=== PATIENT | female | born 1980 | race Caucasian/White ===

== ENCOUNTER 2018-12-21 12:30 | Emergency (ER) | payer MEDICAID, SELFPAY ==
[2018-12-21] VITALS (37 sets, daily range): BP systolic 99–162; BP diastolic 50–112; PULSE 62–114; RESP 12–40; TEMP 37; O2SAT 95–100
[2018-12-21] MEDS: Ondansetron O.D.T. 4 MG TABEF (12:40)
[2018-12-21] MEDS: Normal Saline 1,000 ML 1000 ML IV (13:00)
[2018-12-21] MEDS: LORazepam 2 MG/ML VIAL (13:10)
[2018-12-21 13:28] LABS: Abs Immature Grans 0.01 k/cumm (0.0-0.09); Absolute Basophil Count 0.02 k/cumm (0.0-0.2); Absolute Eosinophil Count 0.37 k/cumm (0.0-0.7); Absolute Lymphocyte Count 3.27 k/cumm (1.2-3.4); Absolute Monocyte Count 0.88 k/cumm (0.11-0.7); Absolute Neutrophil Count 2.34 k/cumm (1.2-6.7); Basophils % 0.3; Eosinophils % 5.4; HCT 41.1 % (36.0-46.0); HGB 13.8 g/dL (12.0-15.5); Immature Grans % 0.1; Lymphocytes % 47.5; Mean Corp. HGB Concentration 33.6 g/dL (32.0-36.0); Mean Corpuscular Hemoglobin 30.5 pg (27.0-33.0); Mean Corpuscular Volume 90.7 fL (80-95); Mean Platelet Volume 10.8 fL (8.0-11.0); Monocytes % 12.8; Neutrophils % 33.9; Platelet Count 210 x1000/uL (130-400); RBC 4.53 m/cumm (4.00-5.20); RBC Distribution Width 13.1 % (11.7-14.6); White Blood Cell Count 6.89 k/cumm (4.4-10.8)
--- NOTE | 2018-12-21 13:40 | NUR.NOTE ---
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
[2018-12-21 13:42] LABS: Bilirubin Negative (Negative); Blood Negative (Negative); Clarity Clear; Glucose Negative (Negative); Ketones Negative (Negative); Leukocyte Esterase Negative (Negative); Nitrite Negative (Negative); Specific Gravity 1.015 (1.005-1.025); Urobilinogen 0.2 EU/dL (Up TO 0.2); pH 7.5 (5-8)
[2018-12-21 13:43] LABS: ALT 18 U/L (12-78); AST 21 U/L (15-37); Albumin 3.5 g/dL (3.4-5.0); Alkaline Phosphatase 82 U/L (46-116); Anion Gap 12.6 mmol/L (3-11); BUN 9 mg/dL (7-18); Bilirubin, Total 0.3 mg/dL (0.2-1.0); CO2 24.4 mmol/L (21.0-32.0); Calcium 10.3 mg/dL (8.5-10.1); Chloride 100 mmol/L (98-107); Glucose 78 mg/dL (70-100); Potassium 3.5 mmol/L (3.5-5.1); Sodium 137 mmol/L (136-145); Total Protein 8.5 g/dL (6.4-8.2)
[2018-12-21 13:46] LABS: Troponin I < 0.02 ng/mL (0.00-0.06)
--- NOTE | 2018-12-21 13:48 | ED.GENADUL_ITS ---
Discharge Plan Disposition Patient Disposition: HOME Condition: Improving Discharge Details Chief Complaint: OD/Poison Clinical Impression: Heroin overdose, Skin lesion of face Primary Care Provider: Sebastian Wills ED Provider: Susie Thomas Home Meds and New Rx's Prescriptions: New sulfamethoxazole-trimethoprim [Bactrim DS] 800-160 mg tablet 1 tab PO BID 7 Days Qty: 14 RF: 0 Continued Glecaprevir/Pibrentasvir [Mavyret 100-40 mg Tablet] 1 EACH tablet 1 ea PO DAILY RF: 0 Discharge Instructions Instructions: Narcotic Abuse (ED), Furunculosis and Carbunculosis (ED) Additional Instructions: Take the antibiotics until finished. Follow-up with your primary care doctor in 1 week for reevaluation. Return immediately to the emergency department any worsening or new concerning symptoms. Discharge Data Discharge Physician: Susie Thomas Medical Decision Making 38-year-old female with history of IV drug abuse and hepatitis C who presents status post a heroin overdose now awake and alert after 2 doses of intranasal Narcan. Blood pressure hypertensive. Heart rate tachycardic. Patient is awake and alert and oriented but restless and moving all around stretcher. Shortly after my evaluation she became more drowsy and was given a dose of 1 mg Narcan IV. She became awake alert and restless, unable to remain still for EKG and was given a dose of 0.5 mg Ativan. Screening labs, EKG, chest x-ray, urinalysis, UDS and urine ordered on arrival. EKG notes a rate of 69, sinus, no acute ST findings. 1600 --patient was observed for 4 hours and improved. She was able to take p.o., ambulate around the ED and felt much better. Labs reviewed and unremarkable. UDS positive for cocaine and opiates. Patient requested an antibiotic for her skin lesions on her face. They appear consistent with a scabs/crusted lesions that she has been picking. No abscess but there is very minimal surrounding erythema. Will give a prescription for Bactrim. She is instructed to follow-up with the primary care doctor for reevaluation and to possibly restart her Suboxone and to return here immediately with any worsening symptoms. Medical Records Medical records reviewed: Yes I reviewed the patient's medical records. Imaging Data Radiologic Study: Radiologist's impression: CHEST X-RAY, PORTABLE AP VIEW: No priors. The heart is normal in size. The lungs are clear. The mediastinal structures and pleura appear intact. IMPRESSION: Normal chest. Lab Data Lab results reviewed: Yes I reviewed the patient's lab results. Laboratory Tests Range/Units 12/21/18 12/21/18 12/21/18 11:00 11:00 13:33 WBC (4.4-10.8) k/cumm 6.89 RBC (4.00-5.20) m/cumm 4.53 Hgb (12.0-15.5) g/dL 13.8 Hct (36.0-46.0) % 41.1 MCV (80-95) fL 90.7 MCH (27.0-33.0) pg 30.5 MCHC (32.0-36.0) g/dL 33.6 RDW (11.7-14.6) % 13.1 Plt Count (130-400) x1000/uL 210 MPV (8.0-11.0) fL 10.8 Immature Gran % 0.1 Neutrophils % 33.9 Lymphocytes % 47.5 Monocytes % 12.8 Eosinophils % 5.4 Basophils % 0.3 Absolute Neutrophils (1.2-6.7) k/cumm 2.34 Absolute Lymphocytes (1.2-3.4) k/cumm 3.27 Absolute Monocytes (0.11-0.7) k/cumm 0.88 H Absolute Eosinophils (0.0-0.7) k/cumm 0.37 Absolute Basophils (0.0-0.2) k/cumm 0.02 Sodium (136-145) mmol/L 137 Potassium (3.5-5.1) mmol/L 3.5 Chloride (98-107) mmol/L 100 Carbon Dioxide (21.0-32.0) mmol/L 24.4 Anion Gap (3-11) mmol/L 12.6 H BUN (7-18) mg/dL 9 Creatinine (0.55-1.02) mg/dL 0.90 Estimated GFR/1.73 m2 (mL/min/1.73m2) >= 60.00 Glucose (70-100) mg/dL 78 Calcium (8.5-10.1) mg/dL 10.3 H Magnesium (1.8-2.4) mg/dL 2.0 Total Bilirubin (0.2-1.0) mg/dL 0.3 AST (15-37) U/L 21 ALT (12-78) U/L 18 Alkaline Phosphatase (46-116) U/L 82 Troponin I (0.00-0.06) ng/mL < 0.02 Total Protein (6.4-8.2) g/dL 8.5 H Albumin (3.4-5.0) g/dL 3.5 Urine Color (Yellow) Yellow Urine Clarity Clear Urine pH (5-8) 7.5 Ur Specific [place] (1.005-1.025) 1.015 Urine Protein (Negative) mg/dL Negative Urine Ketones (Negative) mg/dL Negative Urine Blood (Negative) Negative Urine Nitrite (Negative) Negative Urine Bilirubin (Negative) Negative Urine Urobilinogen (Up TO 0.2) EU/dL 0.2 Ur Leukocyte Esterase (Negative) Negative Urine Glucose (Negative) mg/dL Negative Urine Opiates Screen (Negative) Urine Methadone Screen (Negative) Ur Barbiturates Screen (Negative) Ur Tricyclics Screen (Negative) Ur Amphetamines Screen (Negative) U Benzodiazepines Scrn (Negative) Urine Cocaine Screen (Negative) Ur THC Screen (Negative) Range/Units 12/21/18 13:33 WBC (4.4-10.8) k/cumm RBC (4.00-5.20) m/cumm Hgb (12.0-15.5) g/dL Hct (36.0-46.0) % MCV (80-95) fL MCH (27.0-33.0) pg MCHC (32.0-36.0) g/dL RDW (11.7-14.6) % Plt Count (130-400) x1000/uL MPV (8.0-11.0) fL Immature Gran % Neutrophils % Lymphocytes % Monocytes % Eosinophils % Basophils % Absolute Neutrophils (1.2-6.7) k/cumm Absolute Lymphocytes (1.2-3.4) k/cumm Absolute Monocytes (0.11-0.7) k/cumm Absolute Eosinophils (0.0-0.7) k/cumm Absolute Basophils (0.0-0.2) k/cumm Sodium (136-145) mmol/L Potassium (3.5-5.1) mmol/L Chloride (98-107) mmol/L Carbon Dioxide (21.0-32.0) mmol/L Anion Gap (3-11) mmol/L BUN (7-18) mg/dL Creatinine (0.55-1.02) mg/dL Estimated GFR/1.73 m2 (mL/min/1.73m2) Glucose (70-100) mg/dL Calcium (8.5-10.1) mg/dL Magnesium (1.8-2.4) mg/dL Total Bilirubin (0.2-1.0) mg/dL AST (15-37) U/L ALT (12-78) U/L Alkaline Phosphatase (46-116) U/L Troponin I (0.00-0.06) ng/mL Total Protein (6.4-8.2) g/dL Albumin (3.4-5.0) g/dL Urine Color (Yellow) Urine Clarity Urine pH (5-8) Ur Specific [place] (1.005-1.025) Urine Protein (Negative) mg/dL Urine Ketones (Negative) mg/dL Urine Blood (Negative) Urine Nitrite (Negative) Urine Bilirubin (Negative) Urine Urobilinogen (Up TO 0.2) EU/dL Ur Leukocyte Esterase (Negative) Urine Glucose (Negative) mg/dL Urine Opiates Screen (Negative) Positive Urine Methadone Screen (Negative) Negative Ur Barbiturates Screen (Negative) Negative Ur Tricyclics Screen (Negative) Negative Ur Amphetamines Screen (Negative) Negative U Benzodiazepines Scrn (Negative) Negative Urine Cocaine Screen (Negative) Positive Ur THC Screen (Negative) Negative test negative ECG Data Attestation: I personally reviewed and interpreted this ECG (s) as follows: Interpretation: Rate of 69, sinus, no acute ST elevation or depression. QTc 392. QRS 88. HPI General Mode of arrival: ambulatory . Date/Time Provider Initiated Documentation: 12/21/18 12:36 . Limitations to Documentation: no limitations . Information obtained by: patient . HPI Narrative: Patient is a 38-year-old female with a history of hepatitis C and IV drug use who presents status post a heroin overdose. [facility] of her facial lesions which she states is a staph infection when she became unresponsive. Patient states she snorted heroin and smoked crack cocaine right prior to that. She was noted to be breathing by staff but was unresponsive and given 2 doses of intranasal Narcan and she became awake and alert. Patient states she has felt fatigue for the past few days due to not sleeping with her drug use. She states she had been clean from heroin, but recently started snorting and injecting heroin again recently. She states she had been on Suboxone but not for the past few days. She denies any recent fever, chest pain or shortness of breath. Related Data Home Medications Medication Instructions Recorded Confirmed Glecaprevir/Pibrentasvir [Mavyret 1 ea PO DAILY 01/26/18 100-40 mg Tablet] sulfamethoxazole-trimethoprim 1 tab PO BID 7 Days #14 tab 12/21/18 [Bactrim DS] Previous Rx's Medication Instructions Recorded sulfamethoxazole-trimethoprim 1 tab PO BID 7 Days #14 tab 12/21/18 [Bactrim DS] Allergies Allergy/AdvReac Type Severity Reaction Status Date / Time No Known Allergies Allergy Unverified 12/21/18 12:52 Review of Systems Review of Systems All systems reviewed & are unremarkable except as noted in HPI and below Constitutional Reports as per HPI, Denies chills, Reports fatigue and Denies fever(s) Eyes Denies blurry vision ENT Denies dizziness, Denies sore throat and Denies throat swelling Cardiovascular Denies chest pain and Denies dyspnea Respiratory Reports cough and Denies dyspnea Gastrointestinal Denies abdominal pain, Denies diarrhea and Denies vomiting Genitourinary Denies hematuria and Denies dysuria Musculoskeletal Denies back pain and Denies numbness Integumentary/Breasts Denies lesions and Denies rash Neurologic Denies dizziness, Denies focal weakness and Denies numbness Endocrine Reports fatigue Allergic/Immunologic Denies throat swelling [facility] Medical History IV drug abuse (Acute) Hepatitis C Surgical History No significant past surgical history (Acute) Family History Mother Hyperlipidemia Father Hyperlipidemia Grandfather Myocardial infarction Grandmother Breast cancer Other Diabetes Social History Smoking/Tobacco Use Status: Current every day Alcohol Intake: current Alcohol Intake frequency: a few times a month Substance use type: crack/cocaine and heroin Do you feel safe in your relationship?: Yes Exam Const General: other (restless, moving around stretcher, dry heaving at times) Orientation: alert, awake and oriented x3 HENMT Head: normal to inspection Ears: hearing grossly normal bilaterally, external ears normal and TM's normal bilaterally General nose exam: external nose normal Face and sinus: normal facial exam Mouth: oral mucosae normal Teeth and gingiva: dentition normal Throat: posterior oropharynx normal Eyes General: appearance normal, both eyes and all related structures Eyelids: eyelids normal Pupils: PERRL EOM: EOM intact bilaterally Neck Neck: normal visual inspection Lymphatic: no lymphadenopathy noted Chest Chest: normal inspection of the chest Resp Effort & Inspection: normal respiratory effort and able to speak in complete sentences Auscultation: clear to auscultation bilaterally Cardio Rate: regular rate Rhythm: regular rhythm GI Inspection: normal to inspection Palpation: soft, not firm, no guarding, no hepatosplenomegaly, no masses and nontender Auscultation: normal bowel sounds Skin Lesions: lesion noted (all over face, crusted papules, erosions, no active bleeding, no abscess) Neuro General: alert and awake Cognition: normal cognition Speech: speech normal Gait: normal gait Motor: muscle tone normal throughout Sensory Exam: no sensory deficits noted Extrem General: normal to inspection, full ROM, normal capillary refill and no edema Psych Appearance: grossly normal Mental Status: mental status grossly normal Speech and Movement: speech and movement normal Affect: normal affect Thought Process: normal
[2018-12-21 14:11] LABS: *AMPHETAMINES SCREEN URINE Negative (Negative); *BARBITURATES SCREEN URINE Negative (Negative); *BENZODIAZEPINES SCREEN URINE Negative (Negative); Cannabinoids THC Negative (Negative); Cocaine Screen,Urine POSITIVE (Negative); METHADONE URINE SCREEN Negative (Negative); OPIATES URINE SCREEN POSITIVE (Negative)
[2018-12-21 14:15] LABS: Tricyclic Antidepressants Negative (Negative)
--- NOTE | 2018-12-21 14:17 | DI.RAD_ITS ---
SYMPTOMS/DIAGNOSIS: COUGH, UNRESPONSIVE EPISODE, ? ACUTE DISEASE CHEST X-RAY, PORTABLE AP VIEW: No priors. The heart is normal in size. The lungs are clear. The mediastinal structures and pleura appear intact. IMPRESSION: Normal chest.
--- NOTE | 2018-12-21 16:05 | NUR.NOTE ---
Nursing Note: able to walk to [place] /drinking juice/talking with Carly bell coach.
--- NOTE | 2018-12-22 09:36 | PDOC.ERCMPRO ---
Care Management Progress Note 12/22-Dr. Thomas requested assistance with a PCP (Dr. Wills) f/u as soon as possible for heroin overdose. Lesion on face, Dr. Thomas prescribed Bactrim. Please see provider note. This CM called Dr. Wills's office and spoke with Ani. Ani states they will reach out to [facility] and schedule an appt. Dr. Wills's office already has a copy of Dr. Thomas's note.
--- NOTE | 2018-12-22 09:39 | CMPROGNOTE_ITS ---
Care Management Progress Note 12/22-Dr. Thomas requested assistance with a PCP (Dr. Wills) f/u as soon as possible for heroin overdose. Lesion on face, Dr. Thomas prescribed Bactrim. Please see provider note. This CM called Dr. Wills's office and spoke with Ani. Ani states they will reach out to [facility] and schedule an appt. Dr. Wills's office already has a copy of Dr. Thomas's note.
== END 2018-12-21 17:00 | disposition home or self-care (01) ==
PROVIDERS: Emergency Provider Physician Assistant; PCP Internal Medicine
DX: T40.1X1A Poisoning by heroin, accidental (unintentional), initial encounter (principal); R00.0 Tachycardia, unspecified; L98.9 Disorder of the skin and subcutaneous tissue, unspecified; F19.10 Other psychoactive substance abuse, uncomplicated
CPT/HCPCS: 36415; 51701; 80053; 80307; 81025; 93005; 96361; 96374; 99285; 71045; 81003; 83735; 84484; 85025; 93010; J2060; J2310

== ENCOUNTER 2019-03-04 15:11 | Emergency (ER) | payer MEDICAID, SELFPAY ==
--- NOTE | 2019-03-04 15:28 | NUR.NOTE ---
pt stats that she had like a zit or or maybe an ingrown hair on like i dont know something and then i think it got infected its oozing pt has noticeable swelling on the left side of her face that. pt has recent history of staff
[2019-03-04 15:31] VITALS: BP 122/77; PULSE 88; RESP 17; TEMP 36.6; O2SAT 98
[2019-03-04 15:35] VITALS: RESP 17
--- NOTE | 2019-03-04 15:48 | W.ED.GENAD ---
Discharge Plan Disposition Patient Disposition: HOME Condition: Good Discharge Details Chief Complaint: GenMedical Clinical Impression: Abscess Primary Care Provider: Sebastian Wills ED Provider: Josh Ware Home Meds and New Rx's Prescriptions: New clindamycin HCl 150 mg capsule 450 mg PO TID 7 Days Qty: 63 RF: 0 No Action buprenorphine-naloxone [Suboxone] 4-1 mg Film 2 film SUBLINGUAL DAILY RF: 0 Discharge Instructions Instructions: Abscess (ED) Additional Instructions: Please take the antibiotic as directed. Please take Tylenol and Motrin as needed for control of your pain. If you notice any worsening of your symptoms, or any new symptoms such as vomiting, diarrhea, fever, chills, shortness of breath, chest pain, numbness, weakness, or fainting , please return immediately to the emergency department for reevaluation. Please follow up with your primary care provider as soon as possible for reassessment and reevaluation. As always, it was a pleasure participating in your medical care today. Referrals: Sebastian Wills [Primary Care Provider] - Medical Decision Making This is a pleasant 38-year-old female who presents today for evaluation of swelling and abscess on her left nose. Symptoms have been present for 4 days. There is an area of scab on the left side of the nose, mild to moderate fluctuance, with confirmation of fluid collection on bedside ultrasound. With concern for abscess and 18-gauge needle was used to make a small incision in the left nose. A notable amount of purulent material was exuded. The patient had significant improvement of her symptoms after this. We will give her first dose of clindamycin here, and a prescription for home use. We have sent wound cultures. I have extensively reviewed the treatment plan and discharge instructions with the patient and their family. I have addressed all patient concerns at this time. The patient and family was made aware of what symptoms to monitor for that would warrant a return to the emergency department. Discussed the plan with the patient and family, they demonstrate verbal understanding and agreement with our assessment and plan at this time. HPI General Date/Time Provider Initiated Documentation: 03/04/19 15:12. HPI Narrative: This is a 38-year-old female with a past medical history of IV drug use, previous abscesses who presents today for evaluation of swelling pain tenderness drainage on her left nose. Patient states that is been present for the last 4 days. Gradually been worsening. She did admit to some earlier drainage that she got when trying to self squeeze the area. She denies any fever, chills, headache, or neck pain. She denies any vomiting, diarrhea or chills. She denies any vision changes. No other complaints at this time. Related Data Home Medications Medication Instructions Recorded Confirmed buprenorphine-naloxone [Suboxone] 2 film SUBLINGUAL DAILY 03/04/19 03/04/19 clindamycin HCl 450 mg PO TID 7 Days #63 cap 03/04/19 Previous Rx's Medication Instructions Recorded clindamycin HCl 450 mg PO TID 7 Days #63 cap 03/04/19 Allergies Allergy/AdvReac Type Severity Reaction Status Date / Time No Known Allergies Allergy Unverified 03/04/19 15:33 General Stated Complaint: GenMedical TRACY: 4 Review of Systems Review of Systems All systems reviewed & are unremarkable except as noted in HPI and below PFSH Medical History IV drug abuse (Acute) Hepatitis C Social History Smoking/Tobacco Use Status: Current every day Tobacco Type: cigarettes Alcohol Intake: current Alcohol Intake frequency: a few times a month Alcohol type: beer Drug use: Occasionally Substance use type: crack/cocaine and heroin Do you feel safe at home: Yes Do you feel safe in your relationship?: Yes Exam Narrative Exam Narrative: 1.Const: Well-nourished, Well-developed, appearing stated age 2.Eyes: PERRL, no conjunctival injection, and symmetrical lids. 3.ENT: Atraumatic external nose and ears. Moist MM. Neck: Symmetric, trachea midline, No thyromegaly. The patient's left nose demonstrates a small abscess is confirmed by bedside ultrasound. No active drainage at this time. Minimal erythema. No progression to the triangle of , or the periorbital region. Patient demonstrates good movement of cervical neck. There is no nuchal rigidity, no nuchal tenderness. Patient is able to flex the neck without any difficulty or significant pain. Negative Kernig's and Brudzinski sign. No frontal or maxillary sinus tenderness 4.CVS: +S1/S2, No murmurs or gallops. Peripheral pulses 2+ and equal in all extremities. Brisk capillary refill in all extremities. 5.RESP: Unlabored respiratory effort. Clear to auscultation bilaterally. No wheezes rales or rhonchi 6.GI: Soft, Nontender/Nondistended, No hepatosplenomegaly. No guarding or rebound. 7.MSK: Normocephalic/Atraumatic, Extremities w/o deformity or ttp No cyanosis or clubbing, Normal movement of all extremities 8.Skin: Warm, Dry. No rashes or lesions. 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 Sensation grossly intact, no focal neurologic deficits. 10.Psych: (AAO) x3. Appropriate mood and affect Course Vital Signs Temperature 36.6 C 03/04/19 15:31 Pulse 88 03/04/19 15:31 Respiratory Rate 17 03/04/19 15:31 Blood Pressure 122/77 03/04/19 15:31 Pulse Oximetry 98 03/04/19 15:31 Temperature 36.6 C 03/04/19 15:31 Temperature Source Skin 03/04/19 15:31 Pulse 88 03/04/19 15:31 Respiratory Rate 17 03/04/19 15:35 Respiratory Effort 03/04/19 15:35 Respiratory Depth Normal 03/04/19 15:35 Respiratory Pattern Normal 03/04/19 15:35 Blood Pressure 122/77 03/04/19 15:31 Blood Pressure Position Sitting 03/04/19 15:31 Pulse Oximetry 98 03/04/19 15:31 Oxygen Delivery Method Room Air 03/04/19 15:31 Oxygen Flow Rate 0 03/04/19 15:31 Pain Level 2 03/04/19 15:31
[2019-03-04] MEDS: Clindamycin 150 MG CAP 450 MG PO (16:01)
== END 2019-03-04 16:05 | disposition home or self-care (01) ==
PROVIDERS: Emergency Provider Student in an Organized Health Care Education/Training Program; PCP Internal Medicine
DX: J34.0 Abscess, furuncle and carbuncle of nose (principal); R60.0 Localized edema; B95.62 Methicillin resistant Staphylococcus aureus infection as the cause of diseases classified elsewhere; F11.10 Opioid abuse, uncomplicated; F14.10 Cocaine abuse, uncomplicated; Z86.19 Personal history of other infectious and parasitic diseases
CPT/HCPCS: 10060; 87077; 87070; 87186; 87205

== ENCOUNTER 2020-03-22 02:59 | Emergency (ER) | payer MEDICAID, SELFPAY ==
[2020-03-22 03:17] VITALS: BP 138/99; PULSE 101; RESP 18; TEMP 36.7; O2SAT 95
--- NOTE | 2020-03-22 03:32 | ED.GENADUL_ITS ---
Discharge Plan Disposition Patient Disposition: HOME Condition: Good Discharge Details Chief Complaint: GenMedical Clinical Impression: Weight gain, Edema Primary Care Provider: Sebastian Wills ED Provider: Josh Ware Home Meds and New Rx's Prescriptions: No Action No Known Home Meds RF: 0 Discharge Instructions Instructions: High Fiber Diet (ED), Gastroesophageal Reflux Disease (ED) Additional Instructions: At this time there is no evidence of sepsis or other acute life-threatening abnormality including sepsis. I am concerned that your weight gain and the mild swelling in your lower extremities is likely from your increase in instant/preserved foods. Please avoid these, try to stick with a diet high in fiber. Recommending decreasing her salt intake is much as possible. Please use the knee-high stockings that we discussed. Please feel free to take a Tums before you go to sleep, do not eat anything 4 to 6 hours prior to bedtime, and try to sleep with 1 or 2 pillows behind your to prop your head and chest up a little. If you notice any worsening of your symptoms, or any new symptoms such as vomiting, diarrhea, fever, chills, shortness of breath, chest pain, numbness, weakness, or fainting , please return immediately to the emergency department for reevaluation. Please follow up with your primary care provider as soon as possible for reassessment and reevaluation. As always, it was a pleasure participating in your medical care today. Referrals: Sebastian Wills [Primary Care Provider] - Medical Decision Making 39-year-old female with a past medical history of hepatitis C, previous IV drug use, IUD, who presents today for medical evaluation patient patient states multiple concerns, the chief of which that she is concerned about her recent weight gain, mild swelling in her lower extremities, and states that her mother said that she needed to be ruled out for sepsis. Patient describes that for the last few months she has had notable weight gain, particularly around her belly. She feels that it is more bloated than normal. She is also noticed very mild amount of swelling in her lower extremities. She states that she was seen by her family a few days ago they were concerned that she might be septic that she should go to the doctor some time to get that checked out. She also complains of an acid-like sensation and small amounts of vomit noted in and around her nose in the morning when she wakes up. She also states this is been going on for quite some time. She does eat citrus products, but denies any significant spicy products otherwise. Patient has no other complaints at this time. She denies any IV or illicit drug use for greater than 4 months. She denies any fever or chills. She denies any night sweats, diarrhea, hematochezia, melena or acholic stool, she denies any hematemesis, abdominal pain, chest pain, arm neck shoulder leg headache or back pain. She denies any other complaints at this time. No other modifying factors. She denies any history of malignancy or family history of malignancy in first-degree relatives. Exam is notably unremarkable, no murmur, no fever or chills, vital signs stable, no clinical evidence of sepsis whatsoever. No evident source of infection. No urinary complaints, no vaginal discharge. Abdominal exam demonstrates no tenderness or bloating however she does have a notable amount of adipose on the anterior abdominal wall, no mass or tumors present that I can appreciate. Patient's lower extremities demonstrate very minimal trace pitting edema. No evidence of significant edema. Patient does note significant recent increase in preprepared food/instant foods. I suspect that the patient's weight gain and new adipose collections are secondary to this. Additionally with a significant salt increase I feel that this is the likely reason for the small amount of minimal nonpitting edema in lower extremities. She has no goiter or signs of thyroid abnormality clinically. The remainder of her exam is benign, no clinical evidence of sepsis, or infection. At this time will recommend change in diet for her reflux, knee-high stockings to help with swelling, change in diet for weight loss, recommendation for low-salt diet, in conjunction with high-fiber diet. Discussed red flags for which to return. At this time patient shows no evidence of acute life-threatening abnormality and will be discharged home with recommendations for close follow-up with PCP. I have extensively revi ewed the treatment plan and discharge instructions with the patient. I have addressed all patient concerns at this time. The patient was made aware of what symptoms to monitor for that would warrant a return to the emergency department. Discussed the plan with the patient, they demonstrate verbal understanding and agreement with our assessment and plan at this time. HPI General Date/Time Provider Initiated Documentation: 03/22/20 03:12 . HPI Narrative: 39-year-old female with a past medical history of hepatitis C, previous IV drug use, IUD, who presents today for medical evaluation patient patient states multiple concerns, the chief of which that she is concerned about her recent weight gain, mild swelling in her lower extremities, and states that her mother said that she needed to be ruled out for sepsis. Patient describes that for the last few months she has had notable weight gain, particularly around her belly. She feels that it is more bloated than normal. She is also noticed very mild amount of swelling in her lower extremities. She states that she was seen by her family a few days ago they were concerned that she might be septic that she should go to the doctor some time to get that checked out. She also complains of an acid-like sensation and small amounts of vomit noted in and around her nose in the morning when she wakes up. She also states this is been going on for quite some time. She does eat citrus products, but denies any significant spicy products otherwise. Patient has no other complaints at this time. She denies any IV or illicit drug use for greater than 4 months. She denies any fever or chills. She denies any night sweats, diarrhea, hematochezia, melena or acholic stool, she denies any hematemesis, abdominal pain, chest pain, arm neck shoulder leg headache or back pain. She denies any other complaints at this time. No other modifying factors. She denies any history of malignancy or family history of malignancy in first-degree relatives. Related Data Home Medications Medication Instructions Recorded Confirmed Unknown [No Known Home Meds] 03/22/20 03/22/20 Allergies Allergy/AdvReac Type Severity Reaction Status Date / Time No Known Allergies Allergy Unverified 03/22/20 03:16 General Stated Complaint: GenMedical TRACY: 3 Review of Systems All systems reviewed & are unremarkable except as noted in HPI and below PFSH Medical History Hepatitis C Chronic IV drug abuse (Acute) Surgical History No significant past surgical history (Acute) Family History Mother Hyperlipidemia Father Hyperlipidemia Grandfather , Heart disease Myocardial infarction >50y.o Grandmother Breast cancer Other Diabetes Social History Smoking/Tobacco Use Status: Current every day Tobacco Type: cigarettes Alcohol Intake: current Alcohol Intake frequency: a few times a month Alcohol type: beer Drug use: Occasionally Substance use type: crack/cocaine and heroin Do you feel safe at home: Yes Do you feel safe in your relationship?: Yes Exam Narrative Exam Narrative: 1.Const: Well-nourished, Well-developed, appearing stated age 2.Eyes: PERRL, no conjunctival injection, and symmetrical lids. 3.ENT: Atraumatic external nose and ears. Moist MM. Neck: Symmetric, trachea midline, No thyromegaly. Patient demonstrates good movement of cervical neck. There is no nuchal rigidity, no nuchal tenderness. Patient is able to flex the neck without any difficulty or significant pain. Negative Kernig's and Brudzinski sign. No goiter 4.CVS: +S1/S2, No murmurs or gallops. Peripheral pulses 2+ and equal in all extremities. Brisk capillary refill in all extremities. 5.RESP: Unlabored respiratory effort. Clear to auscultation bilaterally. No wheezes rales or rhonchi 6.GI: Soft, Nontender/Nondistended, No hepatosplenomegaly. No guarding or rebound. Mild to moderate amount of adipose noted, no distention whatsoever, no evidence of significant bloating. No pain at McBurney's point, negative Dietz sign. Bedside ultrasound shows no evidence of intrauterine . 7.MSK: Normocephalic/Atraumatic, Extremities w/o deformity or ttp No cyanosis or clubbing, Normal movement of all extremities. No calf tenderness, trace/absolute minimal nonpitting edema. Neurovascular exam normal with +2 dorsalis pedis and posterior tibial pulses bilaterally. 8.Skin: Warm, Dry. No rashes or lesions. 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 Sensation grossly intact, no focal neurologic deficits. 10.Psych: (AAO) x3. Appropriate mood and affect Course Vital Signs Vital signs: Vital Signs Temperature 36.7 C 03/22/20 03:17 Pulse 101 H 03/22/20 03:17 Respiratory Rate 18 03/22/20 03:17 Blood Pressure 138/99 H 06/13/20 03:17 Pulse Oximetry 95 03/22/20 03:17 Temperature 36.7 C 03/22/20 03:17 Temperature Source Oral 03/22/20 03:17 Pulse 101 H 03/22/20 03:17 Respiratory Rate 18 03/22/20 03:17 Respiratory Effort 03/22/20 03:17 Blood Pressure 138/99 H 03/22/20 03:17 Blood Pressure Position Sitting 03/22/20 03:17 Pulse Oximetry 95 03/22/20 03:17 Oxygen Delivery Method Room Air 03/22/20 03:17 Oxygen Flow Rate 0 03/22/20 03:17 Pain Level 0 03/22/20 03:17
[2020-03-22 03:39] VITALS: BP 138/99; PULSE 92; RESP 18; TEMP 36.7; O2SAT 95
== END 2020-03-22 03:45 | disposition home or self-care (01) ==
LOC: ER 03:46
PROVIDERS: Emergency Provider Student in an Organized Health Care Education/Training Program; PCP Internal Medicine
DX: R63.5 Abnormal weight gain (principal); R60.0 Localized edema; K21.9 Gastro-esophageal reflux disease without esophagitis
CPT/HCPCS: 99282; 99283

== ENCOUNTER 2020-12-19 17:22 | Outpatient (REF) | payer MEDICAID, SELFPAY ==
--- NOTE | 2020-12-19 15:10 | PAPFT_PTH ---
PATIENT: Carlene Augustine LOC: [facility] U#:[id number] AGE/SX: 40/F ROOM: RE12/19/[address]: Elizabeth Berman : 1980 BED: DIS: 12/19/2020 SPEC #: [id number] RECD: 12/19/20 17:48 STATUS: BRANDOEugene RETrevor #: [id number] WAN: 12/19/20 15:[address]: Elizabeth Berman DEPT: [facility] Cytology RECD BY: Katlyn Bowden ENTERED: 12/19/20 17:48 SP TYPE: PAPFT OTHR DR: Sebastian Wills Tissues: 1 - CX/ENDOCX FOR PAP SMEARS Procedures: PAP THIN PREP/UVM Screening HPV DNA PROBE Comments: [id number]
[2020-12-22 15:47] LABS: Chlamydia Result Negative (Negative); GC Result Negative (Negative)
== END 2020-12-19 17:23 | disposition home or self-care (01) ==
LOC: LBN 17:22
PROVIDERS: PCP Internal Medicine; Visit Provider Obstetrics & Gynecology Gynecology
DX: Z20.2 Contact with and (suspected) exposure to infections with a predominantly sexual mode of transmission (principal); Z11.3 Encounter for screening for infections with a predominantly sexual mode of transmission; Z12.4 Encounter for screening for malignant neoplasm of cervix; Z11.51 Encounter for screening for human papillomavirus (HPV)
CPT/HCPCS: 87491; 87591; 88142; 87624

== ENCOUNTER 2021-07-07 15:39 | Outpatient (REF) | payer MEDICAID, SELFPAY ==
[2021-07-09 15:25] LABS: Chlamydia Result Negative (Negative); GC Result Negative (Negative)
== END 2021-07-07 15:40 | disposition home or self-care (01) ==
LOC: LBN 15:39
PROVIDERS: PCP Internal Medicine; Visit Provider Nurse Practitioner Family
DX: N89.8 Other specified noninflammatory disorders of vagina (principal); R30.0 Dysuria; Z11.3 Encounter for screening for infections with a predominantly sexual mode of transmission
CPT/HCPCS: 87491; 87591; 87480; 87510; 87660

== ENCOUNTER 2022-11-09 15:46 | Outpatient (REF) | payer MEDICAID, SELFPAY ==
--- NOTE | 2022-11-09 14:45 | SKI_PTH ---
PATIENT: Carlene Augustine LOC: [facility] U#:[id number] AGE/SX: 42/F ROOM: RE11/09/[address]: Mira Wood : 1980 BED: DIS: 11/09/2022 SPEC #: [id number] RECD: 11/09/22 18:24 STATUS: CORA REQ #: [id number] WAN: 11/09/22 14:[address] RECD BY: Katlyn Bowden ENTERED: 11/09/22 18:26 SP TYPE: JOSÉ HOLLOWAY DR: Sebastian Wills Tissues: 1 - SKIN BIOPSY(SHAVE/PUNCH) Procedures: SKIN LEVEL 4 Comments: [id number]
== END 2022-11-09 15:47 | disposition home or self-care (01) ==
LOC: LBN 15:46
PROVIDERS: PCP Internal Medicine; Visit Provider Nurse Practitioner Family
DX: C43.4 Malignant melanoma of scalp and neck (principal)
CPT/HCPCS: 88305

== ENCOUNTER 2022-12-22 01:31 | Outpatient (CLI) | payer MEDICAID, SELFPAY ==
--- NOTE | 2022-12-22 06:45 | DI.US_ITS ---
Exam(s) US BREAST RT COMPLETE MAMMO DIAGNOSTIC BI EXAM: MAMMO DIAGNOSTIC BI and U/S breast RT complete CLINICAL HISTORY: ABNL FINDINGS ON PET SCAN,R94.8. TECHNIQUE: Craniocaudal and mediolateral oblique Full Field Digital Mammography views with Computer Aided Diagnosis followed by Tomosynthesis and right breast ultrasound. COMPARISON: This is a baseline examination. FINDINGS: Mammography/Tomosynthesis: Masses/Architectural Distortion: There is a 0.7 cm well-circumscribed nodule in the lower inner quadr ant of the left breast. Microcalcifictions: No suspicious pleomorphic-type are seen. Skin Thickening/Nipple Retraction: None. Complete right breast US: Echotexture: Normal appearance of the glandular tissue. There are 2 areas in the right breast, one a t the 11 o'clock position 1 cm from the nipple and one at the 9 o'clock position 3 cm from the nipple . On real-time imaging, these appear to represent normal fibroglandular tissue. Shadowing: No suspicious foci. Cyst: There is a 0.4 x 0.2 cm cyst at the 7 o'clock position of the right breast 1 cm from the nipple . There is a 0.4 x 0.4 cm cyst at the 8 o'clock position 2 cm from the nipple. Solid lesions: There is an ovoid radially oriented 0.6 x 0.4 x 0.8 cm hypoechoic nodule at the 4 o'cl ock position of the right breast 4 cm from the nipple. This corresponds to the mammographic abnormal ity. It has a benign appearance suggesting a fibroadenoma. Ductal dilation: None. IMPRESSION: 1. No evidence of malignancy is noted. 2. Given the density of the breast in the findings on the PET scan, a breast MRI is recommended for f urther evaluation. 3. Findings were discussed with the patient on the date of the examination and Dr. Oleg Celeste at 11: 15 a.m. on 12/22/2022. BI-RADS Category 0 - Assessment Incomplete: Need additional imaging evaluation Breast Density - Category C - Heterogeneously dense Breast density Category C or D implies that the patient has dense breast tissue. Dense breast tissue can make it harder to find cancer on a mammogram. Dense breast tissue is also associated with an incr eased risk of breast cancer. This information about the result of the mammogram report was provided to the patient to raise their awareness. Use this report when you speak with the patient about their risks for breast cancer, which includes their family history. At that time, you may recommend additional screening tests (Ultrasoun d or MRI) as these tests may add significant information. A negative radiographic report should not delay biopsy if a dominant or clinically suspicious mass is present. Up to ten percent of cancers are not identified on mammography. A negative report may reinforce clinical impression. Adenosis and dense breasts may obscure an underlying neoplasm. False positive reports average 6 to 10%. Patient will receive a letter notifying them of these results.
== END 2022-12-22 01:51 ==
LOC: DI 01:32
PROVIDERS: PCP Internal Medicine; Visit Provider Surgery
DX: R92.8 Other abnormal and inconclusive findings on diagnostic imaging of breast (principal); N63.24 Unspecified lump in the left breast, lower inner quadrant; N63.11 Unspecified lump in the right breast, upper outer quadrant; N60.11 Diffuse cystic mastopathy of right breast; N63.14 Unspecified lump in the right breast, lower inner quadrant
CPT/HCPCS: 76642; 77062; 77066; G0279

== ENCOUNTER 2022-12-31 06:23 | Day surgery (SDC) | payer MEDICAID, SELFPAY ==
--- NOTE | 2022-12-30 14:50 | W.ANESPRE ---
General Info Date of Service Date Performed: 12/31/22 Height: 5 ft 7.5 in Weight: 68.039 kg Body Mass Index (BMI): 23.1 Surgical Procedure: Operation Date: 12/31/22 07:40 Proposed Procedure Side Surgeon p Excision Neck Melanoma Sentinal Node Excision, Neck vs Axillary Left Oleg Celeste MD Meds Allergies and Home Medications Allergies Allergy/AdvReac Type Severity Reaction Status Date / Time No Known Allergies Allergy Verified 12/30/22 11:19 Home Medication Medication Instructions Recorded atomoxetine 40 mg capsule 40 mg PO DAILY 11/12/22 buprenorphine 8 mg-naloxone 2 mg 2 film buccal BID 11/12/22 sublingual film bupropion HCl 300 mg 24 hr tablet, 300 mg PO QAM 11/12/22 extended release clonidine HCl 0.1 mg tablet 0.1 mg PO QHS PRN 12/10/22 docusate sodium 100 mg capsule 100 mg PO DAILY PRN 12/10/22 Current Visit Medications: Current Medications Generic Name Dose Route Start Last Admin Trade Name Freq PRN Reason Stop Dose Admin Acetaminophen 1,000 mg 12/31/22 06:00 Acetaminophen 500 Mg Tab PO 12/31/22 23:59 PREOP JOELLE Gabapentin 600 mg 12/31/22 06:00 Gabapentin 300 Mg Cap PO 12/31/22 23:59 PREOP JOELLE Ringer's Solution 1,000 mls @ 80 mls/hr 12/31/22 06:00 IV 01/07/23 23:59 INFUSION JOELLE Cefazolin Sodium/Dextrose 2 gm in 50 mls @ 100 mls/hr 12/31/22 06:00 Ancef Duplex IVPB 12/31/22 23:59 PREOP JOELLE IV Miscellaneous Supplies 1 each 12/31/22 06:00 Iv Access IV 01/07/23 23:59 DIRECTED JOELLE Sodium Chloride 0 ml 12/31/22 06:00 Normal Saline Flush 10 Ml Syr IV 01/07/23 23:59 PRN PRN Sodium Chloride 0 ml 12/31/22 06:00 Normal Saline 10 Ml Vial IJ 01/07/23 23:59 DIRECTED PRN Sterile Water 0 ml 12/31/22 06:00 Water,Injection,Sterile 10 Ml Vial IJ 01/07/23 23:59 DIRECTED PRN PFSH Active Problems Active Problems: Problem Status Onset Code Opioid abuse F11.10 Tobacco use Z72.0 Encounter for IUD removal Z30.432 Counseling for control regarding intrauterine device (IUD) Z30.09 Screening for malignant neoplasm of cervix Z12.4 Routine screening for STI (sexually transmitted infection) Z11.3 Anxiety F41.9 Malignant melanoma C43.9 Chronic narcotic dependence F11.20 ADHD F90.9 Smoker F17.200 Abnormal positron emission tomography (PET) scan R94.8 Medical History Medical History Abscess of skin Depression Hepatitis C treated w/ negative viral load IV drug abuse Pt. states last used 08/2022. Plantar fasciitis, bilateral PTSD (post-traumatic stress disorder) Per pt. states no triggers at this time. Visual changes Surgical History Surgical History (Updated 12/31/22 @ 06:44 by Ailyn Salazar) H/O wisdom tooth extraction History of placement of ear tubes No significant past surgical history Tobacco Smoking/Tobacco Use Status: Current every day Tobacco Type: cigarettes Alcohol Alcohol Intake: current Alcohol intake frequency: a few times a month Alcohol type: beer Substance Use Substance use: Current Sobriety Substance use type: former substance user, crack/cocaine and heroin Vital Signs and Lab Results Lab Results Blood Type / Crossmatch: No Data to Display Complete Blood Count: No Data to Display Complete Metabolic Panel: No Data to Display Liver Function Panel: No Data to Display Coagulation Panel: No Data to Display Cardiac Panel: No Data to Display Arterial Blood Gas: No Data to Display Venous Blood Gas: No Data to Display Pancreas Panel: No Data to Display Thyroid Panel: No Data to Display Infectious Disease: Coronavirus (COVID-19)(PCR) Pending 12/31/22 06:35 Coronavirus 2019 Source Nasal/Nares 12/31/22 06:35 Blood Cultures: No Data to Display Toxicology Panel: No Data to Display Panel: No Data to Display Anesthesia Assessment and Plan Anesthesia History Personal History: No History of Anesthesia Complications Family History: No Family History of Anesthesia Complications Exercise Tolerance Exercise Tolerance: Metabolic Equivalents>4 Cardiac & Pulmonary Exam Cardiac Exam: Normal S1/S2 Heart Sounds Pulmonary Exam: Clear Bilateral Breath Sounds Implantable Cardiac Device Does patient have a Pacemaker or an ICD?: No Airway Exam Known Difficult Airway: No Mallampati Class: 3 Mouth Opening: Normal (> 3cm) Thyromental Distance: Greater than 3 cm Neck Range of Motion: Full ROM Neck Circumference: Normal Teeth Condition: Normal Dentition ASA Classification ASA Score: ASA 2 Emergency Case?: No NPO Status NPO Status: NPO Clears >2 hours, Solids >8 hours Status Status: Negative HCG Anesthesia Plan Resuscitation Status: Full Code Anesthesia Technique: General Anesthesia Airway Planned: LMA Pain Management: Surgeon and patient request nerve block Monitors Used: Standard Monitors Preoperative Comments:: 42 yo female for neck mass and sentinel node. Sig PMHx: smoker, opioid dependence/IVDU hx (Suboxone), anxiey/adhd/PTSD (bupropion, clonidine), hep c. Plan: GA/LMA, preop cocktail (ordered by [facility]), superficial cervical plexus block.
--- NOTE | 2022-12-30 21:25 | W.PM.DSUDISC ---
Date of service: 12/31/22 Time of Service: 16:07 Discharge Plan Disposition Patient Disposition: Home Condition: Good Discharge Details Reason For Visit: Excision with sentinal lymph node biopsy Attending Provider: Oleg Celeste Primary Care Provider: Sebastian Wills Home Meds and New Rx's Prescriptions: New lidocain-me.dlyrmsh-cqbg-ecgws 4-20-0.025-5 % adhesive patch,medicated See Rx Instructions .ROUTE .COMPLEX Qty: 10 0RF Rx Instructions: Please 1 patch in front of, or behind the incision. Leave in place for 12 hours. Remove, wash the area with soap and water and leave off for 12 hours, then reapply as needed Continued buprenorphine-naloxone 8-2 mg film 2 film buccal BID Rx Instructions: place 1 film on inside of (each) cheek atomoxetine 40 mg capsule 40 mg PO DAILY bupropion HCl 300 mg tablet extended release 24 hr 300 mg PO QAM clonidine HCl 0.1 mg tablet 0.1 mg PO QHS PRN docusate sodium 100 mg capsule 100 mg PO DAILY PRN Discharge Instructions Additional Instructions: Carlene, we were able to remove your melanoma like we talked about, and obtain a specimen of soft tissue to examine the lymph nodes. Follow the instructions attached here with regards to pain control, and management of your wound. We will arrange an appointment for you in the next week or so to get the stitches removed. If you have any questions in the meantime, please feel free to call. 1. Resume all of your regular medications. 2. Heating pads and ice packs are okay to use for pain. 3. Okay to use tylenol and ibuprofen over the counter as needed. I recommend alternating these to maximize medical coverage in between dosing. 4. I have provided a prescription for lidocaine patches, which can be used for pain in the area of the incision. Please do not place it directly over the incision. Follow the instructions provided with a prescription. 5. Over the counter menthol/capsacin creams like Icey-hot and Bengay can also be used to help control pain in the area of the incision. Again, don't place them direcelty on the stiches, rather cover the area on each side. This will temprarily increase some pain from the heating feeling, but then it will provide some releif. 6. Leave bandage in place for 24 hours, then remove. 7. Shower with warm soapy water. Pat dry. Use a bandaid if needed to protect your clothing. 8. No soaking the incision under water or in tub baths until I see you in the office. 9 .Call the office (or go directly to the emergency room after hours) if you notice any of the following: Develop chills (warm to touch), or if you have a thermometer and your temperature is above 101 Difficulty breathing or difficultly swallowing Persistent vomiting Any bleeding ? exceeding one tablespoon 10. Call your physician if the site where your intravenous was started becomes red, swollen, painful, and warm to touch. Referrals: Oleg Celeste MD [ [facility] STAFF PHYSICIAN] - (Our office will contact you on Tuesday to schedule an appointment) Activity:: Activity as Tolerated Remove Dressings/Wound Care:: 24 hours Shower/Bathe:: 24 hours Diet:: As Tolerated Discharge Orders Discharge Orders: Discharge Order (Routine); Ordered 12/30/22 Ordered By: Oleg Celeste DS: Diagnosis Discharge Diagnosis (1) Malignant melanoma: Status: Acute Asessment and Plan: Follow up for suture removal Check path
--- NOTE | 2022-12-30 21:27 | ROE_ITS ---
Date of service: 12/31/22 Time of Service: 16:20 Operative Note Operative Note DATE OF PROCEDURE: 12/31/22 PRE-OP DIAGNOSIS: Melanoma POST-OP DIAGNOSIS: same PROCEDURE: Excision of neck melanoma with lymph node biopsy SURGEON: Oleg Celeste LICENSING SPECIALIST: Carmen Childs ANESTHESIA TYPE: General LMA/ETT Refer to Anesthesia Record ESTIMATED BLOOD LOSS: 30 PATHOLOGY: other (Skin with melanoma lesion, subcutaneous soft tissue bundle) COMPLICATIONS: None Patient was transported to: PACU Patient's condition: stable Indications: Carlene is a 42-year-old woman who underwent a shave biopsy which demonstrated 0.5 mm deep melanoma. We discussed the role of excision and primary closure, with sentinel lymph node biopsy. She provided informed consent for that procedure. Findings: Prior to the planned excision, Carlene underwent intradermal injection of a radionucleotide tracer. Images were obtained over the course of approximately 1 hour. Unfortunately, no sentinel lymph node was identified. I recommended another attempt at imaging approximately 1 hour later. At that point, there was evidence of lymph node activity just deep to the intradermal injection site. I explained that the uptake of the tracer in that lymph node was a bit atypical. We talked about alternatives like repeating the test at a later date, or referral for second opinion. After discussing all the possible options, we decided to proceed as planned. Procedure Description: After the induction of general endotracheal anesthesia, using aseptic technique, I injected 1 mL of methylene blue into the intradermal space. The soft tissue was massaged for approximately 15 minutes next, the anesthesia team performed a ultrasound-guided nerve block to the area. Next, I prepped and draped the area of the left neck. I mapped out the area of the sternocleidomastoid muscle, anticipated lymph node chain, and marked the dermis for appropriate margins. 1 cm margins were taken along the short axis of the specimen, total length of the incision was mapped out around 7-1/2 cm to ensure appropriate and cosmetic closure next, using local anesthetic, established a generous field block in the subcutaneous level. Next, sharply incised the skin over the planned operative site. We dissected down through the full layer of the skin to the subcutaneous fat. This was dissected off of the underlying sternocleidomastoid muscle. Portion of the platysma was included. The entire specimen of skin and deeper soft tissues was passed off as a single specimen. A single suture was used to jaqueline the superior aspect of the resection site, and double suture was used to jaqueline the more medial side (towards the center of the neck). Next, using a hand- held Rheems detector, the area was carefully examined. Although there was some lymphatic highlights with the methylene blue, there was no discrete blue lymph node. I was able to detect a radionucleotide rich area using the Rheems counter. This was carefully dissected off the sternocleidomastoid muscle, and passed off the field as a lymph node specimen. The highest reading was approximately 1100. The remainder of the incision site was carefully examined. There was no activity above 80. There were no more obvious lymph nodes along the cervical lymph node chain. The neurovascurlar bundle was examinaed. Similarly, there were no signs of lymph nodes along the course of the bundle through the surgical field. The entire area was carefully examined with the Rheems counter including the supraclavicular and right clavicular space, there was minimal radionucleotide activity. Next, the surgical field was gently irrigated. It was hemostatic. Small skin flaps were elevated on both sides of the incision, and the deep dermal layer was approximated with interrupted Vicryl sutures. Again, this injury was irrigated, and the skin was closed with interrupted nylon sutures. Steri-Strips were applied, and bandages were also used. Patient was extubated and transferred to the recovery unit. I discussed conduct of the operation and our findings with her.
[2022-12-31] VITALS (9 sets, daily range): BP systolic 92–154; BP diastolic 51–97; PULSE 60–75; RESP 9–16; TEMP 36.4–36.5; O2SAT 96–100; BMI 23.1
--- NOTE | 2022-12-31 06:45 | DI.NM_ITS ---
Exam(s) NM SENTNODE INJ AND SCAN EXAM: NM SENTNODE INJ AND SCAN CLINICAL HISTORY: preop, melanoma surgery,c43.9. TECHNIQUE: Injected Dose: 1 mCi Tc-99m filtered sulfur colloid Images: 60 minutes 3 hour delayed images were also obtained. COMPARISON: No exams were available for comparison FINDINGS: Injection site was in the left neck adjacent to the lesion. On the 3 hour delayed images lymph node uptake was identified and a marker was placed on the patient's skin. IMPRESSION: 1. [place] node uptake scan with sentinel node marked after 3 hours. DATA REPOSITORY:
[2022-12-31 07:02] LABS: Source Nasal/Nares
[2022-12-31] MEDS: Gabapentin 300 MG CAP 600 MG PO (07:13)
[2022-12-31] MEDS: Acetaminophen 500 MG TAB 1000 MG PO (07:13)
[2022-12-31] MEDS: Lactated Ringers 1,000 ML 80 ML IV (07:15)
[2022-12-31 07:36] LABS: COVID-19 PCR Negative (Negative)
[2022-12-31] MEDS: ceFAZolin 2 GM/50 ML BAG IVPB (13:52)
[2022-12-31] MEDS: Bupivacaine 0.5% Pres-Free W/EPI 30 ML VIAL (14:27)
--- NOTE | 2022-12-31 14:37 | W.ANESNERVE ---
Nerve Block Single Injection Procedure Date and Time Date Performed: 12/31/22 Procedure Start: 14:10 Location Where Procedure Performed Procedure Location: Operating Room Procedure Stop: 14:16 Reason Performed: Postoperative Analgesia Requesting Provider: Oleg Celeste Timeout Performed Timeout Performed: Yes Monitoring Used ECG, Blood Pressure, SpO2, ETCO2 and See EMR for corresponding vital signs Sterility Sterility: Hand Hygiene, Surgical Cap, Surgical Mask, Sterile Gloves and Chlorhexidine Sedation Given During Procedure Sedation Given (Indicate Dose Given): No Sedation given Patient Mental Status Patient Mental Status: Performed under general anesthesia Nerve Block 1st Nerve Block: Laterality: Left Block Type: Superficial Cervical Plexus Ultrasound Image Saved?: Yes Needle / Catheter Used: 100mm SonoPlex II Local Anesthetic Bolus (Indicate Dose Given): Injected in 3-5ml increments after negative blood aspiration and Bupivacaine 0.375% Dose:: 10 ml Additives (Indicate Dose Given): None Ultrasound: Sterile probe cover and gel used Nerve Stimulator: Not Used Paresthesia: None Procedure Tolerated: No Complications and Patient tolerated well Procedure Outcome: Successful Performed By: Rosales Gonzalez
--- NOTE | 2022-12-31 14:38 | LYM_PTH ---
PATIENT: Carlene Augustine LOC: [facility] U#:[id number] AGE/SX: 42/F ROOM: RE12/31/[address]: Oleg Celeste MD : 1980 BED: DIS: 12/31/2022 SPEC #: [id number] RECD: 01/03/23 12:15 STATUS: CORA REQ #: [id number] WAN: 12/31/22 14:[address]: Oleg Celeste DEPT: Surgical Specimen RECD BY: Katlyn Bowden ENTERED: 01/03/23 12:20 SP TYPE: LYM OTHR DR: Sebastian Wills Tissues: 1 - LYMPH NODES OF MULTIPLE SITES BIOPSY 2 - LYMPH NODE RESECTION Procedures: GROSS AND MICRO LEVEL 4 GROSS AND MICRO LEVEL 5 Comments: [id number] (BOTH SPECIMENS RADIOACTIVE)
--- NOTE | 2022-12-31 15:55 | W.ANESPOSTOP ---
Postoperative Evaluation Date, Time and Location Date Performed: 12/31/22 Time Performed: 15:55 Patient Location: PACU Vital Signs Most Recent Imported Vital Signs: Most Recent Vital Signs Temp Pulse Resp BP Pulse Ox 36.5 C 60 9 L 101/61 96 12/31/22 15:45 12/31/22 15:45 12/31/22 15:45 12/31/22 15:45 12/31/22 15:45 Pain Score Most Recent Pain Score: Most Recent Pain Score Pain Level 0 12/31/22 06:30 Assessment Mental Status: Arousable with meaningful communication Airway and Respiratory Function: Patent airway with normal (patient baseline) respiratory exam Cardiovascular Function: Hemodynamically Stable Hydration Status: Adequately Hydrated Nausea & Vomiting: No Nausea or Vomiting Pain: Pt. Denies Any Pain Peripheral Nerve Block: Regional nerve block not resolved at time of post operative discharge Postoperative Comments:: Patient seen in PACU, awake to verbal. Appropriate. Denies questions, denies pain, denies nausea. Left in care of PACU staff, plan to transfer soon.
== END 2022-12-31 17:34 | disposition home or self-care (01) ==
PROVIDERS: PCP Internal Medicine; Visit Provider Surgery
PROC: (CPT 38510; principal; 2022-12-31 07:30)
DX: C43.4 Malignant melanoma of scalp and neck (principal); F41.9 Anxiety disorder, unspecified; F11.20 Opioid dependence, uncomplicated; R94.8 Abnormal results of function studies of other organs and systems; F32.A Depression, unspecified; F17.210 Nicotine dependence, cigarettes, uncomplicated
CPT/HCPCS: 38510; 14040; 76942; 81025; 87635; 88305; 78195; 88307; J0690; J1100; J2250; J2405; J2704; J3475

== ENCOUNTER 2023-05-25 16:21 | Outpatient (REF) | payer MEDICAID, SELFPAY ==
[2023-05-25 17:49] LABS: Creatinine,Urine 58.68 mg/dL
[2023-05-25 17:56] LABS: *AMPHETAMINES SCREEN URINE Negative (Negative); *BARBITURATES SCREEN URINE Negative (Negative); *BENZODIAZEPINES SCREEN URINE Negative (Negative); Cannabinoids THC Negative (Negative); Cocaine Screen,Urine Negative (Negative); METHADONE URINE SCREEN Negative (Negative); OPIATES URINE SCREEN Negative (Negative)
[2023-05-25 18:02] LABS: Tricyclic Antidepressants Negative (Negative)
[2023-05-31 10:59] LABS: Benzoylecgonine Negative ng/mL (Cutoff: 50); Cocaine Negative ng/mL (Cutoff: 50); Cocaine Interpretation Negative.
== END 2023-05-25 16:22 | disposition home or self-care (01) ==
LOC: NCHCN 16:21
PROVIDERS: PCP Internal Medicine; Visit Provider Nurse Practitioner Family
DX: F11.11 Opioid abuse, in remission (principal)
CPT/HCPCS: 80307; 80353; 82565

== ENCOUNTER 2023-05-30 12:48 | Outpatient (REF) | payer MEDICAID, SELFPAY ==
[2023-05-30 11:53] LABS: *AMPHETAMINES SCREEN URINE Negative (Negative); *BARBITURATES SCREEN URINE Negative (Negative); *BENZODIAZEPINES SCREEN URINE Negative (Negative); Cannabinoids THC Negative (Negative); Cocaine Screen,Urine Negative (Negative); METHADONE URINE SCREEN Negative (Negative); OPIATES URINE SCREEN Negative (Negative)
[2023-05-30 11:55] LABS: Tricyclic Antidepressants Negative (Negative)
== END 2023-05-30 12:49 | disposition home or self-care (01) ==
LOC: NCHCN 12:48
PROVIDERS: PCP Internal Medicine; Visit Provider Nurse Practitioner Family
DX: F11.11 Opioid abuse, in remission (principal)
CPT/HCPCS: 80307

== ENCOUNTER 2023-06-01 18:47 | Outpatient (REF) | payer MEDICAID, SELFPAY ==
[2023-06-01 22:42] LABS: Creatinine,Urine 187.68 mg/dL
[2023-06-01 22:49] LABS: *AMPHETAMINES SCREEN URINE Negative (Negative); *BARBITURATES SCREEN URINE Negative (Negative); *BENZODIAZEPINES SCREEN URINE Negative (Negative); Cannabinoids THC Negative (Negative); Cocaine Screen,Urine Negative (Negative); METHADONE URINE SCREEN Negative (Negative); OPIATES URINE SCREEN Negative (Negative)
[2023-06-01 22:55] LABS: Tricyclic Antidepressants Negative (Negative)
[2023-06-07 10:44] LABS: Norbuprenorphine 686.5 ng/mL (Cutoff: 2.5)
[2023-06-07 12:21] LABS: Benzoylecgonine Negative ng/mL (Cutoff: 50); Cocaine Negative ng/mL (Cutoff: 50); Cocaine Interpretation Negative.
== END 2023-06-01 18:48 | disposition home or self-care (01) ==
LOC: NCHCN 18:47
PROVIDERS: PCP Internal Medicine; Visit Provider Nurse Practitioner Family
DX: F11.11 Opioid abuse, in remission (principal)
CPT/HCPCS: 80307; 80348; 80353; 82565

== ENCOUNTER 2023-06-06 20:32 | Outpatient (REF) | payer MEDICAID, SELFPAY ==
[2023-06-06 20:19] LABS: Creatinine,Urine 115.38 mg/dL
[2023-06-06 20:23] LABS: *AMPHETAMINES SCREEN URINE Negative (Negative); *BARBITURATES SCREEN URINE Negative (Negative); *BENZODIAZEPINES SCREEN URINE Negative (Negative); Cannabinoids THC Negative (Negative); Cocaine Screen,Urine Negative (Negative); METHADONE URINE SCREEN Negative (Negative); OPIATES URINE SCREEN Negative (Negative); Tricyclic Antidepressants Negative (Negative)
[2023-06-09 13:34] LABS: Benzoylecgonine Negative ng/mL (Cutoff: 50); Cocaine Negative ng/mL (Cutoff: 50); Cocaine Interpretation Negative.
[2023-06-10 11:53] LABS: Buprenorphine 246.2 ng/mL (Cutoff: 5.0); Norbuprenorphine 1373.5 ng/mL (Cutoff: 2.5)
== END 2023-06-06 20:33 | disposition home or self-care (01) ==
LOC: NCHCN 20:32
PROVIDERS: PCP Internal Medicine; Visit Provider Nurse Practitioner Family
DX: F11.11 Opioid abuse, in remission (principal)
CPT/HCPCS: 80307; 80348; 80353; 82565

== ENCOUNTER 2023-06-08 16:35 | Outpatient (REF) | payer MEDICAID, SELFPAY ==
[2023-06-08 21:17] LABS: Creatinine,Urine 108.18 mg/dL
[2023-06-08 21:20] LABS: *AMPHETAMINES SCREEN URINE Negative (Negative); *BARBITURATES SCREEN URINE Negative (Negative); *BENZODIAZEPINES SCREEN URINE Negative (Negative); Cannabinoids THC Negative (Negative); Cocaine Screen,Urine Negative (Negative); METHADONE URINE SCREEN Negative (Negative); OPIATES URINE SCREEN Negative (Negative)
[2023-06-08 21:21] LABS: Tricyclic Antidepressants Negative (Negative)
[2023-06-11 06:38] LABS: Benzoylecgonine Negative ng/mL (Cutoff: 50); Cocaine Negative ng/mL (Cutoff: 50); Cocaine Interpretation Negative.
[2023-06-15 11:04] LABS: Buprenorphine 606.7 ng/mL (Cutoff: 5.0); Norbuprenorphine 1038.7 ng/mL (Cutoff: 2.5)
== END 2023-06-08 16:36 | disposition home or self-care (01) ==
LOC: NCHCN 16:35
PROVIDERS: PCP Internal Medicine; Visit Provider Nurse Practitioner Family
DX: F11.11 Opioid abuse, in remission (principal)
CPT/HCPCS: 80307; 80348; 80353; 82565

== ENCOUNTER 2023-06-10 16:13 | Outpatient (REF) | payer MEDICAID, SELFPAY ==
[2023-06-10 19:16] LABS: Creatinine,Urine 184.35 mg/dL
[2023-06-10 19:20] LABS: *AMPHETAMINES SCREEN URINE Negative (Negative); *BARBITURATES SCREEN URINE Negative (Negative); *BENZODIAZEPINES SCREEN URINE Negative (Negative); Cannabinoids THC Negative (Negative); Cocaine Screen,Urine Negative (Negative); METHADONE URINE SCREEN Negative (Negative); OPIATES URINE SCREEN Negative (Negative)
[2023-06-10 19:27] LABS: Tricyclic Antidepressants Negative (Negative)
[2023-06-15 12:18] LABS: Benzoylecgonine Negative ng/mL (Cutoff: 50); Cocaine Negative ng/mL (Cutoff: 50); Cocaine Interpretation Negative.
== END 2023-06-10 16:14 | disposition home or self-care (01) ==
LOC: NCHCN 16:13
PROVIDERS: PCP Internal Medicine; Visit Provider Nurse Practitioner Family
DX: F11.11 Opioid abuse, in remission (principal)
CPT/HCPCS: 80307; 80348; 80353; 82565

== ENCOUNTER 2023-06-15 16:24 | Outpatient (REF) | payer MEDICAID, SELFPAY ==
[2023-06-15 22:31] LABS: *AMPHETAMINES SCREEN URINE Negative (Negative); *BARBITURATES SCREEN URINE Negative (Negative); *BENZODIAZEPINES SCREEN URINE Negative (Negative); Cannabinoids THC Negative (Negative); Cocaine Screen,Urine Negative (Negative); METHADONE URINE SCREEN Negative (Negative); OPIATES URINE SCREEN Negative (Negative)
[2023-06-15 22:32] LABS: Tricyclic Antidepressants Negative (Negative)
[2023-06-15 23:19] LABS: Creatinine,Urine 159.36 mg/dL
[2023-06-21 11:43] LABS: Benzoylecgonine Negative ng/mL (Cutoff: 50); Cocaine Negative ng/mL (Cutoff: 50); Cocaine Interpretation Negative.
[2023-06-22 13:03] LABS: Buprenorphine 317.7 ng/mL (Cutoff: 5.0)
== END 2023-06-15 16:25 | disposition home or self-care (01) ==
LOC: NCHCN 16:24
PROVIDERS: PCP Internal Medicine; Visit Provider Nurse Practitioner Family
DX: F11.11 Opioid abuse, in remission (principal)
CPT/HCPCS: 80307; 80348; 80353; 82565

== ENCOUNTER 2023-06-17 16:29 | Outpatient (REF) | payer MEDICAID, SELFPAY ==
[2023-06-17 18:51] LABS: Creatinine,Urine 80.89 mg/dL
[2023-06-17 19:00] LABS: *AMPHETAMINES SCREEN URINE Negative (Negative); *BARBITURATES SCREEN URINE Negative (Negative); *BENZODIAZEPINES SCREEN URINE Negative (Negative); Cannabinoids THC Negative (Negative); Cocaine Screen,Urine Negative (Negative); METHADONE URINE SCREEN Negative (Negative); OPIATES URINE SCREEN Negative (Negative)
[2023-06-17 19:01] LABS: Tricyclic Antidepressants Negative (Negative)
[2023-06-21 10:53] LABS: Buprenorphine 259.6 ng/mL (Cutoff: 5.0); Norbuprenorphine 874.2 ng/mL (Cutoff: 2.5)
[2023-06-22 14:05] LABS: Benzoylecgonine Negative ng/mL (Cutoff: 50); Cocaine Negative ng/mL (Cutoff: 50); Cocaine Interpretation Negative.
== END 2023-06-17 16:30 | disposition home or self-care (01) ==
LOC: NCHCN 16:29
PROVIDERS: PCP Internal Medicine; Visit Provider Nurse Practitioner Family
DX: F11.11 Opioid abuse, in remission (principal)
CPT/HCPCS: 80307; 80348; 80353; 82565

== ENCOUNTER 2023-06-20 17:43 | Outpatient (REF) | payer MEDICAID, SELFPAY ==
[2023-06-20 19:32] LABS: Creatinine,Urine 98.35 mg/dL
[2023-06-20 19:35] LABS: *AMPHETAMINES SCREEN URINE Negative (Negative); *BARBITURATES SCREEN URINE Negative (Negative); *BENZODIAZEPINES SCREEN URINE Negative (Negative); Cannabinoids THC Negative (Negative); Cocaine Screen,Urine Negative (Negative); METHADONE URINE SCREEN Negative (Negative); OPIATES URINE SCREEN Negative (Negative)
[2023-06-20 19:36] LABS: Tricyclic Antidepressants Negative (Negative)
[2023-06-23 10:45] LABS: Norbuprenorphine 694.7 ng/mL (Cutoff: 2.5)
[2023-06-24 12:32] LABS: Benzoylecgonine Negative ng/mL (Cutoff: 50); Cocaine Negative ng/mL (Cutoff: 50); Cocaine Interpretation Negative.
== END 2023-06-20 17:44 | disposition home or self-care (01) ==
LOC: NCHCN 17:43
PROVIDERS: PCP Internal Medicine; Visit Provider Nurse Practitioner Family
DX: F11.11 Opioid abuse, in remission (principal)
CPT/HCPCS: 80307; 80348; 80353; 82565

== ENCOUNTER 2023-06-22 16:23 | Outpatient (REF) | payer MEDICAID, SELFPAY ==
[2023-06-22 21:57] LABS: *AMPHETAMINES SCREEN URINE Negative (Negative); *BARBITURATES SCREEN URINE Negative (Negative); *BENZODIAZEPINES SCREEN URINE Negative (Negative); Cannabinoids THC Negative (Negative); Cocaine Screen,Urine Negative (Negative); METHADONE URINE SCREEN Negative (Negative); OPIATES URINE SCREEN Negative (Negative)
[2023-06-22 21:58] LABS: Creatinine,Urine 107.91 mg/dL
[2023-06-22 21:59] LABS: Tricyclic Antidepressants Negative (Negative)
[2023-06-25 07:16] LABS: Benzoylecgonine Negative ng/mL (Cutoff: 50); Cocaine Negative ng/mL (Cutoff: 50); Cocaine Interpretation Negative.
[2023-06-28 09:08] LABS: Buprenorphine 257.6 ng/mL (Cutoff: 5.0); Norbuprenorphine 1217.7 ng/mL (Cutoff: 2.5)
== END 2023-06-22 16:24 | disposition home or self-care (01) ==
LOC: NCHCN 16:23
PROVIDERS: PCP Internal Medicine; Visit Provider Nurse Practitioner Family
DX: F11.11 Opioid abuse, in remission (principal)
CPT/HCPCS: 80307; 80348; 80353; 82565

== ENCOUNTER 2024-11-17 13:08 | Inpatient (IN) | payer MEDICAID, SELFPAY ==
[2024-11-17 13:15] VITALS: BP 146/93; PULSE 88; RESP 20; TEMP 36.6; O2SAT 95
--- NOTE | 2024-11-17 13:33 | ED.GENADUL_ITS ---
Discharge Plan Disposition Patient Disposition: Admit to [facility] Condition: Stable Discharge Details Clinical Impression: Pancreatitis, Abnormal transaminases Primary Care Provider: Sebastian Wills ED Provider: Danitza Chisholm Home Meds and New Rx's Prescriptions: No Action buprenorphine-naloxone 8-2 mg film 2 film buccal BID Rx Instructions: place 1 film on inside of (each) cheek clonidine HCl 0.1 mg tablet 0.1 mg PO QHS PRN docusate sodium 100 mg capsule 100 mg PO DAILY PRN lidocain-me.ciyznqt-fwkx-sftir 4-20-0.025-5 % adhesive patch,medicated See Rx Instructions .ROUTE .COMPLEX Qty: 10 0RF Rx Instructions: Please 1 patch in front of, or behind the incision. Leave in place for 12 hours. Remove, wash the area with soap and water and leave off for 12 hours, then reapply as needed escitalopram oxalate 10 mg tablet 10 mg PO DAILY Patient Comments: TAKE ONE TABLET BY MOUTH EVERY DAY FOR ANXIETY HPI General Mode of arrival: ambulatory . Date/Time Provider Initiated Documentation: 11/17/24 13:23 . Limitations to Documentation: no limitations . Information obtained by: patient, family and old records reviewed . HPI Narrative: HPI: This is a 44-year-old female patient with a past medical history significant for opioid use disorder in remission on Suboxone maintenance therapy, presenting for evaluation of nausea and vomiting with abdominal pain. The patient reports that last night she developed sharp, cramping abdominal pain in her left upper quadrant, that seems to radiate from her epigastric region. She had several episodes of nonbloody emesis, continues to feel nausea. She has not noted any diarrhea, constipation, or dysuria. She has not tried any medicines for this in the outpatient environment, states that she has had numerous recent sick exposures including influenza A, though she does not have any cough and has not had a fever. Had a strep exposure but does not have sore throat. The patient has no personal history of abdominal surgeries. Prior to last night she was in her normal state of health. Exam: Gen: Awake and alert, appears notably uncomfortable sitting up with her body curled over HEENT: Non-icteric sclera Neck: Supple Lungs: No apparent respiratory distress, normal respiratory effort. Lung sounds clear and equal bilaterally without wheezes, rhonchi, rales CV: Appears well perfused, heart with regular rate and rhythm, strong distal pulses Abdomen: Non-distended, soft, minimal tenderness to palpation in the epigastric and left upper quadrant without rigidity, rebound, or guarding. MSK: Moves 4 extremities without apparent limitation in ROM Skin: Visualized skin without rashes, cyanosis. Neuro: Normal Gait, no obvious focal deficits or facial asymmetry. Speaks in full, clear sentences. Psych: Appropriate for situation. MDM: This is a 44-year-old female patient presenting for evaluation of abdominal pain with nausea and vomiting. Differential includes but is not limited to gastritis, gastroenteritis, pancreatitis, peptic ulcer disease, cholecystitis, hepatitis, appendicitis, bowel obstruction, diverticulitis. Patient is young and without significant risk factors for aortic pathology or mesenteric ischemia. No hematemesis to suggest Boerhaave's disease, did consider viral upper respiratory infection including flu given her recent exposure. No pelvic pain to suggest PID/TOA or ovarian torsion, did consider early abnormalities including ectopic . Will obtain laboratory studies to include CBC, CMP, magnesium, lipase, urinalysis, and urine . I will provide the patient with Tylenol, Toradol, and Zofran for initial symptomatic management of pain. Given her severe discomfort we will proceed with CT abdomen pelvis to better characterize any abnormalities. ED Course: Fluvid negative. Laboratory studies without evidence of leukocytosis, anemia or thrombocytopenia. Chemistry panel without significant electrolyte derangements or kidney injury, patient does have a mild transaminitis, and an elevated lipase to 2300. Troponin was negative. Urinalysis noninfectious, and I independently interpreted the patient's CT scan, which does show evidence of pancreatitis. No evidence of pseudocyst or necrotizing component per radiology read. On reassessment the patient reports that her symptoms have improved with any medications noted, and I was able to give her some water which she tolerated without vomiting. She reports that she did drink alcohol on Tuesday, and given her lack of obstructive pathology on laboratory workup, and the normal-appearing gallbladder on CT I am most suspicious for alcoholic pancreatitis. I did perform a bedside ultrasound of her gallbladder that did not show evidence of cholecystitis, stones, or other significant abnormality. I reached out to the hospitalist who is graciously accepted this patient for admission for her pancreatitis. She remained hemodynamically appropriate while under my care. Danitza Chisholm MD Related Data Home Medications ?Medication ?Instructions ?Recorded ?Confirmed buprenorphine 8 mg-naloxone 2 mg 2 film buccal BID 11/12/22 11/17/24 sublingual film clonidine HCl 0.1 mg tablet 0.1 mg PO QHS PRN 12/10/22 11/17/24 docusate sodium 100 mg capsule 100 mg PO DAILY PRN 12/10/22 11/17/24 lidocaine 4 %-me.salicylat 20 See Rx Instructions .Route 12/31/22 11/17/24 %-capsai 0.025 %-menth 5 % topical .COMPLEX #10 ea patch escitalopram oxalate 10 mg tablet 10 mg PO DAILY 11/17/24 11/17/24 Previous Rx's ?Medication ?Instructions ?Recorded lidocaine 4 %-me.salicylat 20 See Rx Instructions .Route 12/31/22 %-capsai 0.025 %-menth 5 % topical .COMPLEX #10 ea patch Allergies Allergy/AdvReac Type Severity Reaction Status Date / Time No Known Allergies Allergy Verified 11/17/24 13:14 General Stated Complaint: Nausea/Vomit/Diar TRACY: 3 Course Vital Signs Vital signs: Vital Signs Temperature 36.6 C 11/17/24 13:15 Pulse 88 11/17/24 13:15 Respiratory Rate 20 11/17/24 13:15 Blood Pressure 146/93 H 11/17/24 13:15 Pulse Oximetry 95 11/17/24 13:15 Temperature 36.6 C 11/17/24 13:15 Temperature Source Oral 11/17/24 13:15 Pulse 88 11/17/24 13:15 Respiratory Rate 20 11/17/24 13:15 Blood Pressure 146/93 H 11/17/24 13:15 Blood Pressure Position Sitting 11/17/24 13:15 Pulse Oximetry 95 11/17/24 13:15 Oxygen Delivery Method Room Air 11/17/24 13:15 Oxygen Flow Rate 0 11/17/24 13:15 Pain Level 10 11/17/24 13:15 Medical Decision Making Quality:SDOH Health Related Social Needs: No Data to Display PFSH All Active Problems (Updated 11/17/24 @ 15:49 by Danitza Chisholm MD) Abnormal transaminases (Acute) Pancreatitis (Chronic) Dense breast tissue on mammogram (Acute) Opioid abuse (Acute) 12/2020. Uses Suboxone that she purchases. Tobacco use (Acute) Encounter for IUD removal (Acute) Counseling for control regarding intrauterine device (IUD) (Acute) Screening for malignant neoplasm of cervix (Acute) Routine screening for STI (sexually transmitted infection) (Acute) Anxiety (Chronic) Malignant melanoma (Acute) 5mm thick Left neck 1.5x1cm lesion Chronic narcotic dependence (Acute) ADHD (Acute) Smoker (Acute) Abnormal positron emission tomography (PET) scan (Acute) right breast abmormality that was inconclusive. AND MAMMOGRAM ARE NEGATIVE. RECOMMENDED MRI. THIS IS PENDING. Medical History (Updated 11/17/24 @ 15:49 by Danitza Chisholm MD) Depression Visual changes Abscess of skin Plantar fasciitis, bilateral PTSD (post-traumatic stress disorder) Per pt. states no triggers at this time. IV drug abuse Pt. states last used 08/2022. Hepatitis C treated w/ negative viral load Surgical History (Updated 12/31/22 @ 06:44 by Ailyn Salazar) History of placement of ear tubes H/O wisdom tooth extraction No significant past surgical history Family History Mother Hyperlipidemia Father Hyperlipidemia Grandfather , Heart disease Myocardial infarction >50y.o Grandmother Breast cancer Other Diabetes Social History (Updated 12/21/20 @ 22:22 by Elizabeth Berman MD) Smoking/Tobacco Use Status: Current every day Tobacco Type: cigarettes Smoking risk assessment performed?: Yes Alcohol Intake: former Drug use: Current Sobriety Substance use type: former substance user, crack/cocaine and heroin Household members: children and other Details: lives with daughter who is excellent student. Number of Children: 2 current occupation: not employed Do you feel safe at home: Yes Do you feel safe in your relationship?: Yes POCUS Exam (ED) Limited Gallbladder Exam DATE OF EXAM: 11/17/24 TIME OF EXAM: 16:20 PROVIDER THAT PERFORMED THE STUDY: Danitza Chisholm IS THIS A REPEAT EXAM DURING THIS ENCOUNTER: No REASON FOR VISIT: Pancreatitis VISUALIZED STRUCTURES: Gallbladder, Gallbladder wall, Liver and Pericholecystic fluid PERTINENT FINDINGS/IMPRESSION: Sludge in gallbladder; No Cholecystitis, No g allstones, No Pericholecystic fluid and No thickening of the gallbladder wall Exam complete
[2024-11-17 14:04] LABS: COVID-19 PCR Negative (Negative); Influenza A PCR Negative (Negative); Influenza B PCR Negative (Negative); RSV PCR Negative (Negative)
[2024-11-17 14:06] LABS: Source Nasopharynx
--- OUTSIDE RECORDS SUMMARY | 2024-11-17 14:24 | XMS_ITS | Encounter Summary ---
[place] [address] Care Team Providers Care Morning Show Host Name Role Phone Freda Wood APRN Primary Care Provider [phone]- [phone] Encounter Details Date Type Department Care Team (Latest Contact Info) Description 02/24/2024 Travel Social History Tobacco Use Types Packs/Day Years Used Date Smoking Tobacco: Every Day Cigarettes 0.5 34.5 Started: 05/07/1990 Smokeless Tobacco: Never Comments:Not ready to quit Alcohol Use Standard Drinks/Week Comments No 0 (1 standard drink = 0.6 oz pure alcohol) H/O binge drinking twice weekly until in 2005. Now drinking on ocassions 1 glass of wine or 1 beer once weekly. Sex and Gender Information Value Date Recorded Sex Assigned at Not on file Gender Identity Not on file Sexual Orientation Not on file documented as of this encounter Plan of Treatment Not on file documented as of this encounter Goals Goal Patient Goal Type Associated Problems Recent Progress Patient-Stated? Author [facility] Medication Compliance and Understanding Patient Facing Action Plan No Ani Eldridge, [facility] Note: Attain undetectable viral load by end of Mavyret treatment and SVR12. documented as of this encounter Visit Diagnoses Not on filedocumented in this encounter Care Teams Morning Show Host Relationship Specialty Start Date End Date Freda Wood APRN [address] [place] [address] PCP - General Family Medicine 02/24/24 documented as of this encounter
--- OUTSIDE RECORDS SUMMARY | 2024-11-17 14:24 | XMS_ITS | Clinical Summary ---
Author Organization [facility] [place] [address] Care Team Providers Care Tank Builder Name Role Phone Freda Wood APRN Primary Care Provider [phone]- [phone] Allergies No known active allergies Medications Medication Sig Dispensed Refills Start Date End Date Status buprenorphine-nalox one 8-[address] 4 mg under the tongue daily. Active buPROPion XL (Wellbutrin XL) 300 mg XL 24 hr tablet Take 1 tablet by mouth Daily at Noon. 02/20/2024 Active docusate sodium (Colace) 100 mg capsule TAKE ONE CAPSULE BY MOUTH TWICE A DAY NEEDED FOR CONSTIPATION 12/21/2023 Active escitalopram (Lexapro) 10 mg tablet TAKE ONE TABLET BY MOUTH EVERY DAY FOR ANXIETY 12/21/2023 Active Senna 8.6 mg tablet TAKE 1 TABLET BY MOUTH 3 TIMES A WEEK NEEDED 12/26/2023 Active Active Problems Problem Noted Date Diagnosed Date Transaminitis 01/15/2014 HCV (hepatitis C virus) 01/15/2014 Hyperbilirubinemia 01/15/2014 IVDU (intravenous drug user) 01/15/2014 Bloating 01/15/2014 Cigarette smoker 01/15/2014 IBS (irritable bowel syndrome) 01/15/2014 Immunizations Name Administration Dates Next Due Hepatitis A Adult (Havrix, Vaqta) 05/07/2014 Family History Medical History Relation Comments Cancer Father skin Coronary Artery Disease Father Aneurysm Maternal Grandmother Diabetes Mother Breast Cancer Paternal Grandmother Arthritis Neg Hx Thyroid Disease Neg Hx Relation Status Comments Brother 1 Alive age 28, 1/2 brot her, substance abuse Brother 2 age 27, 1/2 brot her Brother 3 age 26, 1/2 brot her Brother 4 age 25, 1/2 brot her Daughter Alive age 8, healthy Father Alive age 57, hyperlip idemia Maternal Grandfather (Age 70s) accident al (hit by car) Maternal Grandmother (Age 60s) brain an eurysm, cancer (unknown) Mother Alive age 56, pre-diab etes Paternal Grandfather (Age 60s) CAD Paternal Grandmother (Age 60s) breast c ancer Sister age 24, 1/2 sist er substance abuse Social History Tobacco Use Types Packs/Day Years Used Date Smoking Tobacco: Every Day Cigarettes 0.5 34.5 Started: 05/07/1990 Smokeless Tobacco: Never Tobacco Cessation:Ready to Q uit: No Comments:Not ready to quit Alcohol Use Standard Drinks/Week Comments No 0 (1 standard drink = 0.6 oz pure alcohol) H/O binge drinking twice weekly until in 2005. Now drinking on ocassions 1 glass of wine or 1 beer once weekly. Sex and Gender Information Value Date Recorded Sex Assigned at Not on file Gender Identity Not on file Sexual Orientation Not on file Last Filed Vital Signs Vital Sign Reading Time Taken Comments Blood Pressure 122/71 11/24/2017 11:03 AM EST Pulse 63 11/24/2017 11:03 AM EST Temperature 36.7 ??C (98.1 ??F) 01/16/2014 11:20 AM E DT Respiratory Rate 18 01/16/2014 11:20 AM EDT Oxygen Saturation 100% 01/16/2014 11:20 AM EDT Inhaled Oxygen Concentration - - Weight 68.5 kg (151 lb) 11/24/2017 11:03 AM EST Height 171.5 cm (5' 7.5) 11/24/2017 11:03 AM ES T Body Mass Index 23.3 11/24/2017 11:03 AM EST Plan of Treatment Health Maintenance Due Date Last Done Comments CT Colonography 1979 Colonoscopy 1979 Colorectal Cancer Screening 1980 FIT DNA 1980 FIT 1980 Sigmoidoscopy (10 year) with FIT yearly 1980 Sigmoidoscopy 1979 Lipid Screening 1997 Pneumococcal Vaccine: At-Risk 5-49yrs (1 of 2 - PCV) 1 10/18/1997 Tetanus/Diphtheria/Pertussis Vaccines (1 - Tdap) 08/18 HPV test 2009 PAP Smear 2009 Breast Cancer Share Decision Needed 2019 Breast Cancer screening 2019 Covid-19 Vaccine (1 - 2023-25 season) 2024 Influenza (Flu) vaccine (1 o f 1 - Influenza standard series) 06/10/2024 HIV screen Completed 11/24/2017 Goals Goal Patient Goal Type Associated Problems Recent Progress Patient-Stated? Author [facility] Medication Compliance and Understanding Patient Facing Action Plan Ani Feldman, [facility] Note: Attain undetectable viral load by end of Mavyret treatment and SVR12. Procedures Procedure Name Priority Date/Time Associated Diagnosis Comments HIV SCREEN, 4TH GENERATION ([facility]/CGP/APD/NLH)PE RFORMABLE Routine 11/24/2017 1:00 PM EST Chronic hepatitis C without hepatic coma from Last 3 Months or Most Recently Relevant to Health Maintenance Results * HIV Screen, 4th Generation (11/24/2017 1:00 PM EST) HIV Ab/Ag Screen Negative Negative [facility] Comment: This 4th Generation HIV test screens for the presence of the HIV-1 p24 antigen as well as antibodies reactive against HIV-1 and HIV-2. A negative screen does not rule out an acute HIV infection. If acute HIV infection is suspected, testing should be repeated in 2 - 3 weeks or HIV nucleic acid testing performed. Blood specimen (specimen) 11/24/2017 1:00 PM EST 11/24/2017 1:05 PM EST Narrative Resulting Agency Comment Spec In Lab Yaima Kidd APRN CHEMISTRY ORDERABL ES [facility] [place] [address] from Last 3 Months or Most Recently Relevant to Health Maintenance Advance Directives * Full Code (Latest Code Status on File) Date Activated Date Inactivated Comments 01/15/2014 4:21 AM 01/16/2014 5:29 PM Question Answer Comments Order Status: Initial Order Does patient have decision m aking capacity? Yes, Order is based on Patients wishes. Care Teams Tank Builder Relationship Specialty Start Date End Date Freda Wood APRN [address] [place] [address] PCP - General Family Medicine 02/24/24
--- OUTSIDE RECORDS SUMMARY | 2024-11-17 14:24 | XMS_ITS | Encounter Summary ---
[facility] [place] [address] Care Team Providers Care Modern And Contemporary Art Curator Name Role Phone Freda Wood APRN Primary Care Provider [phone]- [phone] Encounter Details Date Type Department Care Team (Late st Contact Info) Description 01/27/2024 [place] [id number] Gina Macias Social History Tobacco Use Types Packs/Day Years [...] Type Associated Problems Recent Progress Patient-Stated? Author [facility] Medication Compliance and Understanding Patient Facing Action Plan No Ani Eldridge, [facility] Note: Attain undetectable viral load by end of Mavyret treatment and SVR12. documented as of this encounter Visit Diagnoses Not on filedocumented in this encounter Care Teams Modern And Contemporary Art Curator Relationship Specialty Start Date End Date Freda Wood APRN [address] [place] [address] PCP - General Family Medicine 02/24/24 documented as of this encounter
--- OUTSIDE RECORDS SUMMARY | 2024-11-17 14:24 | XMS_ITS | Encounter Summary ---
[place] [address] Care Team Providers Care Mirror Fabrication Supervisor Name Role Phone Freda Wood APRN Primary Care Provider [phone]- [phone] Reason for Visit * Reason Comments Skin Check * Consultation (Routine) - Pending Review Specialty Diagnoses / Procedures Referred By Rosalia garner Referred To Contact Dermatology Diagnoses Malignant melanoma of scalp and neck Freda Wood APRN [address] [place] [address] Anastacio Rankin MD [address] [place] [address], THANIA [place] [address] Referral ID Status Reason Start Date Expiration Date V isits Requested Visits Authorized [id number] Pending Review 12/21/2023 12/20/2024 1 1 Encounter Details Date Type Department Care Team (Late st Contact Info) Description 02/24/2024 3:00 PM EDT Office Visit Dermatology at [address] [phone] Anastacio Rankin MD [address] [place] [address], THANIA Castellanos [facility] [place], [place] [id number] History of malignant melanoma Social History Tobacco Use Types Packs/Day Years [...] on file documented as of this encounter Progress Notes * Anastacio Rankin MD - 02/24/2024 3:00 PM EDT Problem: 1. New patient, initial visit, skin checkup 2. History of malignant melanoma 0.5 mm Breslow depth left anterior base of the neck excised at [facility] October 2022 Carlene presents today for general skin checkup. She is referred to have general skin checkup and she has not had any follow-up following the melanoma excision from her neck. Physical examination reveals a pleasant 43-year-old woman who has a melanoma and a vertically oriented melanoma excision scar in the left anterior base of her neck with some hypertrophic scarring inferiorly. She is freckled with blue eyes and very fair skin. Fortunately she has a benign examinationof the head and the neck the chest the back the hands arms forearms thighs and calves. There is no e vidence of any new lesions of concern. She has no cervical adenopathy. Assessment plan: History of malignant melanoma 1. Patient reassured about today's benign skin examination 2. Encouraged every 6 month follow-ups for 2 years and then once yearly follow- ups thereafter. 3. Today Kenalog injection 5 mg/mL injected to hypertrophic scar site, patient tolerated well. 0.2 mL injected 4. Return to clinic in 1 month for reassessment of hypertrophic scar 5. Discussed sun avoidance precautions use of sunscreen widebrimmed hats and sun protective clothing. CC: Freda Wood APRN documented in this encounter Plan of Treatment Not on file documented as of this encounter Goals Goal Patient Goal Type Associated Problems Recent Progress Patient-Stated? Author [facility] Medication Compliance and Understanding Patient Facing Action Plan No Ani Eldridge, [facility] Note: Attain undetectable viral load by end of Mavyret treatment and SVR12. documented as of this encounter Visit Diagnoses Diagnosis History of malignant melanoma Personal history of malignant melanoma of skin documented in this encounter Care Teams Mirror Fabrication Supervisor Relationship Specialty Start Date End Date Freda Wood APRN [address] [place] [id number] PCP - General Family Medicine 02/24/24 documented as of this encounter
--- OUTSIDE RECORDS SUMMARY | 2024-11-17 14:25 | XMS_ITS | Encounter Summary ---
Author Organization [facility] [address] Care Team Providers Care Hotel Office Manager Name Role Phone Chucho De León MD Primary Care Provider [phone] Reason for Visit * Reason Comments Abdominal Pain Encounter Details Date Type Department Care Team (Latest Contact Info) Description 01/15/2014 1:27 AM EDT - 01/16/2014 3:27 PM EDT Hospital Encounter [address] [place] [address] Nilay Templeton MD [facility] [place] [address] Dayron Burk MD Rakic, Marko, MD Hepatitis Discharge Disposition: Home Social History Tobacco Use Types Packs/Day Years Used Date Smoking Tobacco: Every Day Alcohol Use Standard Drinks/Week Comments No 0 (1 standard drink = 0.6 oz pur e alcohol) Sex and Gender Information Value Date Recorded Sex Assigned at Not on file Gender Identity Not on file Sexual Orientation Not on file documented as of this encounter Last Filed Vital Signs Vital Sign Reading Time Taken Comments Blood Pressure 122/59 01/16/2014 11:20 AM EDT Pulse 65 01/16/2014 11:20 AM EDT Temperature 36.7 ??C (98.1 ??F) 01/16/2014 11:20 AM E DT Respiratory Rate 18 01/16/2014 11:20 AM EDT Oxygen Saturation 100% 01/16/2014 11:20 AM EDT Inhaled Oxygen Concentration - - Weight 62.9 kg (138 lb 9.6 oz) 01/15/2014 3:47 A M EDT Height 170.2 cm (5' 7) 01/15/2014 4:32 AM EDT Body Mass Index 21.71 01/15/2014 3:47 AM EDT documented in this encounter Discharge Instructions * Discharge Instructions* Nishant Carrasco MSW - 01/16/2014 1:57 PM EDT Patient Name: Carlene Augustine Patient Age: 33 y.o. Birthdate: 1980 Admit date: 01/15/2014 Attending Physician: Gianni Montes De Oca MD PCP: CHUCHO DE LEÓN MD at [facility] Information Source: Medical Record and, Patient. Purpose: hot blast worker reviewed this patient's medical record with intention to meet for supportive care andto discuss possible barriers to disposition. Information in regard to substance misuse treatment. Objective/ Assessment: Carlene Augustine is a 33 y.o. Female who presents to [facility] with a request for information toassist with ongoing substance misuse treatment facilities. Plan/ Outcome: SW met with PT to discuss two facilities that might assist with her ongoing treatment concerns. PT is to contact these facilities for an intake interview. Contact [address] [address] (toll-free) Fax: General - Administration - Admissions - Withdrawal Management Unit - Counselors - SW offered a list of individual MD's that can provide Suboxone scripts in the [facility] as well as Treatment facilities. Kitman noted no other needs to assist with patient disposition. JEAN Sotelo, SENIOR PROPERTY MANAGER Clinical [place] Office of Care Management Social Work Practice [place] Chair General Internal Medicine (Inpatient) Pager #[phone] Please consider the environment before printing [place] [address] Phone * Patient Instructions* Gianni Montes De Oca MD - 01/16/2014 2:46 PM EDT Instruction after leaving the hospital Why you were hospitalized: Acute hepatitis (hepatitis C) Call your doctor or seek medical attention if you develop the following: Shortness of breath, chestpain, worsening abdominal pain even after heroin withdrawal, fever/chills, blood stools, decreasingurine, or any other concerning symptom Activity level: As usual Diet: Regular diet, no restrictions Driving: Avoid driving while withdrawing from heroin Shower/Bath: As usual Specific instructions related to your condition: Please ensure you attend your appointment with gastroenterology Please ensure you attend your suboxone clinic appointment You have been prescribed medications that will help to alleviate heroin withdrawal - please use these as prescribed Please ensure you have your blood drawn prior to your visit with the liver clinic on 02/05/14 (wouldcome at least 1 hour earlier for your blood work or get your blood work done days before your appointment Follow-Up Appointments Please see discharge summary Your Inpatient Doctor(s) at [facility]: Gianni Sherwood MD documented in this encounter Medications at Time of Discharge Medication Sig Dispensed Refills Start Date End Date cloNIDine (CATAPRES) 0.1 mg tablet Take 1 tablet by mouth 3 times daily. 30 tablet 1 01/16/2014 05/07/2014 dicyclomine (BENTYL) 10 mg capsule Take 2 capsules by mouth 4 times daily as needed (Abdominal cramping). 30 capsule 1 01/16/2014 11/24/2017 loperamide (IMMODIUM) 2 mg tablet Take 1 capsule by mouth 4 times daily as needed for Diarrhea. 30 tablet 1 01/16/2014 11/24/2017 methocarbamol (ROBAXIN) 500 mg tablet Take 1 tablet by mouth 3 times daily as needed (Muscle spasm). 30 tablet 1 01/16/2014 11/24/2017 ondansetron (ZOFRAN) 4 mg tablet Take 1 tablet by mouth every 8 hours as needed. 20 tablet 1 01/16/2014 11/24/2017 ursodiol (NENA-250) 250 mg tablet Take 1 tablet by mouth 2 times daily as needed (itching ). 30 tablet 1 01/16/2014 11/24/2017 documented as of this encounter Progress Notes * Rose Govea RN - 01/16/2014 3:09 PM EDT Reviewed d/c instructions with patient, including new medications and f/u appt for GI. Patient verbalized understanding and left with mother for home. * Gianni Montes De Oca MD - 01/16/2014 3:01 PM EDT Hospital Medicine - Attending Day of Discharge Documentation Discharge diagnosis Active Hospital Problems Diagnosis ??? Transaminitis ??? HCV (hepatitis C virus) ??? Hyperbilirubinemia ??? IVDU (intravenous drug user) Resolved Hospital Problems Diagnosis Date Resolved No resolved problems to display. Secondary Issues Active Non-Hospital Problems Diagnosis ??? Bloating ??? Cigarette smoker ??? IBS (irritable bowel syndrome) I have personally seen and examined the patient and they are ready for discharge. I spent >30 minutes (Day of Discharge Code 37940) involved in the final examination of the patient, discussion of the hospital stay, instructions for continuing care to all relevant caregivers, and preparation of discharge records, prescriptions and referral forms. Plans Discharge to home Follow-up scheduled with Gastroenterology and patient will arrange follow-up with suboxone clinic Please see the Discharge Summary for complete details of any medication changes and additional plans. * Gianni Montes De Oca MD - 01/16/2014 12:13 PM EDT Hospital Medicine - Attending Day of Discharge Documentation Discharge diagnosis Active Hospital Problems Diagnosis ??? Transaminitis ??? HCV (hepatitis C virus) ??? Hyperbilirubinemia ??? IVDU (intravenous drug user) Resolved Hospital Problems Diagnosis Date Resolved No resolved problems to display. Secondary Issues Active Non-Hospital Problems Diagnosis ??? Bloating ??? Cigarette smoker ??? IBS (irritable bowel syndrome) I have personally seen and examined the patient and they are ready for discharge. I spent >30 minutes (Day of Discharge Code 04157) involved in the final examination of the patient, discussion of the hospital stay, instructions for continuing care to all relevant caregivers, and preparation of discharge records, prescriptions and referral forms. Plans Discharge to home Follow-up scheduled with gastroenterology, patient and family will schedule suboxone clinic (socialwork working with them to ensure follow-up) Please see the Discharge Summary for complete details of any medication changes and additional plans. * Nishant Carrasco, POWER TRANSFORMER INSPECTOR - 01/16/2014 9:01 AM EDT Patient Name: Carlene Augustine Patient Age: 33 y.o. Birthdate: 1980 Admit date: 01/15/2014 Attending Physician: Gianni Montes De Oca MD PCP: CHUCHO DE LEÓN MD at [facility] Information Source: Medical Record and, Patient. Purpose: hot blast worker reviewed this patient's medical record with intention to meet for supportive care andto discuss possible barriers to disposition. Information in regard to substance misuse treatment. Objective/ Assessment: Carlene Augustine is a 33 y.o. Female who presents to [facility] with a request for information toassist with ongoing substance misuse treatment facilities. Plan/ Outcome: SW met with PT to discuss two facilities that might assist with her ongoing treatment concerns. PT is to contact these facilities for an intake interview[facility] [address] [address] (t[facility]-free[facility] Fax: General - Administration - Admissions - Withdrawal Management Unit - Counselors - AND [facility] [phone]. Office hours are 9 a.m. to 4:30 p.m. Tuesday- Tuesday. We regret that we are unable to take messages for clients. Please contact clients at the above number for emergencies only. Venita Hernandez sends and receives mail Tuesday through Tuesday. Our mailing address is Venita Hernandez, [address], [address] [place] [address] You can email us at [email or web address]. Someone will respond to your message within 24 hours Tuesday - Tuesday. As well there is this MD who may be able to continue your prescription of Buprenorphine/ Suboxone: Romain Doyle M.D. [place] [address] Kitman noted no other needs to assist with patient disposition. JEAN Sotelo, SENIOR PROPERTY MANAGER Clinical [place] Office of Care Management Social Work Practice [place] Chair General Internal Medicine (Inpatient) Pager #[phone] Please consider the environment before printing [place] [address] Phone * Rose Govea RN - 01/15/2014 5:55 PM EDT Patient was overheard arguing loudly and using profanity in argument with boyfriend, Alli Neil, in room with door closed. Upon entering room, boyfriend entered bathroom and closed door. Patientwas tearful and requested to be allowed to go outside for fresh air. Patient stated that she wished for Alli to be asked to leave, to stay away, and that if he called, that no information was to be given to him. Patient stepped outside room, and this content writer asked Alli to leave. Alli left peacefully. Patient again asked to be able to go outside. MD notified. IV access removed. Patient was asked to return intwenty minutes, as medication was due, and patient agreed. Patient did return on time. Currently has no IV access, per MD order. VS stable. Will continue to monitor. * Enid Marsh RN - 01/15/2014 3:42 PM EDT 01/15/2014 Carlene Augustine [id number] CRC went to meet pt to do an initial CRC interview after OCM colleague had attempted to see pt earlier. Pt had declined interview at that time r/t her reluctance to talk w/ CRC in front of her company. When this CRC went to visit pt's boyfriend and mother continued to be in her room so CRC spoke [facility] [facility] [employer] [facility] staff. Pt has been independent in her room and has not requested any additional assistance.- records reveal pt lives alone w/ her young daughter in [place], [place]. 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 Pt's mother Leslie Freedman is listed as pt's primary contact (cell [phone]). CRC will attempt to complete interview in AM and remain available to assist pt w/ dischar ge needs as necessary. Medical Team: Green Team, pager [phone]. Enid Marsh, RN, MSN, [facility] Clinical Machine Riveter Office of Care Management Pager [phone] Phone: [phone] * Sandra Sheridan RN - 01/15/2014 4:56 AM EDT Received Report from ARLIN Cuellar in the ER. Arrive to floor at 0415- via stretcher accompanied by staff. Calm, pleasant, smiley. No signs of respiratory distress. Regular heart rate. IV clean and intact, flushes well. IV fluid hung. Discuss plan of care, oriented to room and hospital. Denies having any drugs in the room with her. Admit to heroine drug use. Waiting on patient to use the bathroom for urine sample. Yellow skin and eyes. Generalized itching, more prominent to at the hands and feet. Denies any pain. Denies any nausea. Call hathaway within reach. Masimo on. Bed locked and in the lowest position. * Wilma Tapia RN - 01/14/2014 11:41 PM EDT Successful first attempt at IV insertion. Labs drawn and sent to laboratory. Tolerated well. documented in this encounter H&P Notes * Gianni Montes De Oca MD - 01/15/2014 2:54 AM EDT Inpatient Hospital Medicine - Admission Note Problem List: Active Hospital Problems Diagnosis ??? Transaminitis ??? HCV (hepatitis C virus) ??? Hyperbilirubinemia ??? IVDU (intravenous drug user) Resolved Hospital Problems Diagnosis Date Resolved No resolved problems to display. Active Non-Hospital Problems Diagnosis ??? Bloating ??? Cigarette smoker ID: Ms. Carlene Augustine is a 33 y/o W with a PMHx of chronic IVDU and IBS-type symptoms admitted in transfer from [facility] for acute hepatitis. History of Present Illness: HPI Pt was in her [facility] until approx 1 month ago when she began experiencing worsening fatigue, sometimesdisabling, as well as worsening nausea, vomiting and anorexia. She admits to an upper respiratory infection type picture around this period as well. 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 Approx 5d ago she sought care from her PCP, who obtained both a RUQ U/S as well as laboratory studies. While her U/S was essentially normal, her ID labs revealed a newly- positive HCV antibody (last checked and negative 1 yr ago, per pt report, see below for documented findings) as well as a significant transaminitis and hyperbilirubinemia. Her labs were trended over the coming days, and although her AST/ALT are improving, her bilirubin has risen. This, plus worsening abdominal pain and poor oral intake prompted transfer to this facility for definitive workup and management. [facility] Labs 201201/09/2014 Hep Bs Ab 4.05 Hep A Ab Tot Negative Hep Bs Antigen Non-reactive Hep B Core Negative Hep C Ab Reactive HIV 1&2 Negative BMP WNL PT/INR 9.6/1.0 TPro/Albumin 7.3/3.5 T-Bili 9.52 AST/ALT 1858/2086 Lipase 149 Review of Systems: Review of Systems General: No recent fevers, sweats or rigors. No change in weight. HEENT: No vision or hearing changes, tinnitus, headaches. CVS: No chest pain, palpitations, orthopnea, leg swelling Respiratory: No SOB, dyspnea, cough, wheezing, hemoptysis GI: See HPI : Denies dysuria, incontinence, hematuria Musculoskeletal: No arthritis or muscle pain Endocrine: Denies cold intolerance, tremor Heme: No easy bruising, no bleeding, no noted LAD. Skin: See HPI Psych: Chronic substance abuse Past Medical and Surgical History: IBS-Type Syndrome: Chronic, typically morning or post-prandial IVDU: Doesn't typically share needles. No hx of complications. Drug of choice is heroin. Prior To Admission Medications: No prescriptions prior to admission Allergies: No Known Allergies Family History: Family History Problem Relation Age of Onset ??? Diabetes Mother ??? Cancer Mother ??? Cancer Father ??? Arthritis Neg Hx ??? Thyroid Disease Neg Hx Social History and Habits: Housing: Lives alone with her daughter. 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 Children: One daughter EtOH: Denies Tobacco: Daily smoker Illicits/HIV: Chronic IVDU, heroin Travel: No international travel Sexual History: Male partners only Tattoos: One non-professional tattoo Transfusion: Blood transfusion in 2007 Immunizations: There is no immunization history on file for this patient. Physical Exam: Last Set of Vitals and range of vitals over past 24 hours: Last value Range last 24 hrs Temperature Temp: 36.7 ??C (98 ??F) Temp: [36.6 ??C (97.9 ??F)-36.7 ??C (98 ??F)] Heart Rate Heart Rate: 66 Heart Rate: [59-74] Blood Pressure BP: 94/68 mmHg BP: (89-125)/(53-80) Respiratory Rate Resp: 18 Resp: [12-18] SpO2 SpO2: 100 % SpO2: [98 %-100 %] Physical Exam Gen: Well appearing, thin, conversant, tearful at times. NAD V/S: BP 94/68 Pulse 66 Temp 36.7 ??C (98 ??F) (Oral) Resp 18 Ht 170.2 cm (5' 7) Wt 62.869 kg (138 lb 9.6 oz) BMI 21.70 kg/m2 SpO2 100% Skin: Skin warm, pink, non-diaphoretic. Jaundice. No stigmata of endocarditis appreciated. Track pratt bilaterally in ACs, no evidence of infection. HEENT: PEERLA, EOMI, OP clear w/out erythema or exudates, neck supple. No LAD or oral ulcers. Thyroid not palpable. Lymph: No cervical, supraclavicular, axillary or inguinal LAD. Minor LUQ tenderness, spleen tip notfelt. Chest: No incr. WOB. No audible wheeze or cough. LS clear bilaterally. C/V: HRR, Nml S1/S2, no M/R/G. No JVD. Abd: Soft, NT, ND, NABS. Minor R & L UQ tenderness. No guarding, negative peritoneal signs. G/U: Omitted M/S: Extremities warm, without clubbing or cyanosis. 5/5 strength throughout. Neuro: Pt alert and oriented to self, time and place. Normal, fluid speech. Mood euthymic, tearful at times. construction representative II-XII fully tested and intact. Confrontational visual bahena intact. Negative for asterixis. Ambulates w/out difficulty. Laboratory (Last 24 Hours): Recent Results (from the past 24 hour(s)) CBC (WITH DIFF) Component Value Range WBC 6.4 4.0 - 10.0 x10(3)/mcL RBC 4.41 3.93 - 5.22 x10(6)/mcL Hemoglobin 13.2 11.2 - 15.7 gm/dL Hematocrit 38.5 34.0 - 45.0 % MCV 87.3 79.0 - 94.0 fL MCH 29.9 26.6 - 32.2 pg MCHC 34.3 32.0 - 36.5 gm/dL Platelets 228 145 - 370 x10(3)/mcL RDWSD 52.8 (*) 35.0 - 46.0 fL RDWCV 16.7 (*) 10.9 - 14.4 % MPV 11.5 9.0 - 12.0 fL ELECTROLYTES PANEL Component Value Range Sodium 137 135 - 145 mmol/L Potassium 3.5 3.5 - 5.0 mmol/L Chloride 104 98 - 107 mmol/L CO2 23 22 - 31 mmol/L Anion Gap 10 5 - 15 mmol/L BUN Component Value Range BUN 8 8 - 18 mg/dL CREATININE Component Value Range Creatinine 1.20 0.70 - 1.20 mg/dL Estimated GFR 51 (*) >=60 GLUCOSE, RANDOM Component Value Range Glucose Lvl 130 60 - 199 mg/dL HEPATIC FUNCTION PANEL Component Value Range Total Protein 6.4 6.4 - 8.3 gm/dL Albumin 3.6 3.2 - 5.2 gm/dL AST 1079 (*) 0 - 30 unit/L ALT 1134 (*) 0 - 30 unit/L Alk Phos 233 (*) 40 - 104 unit/L Total Bilirubin 15.9 (*) 0.2 - 1.3 mg/dL Bili, Direct >10.0 (*) 0.0 - 0.3 mg/dL LIPASE Component Value Range Lipase 32 0 - 60 unit/L PROTHROMBIN TIME Component Value Range PT 12.2 12.0 - 15.0 sec INR 0.9 0.9 - 1.1 CALCIUM Component Value Range Calcium 9.9 8.5 - 10.5 mg/dL MAGNESIUM Component Value Range Magnesium 0.88 0.69 - 1.07 mmol/L DIFFERENTIAL, AUTOMATED Component Value Range Neutrophils % 58.2 34.0 - 71.0 % Neutr Abs (ANC) 3.71 1.50 - 6.30 x10(3)/mcL Lymphocytes % 27.8 19.0 - 53.0 % Lymphocytes Abs 1.8 1.0 - 3.6 x10(3)/mcL Monocytes % 10.5 4.0 - 13.0 % Monocyte Abs 0.7 0.2 - 1.0 x10(3)/mcL Eosinophils % 3.1 0.0 - 7.0 % Eosinophils Abs 0.2 0.0 - 0.5 x10(3)/mcL Basophils % 0.2 0.0 - 2.0 % Basophils Abs 0.0 0.0 - 0.2 x10(3)/mcL Immature Gran % 0.20 0.00 - 0.66 % Breanna Gran Abs 0.01 0.00 - 0.05 x10(3)/mcL URINALYSIS WITH MICROSCOPIC Component Value Range Glucose UA Negative Negative mg/dL Protein UA 30 (*) Neg mg/dL Bilirubin UA Large (*) Negative mg/dL Urobilinogen UA 2.0 (*) Normal mg/dL pH UA 6.0 5.0 - 8.0 Blood UA Negative Ketones UA Negative Nitrite UA Negative Leukocytes UA Negative Appearance UA Hazy (*) Clear Spec [place] UA 1.021 1.002 - 1.030 Color UA Dark Yellow Yellow RBC UA Not Present 0 - 4 WBC UA Not Present 0 - 5 Squam Epith UA <1 <=4 /HPF Hyaline Cast UA 4 (*) 0 - 2 /LPF Amorph Eileen UA Few POCT URINE Component Value Range POC Urine HCG Negative Negative - Negative POC Control Internal Controls Acceptable Radiology: Ultrasound ([facility] 01/11/2014) Unremarkable abdominal U/S. Assessment: Pt is a 33 y/o W with a chronic hx of IVDU seen in transfer from [facility] for workup and management of acute hepatitis. Pt reports interval conversion of HCV antibody status over last year, although baseline HCV Ab status not currently known/documented. 2012 documentation shows HBV surface Ab, likely conferring immunity. Denies recent exposure c/w HAV. Although rare, acute HCV hepatitis is possible, and may be present here. Given the duration of her fatigue and URI type sxs, EBV remains on the differential, as does CMV although less likely. Autoimmune hepatitis may also be present. Given her hx of high (1.5-2g) single-dose APAP use, Tylenol toxicity also possible. Trauma, shock liver seem less likely given the history provided. Will confirm HCVviral load by PCR, as well as EBV with a heterophile AB test and CMV with IgM to assess for recent infection. Lastly, will check for AIH and veno- occlusive disease along, along with GI consult. Plan: # Acute Hepatitis - Admit to medicine with GI consult - HCV viral load - Heterophile antibody - CMV IgM - TISHA, anti-smooth Mm Ab - Abd U/S with Doppler study #FEN - Maintenance fluids, NS bolus for low BP and/or low UOP - NPO for now w/upcoming Abd U/S #PPx - GI: considered - DVT: HSQ TID CODE STATUS: FULL CODE A copy of this document will be sent to the patient's Primary Care Physician and/or Referring Physician. ANGELITA HORTON JR, MD 01/15/[address] Horton???s note for details of the patient history of presentation and data. I have discussed, reviewed and agree with the documented History, Physical findings, Assessment and Planof care. 33yo F w/ heroin use now with acute HCV. LFTs are improving but bilirubin is lagging behind. Will monitor with most likely d/c in the AM given ongoing stability and ability to take PO. She will need GI follow-up as an outpatient for further management of her new diagnosis of HCV. No need for inpatient GI consult at this time (as she will likely improve with time and needs no specific urgent intervention). Gianni Montes De Oca MD 01/15/2014 documented in this encounter ED Notes * Lashaun Adhikari RN - 01/15/2014 3:21 AM EDT Ice chips provided to Pt for dry mouth as Pt is NPO. * Lashaun Adhikari RN - 01/15/2014 2:55 AM EDT Pt up to walk outside prior to admission upstairs. Nicotine Patch suggested as Pt says she would like to smoke, [facility] policy and procedure regarding smoking reiterated to Pt, she refused the patch. * Lashaun Adhikari RN - 01/15/2014 1:48 AM EDT Admitting MD in to assess. * Lashaun Adhikari RN - 01/15/2014 1:10 AM EDT Pt up in [place] independently with no concerns voiced, denies pain or nausea at present. * Nilay Templeton MD - 01/14/2014 10:48 PM EDT Chief Complaint Patient presents with ??? Abdominal Pain This is a 33-year-old female who presents with increasing jaundice, right upper quadrant abdominal pain, dark urine and light colored stools. She has a history of IV drug use and approximately one month ago noticed increasing fatigue and worsening of her stomach issues that consist of intermittent abdominal pain and cramping. She also noticed that her urine was dark and that persisted despite increase fluid intake. The end of last week she noticed increasing heartburn symptoms and noticed light colored stools, jaundice, anorexia and nausea and vomiting as well as pruritus of the palms and soles. Last Tuesday she noticed scleral icterus and saw her PCP on Tuesday where she underwent labs. She underwent a right upper quadrant ultrasound on Tuesday and then was told earlier this week by her primary care physician that her test were positive for hepatitis C. She presents to the emergencydepartment now with increasing scleral icterus, right upper quadrant pain, worsening anorexia and decreased by mouth intake. She denies hematemesis or melena or bright red blood per. She's had no fever. She denies any travel outside the country. She received a blood transfusion 2005 due to heavy vaginal bleeding on the time of childbirth Patient is a 33 y.o. female presenting with abdominal pain. Abdominal Pain The primary symptoms of the illness include abdominal pain, fatigue, nausea and vomiting. The primary symptoms of the illness do not include fever, shortness of breath, diarrhea, hematemesis, hematochezia or dysuria. The current episode started more than 2 days ago. The onset of the illness was gradual. The problem has been gradually worsening. No Known Allergies Review of Systems Constitutional: Positive for fatigue. Negative for fever. HENT: Negative for congestion. Eyes: Negative for visual disturbance. Respiratory: Negative for shortness of breath. Cardiovascular: Negative for chest pain. Gastrointestinal: Positive for nausea, vomiting and abdominal pain. Negative for diarrhea, hematochezia and hematemesis. Genitourinary: Negative for dysuria. Musculoskeletal: Negative for myalgias. Skin: Positive for color change. Negative for rash. Neurological: Negative for weakness. Hematological: Does not bruise/bleed easily. Physical Exam Nursing note and vitals reviewed. Constitutional: She is oriented to person, place, and time. She appears well- developed and well-nourished. HENT: Head: Normocephalic and atraumatic. Eyes: Conjunctivae normal are normal. Scleral icterus is present. Neck: Neck supple. No JVD present. Cardiovascular: Normal rate and regular rhythm. Pulmonary/Chest: Effort normal and breath sounds normal. Abdominal: Soft. There is tenderness. There is no guarding. Musculoskeletal: She exhibits no edema and no tenderness. Neurological: She is alert and oriented to person, place, and time. She has normal strength. Skin: Skin is warm and dry. Procedures MDM Recent Results (from the past 24 hour(s)) CBC (WITH DIFF) Component Value Range WBC 6.4 4.0 - 10.0 x10(3)/mcL RBC 4.41 3.93 - 5.22 x10(6)/mcL Hemoglobin 13.2 11.2 - 15.7 gm/dL Hematocrit 38.5 34.0 - 45.0 % MCV 87.3 79.0 - 94.0 fL MCH 29.9 26.6 - 32.2 pg MCHC 34.3 32.0 - 36.5 gm/dL Platelets 228 145 - 370 x10(3)/mcL RDWSD 52.8 (*) 35.0 - 46.0 fL RDWCV 16.7 (*) 10.9 - 14.4 % MPV 11.5 9.0 - 12.0 fL ELECTROLYTES PANEL Component Value Range Sodium 137 135 - 145 mmol/L Potassium 3.5 3.5 - 5.0 mmol/L Chloride 104 98 - 107 mmol/L CO2 23 22 - 31 mmol/L Anion Gap 10 5 - 15 mmol/L BUN Component Value Range BUN 8 8 - 18 mg/dL CREATININE Component Value Range Creatinine 1.20 0.70 - 1.20 mg/dL Estimated GFR 51 (*) >=60 GLUCOSE, RANDOM Component Value Range Glucose Lvl 130 60 - 199 mg/dL HEPATIC FUNCTION PANEL Component Value Range Total Protein 6.4 6.4 - 8.3 gm/dL Albumin 3.6 3.2 - 5.2 gm/dL AST 1079 (*) 0 - 30 unit/L ALT 1134 (*) 0 - 30 unit/L Alk Phos 233 (*) 40 - 104 unit/L Total Bilirubin 15.9 (*) 0.2 - 1.3 mg/dL Bili, Direct >10.0 (*) 0.0 - 0.3 mg/dL LIPASE Component Value Range Lipase 32 0 - 60 unit/L PROTHROMBIN TIME Component Value Range PT 12.2 12.0 - 15.0 sec INR 0.9 0.9 - 1.1 CALCIUM Component Value Range Calcium 9.9 8.5 - 10.5 mg/dL MAGNESIUM Component Value Range Magnesium 0.88 0.69 - 1.07 mmol/L DIFFERENTIAL, AUTOMATED Component Value Range Neutrophils % 58.2 34.0 - 71.0 % Neutr Abs (ANC) 3.71 1.50 - 6.30 x10(3)/mcL Lymphocytes % 27.8 19.0 - 53.0 % Lymphocytes Abs 1.8 1.0 - 3.6 x10(3)/mcL Monocytes % 10.5 4.0 - 13.0 % Monocyte Abs 0.7 0.2 - 1.0 x10(3)/mcL Eosinophils % 3.1 0.0 - 7.0 % Eosinophils Abs 0.2 0.0 - 0.5 x10(3)/mcL Basophils % 0.2 0.0 - 2.0 % Basophils Abs 0.0 0.0 - 0.2 x10(3)/mcL Immature Gran % 0.20 0.00 - 0.66 % Breanna Gran Abs 0.01 0.00 - 0.05 x10(3)/mcL URINALYSIS WITH MICROSCOPIC Component Value Range Glucose UA Negative Negative mg/dL Protein UA 30 (*) Neg mg/dL Bilirubin UA Large (*) Negative mg/dL Urobilinogen UA 2.0 (*) Normal mg/dL pH UA 6.0 5.0 - 8.0 Blood UA Negative Ketones UA Negative Nitrite UA Negative Leukocytes UA Negative Appearance UA Hazy (*) Clear Spec [place] UA 1.021 1.002 - 1.030 Color UA Dark Yellow Yellow RBC UA Not Present 0 - 4 WBC UA Not Present 0 - 5 Squam Epith UA <1 <=4 /HPF Hyaline Cast UA 4 (*) 0 - 2 /LPF Amorph Eileen UA Few POCT URINE Component Value Range POC Urine HCG Negative Negative - Negative POC Control Internal Controls Acceptable Acute hepatitis. Hemodynamically stable. No coagulopathy. Significantly elevated LFTs appears to clearly bilirubin. I reviewed her ultrasound result of an outside hospital as well as lateral that appeared to discuss the case with hospital medicine and she'll be admitted to their service Nilay Templeton MD 01/15/14 0437 documented in this encounter Miscellaneous Notes * Discharge Summary - Gianni Montes De Oca MD - 01/16/2014 8:40 AM EDT Discharge Summary Patient Name: Carlene Augustine Patient Age: 33 y.o. Language: Spanish Race: White Ethnicity: Not nor Admit date: 01/15/2014 Discharge date and time: 01/16/2014 3:00 PM Attending Physician: Gianni Montes De Oca MD Discharge Physician: Gianni Montes De Oca MD Follow-up Recommendations for Providers: - Please follow-up on LFTs to monitor for resolution of acute hepatitis - Please follow-up on Hepatitis C viral load and genotype labs - She was given names for suboxone clinic providers, please follow-up with her on progress - Consider updating immunizations given her IVDU - HBV etc. Inpatient Provider Contact Information: For questions regarding this document or issues relating to this hospitalization on the Medical Service, please contact your inpatient physician through the [facility] Hot Blast Worker . Issues afterhours and on weekends will be handled by the Hospitalist staff on-call. Discharge Diagnoses (Hospital Problems) and Secondary Diagnoses (Chronic Problems): Active Hospital Problems Diagnosis ??? Transaminitis ??? HCV (hepatitis C virus) ??? Hyperbilirubinemia ??? IVDU (intravenous drug user) Resolved Hospital Problems Diagnosis Date Resolved No resolved problems to display. Active Non-Hospital Problems Diagnosis ??? Bloating ??? Cigarette smoker ??? IBS (irritable bowel syndrome) Operations/Major Procedures: Operations: None Other Major Procedures: None History of Presentation: Pt was in her US[facility] until approx 1 month ago when she began experiencing worsening fatigue, sometimesdisabling, as well as worsening nausea, vomiting and anorexia. She admits to an upper respiratory infection type picture around this period as well. 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 Approx 5d ago she sought care from her PCP, who obtained both a RUQ U/S as well as laboratory studies. While her U/S was essentially normal, her ID labs revealed a newly- positive HCV antibody (last checked and negative 1 yr ago, per pt report, see below for documented findings) as well as a significant transaminitis and hyperbilirubinemia. Her labs were trended over the coming days, and although her AST/ALT are improving, her bilirubin has risen. This, plus worsening abdominal pain and poor oral intake prompted transfer to this facility for definitive workup and management. [facility] Labs 2013 01/09/2014 Hep Bs Ab 4.05 Hep A Ab Tot Negative Hep Bs Antigen Non-reactive Hep B Core Negative Hep C Ab Reactive HIV 1&2 Negative BMP WNL PT/INR 9.6/1.0 TPro/Albumin 7.3/3.5 T-Bili 9.52 AST/ALT 1858/2086 Lipase 149 Hospital Course: # Acute hepatitis due to new HCV infection Carlene was admitted to the hospital medicine service for overnight observation. Her bilirubin started to trend downward on HD #2, although her LFTs were somewhat unchanged. Note that an OSH ultrasound showed no signs of cirrhosis nor venous thromboses (see report in D/C summary). GI was curbsided and agreed with plans for discharge and subsequent follow-up in the outpatient setting given her stability and lack of any sign of acute hepatic failure. Follow-up was arranged with LFTs prior to her appointment. # Heroin use Patient was given materials and assistance with arrangement of suboxone clinic appointment. She appeared ready to quit using heroin. Medications were prescribed for help with symptoms of withdrawal (see medication list). Vital Signs at Discharge: BP: 122/59 mmHg, Heart Rate: 65 , Temp: 36.7 ??C (98.1 ??F), Resp: 18 , Height: 170.2 cm (5' 7) (01/15/14 8952) Weight - Scale: 62.869 kg (138 lb 9.6 oz) (01/15/14 237) Functional and Cognitive Status: Somnolent at times, but clear mentation overall -- starting to experience opiate withdrawal symptoms. Important Studies and Lab Data: Recent Labs Basename 01/14/14 2325 WBC 6.4 HGB 13.2 PLATELET 228 Recent Labs Basename 01/16/14 0552 01/14/14 2325 NA 136 137 K 3.6 3.5 CO2 23 23 CL 102 104 BUN 9 8 CREATININE 0.58* 1.20 CALCIUM 9.8 9.9 MAGNESIUM -- 0.88 PHOS -- -- Recent Labs Basename 01/16/14 0552 01/14/14 2325 PROT 6.2* 6.4 ALBUMIN 3.3 3.6 BILITOT 14.3* 15.9* BILIDIR 9.9* >10.0* AST 1274* 1079* ALT 1149* 1134* ALKPHOS 236* 233* Recent Labs Basename 01/16/14 0552 01/14/14 2325 INR 0.9 0.9 FIBRINOGEN -- -- Studies: 01/09/14 -- Abdominal Ultrasound (done at [facility]) The visualized liver parenchyma is normal in appearance. The gall bladder is contracted. No cholelithiasis is seen. The gall bladder appears thick walled although this may be due to its contracted status. Abdominal aorta is of normal diameter. The pancreas appears intact. The kidneys and spleen areunremarkable in appearance. Conclusion: Unremarkable abdominal ultrasound Pending Studies and Lab Data: -HCV viral load -HCV genotype Discharge Conditions/Prognosis: The patient was hemodynamically stable with jaundiced skin, pain-free, ambulating freely and did not require supplemental oxygen. Discharge to: Home Updated Allergies/ADRs: No Known Allergies Immunizations Given this Hospitalization: There is no immunization history on file for this patient. Discharge Medications: Your Medications As of 01/16/2014 3:00 PM New Medications Dose Details cloNIDine 0.1 mg tablet Commonly known as: CATAPRES Take 1 tablet by mouth 3 times daily. 0.1 mg Quantity: 30 tablet Refills: 1 dicyclomine 10 mg capsule Commonly known as: BENTYL Take 2 capsules by mouth 4 times daily as needed (Abdominal cramping). 20 mg Quantity: 30 capsule Refills: 1 loperamide 2 mg tablet Commonly known as: IMMODIUM Take 1 capsule by mouth 4 times daily as needed for Diarrhea. 2 mg Quantity: 30 tablet Refills: 1 methocarbamol 500 mg tablet Commonly known as: ROBAXIN Take 1 tablet by mouth 3 times daily as needed (Muscle spasm). 500 mg Quantity: 30 tablet Refills: 1 ondansetron 4 mg tablet Commonly known as: ZOFRAN Take 1 tablet by mouth every 8 hours as needed. 4 mg Quantity: 20 tablet Refills: 1 ursodiol 250 mg tablet Commonly known as: NENA-250 Take 1 tablet by mouth 2 times daily as needed (itching ). 250 mg Quantity: 30 tablet Refills: 1 Smoking Status at Discharge: History Smoking status ??? Current Every Day Smoker Smokeless tobacco ??? Not on file Instructions Given to Patient at Discharge: Provider Instructions Instruction after leaving the hospital Why you were hospitalized: Acute hepatitis (hepatitis C) Call your doctor or seek medical attention if you develop the following: Shortness of breath, chestpain, worsening abdominal pain even after heroin withdrawal, fever/chills, blood stools, decreasingurine, or any other concerning symptom Activity level: As usual Diet: Regular diet, no restrictions Driving: Avoid driving while withdrawing from heroin Shower/Bath: As usual Specific instructions related to your condition: Please ensure you attend your appointment with gastroenterology Please ensure you attend your suboxone clinic appointment You have been prescribed medications that will help to alleviate heroin withdrawal - please use these as prescribed Please ensure you have your blood drawn prior to your visit with the liver clinic on 02/05/14 (wouldcome at least 1 hour earlier for your blood work or get your blood work done days before your appointment Follow-Up Appointments Please see discharge summary Your Inpatient Doctor(s) at [facility]: Gianni Sherwood MD General Instructions Patient Name: Carlene Augustine Patient Age: 33 y.o. Birthdate: 1980 Admit date: 01/15/2014 Attending Physician: Gianni Montes De Oca MD PCP: CHUCHO DE LEÓN MD at [facility] Information Source: Medical Record and, Patient. Purpose: hot blast worker reviewed this patient's medical record with intention to meet for supportive care andto discuss possible barriers to disposition. Information in regard to substance misuse treatment. Objective/ Assessment: Carlene Augustine is a 33 y.o. Female who presents to [facility] with a request for information toassist with ongoing substance misuse treatment facilities. Plan/ Outcome: SW met with PT to discuss two facilities that might assist with her ongoing treatment concerns. PT is to contact these facilities for an intake interview. [facility] [address] [place] [address] (toll-free) Fax: General - Administration - Admissions - Withdrawal Management Unit - Counselors - SW offered a list of individual MD's that can provide Suboxone scripts in the [facility] as well as Treatment facilities. [place] noted no other needs to assist with patient disposition. Nishant Carrasco MSW, SENIOR PROPERTY MANAGER Clinical [place] [facility] Office of Care Management Social Work Practice [place] Chair General Internal Medicine (Inpatient) Pager #[phone] Please consider the environment before [place] [address] Phone Future Appointments and Orders Future Appointments: Provider: Department: Dept Phone: Center: 02/05/2014 2:00 PM Marisel Saenz APRN Gastroenterology [phone] [facility] Future Orders Please Complete By Expires Hepatic Function Panel [LAB20 Custom] 02/01/14 01/16/15 Process Instructions: INCLUDES: T Protein, Alb, AST, ALT, Alk Phos, T Bili, D Bili Scheduling Instructions: Comments: Questions: Responses: Should this service/procedure be billed to the research sponsor? Discharge References/Attachments None Gianni Montes De Oca MD 01/16/2014 * Miscellaneous - Provider, Scanning - 01/16/2014 12:02 AM EDT * Miscellaneous - Provider, Scanning - 01/15/2014 12:33 AM EDT * ED Triage - Winsome Montenegro RN - 01/14/2014 9:39 PM EDT States she had been vomiting and was jaundiced for past week, had blood drawn on 01/10. Had ultrasound on 01/11 at [facility]. States today she was told she has Hep C. States her MD told her to come to [facility] to see a liver specialist. States she is having right sided abdominal pain and diarrhea. Awake and alert, skin jaundiced, warm, and dry. documented in this encounter Plan of Treatment Scheduled Orders Name Type Priority Associated Diagnoses Orde r Schedule Hepatic Function Panel Lab Routine Hepatitis Expected: 02/01/2014, Expires: 01/16/2015 documented as of this encounter Procedures Procedure Name Priority Date/Time Associated Diagnosis Comments HCV GENOTYPE (FEBRUARY) Routine 01/16/2014 5: 52 AM EDT GOLD TUBE HOLD Routine 01/16/2014 5:52 AM EDT HEPATITIS C GENOTYPE Routine 01/16/2014 5:52 AM EDT APTT Routine 01/16/2014 5:52 AM EDT PROTHROMBIN TIME Routine 01/16/2014 5:52 AM EDT HEPATIC FUNCTION PANEL Routine 4 5:52 AM EDT BASIC METABOLIC PANEL Routine 01/16/2014 5:52 AM EDT DRUG SCREEN WITH CONFIRMATION, URINE (SEND OUT) Routine 01/15/2014 5:40 AM EDT COCAINE, URINE, CONFIRMATION Routine 01/15/2014 5:40 AM EDT HCV QUANT Routine 01/15/2014 5:01 AM EDT CMV ANTIBODY, IGM Routine 01/15/2014 5:0 1 AM EDT HEPATITIS C RNA, QUANTITATIVE, PCR Routine 01/15/2014 5:01 AM EDT SMOOTH MUSCLE ANTIBODY Routine 4 5:01 AM EDT MONONUCLEOSIS SCREEN (APD/JUDD/MC/[facility]) Routine 01/15/2014 5:01 AM EDT TISHA ANTIBODY SCREEN Routine 01/15/2014 5 :01 AM EDT POCT URINE STAT 01/15/2014 12:04 AM EDT URINALYSIS WITH REFLEX CULTURE STAT 01/14/2014 11:46 PM EDT DIFFERENTIAL, AUTOMATED STAT 01/14/2014 11:25 PM EDT CREATININE STAT 01/14/2014 11:25 PM EDT PROTHROMBIN TIME STAT 01/14/2014 11:2 5 PM EDT CBC (WITH DIFF) STAT 01/14/2014 11:25 PM EDT BUN STAT 01/14/2014 11:25 PM EDT MAGNESIUM STAT 01/14/2014 11:25 PM EDT LIPASE STAT 01/14/2014 11:25 PM EDT GLUCOSE STAT 01/14/2014 11:25 PM EDT CALCIUM STAT 01/14/2014 11:25 PM EDT HEPATIC FUNCTION PANEL STAT 4 11:25 PM EDT ELECTROLYTES PANEL STAT 01/14/2014 11 :25 PM EDT EKG 12-LEAD STAT 01/14/2014 10:39 PM EDT documented in this encounter Results * Gold Tube HOLD (01/16/2014 5:52 AM EDT) Gold Hold Sample in lab. BILLY STARKS Blood specimen (specimen) 01/16/2014 5:52 AM EDT 01/16/2014 6:02 AM EDT Gianni Montes De Oca MD CHEMISTRY ORDERABLES BILLY STARKS * HCV Genotype (01/16/2014 5:52 AM EDT) HCV Genotype Indication for study Hepatitis C Infection Result 1b Interpretation: The genotyping analysis has identified the presence of HCV genotype ??1b in the submitted specimen. ??In the [place], the most common HCV genotypes are 1a and 1b, followed by genotypes 2 and 3. Genotypes 2 and 3 have better therapeutic response rates (80%) than genotypes 1 and 4 (45%) to current standard therapy (ribavirin plus pegylated interferon alpha-2a or alpha-2b). Response rate of genotype 5 appears to be similar to those of genotypes 2 and 3 whereas genotype 6 may be at an intermediate level between genotype 1 and genotypes 2 or 3. Analysis: Identification of HCV genotype was carried out using [employer] XT-8 detection system. Method: Plasma was initially subjected to quantitative RT-PCR using the [employer] AMANDA Ampliprep/AMANDA Taqman HCV assay. The HCV genotyping was carried out using [employer] XT-8 detection system that targets 5? -untranslated region of the HCV genome. The amplicon from the [employer] assay served as a template for the nested PCR followed by a direct analysis on the [employer] XT-8 detection system for the identification of HCV genotypes. The genotypes/subtypes detected by this method include 1a, 1b, 2a/c, 2b, 3, 4, 5 and 6a/b. This test was validated and its performance characteristics determined by the Molecular Pathology Laboratory at [facility]. It has not been cleared or approved by the FDA. This laboratory is regulated under CLIA as qualified to perform high-complexity testing. This test is used for clinical purposes. It should not be regarded as investigational or for research. References: Klevens RM, Tim DJ, Nuria R, Fuentes SD. Evolving epidemiology of hepatitis C virus in the [place]. Clin Infect Dis. 2012; 55:S3-9. Kenneth Burrows, Sander Ellsworth. Treating hepatitis C: current standard of care and emerging direct-acting antiviral agents. J Viral Hepat. 2012; 19:449-64. Rebeca ARDON, Courtney ALFONSO. Prevalence and treatment of hepatitis C virus genotypes 4, 5, and 6. Clin Gastroenterol Hepatol. 2005; 3:U01-H065. Smith JS, Aspsean E, Fercho D, Tom AJ, Raji ME. Current and emerging antiviral treatments for hepatitis C infection. Br J Clin Pharmacol. 2012 May 22. [Epub ahead of print] BILLY S[facility]ERSFORMERLY [facility] Comment: [VERIFIED DATE]01.30.14 Verified By:Carlene Brower (Electronic Signature) Blood specimen (specimen) 01/16/2014 5:52 AM EDT 01/21/2014 8:09 AM EDT Narrative Resulting Agency Comment Spec In Lab Gianni Montes De Oca MD LAB SEND OUT ORDERAB LES Performing Organization Address City/[facility] [address]/[facility] Co de Phone Number [facility] * Prothrombin Time (01/16/2014 5:52 AM EDT) Prothrombin Time 12.2 12.0 - 15.0 sec BILLY [facility] Comment: [facility] Transfusion Committee Guidelines: INR less than 2.0, PTT less than OR equal to 43.5 seconds, or Fibrinogen greater than or equal to 100 mg/dl indicate adequate procoagulant activity for hemostasis in patients without underlying bleeding disorders. International Normalization Ratio 0.9 0.9 - 1.1 BILLY STARKS Blood specimen (specimen) 01/16/2014 5:52 AM EDT 01/16/2014 6:01 AM EDT Narrative Resulting Agency Comment Spec In Lab Gianni Montes De Oca MD HEMATOLOGY ORDERABLE S Performing Organization Address City/[facility] [address]/ZIP Co de Phone Number BILLY SANDERSIUM * (ABNORMAL) Hepatic Function Panel (01/16/2014 5:52 AM EDT) Pathologist [facility] Protein, Total 6.2(L) 6.4 - 8.3 gm/dL CERNER MILLENNIUM Albumin 3.3 3.2 - 5.2 gm/dL CERNER MILLENNIUM Aspartate Aminotransferase 1,274(H) 0 - 30 unit/L CERNER MILLENNIUM Comment:result rechecked - E LL Alanine Aminotransferase 1,149(H) 0 - 30 unit/L CERNER MILLENNIUM Comment:result rechecked - E LL Alkaline Phosphatase 236(H) 40 - 104 unit/L CERNER MILLENNIUM Bilirubin, Total 14.3(H) 0.2 - 1.3 mg/dL CERNER MILLENNIUM Bilirubin, Direct 9.9(H) 0.0 - 0.3 mg/dL CERNER MILLENNIUM Blood specimen (specimen) 01/16/2014 5:52 AM EDT 01/16/2014 6:01 AM EDT Narrative Resulting Agency Comment Spec In Lab Gianni Montes De Oca MD CHEMISTRY ORDERABLES BILLY STARKS * (ABNORMAL) Basic Metabolic Panel (non-fasting) (01/16/2014 5:52 AM EDT) Pathologist [facility] Glucose 125 60 - 199 mg/dL CERNER MILLENNIUM Comment:Diabetes: >=200 mg/d L plus symptoms Blood Urea Nitrogen 9 8 - 18 mg/dL CERNER MILLENNIUM Creatinine 0.58(L) 0.70 - 1.20 mg/dL CERNER MILLENNIUM Comment: Please note that the pediatric reference intervals supplied above were not validated at [facility]. Results from pediatric patients should be interpreted in conjunction to the patient's age, height and muscle mass. Sodium 136 135 - 145 mmol/L CERNER MILLENNIUM Potassium 3.6 3.5 - 5.0 mmol/L CERNER MILLENNIUM Comment: Please note: ??Patients with WBC >100,000 may have falsely elevated Potassium levels. ??For accurate Potassium quantification in these patients send serum separator tube (gold top) for subsequent determinations. ??Contact the Clinical Chemistry Laboratory if there are any questions. Chloride 102 98 - 107 mmol/L CERNER MILLENNIUM Carbon Dioxide 23 22 - 31 mmol/L CERNER MILLENNIUM Anion Gap 11 5 - 15 mmol/L CERNER MILLENNIUM Calcium 9.8 8.5 - 10.5 mg/dL CERNER MILLENNIUM Est Glomerular Filtration Rate >60 >=60 CERNER MILLENNIUM Comment: This estimated GFR (eGFR) value was calculated using the MDRD equation which has been validated on patients between the ages of 18 and 70. The MDRD should not be used to assess kidney function in patients < 18 years of age or in patients with extremes of body mass, or in patients with acute kidney failure. This value should be multiplied by 1.2 for patients. For further information please copy and paste the following links into your internet browser. http://www.nkdep.nih.gov/lab-evaluation.shtml http://www.kidney.org/professionals/ Blood specimen (specimen) 01/16/2014 5:52 AM EDT 01/16/2014 6:01 AM EDT Narrative Resulting Agency Comment Spec In Lab Gianni Montes De Oca MD CHEMISTRY ORDERABLES Performing Organization Address [facility] [address]/[facility] de Phone Number BILLY STARKS * APTT (01/16/2014 5:52 AM EDT) Partial Thromboplastin Time 33 25 - 35 sec CERNER MILLENNIUM Comment: Recommended therapeutic PTT range for full dose unfractionated heparin is 80-114 seconds. Blood specimen (specimen) 01/16/2014 5:52 AM EDT 01/16/2014 6:01 AM EDT Narrative Resulting Agency Comment Spec In Lab Gianni Montes De Oca MD HEMATOLOGY ORDERABLE S Performing Organization Address [facility] [address]/[facility] Co de Phone Number BILLY STARKS * Cocaine, Urine Confirmation (01/15/2014 5:40 AM EDT) U COCAINE CONF Test ? Result ?? Flag ??Unit ?? RefValue Drug of Abuse, Cocaine Conf, U ??GC/MS Confirmation - ? Positive ?Cocaine ??Cocaine ?Negative ? ng/mL ??Cutoff: <50 ??Benzoylecgonin e ?2298 ? ng/mL ??Cutoff: <50 This report is intended for use in clinical monitoring and management of patients. It is not intended for use in employment-relat ed drug testing. Test Performed by: [employer] [address], [place] [address] [employer]: Katlyn Tejeda, Ph.D. [facility] Urine specimen (specimen) 01/15/2014 5:40 AM EDT 01/15/2014 1:07 PM EDT Narrative Resulting Agency Comment Spec In Lab Dayron Burk MD LAB SEND OUT ORDERAB LES [facility] * Drug Screen with Confirmation, Urine (01/15/2014 5:40 AM EDT) U MELINDA w/Conf Test ? Result ?? Flag ??Unit ?? RefValue --------- [facility] Drug Screen, U ??Amphetamines ? Negative ? ng/mL ??Cutoff: 500 ??Barbiturates ? Negative ? ng/mL ??Cutoff: 200 ??Benzodiazepines ?Negative ? ng/mL ??Cutoff: 200 ??Cocaine Metabolite ? Positive ? ng/mL ??Cutoff: 150 ??Methadone ?Negative ? ng/mL ??Cutoff: 300 ??Opiates ?Positive ? ng/mL ??Cutoff: 300 ??Phencyclidine ?Negative ? ng/mL ??Cutoff: 25 ??Tetrahydrocanna binols ?Negative ? ng/mL ??Cutoff: 50 ??Ethanol ?Negative ? mg/dL ??Cutoff: 10 Results from this test are presumptive; for positive results refer to the corresponding drug confirmation for the definitive result. This report is intended for use in clinical monitoring and management of patients. It is not intended for use in employment-relate d drug testing. ??Confirmation - Opiates ?? Positive ??Codeine ?476 ?ng/mL ??<100 ??Hydrocodone ?Negative ? ng/mL ??<100 ??Hydromorphone ?Negative ? ng/mL ??<100 ??Morphine ? 78958 ?ng/mL ??<100 If heroin use suspected, test 91835, 4-wquc-ekajbj-mor phine(6-VIKI) heroin metabolite, can be added at an additional charge. ??Oxycodone ?Negative ? ng/mL ??<100 ??Oxymorphone ?Negative ? ng/mL ??<100 This report is intended for use in clinical monitoring and management of patients. It is not intended for use in employment-relate d drug testing. Test Performed by: [address], [place] [address] [employer]: Katlyn Tejeda, Ph.D. [facility] Urine specimen (specimen) 01/15/2014 5:40 AM EDT 01/15/2014 1:07 PM EDT Narrative Resulting Agency Comment Spec In Lab Dayron Burk MD URINE ORDERABLES Performing Organization Address [facility] [address]/[facility] Co de Phone Number [facility] * HCV Quant Sigifredo (01/15/2014 5:01 AM EDT) [facility] HCV Viral Load [id number] IU/mL [facility] HCV Viral Load Result: [id number] Indication for Study: Hepatitis C Infection Analysis: A quantitiative real time reverse transcriptase PCR assay was performed on extracted viral RNA for the purpose of quantification. Sample: plasma (1 mL minimum volume) Method: Sigifredo Amanda TaqMAN 48 HCV Linear Range: 43IU/mL - 69,000,000IU/mL (95% CI) Interpretation: The result of this analysis is within the limits of detection of the assay. Note: This assay is being performed in the [facility] Molecular Pathology Laboratory. Marcelo Carmichael, Ph.D. Director, Molecular Pathology [facility] Comment: [VERIFIED DATE]01.16.14 Verified By:Carlene Brower (Electronic Signature) Blood specimen (specimen) 01/15/2014 5:01 AM EDT 01/15/2014 5:17 AM EDT Narrative Resulting Agency Comment Spec In Lab Dayron Burk MD HEMATOLOGY ORDERABLE S Performing Organization Address [facility] [address]/ZIP Co de Phone Number [facility] * CMV Antibody, IgM (01/15/2014 5:01 AM EDT) CMV IgM Neg Neg [facility] MARYVALEIUM Blood specimen (specimen) 01/15/2014 5:01 AM EDT 01/15/2014 9:41 AM EDT Narrative Resulting Agency Comment Spec In Lab Dayron Burk MD IMMUNOLOGY ORDERABLE S [facility] M[facility]VALE [facility] * Smooth Muscle Antibody (01/15/2014 5:01 AM EDT) Sm Muscle Ab (FEBRUARY) Negative Negative [facility] M[facility] Comment: Test Performed by: [address] [address] [employer]: Malachi Burton III, M.D. Blood specimen (specimen) 01/15/2014 5:01 AM EDT 01/15/2014 9:17 AM EDT Narrative Resulting Agency Comment Spec In Lab Dayron Burk MD LAB SEND OUT ORDERAB LES Performing Organization Address [facility] [address]/ZIP Co de Phone Number [facility] MARYVALEIUM * TISHA (01/15/2014 5:01 AM EDT) TISHA Neg Neg [facility] M[facility] Blood specimen (specimen) 01/15/2014 5:01 AM EDT 01/15/2014 8:19 AM EDT Narrative Resulting Agency Comment Spec In Lab Dayron Burk MD LAB SEND OUT ORDERAB LES [facility] MARYVALEBRIAN * Mononucleosis Screen (01/15/2014 5:01 AM EDT) Mononucleosis Screen Negative Negative CERDANIEL JORDANENNIUM Blood specimen (specimen) 01/15/2014 5:01 AM EDT 01/15/2014 9:41 AM EDT Narrative Resulting Agency Comment Spec In Lab Dayron Burk MD IMMUNOLOGY ORDERABLE S LESLIENER MILLENNIUM * POCT urine (01/15/2014 12:04 AM EDT) POC Urine HCG Negative Negative - Negative POC Control Internal Controls Acceptable Urine specimen (specimen) 01/15/2014 12:04 AM EDT Nilay Templeton MD POINT OF CARE TEST O RDERABLES * (ABNORMAL) Urinalysis with microscopic (01/14/2014 11:46 PM EDT) Glucose, Urine Dipstick Negative Negative mg/dL CERNER MILLENNIUM Protein, Urine Dipstick 30(A) Neg mg/dL CERNER MILLENNIUM Bilirubin, Urine Dipstick Large(A) Negative mg/dL CERNER MILLENNIUM Comment: Clinical correlation required for positive Urine Bilirubin results as false positive may occur with some drugs and drug related products. If a false positive is suspected a serum total bilirubin should be considered if clinically indicated. Urobilinogen, Urine Dipstick 2.0(A) Normal mg/dL CERNER MILLENNIUM pH, Urn (dipstick) 6.0 5.0 - 8.0 CERNER MILLENNIUM Blood, Urine Dipstick Negative mg/dL CERNER MILLENNIUM Ketone, Urine Dipstick Negative mg/dL CERNER MILLENNIUM Nitrite, Urine Dipstick Negative CERNER MILLENNIUM Leukocytes, Urine Dipstick Negative mcL CERNER MILLENNIUM Appearance, Urine Dipstick Hazy(A) Clear CERNER MILLENNIUM Specific [place] Urine Automated 1.021 1.002 - 1.030 CERNER MILLENNIUM Color, Urine Dipstick Dark Yellow Yellow CERNER MILLENNIUM RBC, Urine Not Present 0 - 4 CERNER MILLENNIUM WBC, Urine Not Present 0 - 5 CERNER MILLENNIUM Squamous Epithelial Cells, Urine <1 <=4 /HPF CERNER MILLENNIUM Hyaline Casts, Urine 4(H) 0 - 2 /LPF CERNER MILLENNIUM Amorphous Crystals, Urine Few /HPF CERNER MILLENNIUM Urine specimen (specimen) 01/14/2014 11:46 PM EDT 01/15/2014 12:04 AM EDT Narrative Resulting Agency Comment Spec In Lab Nilay Templeton MD URINE ORDERABLES CERDANIEL JORDANENNIUM * Differential, Automated (01/14/2014 11:25 PM EDT) Neutrophil % 58.2 34.0 - 71.0 % CERNER MILLENNIUM Neutrophil Absolute 3.71 1.50 - 6.30 x10(3)/mcL CERNER MILLENNIUM Lymph % 27.8 19.0 - 53.0 % CERNER MILLENNIUM Lymphocytes Abs 1.8 1.0 - 3.6 x10(3)/mcL CERNER MILLENNIUM Monocyte % 10.5 4.0 - 13.0 % CERNER MILLENNIUM Monocyte Abs 0.7 0.2 - 1.0 x10(3)/mcL CERNER MILLENNIUM Eos % 3.1 0.0 - 7.0 % CERNER MILLENNIUM Eosinophils Abs 0.2 0.0 - 0.5 x10(3)/mcL CERNER MILLENNIUM Basophil % 0.2 0.0 - 2.0 % CERNER MILLENNIUM Baso Absolute 0.0 0.0 - 0.2 x10(3)/mcL CERNER MILLENNIUM Immature Gran % 0.20 0.00 - 0.66 % CERNER MILLENNIUM Comment: Immature granulocytes(IG's)percentage and absolute count will include metamyelocytes, myelocytes, and promyelocytes. Blood smears from CBCs yielding IG's will be scanned manually for concordance. If this scan disagrees with the automated IG or if promyelocytes are noted, a manual differential will be performed. Immature Gran Absolute 0.01 0.00 - 0.05 x10(3)/mcL CERNER MILLENNIUM Blood specimen (specimen) 01/14/2014 11:25 PM EDT 01/14/2014 11:35 PM EDT Nilay Templeton MD HEMATOLOGY ORDERABLE S BILLY SANDERSIUM * Magnesium (01/14/2014 11:25 PM EDT) Magnesium 0.88 0.69 - 1.07 mmol/L CERNER MILLENNIUM Blood specimen (specimen) 01/14/2014 11:25 PM EDT 01/14/2014 11:35 PM EDT Narrative Resulting Agency Comment Spec In Lab Nilay Templeton MD CHEMISTRY ORDERABLES Performing Organization Address [facility] [address]/[facility] de Phone Number BILLY JORDANENNIUM * Calcium (01/14/2014 11:25 PM EDT) Calcium 9.9 8.5 - 10.5 mg/dL CERNER MILLENNIUM Blood specimen (specimen) 01/14/2014 11:25 PM EDT 01/14/2014 11:35 PM EDT Narrative Resulting Agency Comment Spec In Lab Nilay Templeton MD CHEMISTRY ORDERABLES Performing Organization Address [facility] [address]/[facility] Phone Number BILLY JORDANENNIUM * Prothrombin Time (01/14/2014 11:25 PM EDT) Prothrombin Time 12.2 12.0 - 15.0 sec CERNER MILLENNIUM Comment: [facility] Transfusion Committee Guidelines: INR less than 2.0, PTT less than OR equal to 43.5 seconds, or Fibrinogen greater than or equal to 100 mg/dl indicate adequate procoagulant activity for hemostasis in patients without underlying bleeding disorders. International Normalization Ratio 0.9 0.9 - 1.1 CERDANIEL MILLENNIUM Blood specimen (specimen) 01/14/2014 11:25 PM EDT 01/14/2014 11:35 PM EDT Narrative Resulting Agency Comment Spec In Lab Nilay Templeton MD HEMATOLOGY ORDERABLE S Performing Organization Address City/[facility] [address]/[facility] Co de Phone Number BILLY SANDERSIUM * Lipase (01/14/2014 11:25 PM EDT) Lipase 32 0 - 60 unit/L CERNER MILLENNIUM Blood specimen (specimen) 01/14/2014 11:25 PM EDT 01/14/2014 11:35 PM EDT Narrative Resulting Agency Comment Spec In Lab Nilay Templeton MD CHEMISTRY ORDERABLES [facility] SANDERSFORMERLY [facility] * (ABNORMAL) Hepatic Function Panel (01/14/2014 11:25 PM EDT) Protein, Total 6.4 6.4 - 8.3 gm/dL CERNER MILLENNIUM Albumin 3.6 3.2 - 5.2 gm/dL CERNER MILLENNIUM Aspartate Aminotransferase 1,079(H) 0 - 30 unit/L CERNER MILLENNIUM Comment:result rechecked-pmh Alanine Aminotransferase 1,134(H) 0 - 30 unit/L CERNER MILLENNIUM Comment:result rechecked-pmh Alkaline Phosphatase 233(H) 40 - 104 unit/L CERNER MILLENNIUM Bilirubin, Total 15.9(H) 0.2 - 1.3 mg/dL CERNER MILLENNIUM Bilirubin, Direct >10.0(H) 0.0 - 0.3 mg/dL CERNER MILLENNIUM Comment:result rechecked-pmh Blood specimen (specimen) 01/14/2014 11:25 PM EDT 01/14/2014 11:35 PM EDT Narrative Resulting Agency Comment Spec In Lab Nilay Templeton MD CHEMISTRY ORDERABLES Performing Organization Address [facility] [address]/ZIP Co de Phone Number BILLY STARKS * Glucose, random (01/14/2014 11:25 PM EDT) Glucose 130 60 - 199 mg/dL [facility] MARYVALE MILLENNIUM Comment:Diabetes: >=200 mg/d L plus symptoms Blood specimen (specimen) 01/14/2014 11:25 PM EDT 01/14/2014 11:35 PM EDT Narrative Resulting Agency Comment Spec In Lab Nilay Templeton MD CHEMISTRY ORDERABLES BILLY STARKS * (ABNORMAL) Creatinine (01/14/2014 11:25 PM EDT) Creatinine 1.20 0.70 - 1.20 mg/dL CERNER MILLENNIUM Comment: Please note that the pediatric reference intervals supplied above were not validated at [facility]. Results from pediatric patients should be interpreted in conjunction to the patient's age, height and muscle mass. Est Glomerular Filtration Rate 51(L) >=60 CERNER MILLENNIUM Comment: This estimated GFR (eGFR) value was calculated using the MDRD equation which has been validated on patients between the ages of 18 and 70. The MDRD should not be used to assess kidney function in patients < 18 years of age or in patients with extremes of body mass, or in patients with acute kidney failure. This value should be multiplied by 1.2 for patients. For further information please copy and paste the following links into your internet browser. http://www.nkdep.nih.gov/lab-evaluation.shtml http://www.kidney.org/professionals/ Blood specimen (specimen) 01/14/2014 11:25 PM EDT 01/14/2014 11:35 PM EDT Narrative Resulting Agency Comment Spec In Lab Nilay Templeton MD CHEMISTRY ORDERABLES Performing Organization Address [facility] [address]/[facility] de Phone Number [facility] * BUN (01/14/2014 11:25 PM EDT) Blood Urea Nitrogen 8 8 - 18 mg/dL CERNER MILLENNIUM Blood specimen (specimen) 01/14/2014 11:25 PM EDT 01/14/2014 11:35 PM EDT Narrative Resulting Agency Comment Spec In Lab Nilay Templeton MD CHEMISTRY ORDERABLES Performing Organization Address [facility] [address]/[facility] Co de Phone Number [facility] JULIANENNIUM * Electrolytes panel (01/14/2014 11:25 PM EDT) Sodium 137 135 - 145 mmol/L CERNER MILLENNIUM Potassium 3.5 3.5 - 5.0 mmol/L CERNER MILLENNIUM Comment: Please note: ??Patients with WBC >100,000 may have falsely elevated Potassium levels. ??For accurate Potassium quantification in these patients send serum separator tube (gold top) for subsequent determinations. ??Contact the Clinical Chemistry Laboratory if there are any questions. Chloride 104 98 - 107 mmol/L CERNER MILLENNIUM Carbon Dioxide 23 22 - 31 mmol/L CERNER MILLENNIUM Anion Gap 10 5 - 15 mmol/L CERNER MILLENNIUM Blood specimen (specimen) 01/14/2014 11:25 PM EDT 01/14/2014 11:35 PM EDT Narrative Resulting Agency Comment Spec In Lab Nilay Templeton MD CHEMISTRY ORDERABLES CERDANIEL JORDANENNIUM * (ABNORMAL) CBC (with Diff) (01/14/2014 11:25 PM EDT) White Blood Cell 6.4 4.0 - 10.0 x10(3)/mc L CERNER MILLENNIUM Red Blood Cell 4.41 3.93 - 5.22 x10(6)/mc L CERNER MILLENNIUM Hemoglobin 13.2 11.2 - 15.7 gm/dL CERNER MILLENNIUM Hematocrit 38.5 34.0 - 45.0 % CERNER MILLENNIUM Mean Cell Volume 87.3 79.0 - 94.0 fL CERNER MILLENNIUM Mean Cell Hemoglobin 29.9 26.6 - 32.2 pg CERNER MILLENNIUM Mean Cell Hemoglobin Concentration 34.3 32.0 - 36.5 gm/dL CERNER MILLENNIUM Platelet 228 145 - 370 x10(3)/mc L CERNER MILLENNIUM RDW Standard Deviation 52.8(H) 35.0 - 46.0 fL CERNER MILLENNIUM RDW coefficient of variation 16.7(H) 10.9 - 14.4 % CERNER MILLENNIUM Mean Platelet Volume 11.5 9.0 - 12.0 fL CERNER MILLENNIUM Blood specimen (specimen) 01/14/2014 11:25 PM EDT 01/14/2014 11:35 PM EDT Narrative Resulting Agency Comment Spec In Lab Nilay Templeton MD HEMATOLOGY ORDERABLE S CERDANIEL SANDERSIUM * EKG 12 Lead (01/14/2014 10:39 PM EDT) Ventricular rate 61 BPM MUSE SYSTEM Atrial Rate 61 BPM MUSE SYSTEM P-R Interval 146 ms MUSE SYSTEM QRS Duration 82 ms MUSE SYSTEM Q-T Interval 392 ms MUSE SYSTEM QTC Calculated (Bezet) 394 ms MUSE SYSTEM Calculated P [place] 49 degrees MUSE SYSTEM Calculated R [place] 60 degrees MUSE SYSTEM Calculated T [place] 27 degrees MUSE SYSTEM INTERPRETATION Normal sinus rhythm Normal ECG No previous ECGs available I personally reviewed the tracing and edited the fellows interpretation Confirmed by fellow MD Miguel Angel, Bhavin Aguirre ([id number]) on 01/15/2014 11:20:19 AM Confirmed by MD Reinaldo, Jam ([id number]) on 01/15/2014 2:23:45 PM MUSE SYSTEM 01/14/2014 10:3 9 PM EDT 01/15/2014 2:23 PM EDT Nilay Templeton MD ECG ORDERABLES MUSE SYSTEM documented in this encounter Visit Diagnoses Diagnosis Hepatitis Hepatitis, unspecified Transaminitis Nonspecific elevation of levels of transaminase or lactic acid dehydrogenase (LDH) HCV (hepatitis C virus) Unspecified viral hepatitis C without hepatic coma Hyperbilirubinemia Jaundice, unspecified, not of IVDU (intravenous drug user) Other, mixed, or unspecified nondependent drug abuse, unspecified documented in this encounter Administered Medications Inactive Administered Medications - up to 3 most recent administrations Medication Order MAR Action Action Date Dose Rate Site cloNIDine (CATAPRES) tablet 0.1 mg 0.1 mg, Oral, 3 TIMES DAILY, First dose on Tue01/16/14 at 1130, Until Discontinued, For opioid withdrawal., Routine Given 01/16/2014 2:39 PM EDT 0.1 mg Given 01/16/2014 12:59 PM EDT 0.1 mg dextrose 5% and sodium chloride 0.45% with potassium chloride 20 mEq infusion 1,000 mL, at 100 mL/hr, Intravenous, CONTINUOUS, Starting on Tue01/15/14 at 0445, Until Tue01/15/14 at 1624 New Bag 01/15/2014 4:32 AM EDT 1,000 mLs 100 mL /hr dicyclomine (BENTYL) capsule 20 mg 20 mg, Oral, 4 TIMES DAILY, First dose on Tue01/16/14 at 1030, Until Discontinued, Routine Given 01/16/2014 1:00 PM EDT 20 mg Given 01/16/2014 10:58 AM EDT 20 mg heparin (porcine) subcutaneous injection 5,000 Units 5,000 Units, Subcutaneous, EVERY 8 HOURS SCHEDULED, First dose on Tue01/15/14 at 0600, Until Discontinued, Routine Given 01/15/2014 2:18 PM EDT 5,000 Unit s Given 01/15/2014 6:00 AM EDT 5,000 Units L eft Upper Outer Quadrant loperamide (IMMODIUM) capsule 2 mg 2 mg, Oral, 4 TIMES DAILY PRN, Starting on Tue01/16/14 at 1109, Until Tue01/16/14 at 1729, Diarrhea, Do not exceed 16 mg/day., Routine Given 01/16/2014 1:00 PM EDT 2 mg methocarbamol (ROBAXIN) tablet 500 mg 500 mg, Oral, 3 TIMES DAILY, First dose on Tue01/16/14 at 1130, Until Discontinued, For myalgias 2/2 opioid withdrawl, Routine Given 01/16/2014 2:39 PM EDT 500 m g Given 01/16/2014 1:00 PM EDT 500 mg nicotine (NICODERM CQ) 14 mg/24 hr patch 14 mg 14 mg, Transdermal, Administer over 24 Hours, DAILY, First dose on Tue01/15/14 at 0900, Until Discontinued, Routine Given 01/16/2014 8:44 AM EDT 14 mg nicotine polacrilex (NICORETTE) gum 2 mg 2 mg, Buccal, EVERY 2 HOURS PRN, Starting on Tue01/15/14 at 0421, Until Tue01/16/14 at 1729, Smoking cessation, Chew one 2 mg piece of gum every one hour PRN withdrawal symptoms. Maximum 40 mg per day. Instruct patients to chew into gum and then place between the cheek and gum to enhance absorption., Routine Given 01/15/2014 2:18 PM EDT 2 mg Given 01/15/2014 10:02 AM EDT 2 mg ondansetron (ZOFRAN) tablet 4 mg 4 mg, Oral, EVERY 8 HOURS PRN, Starting on Tue01/15/14 at 0421, Until Tue01/16/14 at 1729, Nausea, Vomiting, If multiple antiemetics are ordered, use ondansetron first. PO Preferred. If patient unable to take PO, may give IV if ordered. May repeat times one in 45 minutes if ineffective. If unable to take PO, may give IV., Routine Given 01/16/2014 8:44 AM EDT 4 mg Given 01/15/2014 8:15 PM EDT 4 mg sodium chloride 0.9% 1,000 mL IV bolus Intravenous, ONCE, 1 dose, On Tue01/14/14 at 2245 Given 01/14/2014 11:42 PM EDT traMADol (ULTRAM) tablet 50 mg 50 mg, Oral, EVERY 6 HOURS PRN, Starting on Tue01/15/14 at 0849, Until Tue01/16/14 at 1729, Pain, Routine Given 01/15/2014 8:15 PM EDT 50 mg ursodiol (NENA-250) tablet 250 mg 250 mg, Oral, 2 TIMES DAILY, First dose on Tue01/15/14 at 0930, Until Discontinued, Routine Given 01/16/2014 8:44 AM EDT 250 mg Given 01/15/2014 5:11 PM EDT 250 mg Given 01/15/2014 9:59 AM EDT 250 mg documented in this encounter Active and Recently Administered Medications Times are shown in EDT. Scheduled Medication Order 01/14/2014 01/15/2014 01/16/2014 cloNIDine (CATAPRES) tablet 0.1 mg 0.1 mg, Oral, 3 TIMES DAILY, First dose on Tue01/16/14 at 1130, Until Discontinued, For opioid withdrawal., Routine 1259 (Given - Provider: Rose Govea RN - Comment: waiting on pharmacy)1439 (Given - Provider: Rose Govea, ARLIN) dicyclomine (BENTYL) capsule 20 mg 20 mg, Oral, 4 TIMES DAILY, First dose on Tue01/16/14 at 1030, Until Discontinued, Routine 1058 (Given - Provider: Rose Govea, ARLIN)1300 (Given - Provider: Rose Govea, ARLIN) heparin (porcine) subcutaneous injection 5,000 Units (CANCELED) 5,000 Units, Subcutaneous, EVERY 8 HOURS SCHEDULED, First dose on 4/8/14 at 0600, Until Discontinued, Routine 0600 (Given - Provider: Sandra Sheridan RN)1418 (Given - Provider: Rose Govea, ARLIN)2134 (Not Given - Provider: Carlene Abrams, ARLIN - Reason: Patient/family refused) 0534 (Not Given - Provider: Carlene Abrams, ARLIN - Reason: Patient/family refused)1400 (Not Given - Provider: Rose Govea RN - Reason: Patient/family refused) methocarbamol (ROBAXIN) tablet 500 mg 500 mg, Oral, 3 TIMES DAILY, First dose on Tue01/16/14 at 1130, Until Discontinued, For myalgias 2/2 opioid withdrawl, Routine 1300 (Given - Provider: Rose Govea RN - Comment: waiting on pharmacy)1439 (Given - Provider: Rose Govea, ARLIN) nicotine (NICODERM CQ) 14 mg/24 hr patch 14 mg (CANCELED)(Linked Group 1) 14 mg, Transdermal, Administer over 24 Hours, DAILY, First dose on Tue01/15/14 at 0900, Until Discontinued, Routine 0900 (Not Given - Provider: Rose Govea RN - Reason: Patient/family refused) 0844 (Given - Provider: Rose Govea RN) sodium chloride 0.9% 1,000 mL IV bolus (COMPLETED) Intravenous, ONCE, 1 dose, On Tue01/14/14 at 2245 2342 (Given - Provider: Wilma Tapia, ARLIN) ursodiol (NENA-250) tablet 250 mg 250 mg, Oral, 2 TIMES DAILY, First dose on Tue01/15/14 at 0930, Until Discontinued, Routine 0959 (Given - Provider: Rose Govea, ARLIN)1711 (Given - Provider: Rose Govea, ARLIN) 0844 (Given - Provider: Rose Govea RN) Continuous Medication Order 01/14/2014 01/15/2014 01/16/2014 dextrose 5% and sodium chloride 0.45% with potassium chloride 20 mEq infusion (CANCELED) 1,000 mL, at 100 mL/hr, Intravenous, CONTINUOUS, Starting on Tue01/15/14 at 0445, Until Tue01/15/14 at 1624 0432 (New Bag - Provider: Manjeet Sheridan RN) PRN Medication Order 01/14/2014 01/15/2014 01/16/2014 loperamide (IMMODIUM) capsule 2 mg 2 mg, Oral, 4 TIMES DAILY PRN, Starting on Tue01/16/14 at 1109, Until Tue01/16/14 at 1729, Diarrhea, Do not exceed 16 mg/day., Routine 1300 (Given - Provid er: Rose Govea RN) nicotine polacrilex (NICORETTE) gum 2 mg (CANCELED) 2 mg, Buccal, EVERY 2 HOURS PRN, Starting on Tue01/15/14 at 0421, Until Tue01/16/14 at 1729, Smoking cessation, Chew one 2 mg piece of gum every one hour PRN withdrawal symptoms. Maximum 40 mg per day. Instruct patients to chew into gum and then place between the cheek and gum to enhance absorption., Routine 1002 (Given - Provider: Rose Govea RN)1418 (Given - Provider: Rose Govea RN) ondansetron (ZOFRAN) tablet 4 mg(Linked Group 2) 4 mg, Oral, EVERY 8 HOURS PRN, Starting on Tue01/15/14 at 0421, Until Tue01/16/14 at 1729, Nausea, Vomiting, If multiple antiemetics are ordered, use ondansetron first. PO Preferred. If patient unable to take PO, may give IV if ordered. May repeat times one in 45 minutes if ineffective. If unable to take PO, may give IV., Routine 2014 (Given - Provider: Carlene Abrams, ARLIN) 0844 (Given - Provider: Rose Govea RN) traMADol (ULTRAM) tablet 50 mg (CANCELED) 50 mg, Oral, EVERY 6 HOURS PRN, Starting on Tue01/15/14 at 0849, Until Tue01/16/14 at 1729, Pain, Routine 2014 (Given - Provider: Carlene Abrams, ARLIN) Linked Groups Order Group 1: nicotine (NICODERM CQ) 14 mg/24 hr patch 14 mg (CANCELED)Jump to med 14 mg, Transdermal, Administer over 24 Hours, DAILY, First dose on Tue01/15/14 at 0900, Until Discontinued, Routine And nicotine (NICODERM CQ) patch REMOVAL (CANCELED) Transdermal, DAILY, First dose on Tue01/16/14 at 0900, Until Discontinued, Remove Nicotine Patch Group 2: ondansetron (ZOFRAN) tablet 4 mgJump to med 4 mg, Oral, EVERY 8 HOURS PRN, Starting on Tue01/15/14 at 0421, Until Tue01/16/14 at 1729, Nausea, Vomiting, If multiple antiemetics are ordered, use ondansetron first. PO Preferred. If patient unable to take PO, may give IV if ordered. May repeat times one in 45 minutes if ineffective. If unable to take PO, may give IV., Routine Or ondansetron (ZOFRAN) injection 4 mg (CANCELED) 4 mg, Intravenous, EVERY 8 HOURS PRN, Starting on Tue01/15/14 at 0421, Until Tue01/16/14 at 1729, Nausea, May repeat times one in 30 minutes if ineffective documented in this encounter Care Teams Hotel Office Manager Relationship Specialty Start Date End Date Chucho De León MD [address] [place] [id number] PCP - General 09/01/10 02/23/24 documented as of this encounter
--- OUTSIDE RECORDS SUMMARY | 2024-11-17 14:25 | XMS_ITS | Referral Summary ---
Author Organization [facility] Address [address] [place] [address] Care Team Providers Care Operating Room Scheduler Name Role Phone Yohan Hendricks MD Primary Care Provider Unavail able Allergies No known active allergies Social History Tobacco Use Types Packs/Day Years Used Date Smoking Tobacco: Never Assessed Interpersonal Safety Answer Date Record ed Physically Hurt Never 05/11/2020 Verbally Threaten Not on file 05/11/2020 Comments Unknown Sex and Gender Information Value Date Recorded Sex Assigned at Not on file Legal Sex Female 18:18 EST Gender Identity Not on file Sexual Orientation Not on file Plan of Treatment Not on file Insurance MEDICAID [place] Care Teams Operating Room Scheduler Relationship Specialty Start Date End Date Yohan Hendricks MD PCP - General 08/20/15
--- OUTSIDE RECORDS SUMMARY | 2024-11-17 14:25 | XMS_ITS | Encounter Summary ---
[facility] [place] [address] Care Team Providers Care Assembler Steam And Gas Turbine Name Role Phone Sebastian Wills MD Primary Care Provider [phone] Encounter Details Date Type Department Care Team (Late st Contact Info) Description 05/09/2014 Telephone Gastroenterology at [facility] [place] [phone] Marisel Saenz, BORING MACHINE OPERATOR DOUBLE END Social History Tobacco Use Types Packs/Day Years [...] on file documented as of this encounter Miscellaneous Notes * Telephone Encounter - Marisel Saenz APRN - 05/10/2014 1:18 PM EDT I called and spoke with pt. Explained that viral load is undetected (<43-). She has cleared the virus spontaneously. This does not provide any immunity so if she relapses she can become re-infected. Her ALT is very mildly elevated. Will plan to repeat labs in 3 months locally. She would like to have labs drawn in [facility]. F/U appt in 6 months with labs She verbalized understanding and agreement to the plan of care. * Telephone Encounter - Marisel Saenz APRN - 05/10/2014 8:24 AM EDT I called. NO answer and mailbox full. * Telephone Encounter - Marisel Saenz APRN - 05/09/2014 1:21 PM EDT Labs 05/07/14: Results for CARLENE ZENDEJAS ( ) as of 05/09/2014 13:20 Ref. Range 05/07/2014 16:51 WBC Latest Range: 4.0-10.0 x10(3)/mcL 7.6 RBC Latest Range: 3.93-5.22 x10(6)/mcL 4.89 Hemoglobin Latest Range: 11.2-15.7 gm/dL 15.2 Hematocrit Latest Range: 34.0-45.0 % 45.1 (H) MCV Latest Range: 79.0-94.0 fL 92.2 MCH Latest Range: 26.6-32.2 pg 31.1 MCHC Latest Range: 32.0-36.5 gm/dL 33.7 RDWSD Latest Range: 35.0-46.0 fL 47.3 (H) RDWCV Latest Range: 10.9-14.4 % 13.9 Platelets Latest Range: 145-370 x10(3)/mcL 242 MPV Latest Range: 9.0-12.0 fL 10.6 Neutr Abs (ANC) Latest Range: 1.50-6.30 x10(3)/mcL 3.91 Neutrophils % Latest Range: 34.0-71.0 % 51.1 Immature Gran % Latest Range: 0.00-0.66 % 0.30 Lymphocytes % Latest Range: 19.0-53.0 % 38.4 Monocytes % Latest Range: 4.0-13.0 % 5.4 Eosinophils % Latest Range: 0.0-7.0 % 4.8 Basophils % Latest Range: 0.0-2.0 % 0.0 Breanna Gran Abs Latest Range: 0.00-0.05 x10(3)/mcL 0.02 Lymphocytes Abs Latest Range: 1.0-3.6 x10(3)/mcL 2.9 Monocyte Abs Latest Range: 0.2-1.0 x10(3)/mcL 0.4 Eosinophils Abs Latest Range: 0.0-0.5 x10(3)/mcL 0.4 Basophils Abs Latest Range: 0.0-0.2 x10(3)/mcL 0.0 Sodium Latest Range: 135-145 mmol/L 137 Potassium Latest Range: 3.5-5.0 mmol/L 4.2 Chloride Latest Range: 98-107 mmol/L 100 CO2 Latest Range: 22-31 mmol/L 26 Anion Gap Latest Range: 5-15 mmol/L 11 BUN Latest Range: 8-18 mg/dL 13 Creatinine Latest Range: 0.70-1.20 mg/dL 0.78 Estimated GFR Latest Range: >=60 >60 Glucose Lvl Latest Range: 60-199 mg/dL 117 Calcium Latest Range: 8.5-10.5 mg/dL 10.5 Total Protein Latest Range: 6.4-8.3 gm/dL 8.2 Albumin Latest Range: 3.2-5.2 gm/dL 4.1 Total Bilirubin Latest Range: 0.2-1.3 mg/dL 0.4 Bili, Direct Latest Range: 0.0-0.3 mg/dL 0.1 Alk Phos Latest Range: 40-104 unit/L 98 AST Latest Range: 0-30 unit/L Not Perf ALT Latest Range: 0-30 unit/L 35 (H) HCV Viral Load No range found <43 HCV QUANT No range found Rpt HCV RNA not detected. ALT mildly elevated. Will plan to repeat labs in 3 months (can be done locally). I called pt but no answer and voicemail box was full. documented in this encounter Plan of Treatment Not on file documented as of this encounter Visit Diagnoses Diagnosis Chronic hepatitis C- Primary Chronic hepatitis C without mention of hepatic coma documented in this encounter Care Teams Assembler Steam And Gas Turbine Relationship Specialty Start Date End Date Sebastian Wills MD [address] [place] [id number] PCP - General 09/01/10 02/23/24 documented as of this encounter
--- OUTSIDE RECORDS SUMMARY | 2024-11-17 14:25 | XMS_ITS | Encounter Summary ---
Author Organization [facility] Address [address] [place] [address] Care Team Providers Care Sports Betting Manager Name Role Phone Yohan Hendricks MD Primary Care Provider Unavail able Encounter Details Date Type Department Care Team (Late st Contact Info) Description 07/08/2021 Lab Requisition [facility] Pathology & Laboratory Medicine - [facility] [address] [place] [address] Outr Resulting Lab, Provider Social History Tobacco Use Types Packs/Day Years [...] on file documented as of this encounter Procedures Procedure Name Priority Date/Time Associated Diagnosis Comments CHLAMYDIA/N. GONORRHOEAE AMPLIFIED NUCLEIC ACID Routine 07/07/2021 15:25 EDT documented in this encounter Results * CHLAMYDIA/N. GONORRHOEAE AMPLIFIED RNA (07/07/2021 15:25 EDT) Neisseria gonorrhoeae Result Negative Negative 07/09/2021 15:20 EDT [facility] Chlamydia trachomatis Result Negative Negative 07/09/2021 15:20 EDT [facility] Urine URINE / Unknown 07/07/2021 1 5:25 EDT 07/08/2021 17:20 EDT Narrative [facility] - 07/09/2021 15:20 EDT A first catch urine specimen is acceptable for detection of Gonorrhea and Chlamydia, but might detect up to 10% fewer infections when compared with vaginal and endocervical swab samples. us Provider Outr Resulting Lab MICROBIOLOGY - GENER AL ORDERABLES Final Result [facility] [address] [place] [id number] documented in this encounter Visit Diagnoses Not on filedocumented in this encounter Care Teams Sports Betting Manager Relationship Specialty Start Date End Date Yohan Hendricks MD PCP - General 08/20/15 documented as of this encounter
--- OUTSIDE RECORDS SUMMARY | 2024-11-17 14:25 | XMS_ITS | Encounter Summary ---
Author Organization [facility] Address [address] [place] [address] Care Team Providers Care Hospitality Director Name Role Phone Yohan Hendricks MD Primary Care Provider Unavail able Encounter Details Date Type Department Care Team (Latest Contact Info) Description 04/19/2018 14:52 EDT - 04/19/2018 23:59 EDT Hospital Encounter [facility] [address] [place] [address] Sona Pierson MD [address] [place] [phone] Discharge Disposition: Auto Discharge Social History Tobacco Use Types Packs/Day Years Used Date Smoking Tobacco: Never Assessed Comments Unknown Sex and Gender Information Value Date Recorded Sex Assigned at Not on file Legal Sex Female 18:18 EST Gender Identity Not on file Sexual Orientation Not on file documented as of this encounter Discharge Diagnoses Diagnosis 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
--- OUTSIDE RECORDS SUMMARY | 2024-11-17 14:25 | XMS_ITS | Encounter Summary ---
Author Organization [facility] Address [address] [place] [address] Care Team Providers Care Button Bradder Name Role Phone Yohan Hendricks MD Primary Care Provider Unavail able Encounter Details Date Type Department Care Team (Latest Contact Info) Description 02/01/2022 Lab Requisition [facility] Pathology & Laboratory Medicine - [facility] [address] [place] [address] Karan Romo [address] [place] [phone] Encounter for screening for infections with a predominantly sexual mode of transmission; Encounter for screening for other infectious and parasitic diseases Social History Tobacco Use Types Packs/Day Years [...] Diagnosis Comments CHLAMYDIA/N. GONORRHOEAE AMPLIFIED NUCLEIC ACID Today 02/01/2022 15:15 EDT Encounter for screening for infections with a predominantly sexual mode of transmission Encounter for screening for other infectious and parasitic diseases documented in this encounter Results * CHLAMYDIA/N. GONORRHOEAE AMPLIFIED RNA (02/01/2022 15:15 EDT) Neisseria gonorrhoeae Result Negative Negative 02/02/2022 14:59 EDT [facility] Chlamydia trachomatis Result Negative Negative 02/02/2022 14:59 EDT [facility] Urine URINE / Unknown 02/01/2022 1 5:15 EDT 02/01/2022 21:41 EDT Narrative [facility] - 02/02/2022 14:59 EDT A first catch urine specimen is acceptable for detection of Gonorrhea and Chlamydia, but might detect up to 10% fewer infections when compared with vaginal and endocervical swab samples. us Karan Romo MICROBIOLOGY - GENERAL ORDERABL ES Final Result [facility] [address] [place] [id number] documented in this encounter Visit Diagnoses Diagnosis Encounter for screening for infections with a predominantly sexual mode of transmission Encounter for screening for other infectious and parasitic diseases documented in this encounter Care Teams Button Bradder Relationship Specialty Start Date End Date Yohan Hendricks MD PCP - General 08/20/15 documented as of this encounter
--- OUTSIDE RECORDS SUMMARY | 2024-11-17 14:25 | XMS_ITS | Encounter Summary ---
Author Organization [facility] Address [address] [place] [address] Care Team Providers Care Probation And Parole Officer Name Role Phone Yohan Hendricks MD Primary Care Provider Unavail able Encounter Details Date Type Department Care Team (Late st Contact Info) Description 04/19/2018 Orders Only [facility] - [facility] [address] [place] [address] Kathy Pierre [facility] [address] [place] [address] Social History Tobacco Use Types Packs/Day Years [...] Diagnoses Not on filedocumented in this encounter Orders Medications Ordered That Arnulfo ht Not Have Been Administered Count Last Ordered Date First Ordered Date amphotericin B (FUNGIZONE) i ntraocular injection (5 mcg/0.1 mL) 50mcg 1 04/19/2018 clindamycin (CLEOCIN) 10.5 m g in sodium chloride (PF) 1.05 mL custom injectable syringe 1 04/19/2018 vancomycin intraocular injec tion (1mg/0.1mL) 10mg 1 04/19/2018 documented in this encounter Care Teams Probation And Parole Officer Relationship Specialty Start Date End Date Yohan Hendricks MD PCP - General 08/20/15 documented as of this encounter
--- OUTSIDE RECORDS SUMMARY | 2024-11-17 14:25 | XMS_ITS | Encounter Summary ---
Author Organization [facility] Address [address] [place] [address] Care Team Providers Care Kindergarten Teacher Name Role Phone Yohan Hendricks MD Primary Care Provider Unavail able Encounter Details Date Type Department Care Team (Latest Contact Info) Description 04/17/2018 10:50 EDT - 04/17/2018 11:18 EDT Hospital Encounter [address] [address] Sona Pierson MD [facility] [address] [place] [address] Discharge Disposition: Home or Self Care Social History Tobacco Use Types Packs/Day Years Used Date Smoking Tobacco: Never Assessed Comments Unknown Sex and Gender Information Value Date Recorded Sex Assigned at Not on file Legal Sex Female 18:18 EST Gender Identity Not on file Sexual Orientation Not on file documented as of this encounter Discharge Diagnoses Diagnosis 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
--- OUTSIDE RECORDS SUMMARY | 2024-11-17 14:25 | XMS_ITS | Encounter Summary ---
Author Organization [facility] Address [address] [place] [address] Care Team Providers Care Screw Machine Repairer Name Role Phone Yohan Hendricks MD Primary Care Provider Unavail able Encounter Details Date Type Department Care Team (Late st Contact Info) Description 12/22/2020 Lab Requisition [facility] Pathology & Laboratory Medicine - [facility] [address] [place] [address] Elizabeth Andrade MD [address] [place] [address] [address] [place] [address] Encounter for other general examination Social History Tobacco Use Types Packs/Day Years [...] Procedure Name Priority Date/Time Associated Diagnosis Comments PAP TEST Today 12/19/2020 15:10 EST Encounter for other general examination HPV DNA DETECTION WITH GENOTYPING, PCR Today 12/19/2020 15:10 EST Encounter for other general examination documented in this encounter Results * HUMAN PAPILLOMAVIRUS (HPV) DETECTION-HIGH RISK TYPES (12/19/2020 15:10 EST) HPV other High Risk types, PCR Negative Negative 01/02/2021 15:[address] [facility] Comment:No E6 or E7 mRNA is detected from HPV types 16,18,31,33,35,39,45,51,52,56,58,59,66, and 68 by leather toggler mediated amplification. Papanicolaou smear specimen (specimen) CERVIX UTERI STRUCTURE / Unknown 12/19/2020 15:10 EST 12/30/2020 9:18 EDT us Elizabeth Andrade MD MICROBIOLOGY - GENERAL ORDERAB LES Final Result [facility] [address] [place] [id number] * PAP TEST (12/19/2020 15:10 EST) Specimens A. Cervix and/or Endocervix , ThinPrep Imaging System with Manual Evaluation 01/02/2021 15:07 [facility] Specimen Adequacy Satisfactory for Evaluation - transformation zone component present 01/02/2021 15:07 [facility] General Categorization Negative for intraepithelial lesion or malignancy 01/02/2021 15:07 [facility] Attestation . 01/02/2021 15:07 [facility] at 1507 Clinical History See below 01/03/20 15:07 [facility] HPV The result for the Human Papillomavirus (HPV) Detection-High Risk Types is Negative. No E6 or E7 mRNA is detected from HPV types 16,18,31,33,35,39 ,45,51,52,56,58,5 9,66, and 68 by leather toggler mediated amplification.Nicole ting was performed on specimen [id number] and was resulted on 01/02/2021 1501 EDT by IGGY, LAB INSTRUMENT RESULTS IN 01/02/2021 15:[address] [facility] Performing Lab [facility] 01/02/2021 15:[address] [facility] Scanned Images 01/02/2021 15:07 [facility] Papanicolaou smear specimen (specimen) CERVIX UTERI STRUCTURE / Unknown 12/19/2020 15:10 EST 12/22/2020 12:07 EDT us Elizabeth Andrade MD PATHOLOGY ORDERABLES Final Res ult [facility] [address] [place] [address] documented in this encounter Visit Diagnoses Diagnosis Encounter for other general examination documented in this encounter Care Teams Screw Machine Repairer Relationship Specialty Start Date End Date Yohan Hendricks MD PCP - General 08/20/15 documented as of this encounter
--- OUTSIDE RECORDS SUMMARY | 2024-11-17 14:25 | XMS_ITS | Encounter Summary ---
Author Organization [facility] Address [address] [place] [address] Care Team Providers Care Pulmonary Physical Therapist Name Role Phone Pcp, No Unavailable Unavailable Reason for Visit * Reason Comments Cellulitis Encounter Details Date Type Department Care Team (Late st Contact Info) Description 04/20/2019 11:08 PM EDT - 04/20/2019 11:48 PM EDT Emergency [facility] Emergency Department [address] [place] [address] [place] [phone] Venecia Becerra MD [address] [place] [id number] Discharge Disposition: Home or Self Care Social History Tobacco Use Types Packs/Day Years Used Date Smoking Tobacco: Smoker, Current Status Unknown Smokeless Tobacco: Never Alcohol Use Standard Drinks/Week Comments Yes 0 (1 standard drink = 0.6 oz pur e alcohol) occasional Substance Use Types Use/Week Comments Yes Cocaine,Marijuana,IV Comments Unknown Sex and Gender Information Value Date Recorded Sex Assigned at Not on file Legal Sex Female 10:45 PM EDT Gender Identity Not on file Sexual Orientation Not on file documented as of this encounter Last Filed Vital Signs Vital Sign Reading Time Taken Comments Blood Pressure 121/76 04/20/2019 11:43 PM EDT Pulse 99 04/20/2019 11:06 PM EDT Temperature 37.3 ??C (99.1 ??F) 04/20/2019 11:06 PM E DT Respiratory Rate 18 04/20/2019 11:06 PM EDT Oxygen Saturation 100% 04/20/2019 11:43 PM EDT Inhaled Oxygen Concentration 100% 04/20/2019 1 1:43 PM EDT Weight 61.2 kg (135 lb) 04/20/2019 11:06 PM EDT Height 170.2 cm (5' 7) 04/20/2019 11:06 PM EDT Body Mass Index 21.14 04/20/2019 11:06 PM EDT documented in this encounter Functional Status * Are you deaf or do you have serious difficulty hearing? Answer Date of Assessment Author Status No 04/20/2019 11:36 PM EDT Felecia Rosen RN Active * Are you blind or do you have serious difficulty seeing, even when wearing glasses? Answer Date of Assessment Author Status No 04/20/2019 11:36 PM EDT Felecia Rosen RN Active * Do you have serious difficulty walking or climbing stairs? (5 years old or older) Answer Date of Assessment Author Status No 04/20/2019 11:36 PM EDT Felecia Rosen RN Active * Do you have difficulty dressing or bathing? (5 years old or older) Answer Date of Assessment Author Status No 04/20/2019 11:36 PM EDT Felecia Rosen RN Active * Because of a physical, mental, or emotional condition, do you have difficulty doing errands alone such as visiting a doctor's office or shopping? (15 years old or older) Answer Date of Assessment Author Status No 04/20/2019 11:36 PM EDT Felecia Rosen RN Active documented as of this encounter Mental Status * Because of a physical, mental, or emotional condition, do you have serious difficulty concentrating, remembering, or making decisions? (5 years old or older) Answer Entry Date Author Status No 04/20/2019 11:36 PM EDT Felecia Rosen RN Active documented in this encounter Discharge Instructions * Discharge Instructions* Venecia Becerra MD - 04/20/2019 11:31 PM EDT Bactrim every 12 hours Keflex every 6 hours Elevate your leg For pain or fever, you can try up to 3 days of: Ibuprofen 600mg every 6 hours with food OR Naproxen 500mg every 12 hours with food AND Acetaminophen 650mg every 6 hours or 1000mg every 8 hours When taking over the counter pain medications, take care not to also be taking combination medications like cold medicines or sleep aids as many also contain acetaminophen or ibuprofen. * Attachments The following attachments cannot be sent through Care Everywhere. * Cellulitis (Danish) * SULFAMETHOXAZOLE AND TRIMETHOPRIM (CAMEROONIAN) * CEPHALEXIN (CAMEROONIAN) documented in this encounter Medications at Time of Discharge cephALEXin 500 MG Cap Take 1 Cap (500 mg total) by mouth 4 times daily for 10 days 36 Cap 04/20/2019 04/30/2019 sulfamethoxazole- trimethoprim 800-160 MG Tab Take 1 Tab by mouth 2 times daily for 10 days 18 Tab 04/20/2019 04/30/2019 documented as of this encounter ED Notes * Felecia Rosen RN - 04/20/2019 11:47 PM EDT Pt has redness to right leg from ankle to below knee outlined by physician with wound marker. * Venecia Becerra MD - 04/20/2019 11:33 PM EDT Images from the original note were not included. History Chief Complaint Patient presents with ??? Cellulitis Chief Complaint: leg redness and pain HPI This is a 38 y.o. female who presents with leg redness and pain for 2 days. IVDU, injected in that same area and thinks she missed. Feeling feverish. Otherwise well. History reviewed. No pertinent past medical history. History reviewed. No pertinent surgical history. No family history on file. Social History Tobacco Use ??? Smoking status: Smoker, Current Status Unknown ??? Smokeless tobacco: Never Used Substance Use Topics ??? Alcohol use: Yes Comment: occasional ??? Drug use: Yes Types: Cocaine, Marijuana, IV Review of Systems Constitutional: Positive for chills and fever. Skin: Positive for rash. All other systems reviewed and are negative. Physical Exam BP 118/78 (Patient Position: Sitting) Pulse 99 Temp 37.3 ??C (99.1 ??F) (Temporal) Resp 18 Ht 1.702 m (5' 7) Wt 61.2 kg (135 lb) SpO2 100% BMI 21.14 kg/m?? Physical Exam Constitutional: She is oriented to person, place, and time. She appears well- developed and well-nourished. HENT: Head: Atraumatic. Neck: Normal range of motion. Pulmonary/Chest: Effort normal. No respiratory distress. Musculoskeletal: Normal range of motion. Neurological: She is alert and oriented to person, place, and time. Skin: Psychiatric: She has a normal mood and affect. Judgment normal. Procedures MDM (ED Course and Disposition) ASSESMENT and PLAN This is a 38 y.o. female who presents with cellulitis. Clinically well. Treated with Keflex and Bactrim. Area circled for monitoring. Encounter Diagnosis Name Primary? Cellulitis of right lower extremity Yes MDM: : Refer to text in Assessment and Plan ED CRITICAL CARE: Critical Care: No Venecia Becerra MD 04/26/19 0735 * Felecia Rosen RN - 04/20/2019 11:05 PM EDT 2 days ago pt states she was injecting in the inside of her right leg, shortly after that she developed redness and swelling. States she started having chills tonight documented in this encounter Plan of Treatment Not on file documented as of this encounter Visit Diagnoses Diagnosis Cellulitis of right lower extremity- Primary Cellulitis and abscess of leg, except foot documented in this encounter Administered Medications Inactive Administered Medications - up to 3 most recent administrations Medication Order MAR Action Action Date Dose Rate Site STARTER PACK - sulfamethoxazole-trimeth oprim 800-160 mg tablet (2 pack) 1 Package, Oral, Once, On Tue04/20/19 at 2345, For 1 dose Dispensed by Physician 04/20/2019 11:42 PM EDT 1 Package documented in this encounter Active and Recently Administered Medications Times are shown in EDT. Scheduled Medication Order 04/18/2019 04/19/2019 04/20/2019 STARTER PACK - sulfamethoxazole-trimethoprim 800-160 mg tablet (2 pack) (COMPLETED) 1 Package, Oral, Once, On Tue04/20/19 at 2345, For 1 dose 2342 (Dispensed by Inez dumont - Provider: Felecia Rosen RN) documented in this encounter Care Teams Pulmonary Physical Therapist Relationship Specialty Start Date End Date Pcp, No PCP - Generic [facility] PCP 04/20/19 documented as of this encounter
--- OUTSIDE RECORDS SUMMARY | 2024-11-17 14:25 | XMS_ITS | Encounter Summary ---
Author Organization [facility] Address [address] [place] [address] Care Team Providers Care Bar And Filler Assembler Name Role Phone Yohan Hendricks MD Primary Care Provider Unavail able Encounter Details Date Type Department Care Team (Late st Contact Info) Description 04/19/2018 Phlebotomy Only [address] [address] Trimmer Helper, Outpatient Social History Tobacco Use Types Packs/Day Years [...] on filedocumented in this encounter Care Teams Bar And Filler Assembler Relationship Specialty Start Date End Date Yohan Hendricks MD PCP - General 08/20/15 documented as of this encounter
--- OUTSIDE RECORDS SUMMARY | 2024-11-17 14:25 | XMS_ITS | Encounter Summary ---
Author Organization [facility] Address [facility] [place] [address] Care Team Providers Care Primer Boxer Name Role Phone Sebastian Wills MD Primary Care Provider + [phone] Reason for Visit * Reason Onset Date Comments Medication Refill 12/08/2017 Encounter Details Date Type Department Care Team (Late st Contact Info) Description 12/08/2017 Ref[place] [address] Yaima Kidd APRN [facility] [place] [address] Chronic hepatitis C without hepatic coma Social History Tobacco Use Types Packs/Day Years [...] this encounter Visit Diagnoses Diagnosis Chronic hepatitis C without hepatic coma documented in this encounter Care Teams Primer Boxer Relationship Specialty Start Date End Date Sebastian Wills MD [address] [place] [address] PCP - General 09/01/10 02/23/24 documented as of this encounter
--- OUTSIDE RECORDS SUMMARY | 2024-11-17 14:25 | XMS_ITS | Clinical Summary ---
Author Organization [facility] Address [address] [place] [address] Care Team Providers Care Mine Motor Operator Name Role Phone Pcp, No Unavailable Unavailable Allergies No known active allergies Social History [...] Mass Index 21.14 04/20/2019 11:06 PM EDT Plan of Treatment Not on file Care Teams Mine Motor Operator Relationship Specialty Start Date End Date Pcp, No PCP - Generic [facility] PCP 04/20/19
--- OUTSIDE RECORDS SUMMARY | 2024-11-17 14:25 | XMS_ITS | Encounter Summary ---
[facility] [place] [address] Care Team Providers Care Education Finance Processor Name Role Phone Sebastian Wills MD Primary Care Provider [phone] Encounter Details Date Type Department Care Team (Late st Contact Info) Description 01/16/2014 Orders [place] [address] Susan Posadas MD [facility] [place] [address] HCV (hepatitis C virus), without hepatic coma (Primary Dx) Social History Tobacco Use Types Packs/Day Years [...] as of this encounter Visit Diagnoses Diagnosis HCV (hepatitis C virus), without hepatic coma- Primary documented in this encounter Care Teams Education Finance Processor Relationship Specialty Start Date End Date Sebastian Wills MD [address] [place] [address] PCP - General 09/01/10 02/23/24 documented as of this encounter
--- OUTSIDE RECORDS SUMMARY | 2024-11-17 14:25 | XMS_ITS | Encounter Summary ---
[place] [address] Care Team Providers Care Pressurised Container Filler Name Role Phone Sebastian Wills MD Primary Care Provider + [phone] Encounter Details Date Type Department Care Team (Late st Contact Info) Description 08/17/2018 [place] [id number] Carlene Massey, RN Social History Tobacco Use Types Packs/Day Years [...] Type Associated Problems Recent Progress Patient-Stated? Author [facility] Medication Compliance and Understanding Patient Facing Action Plan No Ani Eldridge, [facility] Note: Attain undetectable viral load by end of Mavyret treatment and SVR12. documented as of this encounter Visit Diagnoses Not on filedocumented in this encounter Care Teams Pressurised Container Filler Relationship Specialty Start Date End Date Sebastian Wills MD [address] [place] [address] PCP - General 09/01/10 02/23/24 documented as of this encounter
--- OUTSIDE RECORDS SUMMARY | 2024-11-17 14:25 | XMS_ITS | Encounter Summary ---
Author Organization [facility] [place] [address] Care Team Providers Care Chemistry Faculty Member Name Role Phone Sebastian Wills MD Primary Care Provider [phone] Reason for Visit * Reason Comments Medication Management Encounter Details Date Type Department Care Team (Late st Contact Info) Description 01/20/2018 Specialty [place] [id number] Ani Eldridge [facility] Social History Tobacco Use Types Packs/Day Years [...] as of this encounter Progress Notes * Ani Ignacio [facility] - 01/20/2018 10:11 AM EDT Clinical Management Plan: Mavyret 3 day follow-up Specialty Pharmacy Consultation; Ani Ignacio [facility] (CMM) Carlene Augustine [address] [place] [id number] Telephone Information: Work Phone Not on file. Diagnosis: Hepatitis C Start Date: 01/17/18 Ms. Carlene Augustine is a 37 y.o. (1980) female who was contacted in regard to specialty medication. Spoke with patient regarding Mavyret. A review of the medication therapy was performed. The medication was Refilled as scheduled, and all medication related questions and concerns were addressed.The specialty pharmacy staff will follow up with the patient 7 days prior to next refill. Is the patient willing to proceed with the Clinical Assessment? Yes Goals as of 01/20/2018 at 10:13 AM Patient Facing Action Plan 1. Home Medication Compliance and Understanding Attain undetectable viral load by end of Mavyret treatment and SVR12. Allergies and Drug intolerance: No Known Allergies Medication Reconciliation Discrepancies (compared to [facility] med list) -none Medication Adherence Patient reported X missed doses in the last month: 0 Any gaps in refill history greater than 2 weeks in the last 3 months: no Demonstrates understanding of importance of adherence: yes Informant: patient Reliability of informant: reliable Provider-estimated medication adherence level: 90-100% Reasons for non-adherence: no problems identified Adherence tools used: directed education Support network for adherence: family member, healthcare provider Confirmed plan for next specialty medication refill: delivery by pharmacy Refills needed for supportive medications: not needed Are you experiencing any side effects from your medications? no Medication List: Current Outpatient Prescriptions Medication Sig Dispense Refill ??? glecaprevir-pibrentasvir (MAVYRET) 100-40 mg Tablet Take 3 tablets by mouth daily. 84 tablet 1 ??? buprenorphine-naloxone 8-[address] 4 mg under the tongue daily. No current facility-administered medications for this visit. Pertinent Lab values: Lab Results Component Value Date NA 134 (L) 11/24/2017 K 4.5 11/24/2017 CL 96 (L) 11/24/2017 CO2 22 11/24/2017 BUN 10 11/24/2017 CREATININE 0.75 11/24/2017 GLUCOSE 126 11/24/2017 CALCIUM 9.6 11/24/2017 Lab Results Component Value Date ALT 83 (H) 11/24/2017 AST 55 (H) 11/24/2017 ALKPHOS 77 11/24/2017 BILITOT 0.5 11/24/2017 BILIDIR 0.1 05/07/2014 ALBUMIN 3.9 11/24/2017 PROT 7.9 11/24/2017 Lab Results Component Value Date WBC 7.6 05/07/2014 HGB 15.2 05/07/2014 HCT 45.1 (H) 05/07/2014 MCV 92.2 05/07/2014 PLATELET 242 05/07/2014 No results found for: HA1C Immunization History Administered Date(s) Administered ??? Hepatitis A Vaccine, Adult 05/07/2014 Assessment and Recommendations: Reviewed in detail with patient: Dose appropriateness based on recommended standard dosing Current medication list including OTC medications Medication and disease problems Allergies Comorbid conditions Past adverse events if any Special needs of the patient including physical and cognitive limitations Goals of therapy and management strategies Warnings, precautions, and contraindications Side effects Drug-drug and drug-food interactions Administration instructions Handling, storage, and disposal of the medication Relevant lab data Title Type of Medication Management: chronic disease management, targeted medication review Referred By: provider Recipient: beneficiary Provider: plan sponsor pharmacist Visit Type: [facility] Follow-up Method of Contact: by telephone Cognitive Ability: normal Drug Interactions Provided the patient with educational material regarding drug interactions: yes Patient Counseling Counseled the patient on the following: reviewed medication changes since last visit, medication safety precautions education provided, drug interaction education provided to patient, doses and administration discussed, safe handling, storage, and disposal discussed, possible adverse effects and management discussed, possible drug and prescription drug interactions discussed, possible drug and OTC drug and food interactions discussed, lab monitoring and follow-up discussed, therapeutic rationale discussed, cost of medications and cost implications discussed, adherence and missed doses discussed, pharmacy contact information discussed, health goals discussed, monitoring medication discussed, over the counter products discussed, preventative care discussed, reminder to refill or package pick up medication discussed, self-monitoring discussed, timing of medications discussed, lifestyle modification education Drug Medication Management Summary Topics discussed: reviewed medication changes since last visit, medication safety precautions education provided, drug interaction education provided to patient, doses and administration discussed, safe handling, storage, and disposal discussed, possible adverse effects and management discussed, possible drug and prescription drug interactions discussed, possible drug and OTC drug and food interactions discussed, lab monitoring and follow-up discussed, therapeutic rationale discussed, cost of medications and cost implications discussed, adherence and missed doses discussed, pharmacy contact information discussed, health goals discussed, monitoring medication discussed, over the counter products discussed, preventative care discussed, reminder to refill or package pick up medication discussed, self-monitoring discussed, timing of medications discussed, lifestyle modification education Time spent: 1-15 min Appropriate therapy: Yes Genotype: 3 Treatment Naive/Experienced: Naive Fibrosis Score: F0-F1 HX of liver transplant: no HBV Coinfection: no HIV Coinfection: no Effectiveness: to be determined Lab schedule reviewed: Yes Educational information or adherence tools provided? Yes HCV therapy adherence: Yes HCV treatment response: Yes F/u needed? yes - we will follow up prior to next refill for refill reminder as well as lab reminder Verbalized understanding to call office before start: Yes Received welcome packet: Yes Informed patient of specialty pharmacy services: Yes Recommendations: Carlene reports doing well on Mavyret treatment thus far. She started on , 01/17 and has been taking it daily at noon with food. She reports on the second day she had some mild abdominal cramping but it passed quickly. She has a phone alarm to remind her of her dose and has not missed any doses.She is staying well hydrated. She did not have any further questions at this time and is happy to ge t started on treatment. We will follow up about a week prior to next refill for four week lab reminder and to set up next refill at that time. No recommendations at this time. Patient understands no changes to current drug regimen were made at the appointment and that [facility] isprov[facility] recommendations (summary located at top of note) for provider review and follow up. Ani Ignacio RPH 01/20/18 10:13 AM documented in this encounter Plan of Treatment Not on file documented as of this encounter Goals Goal Patient Goal Type Associated Problems Recent Progress Patient-Stated? Author [facility] Medication Compliance and Understanding Patient Facing Action Plan Ani Feldman [facility] Note: Attain undetectable viral load by end of Mavyret treatment and SVR12. documented as of this encounter Visit Diagnoses Not on filedocumented in this encounter Care Teams Chemistry Faculty Member Relationship Specialty Start Date End Date Sebastian Wills MD [address] [place] [address] PCP - General 09/01/10 02/23/24 documented as of this encounter
--- OUTSIDE RECORDS SUMMARY | 2024-11-17 14:25 | XMS_ITS | Encounter Summary ---
Author Organization [facility] Address [address] [place] [address] Care Team Providers Care Software Intern Name Role Phone Yohan Hendricks MD Primary Care Provider Unavail able Encounter Details Date Type Department Care Team (Late st Contact Info) Description 01/03/2023 Lab Requisition [facility] Pathology & Laboratory Medicine - [address] [address] Oleg Celeste MD [address] [place] [address], [address] [place] [address] Malignant melanoma of skin, unspecified (HCC-CMS); Opioid dependence, uncomplicated (HCC-CMS) Social History Tobacco Use Types Packs/Day Years [...] Procedure Name Priority Date/Time Associated Diagnosis Comments SURGICAL PATHOLOGY Today 12/31/2022 14 :38 EDT Malignant melanoma of skin, unspecified (HCC) Opioid dependence, uncomplicated (HCC-CMS) (HCC) documented in this encounter Results * SURGICAL PATHOLOGY (12/31/2022 14:38 EDT) Note to Patient The following pathology results have been interpreted by your pathologist and may be available to you before your health provider has had the opportunity to review them. Please allow time for your provider to receive these results and explore management options, if applicable. 01/05/2023 13:56 [facility] Final Diagnosis A. SKIN OF NECK, WIDE EXCISION: - Malignant melanoma, residual, completely excised. See comment and synoptic report. - Breslow thickness: 0.4 mm - Ulceration: No ulceration. - Melanocytic nevus, compound type, with unusual architectural features and mild cytologic atypia, completely excised. B. SOFT TISSUE, LYMPH NODE, EXCISION: - Skeletal muscle and fibroadipose tissue; no lymph node identified. See comment. 01/05/2023 13:56 [facility] Diagnosis Comment The patient's prior biopsy ([id number]) is reviewed in the examination of this case. The excisional specimen shows residual melanoma, extending to a depth of 0.4 mm (less than the biopsy). Ulceration is not seen. The tissue submitted as sentinel lymph node shows skeletal muscle and fibroadipose tissue without lymph node tissue identified. 01/05/2023 13:56 [facility] Attestation There was significant resident/fellow involvement in the diagnostic evaluation of this case. By the signature below, the attending physician certifies that they have personally conducted a gross and/or microscopic examination of the described specimens and rendered or confirmed the above diagnosis. 01/05/2023 13:56 [facility] at 1356 Synoptic MELANOMA OF THE SKIN: Excision, Re-Excision MELANOMA OF THE SKIN: EXCISION, RE-EXCISION ??- A, B 8th Edition - Protocol posted: 08/19/2021 SPECIMEN ?? Procedure: ?Excision ?? Specimen Laterality: ?Not specified TUMOR ?? Tumor Site: ?Skin of scalp and neck ?? Histologic Type: ?Superficial spreading melanoma (low-cumulative sun damage (CSD) melanoma) ?? Maximum Tumor (Breslow) Thickness (Millimeters): ?0.4 (biopsy 0.5) mm ?? Macroscopic Satellite Nodule(s): ?Not identified ?? Ulceration: ?Not identified ?? Anatomic (Justin) Level: ?II (Melanoma present in but does not fill and expand papillary dermis) ?? Mitotic Rate: ?None identified ?? Microsatellite(s) : ?Not identified ?? Lymphovascular Invasion: ?Not identified ?? Neurotropism: ?Not identified ?? Tumor-Infiltratin g Lymphocytes: ?Present, nonbrisk ?? Tumor Regression: ?Not identified ?? MARGINS: ? Margin Status for Invasive Melanoma: ?All margins negative for invasive melanoma ? Closest Margin Location(s) to Invasive Melanoma: ?medial ? Distance from Invasive Melanoma to Peripheral Margin: ?7.5 mm ? Distance from Invasive Melanoma to Deep Margin: ?8.6 mm ? Margin Status for Melanoma in situ: ?All margins negative for melanoma in situ ? Distance from Melanoma in Situ to Peripheral Margin: ?4.6 mm ?? REGIONAL LYMPH NODES: ? Regional Lymph Node Status: ?Not applicable (no regional lymph nodes submitted or found) ? Regional Lymph Node Comment: ?Tissue submitted as sentinel lymph node is skeletal muscle and soft tissue ?? PATHOLOGIC STAGE CLASSIFICATION (pTNM, AJCC 8th Edition): ? pT Category: ?pT1a ? pN Category: ?pN not assigned (no nodes submitted or found) Comment(s): ?[id number] 01/05/2023 13:56 [facility] Clinical History Not listed 01/05/2023 13:56 [facility] Gross Description A. Received in formalin labelled with proper patient identification (initials M,H) and neck melanoma is an oriented elliptical excision of ayala-white skin with a suture designating single suture superior, double suture medial (7.1cm from superior to inferior, 2.6cm from medial to lateral, and is excised to a depth of 0.8cm). There is a papule marked with dark blue ink that measures (1.2 x 0.6 x 0.1 cm). The papule measures 0.7 cm from the nearest medial margin and 2.9 cm from the nearest inferior margin. The medial margin is inked blue and the lateral margin is inked black. The specimen is serially sectioned from superior to inferior and is entirely submitted as follows: BLOCK RYAN A1- superior tip, reverse en face A2-A19- 24 central sections A9 - medial and lateral margins disrupted A19- medial and lateral margins disrupted A20- inferior tip, reverse en face B. Received in formalin labeled with proper patient (initials M, H) and sentinel node [id number] is a piece of soft brown/cano fibrous tissue previously inked blue with attached fibrofatty adipose tissue that measures 4.6 x 1.3 x 0.7 cm. The node is serially sectioned into 24 sections submitted entirely in B1-B9. No obvious lymph node is identified. AASHISH BOWLES DO 01/04/2023 14:42 01/05/2023 13:56 EDT [facility] Resident/Gabe w: Aashish Bowles DO 01/05/2023 13:56 EDT [facility] Performing Lab [facility] 01/05/2023 13:56 EDT [facility] Scanned Images 01/05/2023 13:56 EDT [facility] Tissue SENTINEL NODE / Unknown 12/31/2022 14:38 EDT 01/03/2023 18:12 EDT Tissue specimen (specimen) SENTINEL LYMPH NODE / Unknown 12/31/2022 14:38 EDT 01/03/2023 18:12 EDT us Oleg Celeste MD PATHOLOGY ORDERABLES Final Resu lt [facility] [address] [place] [address] documented in this encounter Visit Diagnoses Diagnosis Malignant melanoma of skin, unspecified (HCC-CMS) Opioid dependence, uncomplicated (HCC-CMS) documented in this encounter Care Teams Software Intern Relationship Specialty Start Date End Date Yohan Hendricks MD PCP - General 08/20/15 documented as of this encounter
--- OUTSIDE RECORDS SUMMARY | 2024-11-17 14:25 | XMS_ITS | Clinical Summary ---
Author Organization [facility] Address [address] [place] [address] Care Team Providers Care Brass Roller Name Role Phone Yohan Hendricks MD Primary [...] Orientation Not on file Plan of Treatment Health Maintenance Due Date Last Done Comments Hepatitis C Screen 1980 Hepatitis B Vaccine (1 of 3 - 19+ 3-dose series) 08/18 COVID-19 Vaccine (2023- season) 2024 Insurance MEDICAID [place] Care Teams Brass Roller Relationship Specialty Start Date End Date Yohan Hendricks MD PCP - General 08/20/15
--- OUTSIDE RECORDS SUMMARY | 2024-11-17 14:25 | XMS_ITS | Encounter Summary ---
[place] [address] Care Team Providers Care Print Graphic Designer Name Role Phone Sebastian Wills MD Primary Care Provider [phone] Reason for Referral * Diagnostic Test (Routine) - Closed Specialty Diagnoses / Procedures Referred By Contac t Referred To Contact Radiology Diagnoses Malignant melanoma, unspecified site Procedures NM PET CT Standard Plus Extremities and Head Ruby Leone DO [address] [place] [address] [address] [place] [address] [place] [address] Referral ID Status Reason Start Date Expiration Date V isits Requested Visits Authorized [id number] Closed Specialty Service Requested 11/22/2022 05/22/2024 1 1 Reason for Visit * Diagnostic Test (Routine) - Closed Specialty Diagnoses / Procedures Referred By Contac t Referred To Contact Radiology Diagnoses Malignant melanoma, unspecified site Procedures NM PET CT Standard Plus Extremities and Head Ruby Leone DO [address] [place] [address] [address] [place] [address] [facility] [place] [address] Referral ID Status Reason Start Date Expiration Date V isits Requested Visits Authorized [id number] Closed Specialty Service Requested 11/22/2022 05/22/2024 1 1 Encounter Details Date Type Department Care Team (Latest Contact Info) Description 12/07/2022 1:37 PM EST Hospital Encounter [place] [address] Ruby Leone, DO [address] [facility] [address] [place] [address] Malignant melanoma, unspecified site Discharge Disposition: Home Social History Tobacco Use [...] on file documented as of this encounter Medications at Time of Discharge Medication Sig Dispensed Refills Start Date End Date buprenorphine-naloxone 8-[address] 4 mg under the tongue daily. documented as of this encounter Plan of Treatment Not on file documented as of this encounter Goals Goal Patient Goal Type Associated Problems Recent Progress Patient-Stated? Author DH Home Medication Compliance and Understanding Patient Facing Action Plan Ani Feldman, [facility] Note: Attain undetectable viral load by end of Mavyret treatment and SVR12. documented as of this encounter Procedures Procedure Name Priority Date/Time Associated Diagnosis Comments NM PET CT STANDARD PLUS EXTREMITIES AND HEAD Routine 12/07/2022 3:44 PM EST Malignant melanoma, unspecified site documented in this encounter Results * (ABNORMAL) NM PET CT Standard Plus Extremities and Head (12/07/2022 3:44 PM EST) Anatomical Region Laterality Modality Positron Emissio n Tomography (PET) Impressions 12/09/2022 3:17 PM EST 1. ??No evidence of malignancy in the neck and no evidence of metastasis. 2. ??Unexpected finding. Small focus of asymmetrically increased activity in the right upper outer deep breast with no abnormality on noncontrast CT. Recommend mammography for further characterization. I have personally reviewed the image(s) and the resident's interpretation and agree with the findings, Luis Eckert MD at 12/09/2022 3:17 PM Thank you for letting us participate in the care of this patient. ??If you are a health care provider and have any questions regarding this report, please contact the number below. ??For patients who have questions please contact the health patient care representative that requested your imaging first. ? Narrative 12/09/2022 3:17 PM EST EXAMINATION: NM PET CT STANDARD PLUS EXTREMITIES AND HEAD CLINICAL HISTORY: Malignant melanoma, unspecified site, initial diagnosis Medial LEFT side of the neck TECHNIQUE: Procedure: Following IV injection of 52-bhndot-0-deoxyglucose (FDG) a standard uptake of approximately 60 minutes, a noncontrast CT scan followed by a PET scan were acquired from the top of head to bottom of feet. The noncontrast CT was used for anatomic localization and photon attenuation correction of the PET scan. Blood glucose level: 120 (mg/dL) FDG dose: 10.2 mCi COMPARISON: None FINDINGS: HEAD/NECK: FDG avid RIGHT mandibular dental disease. Small FDG avid lymph nodes in the bilateral level 1B regions (axial image 76), consistent with benign reactive reactive nodes. CHEST: Small focus of asymmetrically increased FDG avidity in the right upper outer deep breast (axial image 155) with no abnormality seen on noncontrast CT. Sub-5 mm LEFT upper lobe subpleural nodule (image 107), likely represents an intrapulmonary lymph node. No adenopathy. ABDOMEN/PELVIS: Normal activity in all soft tissue regions. No lymphadenopathy. SKELETON/EXTREMITIES: No significant osseous abnormalities. Incidental finding of a small mildly FDG avid well-circumscribed heterogeneously sclerotic focus in the right medial femoral condyle (axial image 1418), consistent with a benign enchondroma. Normal activity in all soft tissue regions of the upper and lower extremities. Resulting Agency Comment Unexpected Finding Ruby Leone DO IMG PET ORDERABLES documented in this encounter Visit Diagnoses Diagnosis Malignant melanoma, unspecified site documented in this encounter Administered Medications Inactive Administered Medications - up to 3 most recent administrations Medication Order MAR Action Action Date Dose Rate Site fludeoxyglucose (F-18) FDG injection 0-20 mCi 0-20 mCi, Intravenous, ONCE PRN, 1 dose, Starting on Tue12/07/22 at 1412, Until Tue12/07/22 at 1408, Per Protocol, Radiology Contrast, Routine Given 12/07/2022 2:08 PM EST 10.2 mCi documented in this encounter Care Teams Print Graphic Designer Relationship Specialty Start Date End Date Sebastian Wills MD [address] [place] [id number] PCP - General 09/01/10 02/23/24 documented as of this encounter
--- OUTSIDE RECORDS SUMMARY | 2024-11-17 14:25 | XMS_ITS | Encounter Summary ---
Author Organization [facility] Address [facility] [place] [address] Care Team Providers Care Customer Engagement Specialist Name Role Phone Sebastian Wills MD Primary Care Provider [phone] Encounter Details Date Type Department Care Team (Late st Contact Info) Description 12/27/2017 Orders [place] [address] Yaima Kidd APRN [facility] [place] [address] Chronic hepatitis C without hepatic coma Social [...] coma documented in this encounter Care Teams Customer Engagement Specialist Relationship Specialty Start Date End Date Sebastian Wills MD [address] [place] [address] PCP - General 09/01/10 02/23/24 documented as of this encounter
--- OUTSIDE RECORDS SUMMARY | 2024-11-17 14:25 | XMS_ITS | Encounter Summary ---
Author Organization [facility] Address [address] [place] [address] Care Team Providers Care Bicycle Inspector Name Role Phone Yohan Hendricks MD Primary Care Provider Unavail able Encounter Details Date Type Department Care Team (Late st Contact Info) Description 11/10/2022 Lab Requisition [facility] - [facility] [address] [place] [address] Freda Wood, SERVICENOW ADMINISTRATOR DEVELOPER [address] [place] [address] Disorder of the skin and subcutaneous tissue, unspecified Social History Tobacco Use Types Packs/Day Years [...] Date/Time Associated Diagnosis Comments SURGICAL PATHOLOGY Today 11/09/2022 14 :45 EST Disorder of the skin and subcutaneous tissue, unspecified documented in this encounter Results * SURGICAL PATHOLOGY (11/09/2022 14:45 EST) Note to Patient The following pathology results have been interpreted by your pathologist and may be available to you before your health provider has had the opportunity to review them. Please allow time for your provider to receive these results and explore management options, if applicable. 11/11/2022 12:45 EST [facility] Final Diagnosis A. SKIN OF NECK, LEFT, SHAVE BIOPSY: - Malignant melanoma, invasive. See synoptic and comment. - Breslow thickness: 0.5 mm - Ulceration: Not identified. - Invasive melanoma does not extend to biopsy edges were sections appear well oriented. - Melanoma in-situ extends to biopsy edge. 11/11/2022 12:45 [facility] Diagnosis Comment Time Clock Inspector slides of this case were reviewed at the intradepartmental consultation conference. These results were phoned to the office of Freda Wood NP. 11/11/2022 12:45 [facility] Attestation By the signature below, the attending physician certifies that they have 1) personally conducted a gross and/or microscopic examination of the described specimen(s), and/or personally interpreted the results of laboratory testing of the described specimen(s), and 2) personally rendered or confirmed the above diagnosis. 11/11/2022 12:45 [facility] at 1245 Synoptic MELANOMA OF THE SKIN: Biopsy MELANOMA OF THE SKIN: BIOPSY - All Specimens 8th Edition - Protocol posted: 12/30/2021 SPECIMEN ?? Procedure: ?Biopsy, shave ?? Specimen Laterality: ?Left TUMOR ?? Tumor Site: ?Skin of other and unspecified parts of face: neck ?? Histologic Type: ?Superficial spreading melanoma (low-cumulative sun damage (CSD) melanoma) ?? Maximum Tumor (Breslow) Thickness (Millimeters): ?0.5 mm ?? Ulceration: ?Not identified ?? Anatomic (Justin) Level: ?II (melanoma present in but does not fill and expand papillary dermis) ?? Mitotic Rate: ?None identified ?? Microsatellite(s): ?Cannot be determined ?? Lymphovascular Invasion: ?Not identified ?? Neurotropism: ?Not identified ?? Tumor-Infiltrating Lymphocytes: ?Present, nonbrisk ?? Tumor Regression: ?Not identified ?? MARGINS: ? Margin Status for Invasive Melanoma: ?All margins negative for invasive melanoma ? Closest Margin(s) to Invasive Melanoma: ?base ? Distance from Invasive Melanoma to Closest Peripheral Margin: ?0.4 mm ? Distance from Invasive Melanoma to Deep Margin: ?0.2 mm ? Margin Status for Melanoma in situ: ?Melanoma in situ present at margin ?? PATHOLOGIC STAGE CLASSIFICATION (pTNM, AJCC 8th Edition): ? pT Category: ?pT1a ADDITIONAL FINDINGS Additional Findings: ?Associated nevus: arising in association with intradermal nevus 11/11/2022 12:45 [facility] Microscopic Description Sections consist of a shave biopsy of a compound melanocytic proliferation. The junctional component is arranged as nests as well as individual cells. Nests show variation size, shape, and spacing. Nests bridge rete ridges. Individual melanocytes are unevenly spaced and crowded along the dermal-epidermal junction with well-developed confluent growth and upper migration. The individual melanocytes are enlarged and epithelioid in morphology with hyperchromasia and irregular nuclear contours. Similar-appearing melanocytes invade into the dermis and are associated with patchy lymphomononuclear inflammation. A second population of smaller, more banal melanocytes are noted. 11/11/2022 12:45 [facility] Clinical History Skin lesion, abnormal; clinical diagnosis code: L98.9 11/11/2022 12:45 [facility] Gross Description A. Received in formalin labelled with proper patient identification (initials M, H) and left neck is a dark brown macule, 0.5 x 0.4 x 0.1 cm. The margin is inked. Bisected and entirely submitted in A1. DOTTIE GARZON(ASCP) 11/10/2022 8:57 11/11/2022 12:45 [facility] Performing Lab [facility] 11/11/2022 12:45 [facility] Scanned Images 11/11/2022 12:45 [facility] Tissue TISSUE SPECIMEN FROM SKIN / Unknown 11/09/2022 14:45 EST 11/10/2022 6:56 EST Freda Wood NP PATHOLOGY ORDERABLES Final R esult [facility] [address] [place] [address] documented in this encounter Visit Diagnoses Diagnosis Disorder of the skin and subcutaneous tissue, unspecified documented in this encounter Care Teams Bicycle Inspector Relationship Specialty Start Date End Date Yohan Hendricks MD PCP - General 08/20/15 documented as of this encounter
--- OUTSIDE RECORDS SUMMARY | 2024-11-17 14:25 | XMS_ITS | Encounter Summary ---
Author Organization [facility] [place] [address] Care Team Providers Care Bus Starter Name Role Phone Sebastian Wills MD Primary Care Provider [phone] Encounter Details Date Type Department Care Team (Latest Contact Info) Description 05/07/2014 4:20 PM EDT - 05/07/2014 11:59 PM EDT Hospital [place] [id number] Gianni Montes De Oca MD HCV (hepatitis C virus), without hepatic coma; Hepatitis Discharge Disposition: Home Social History Tobacco [...] Place 4 mg under the tongue daily. cloNIDine (CATAPRES) 0.1 mg tablet Take 0.1 mg by mouth as needed. 11/24/2017 dicyclomine (BENTYL) 10 mg capsule Take 2 [...] 01/16/2014 11/24/2017 documented as of this encounter Plan of Treatment Scheduled Orders Name Type Priority Associated Diagnoses Orde r Schedule Hepatic Function Panel Lab Routine Hepatitis 1 Occurrences starting 05/07/2014 documented as of this encounter Visit Diagnoses Diagnosis HCV (hepatitis C virus), without hepatic coma Hepatitis Hepatitis, unspecified documented in this encounter Care Teams Bus Starter Relationship Specialty Start Date End Date Sebastian Wills MD [address] [place] [id number] PCP - General 09/01/10 02/23/24 documented as of this encounter
--- OUTSIDE RECORDS SUMMARY | 2024-11-17 14:25 | XMS_ITS | Encounter Summary ---
Author Organization [facility] [place] [address] Care Team Providers Care Granulator Machine Operator Name Role Phone Sebastian Wills MD Primary Care Provider [phone] Reason for Visit * Reason Comments GI Problem Encounter Details Date Type Department Care Team (Late st Contact Info) Description 05/07/2014 3:00 PM EDT Office [place] [phone] Marisel Saenz APRN HCV (hepatitis C virus), without hepatic coma (Primary Dx) Discharge Disposition: Home Social History Tobacco Use [...] Sign Reading Time Taken Comments Blood Pressure 129/87 05/07/2014 3:01 PM EDT Pulse 65 05/07/2014 3:01 PM EDT Temperature - - Respiratory Rate - - Oxygen Saturation - - Inhaled Oxygen Concentration - - Weight 64 kg (141 lb) 05/07/2014 3:01 PM EDT Height 171.5 cm (5' 7.5) 05/07/2014 3:01 PM EDT Body Mass Index 21.76 05/07/2014 3:01 PM EDT documented in this encounter Progress Notes * Marisel Saenz, HIGH [employer]ILER - 05/07/2014 3:07 PM EDT Subjective: Patient ID: Carlene Augustine is a 33 y.o. female. HPI Ms. Augustine is a very pleasant 33 year old white female seen today at [facility] in consultation for acute Hepatitis C infection. She tells me that in December she became very ill with nausea, vomiting, weakness, pale-colored stoolsand jaundice. She presented to PCP's office and was subsequently referred to [facility]. She was diagnosed with acute hepatitis C. She admits to using intranasal drugs from [id number] and IV drugs from 2009 through mid-March 2014. She buys suboxone off the street in order to stay clean. She tells me she is on the waiting list for suboxone clinic in [facility]. She presents today with multiple complaints including fatigue, night sweats, RUQ abd pressure, skinchanges, right ankle edema. [facility] Labs 2012- 01/09/2014 Hep Bs Ab 4.05 Hep A Ab Tot Negative Hep Bs Antigen Non-reactive Hep B Core Negative Hep C Ab Reactive HIV 1&2 Negative BMP WNL PT/INR 9.6/1.0 TPro/Albumin 7.3/3.5 T-Bili 9.52 AST/ALT 1858/2086 Lipase 149 01/09/14 -- Abdominal Ultrasound (done at [facility]) The visualized liver parenchyma is normal in appearance. The gall bladder is contracted. No cholelithiasis is seen. The gall bladder appears thick walled although this may be due to its contracted status. Abdominal aorta is of normal diameter. The pancreas appears intact. The kidneys and spleen areunremarkable in appearance. Conclusion: Unremarkable abdominal ultrasound Labs 01/16/14: INR 0.9 Creat 0.58 Alb 3.3 T. Bili 14.3 AP 236 AST 1274 ALT 1149 TISHA negative SMA negative CMV IgM negative [place] Screen negative HCV RNA 2,365,479 HCV genotype 1b Past Medical History Diagnosis Date ??? HCV (hepatitis C virus) 01/15/2014 ??? Substance abuse No past surgical history on file. buprenorphine-naloxone 8-2 mg Film; cloNIDine (CATAPRES) 0.1 mg tablet; ursodiol (NENA-250) 250 mg tablet; dicyclomine (BENTYL) 10 mg capsule; loperamide (IMMODIUM) 2 mg tablet; methocarbamol (ROBAXIN) 500 mg tablet; ondansetron (ZOFRAN) 4 mg tablet; [DISCONTINUED] cloNIDine (CATAPRES) 0.1 mg tablet No Known Allergies Family Status Relation Status Age ??? Mother Alive age 56, pre-diabetes ??? Father Alive age 57, hyperlipidemia ??? Maternal Grandmother 60s brain aneurysm, cancer (unknown) ??? Paternal Grandmother 60s breast cancer ??? Maternal Grandfather 70s accidental (hit by car) ??? Paternal Grandfather 60s CAD ??? Brother Alive age 28, 1/2 brother, substance abuse ??? Brother age 27, 1/2 brother ??? Brother age 26, 1/2 brother ??? Brother age 25, 1/2 brother ??? Sister age 24, 1/2 sister substance abuse ??? Daughter Alive age 8, healthy Family History Problem Relation Age of Onset ??? Diabetes Mother ??? Cancer Father skin ??? Arthritis Neg Hx ??? Thyroid Disease Neg Hx ??? Breast Cancer Paternal Grandmother ??? Aneurysm Maternal Grandmother ??? Coronary Artery Disease Father History Social History ??? Marital Status: Single Spouse Name: N/A Number of Children: N/A ??? Years of Education: N/A Occupational History ??? Not on file. Social History Main Topics ??? Smoking status: Current Every Day Smoker -- 0.5 packs/day for 14 years Types: Cigarettes Start date: 05/07/1990 ??? Smokeless tobacco: Never Used Comment: Not ready to quit ??? Alcohol Use: No Comment: H/O binge drinking twice weekly until in 2005. Now drinking on ocassions 1 glass of wine or 1 beer once weekly. ??? Drug Use: Yes Special: IV Comment: Intranasal drug use 1994- 2009. IV drug use 2009 - mid-March 2014 ??? Sexually Active: Not on file Other Topics Concern ??? Blood Transfusions No 2005 when had daughter ??? Service No Social History Narrative Lives alone with daughter. 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 Review of Systems Constitutional: Positive for diaphoresis (night sweats) and fatigue (energy up and down). Negative for fever, chills and unexpected weight change. Gaining weight since being clean HENT: Negative for trouble swallowing. Respiratory: Positive for cough (coughing x 2 weeks - yellow-white sputum). Negative for shortness of breath and wheezing. Cardiovascular: Negative for chest pain, palpitations and leg swelling (right foot swelled in mid-March, now resolved). Gastrointestinal: Positive for abdominal pain (RUQ abd pressure). Negative for nausea, vomiting, diarrhea, constipation, blood in stool and abdominal distention. BM once daily or every other day. Suboxone makes her slightly constipated. Skin: Positive for color change (jaundice in [id number] 2014) and rash (feels like her freckles and moles become raised; she picks these raised lesions off). Psychiatric/Behavioral: Positive for sleep disturbance (difficulty falling asleep). The patient is nervous/anxious. Objective: Physical Exam Constitutional: She is oriented to person, place, and time. She appears well- developed and well-nourished. Body mass index is 21.75 kg/(m^2). HENT: Head: Normocephalic and atraumatic. Eyes: Pupils are equal, round, and reactive to light. No scleral icterus. Neck: Normal range of motion. Neck supple. No thyromegaly present. Cardiovascular: Normal rate, regular rhythm and normal heart sounds. No murmur heard. Pulmonary/Chest: Effort normal and breath sounds normal. She has no wheezes. She has no rales. Abdominal: Soft. Bowel sounds are normal. She exhibits no distension and no mass. There is no tenderness. There is no guarding. No HSM Musculoskeletal: She exhibits no edema. Lymphadenopathy: She has no cervical adenopathy. Neurological: She is alert and oriented to person, place, and time. No asterixis Skin: Skin is warm and dry. No erythema (no palmar erythema. no spider angiomata). Psychiatric: She has a normal mood and affect. Her behavior is normal. Assessment and Plan: Ms. Augustine is a very pleasant 33 year old white female who [facility] for acute hepatitis C. 1. Acute Hepatitis C, genotype 1b. She presented 01/15/14 to [facility] with marked transaminitis and jaundice thought to be acute hepatitis C. Her risk factors for viral acquisition include intranasal drug use [id number] and IV drug use 2009- mid-March 2014. I had a long discussion with Ms. Augustine today. We discussed hepatitis C, viral acquisition, progression of liver fibrosis, risk of cirrhosis and treatment. I explained that alcohol increases progression of fibrosis in setting of HCV. I have advised complete abstinence from all alcohol. I have advised against sharing razors and toothbrushes. Sexual transmission of HCV in monogamous, heterosexual couples is very rare unless engaging in traumatic sexual practices in which case condoms need always be used. Explained that she should use condoms with all new partners. I explained that 15-20% of patients acutely infected with Hepatitis C will clear the virus spontaneously within the first several months. Will obtain HCV RNA today to determine if she has cleared thevirus spontaneously. I will call her with results. I explained that if she has cleared virus spontaneously this does not provide any immunity. If she relapses she can become reinfected. 2. HAV/HBV. She is immune to HBV. She is not immune to Hepatitis A. Provided Hepatitis A vaccine #1today 05/07/14. She will be due for #2 in 6 months. 3. Substance abuse. She has been buying suboxone off the street in order to stay clean. She is on waiting list for Suboxone Program in [facility]. Strongly encouraged her to pursue this. All of her questions were answered at the conclusion of the visit. She verbalized understanding andagreement to the plan of care. -Labs today -Will call her with HCV RNA results -F/U appt in 6 months with repeat labs documented in this encounter Plan of Treatment Not on file documented as of this encounter Procedures Procedure Name Priority Date/Time Associated Diagnosis Comments HCV QUANT Routine 05/07/2014 4:51 PM EDT HCV (hepatitis C virus), without hepatic coma HEMOGRAM Routine 05/07/2014 4:51 PM EDT HCV (hepatitis C virus), without hepatic coma DIFFERENTIAL, AUTOMATED Routine 05/07/2014 4:51 PM EDT HCV (hepatitis C virus), without hepatic coma HEPATITIS C RNA, QUANTITATIVE, PCR Routine 05/07/2014 4:51 PM EDT HCV (hepatitis C virus), without hepatic coma CBC (WITH DIFF) Routine 05/07/2014 4:51 PM EDT HCV (hepatitis C virus), without hepatic coma COMPREHENSIVE METABOLIC PANEL Routine 05/07/2014 4:51 PM EDT HCV (hepatitis C virus), without hepatic coma documented in this encounter Results * HCV Quant Sigifredo (05/07/2014 4:51 PM EDT) [facility] HCV Viral Load <43 IU/mL [facility] HCV Viral Load Result: < 43(Target not detected) Indication for Study: Hepatitis C Infection Analysis: [...] This assay is being performed in the [facility]. Marcelo Carmichael, Ph.D. Director, Molecular Pathology [facility] Comment: [VERIFIED DATE]05.09.14 Verified By:Kendra Waltre I (Electronic Signature) Blood specimen (specimen) 05/07/2014 4:51 PM EDT 05/08/2014 8:26 AM EDT Narrative Resulting Agency Comment Spec In Lab Ran Pelayo MD HEMATOLOGY ORDERABL ES [facility] * Differential, Automated (05/07/2014 4:51 PM EDT) [facility] Neutrophil % 51.1 34.0 - 71.0 % [facility] Neutrophil Absolute 3.91 1.50 - 6.30 x10(3)/mcL [facility] Lymph % 38.4 19.0 - 53.0 % [facility] Lymphocytes Abs 2.9 1.0 - 3.6 x10(3)/mcL [facility] Monocyte % 5.4 4.0 - 13.0 % [facility] Monocyte Abs 0.4 0.2 - 1.0 x10(3)/mcL [facility] Eos % 4.8 0.0 - 7.0 % [facility] Eosinophils Abs 0.4 0.0 - 0.5 x10(3)/mcL [facility] Basophil % 0.0 0.0 - 2.0 % [facility] Baso Absolute 0.0 0.0 - 0.2 x10(3)/mcL [facility] Immature Gran % 0.30 0.00 - 0.66 % [facility] Comment: Immature granulocytes(IG's)percentage and absolute count will include metamyelocytes, myelocytes, and promyelocytes. Blood smears from CBCs yielding IG's will be scanned manually for concordance. If this scan disagrees with the automated IG or if promyelocytes are noted, a manual differential will be performed. Immature Gran Absolute 0.02 0.00 - 0.05 x10(3)/mcL [facility] Blood specimen (specimen) 05/07/2014 4:51 PM EDT 05/07/2014 4:55 PM EDT Narrative Resulting Agency Comment Spec In Lab Ran Pelayo MD HEMATOLOGY ORDERABL ES [facility] * (ABNORMAL) Hemogram (05/07/2014 4:51 PM EDT) Pathologist [facility] White Blood Cell 7.6 4.0 - 10.0 x10(3)/mc L [facility] Red Blood Cell 4.89 3.93 - 5.22 x10(6)/mc L [facility]ENNI[facility] Hemoglobin 15.2 11.2 - 15.7 gm/dL [facility] Hematocrit 45.1(H) 34.0 - 45.0 % [facility]ENNI[facility] Mean Cell Volume 92.2 79.0 - 94.0 fL [facility] Mean Cell Hemoglobin 31.1 26.6 - 32.2 pg [facility] Mean Cell Hemoglobin Concentration 33.7 32.0 - 36.5 gm/dL [facility] Platelet 242 145 - 370 x10(3)/mc L [facility] RDW Standard Deviation 47.3(H) 35.0 - 46.0 fL [facility] RDW coefficient of variation 13.9 10.9 - 14.4 % [facility] Mean Platelet Volume 10.6 9.0 - 12.0 fL [facility] Blood specimen (specimen) 05/07/2014 4:51 PM EDT 05/07/2014 4:55 PM EDT Narrative Resulting Agency Comment Spec In Lab Ran Pelayo MD HEMATOLOGY ORDERABL ES [facility] * (ABNORMAL) Comprehensive metabolic panel (non-fasting) (05/07/2014 4:51 PM EDT) [facility] Glucose 117 60 - 199 mg/dL [facility] Comment:Diabetes: >=200 mg/d L plus symptoms Blood Urea Nitrogen 13 8 - 18 mg/dL [facility] Creatinine 0.78 0.70 - 1.20 mg/dL [facility] Comment: Please note that the pediatric reference intervals supplied above were not validated at [facility]. Results from pediatric patients should be interpreted in conjunction to the patient's age, height and muscle mass. Sodium 137 135 - 145 mmol/L [facility] Potassium 4.2 3.5 - 5.0 mmol/L [facility] Comment: Please note: ??Patients with WBC >100,000 may have falsely elevated Potassium levels. ??For accurate Potassium quantification in these patients send serum separator tube (gold top) for subsequent determinations. ??Contact the Clinical Chemistry Laboratory if there are any questions. Chloride 100 98 - 107 mmol/L [facility] Carbon Dioxide 26 22 - 31 mmol/L [facility] Anion Gap 11 5 - 15 mmol/L [facility] Calcium 10.5 8.5 - 10.5 mg/dL [facility] Protein, Total 8.2 6.4 - 8.3 gm/dL [facility] Albumin 4.1 3.2 - 5.2 gm/dL [facility] Aspartate Aminotransferase Not Perf 0 - 30 unit/L [facility] Comment:Unable to quantitate due to sample hemolysis. Sample redraw suggested. Alanine Aminotransferase 35(H) 0 - 30 unit/L [facility] Alkaline Phosphatase 98 40 - 104 unit/L [facility] Bilirubin, Total 0.4 0.2 - 1.3 mg/dL [facility]NI[facility] Bilirubin, Direct 0.1 0.0 - 0.3 mg/dL [facility]ILLENNI[facility] Est Glomerular Filtration Rate [...] the following links into your internet browser. [email or web address] Blood specimen (specimen) 05/07/2014 4:51 PM EDT 05/07/2014 4:55 PM EDT Narrative Resulting Agency Comment Spec In Lab Ran Pelayo MD CHEMISTRY ORDERABLE S [facility] documented in this encounter Visit Diagnoses Diagnosis HCV (hepatitis C virus), without hepatic coma- Primary documented in this encounter Care Teams Granulator Machine Operator Relationship Specialty Start Date End Date Sebastian Wills MD [address] [place] [id number] PCP - General 09/01/10 02/23/24 documented as of this encounter
--- OUTSIDE RECORDS SUMMARY | 2024-11-17 14:25 | XMS_ITS | Encounter Summary ---
Author Organization [facility] [place] [address] Care Team Providers Care Cutting Table Operator Name Role Phone Sebastian Wills MD Primary Care Provider [phone] Encounter Details Date Type Department Care Team (Late st Contact Info) Description 01/16/2018 [place] [phone] Ani Eldridge, [facility] Social History Tobacco Use Types Packs/Day Years [...] encounter Miscellaneous Notes * Telephone Encounter - Ani Ignacio [facility] - 01/16/2018 1:19 PM EDT Contacted patient to assess status on Mavyret treatment. Patient has not started yet due to her busy schedule and she is afraid she won't be able to take it at the same time each day due to her unpredictable schedule. She is hoping to start tonight and continue taking it each night with dinner. I suggested setting an alarm to keep her on schedule. Specialty pharamcy staff will schedule call on Tuesday to follow-up to see how the first few days of treatment are going and assess tolerability and adherence. Patient agreed to this plan and follow up phone call. documented in this encounter Plan of Treatment Not on file documented as of this encounter Visit Diagnoses Not on filedocumented in this encounter Care Teams Cutting Table Operator Relationship Specialty Start Date End Date Sebastian Wills MD [address] [place] [id number] PCP - General 09/01/10 02/23/24 documented as of this encounter
--- OUTSIDE RECORDS SUMMARY | 2024-11-17 14:25 | XMS_ITS | Encounter Summary ---
Author Organization [facility] Address [facility] [place] [address] Care Team Providers Care Light Rail Train Operator Name Role Phone Sebastian Wills MD Primary Care Provider [phone] Encounter Details Date Type Department Care Team (Late st Contact Info) Description 12/21/2017 Notes Only Pharmacy at [facility] [place] [phone] Reena Otero, SUPERVISOR [employer] TAK[employer] Social History Tobacco Use Types Packs/Day Years [...] as of this encounter Progress Notes * Reena Carrion - 12/21/2017 12:48 PM EDT [facility] Specialty Pharmacy Prior Authorization Medication: Mavyret (8 weeks) RX Insurance: [place] Insurance Phone #: [phone] Insurance Fax #: [phone] ID #: [id number] Spoke With: DOTTIE Reference #: Date DOTTIE Sent: 12/21/17 Approval Date: Approved through 02/20/2018 Pharmacy: Pharmacy Notes: DOTTIE approved, $3 co-pay. We will reach out to the patient for initial consult and medication delivery. Per [place] Medicaid, 1st fill: 42 tabs/14 d/s, 2nd fill: 42 tabs/14 d/s, 3rd fill: 84 tabs/28 d/s. documented in this encounter Plan of Treatment Not on file documented as of this encounter Visit Diagnoses Not on filedocumented in this encounter Care Teams Light Rail Train Operator Relationship Specialty Start Date End Date Sebastian Wills MD [address] [place] [id number] PCP - General 09/01/10 02/23/24 documented as of this encounter
--- OUTSIDE RECORDS SUMMARY | 2024-11-17 14:25 | XMS_ITS | Encounter Summary ---
Author Organization [facility] Address [address] [place] [address] Care Team Providers Care Addressograph Operator Name Role Phone Yohan Hendricks MD Primary Care Provider Unavail able Encounter Details Date Type Department Care Team (Late st Contact Info) Description 12/20/2020 Lab Requisition [facility] [address] [place] [address] Outr Resulting Lab, Provider Social History Tobacco [...] Comments CHLAMYDIA/N. GONORRHOEAE AMPLIFIED NUCLEIC ACID Routine 12/19/2020 15:10 EST documented in this encounter Results * CHLAMYDIA/N. GONORRHOEAE AMPLIFIED RNA (12/19/2020 15:10 EST) Neisseria gonorrhoeae Result Negative Negative 12/22/2020 15:41 EDT [facility] Chlamydia trachomatis Result Negative Negative 12/22/2020 15:41 EDT [facility] Swab ENTIRE ENDOCERVIX / Unknown 12/19/2020 15:10 EST 12/21/2020 22:16 EDT us Provider Outr Resulting Lab MICROBIOLOGY - GENER AL ORDERABLES Final Result [facility] [address] [place] [id number] documented in this encounter Visit Diagnoses Not on filedocumented in this encounter Care Teams Addressograph Operator Relationship Specialty Start Date End Date Yohan Hendricks MD PCP - General 08/20/15 documented as of this encounter
--- OUTSIDE RECORDS SUMMARY | 2024-11-17 14:25 | XMS_ITS | Encounter Summary ---
Author Organization [facility] Address [address] [place] [address] Care Team Providers Care Freezer Unloader Name Role Phone Yohan Hendricks MD Primary Care Provider Unavail able Encounter Details Date Type Department Care Team (Late st Contact Info) Description 04/17/2018 Results Only [facility] [phone] Sona Pierson MD [address] [place] [address] [address] [place] [address] Social History Tobacco Use Types Packs/Day Years [...] Procedure Name Priority Date/Time Associated Diagnosis Comments TOXOPLASMA GONDII AB, IGG, S Routine 04/17/2018 14:53 EDT SYPHILIS SEROLOGY Routine 04/17/2018 14: 53 EDT LYME AB Routine 04/17/2018 14:53 EDT TOXOPLASMA AB, IGM, S Routine 04/17/2018 14:53 EDT HERPES SIMPLEX VIRUS (HSV) TYPE 1 & 2 AB, IGG Routine 04/17/2018 14:53 EDT VARICELLA IGG ANTIBODY Routine 04/17/2018 14:53 EDT CREATININE Routine 04/17/2018 14:53 EDT documented in this encounter Results * VARICELLA IGG ANTIBODY (04/17/2018 14:53 EDT) Pathologist [facility] Varicella IgG Ab Positive 04/18/2018 11:48 EDT [facility] Comment: Presence of detectable Varicella Zoster virus IgG antibodies. BLOOD SPECIMEN / Unknown 04/17/2018 14:53 EDT 04/17/2018 15:27 EDT us Sona Pierson MD IMMUNOLOGY AND SEROLOGY O RDERABLES Final Result Performing Organization Address [facility] Co de Phone Number [facility] [address] [place] [address] * TOXOPLASMA AB, IGM, S (04/17/2018 14:53 EDT) Pathologist [facility] Toxoplasma Ab, IgM Negative Negative 04/19/2018 9:36 EDT [facility] Comment: (Note) No IgM antibodies to T. gondii detected. Results may be negative up to 7 days following infection. Performed by: [facility]: [facility] [address], [place] [address], Lab Dir: Everton Lopez II, M.D., Ph.D. BLOOD SPECIMEN / Unknown 04/17/2018 14:53 EDT 04/17/2018 15:27 EDT Sona Pierson MD IMMUNOLOGY AND SEROLOGY O RDERABLES Final Result Performing Organization Address [facility] de Phone Number [facility] [address] [place] [address] * TOXOPLASMA GONDII AB, IGG, S (04/17/2018 14:53 EDT) Pathologist [facility] Toxoplasma Ab, IgG Negative Negative 04/19/2018 9:36 EDT [facility] Toxoplasma IgG Value <3 IU/mL 04/19/2018 9:36 EDT [facility] Comment: (Note) . REFERENCE VALUE <=9 IU/mL (Negative) 10-11 IU/mL (Equivocal) >=12 IU/mL (Positive) Performed by: [facility]: [address], [place] [address], Lab Dir: Everton Lopez II, M.D., Ph.D. BLOOD SPECIMEN / Unknown 04/17/2018 14:53 EDT 04/17/2018 15:27 EDT us Sona Pierson MD CHEMISTRY & BLOOD GAS ORD ERABLES Final Result Performing Organization Address City/[facility]/ZIP Co de Phone Number [facility] [address] [place] [address] * SYPHILIS SEROLOGY (04/17/2018 14:53 EDT) Syphilis Serology Negative 04/18/2018 11:49 EDT [facility] Comment:Reference Range: Neg ative BLOOD SPECIMEN / Unknown 04/17/2018 14:53 EDT 04/17/2018 15:27 EDT us Sona Pierson MD IMMUNOLOGY AND SEROLOGY O RDERABLES Final Result Performing Organization Address [facility] Co de Phone Number [facility] [address] [place] [address] * LYME AB (04/17/2018 14:53 EDT) Lyme AB Negative 04/18/2018 11:48 EDT [facility] Comment:Reference Range: Neg ative BLOOD SPECIMEN / Unknown 04/17/2018 14:53 EDT 04/17/2018 15:27 EDT us Sona Pierson MD IMMUNOLOGY AND SEROLOGY O RDERABLES Final Result Performing Organization Address City/[facility] Co de Phone Number [facility] [address] [place] [address] * HERPES SIMPLEX VIRUS (HSV) TYPE 1 & 2 AB, IGG (04/17/2018 14:53 EDT) HSV Type 1 Ab, IgG Negative 04/19/2018 13:58 EDT [facility] Comment: No detectable antibodies to HSV-1 were found. A negative result generally indicates that the patient has not been infected, but does not always rule out acute HSV infection. ??If clinical exposure to HSV is suspected despite a negative finding, a second sample should be collected and tested no less than 4-6 weeks later. New methodology in use 08/15/2017. HSV Type 2 Ab, IgG Negative 04/19/2018 13:58 EDT [facility] Comment: No detectable antibodies to HSV-2 were found. A negative result generally indicates that the patient has not been infected, but does not always rule out acute HSV infection. ??If clinical exposure to HSV is suspected despite a negative finding, a second sample should be collected and tested no less than 4-6 weeks later. New methodology in use 08/15/2017. BLOOD SPECIMEN / Unknown 04/17/2018 14:53 EDT 04/17/2018 15:27 EDT us Sona Pierson MD IMMUNOLOGY AND SEROLOGY O RDERABLES Final Result Performing Organization Address City/[facility] Co de Phone Number [facility] [address] [place] [address] * CREATININE (04/17/2018 14:53 EDT) Creatinine 0.74 0.52 - 1.04 mg/dl 04/17/2018 15:59 EDT [facility] GFR, Calculated 103 >60 ml/min/1.7 3m2 04/17/2018 15:59 EDT [facility] Comment: eGFR calculated using CKD-EPI equation for non Americans. Multiply eGFR by 1.16 for Americans. BLOOD SPECIMEN / Unknown 04/17/2018 14:53 EDT 04/17/2018 15:27 EDT us Sona Pierson MD CHEMISTRY & BLOOD GAS ORD ERABLES Final Result Performing Organization Address [facility] Co de Phone Number [facility] [address] [place] [address] documented in this encounter Visit Diagnoses Not on filedocumented in this encounter Care Teams Freezer Unloader Relationship Specialty Start Date End Date Yohan Hendricks MD PCP - General 08/20/15 documented as of this encounter
--- OUTSIDE RECORDS SUMMARY | 2024-11-17 14:25 | XMS_ITS | Encounter Summary ---
[facility] [place] [address] Care Team Providers Care Holter Scanning Technician Name Role Phone Sebastian Wills MD Primary Care Provider [phone] Encounter Details Date Type Department Care Team (Late st Contact Info) Description 11/25/2017 Orders Only Gastroenterology at [facility] [address] Cally Nunez, associate embalmer/funeral director hepatitis C without hepatic coma Social History [...] as of this encounter Progress Notes * Cally Nunez RN - 11/25/2017 9:15 AM EST Received call from lab letting us know that patient's CBC clotted. Call placed to patient; [facility]. Lab order faxed. documented in this encounter Plan of Treatment Not on file documented as of this encounter Visit Diagnoses Diagnosis Chronic hepatitis C without hepatic coma documented in this encounter Care Teams Holter Scanning Technician Relationship Specialty Start Date End Date Sebastian Wills MD [address] [place] [id number] PCP - General 09/01/10 02/23/24 documented as of this encounter
--- OUTSIDE RECORDS SUMMARY | 2024-11-17 14:25 | XMS_ITS | Encounter Summary ---
[facility] [place] [address] Care Team Providers Care K9 Handler Name Role Phone Sebastian Wills MD Primary Care Provider [phone] Encounter Details Date Type Department Care Team (Late st Contact Info) Description 09/23/2014 Telephone [place] [id number] Edel Carrillo Social History Tobacco Use Types Packs/Day Years [...] encounter Miscellaneous Notes * Telephone Encounter - Edel Mello - 09/23/2014 3:45 PM EST letter sent 08/08/2014 05:07PM [facility] mailbox full 08/30/2014 11:52AM [facility] MAILBOX FULL 09/06/2014 04:46PM [facility] final call unable to leave VM/final letter 09/19/2014 02:50PM [facility] 6 month follow up (Nov) with Vickie Saenz w/bruce documented in this encounter Plan of Treatment Not on file documented as of this encounter Visit Diagnoses Not on filedocumented in this encounter Care Teams K9 Handler Relationship Specialty Start Date End Date Sebastian Wills MD [address] [place] [address] PCP - General 09/01/10 02/23/24 documented as of this encounter
--- OUTSIDE RECORDS SUMMARY | 2024-11-17 14:25 | XMS_ITS | Referral Summary ---
Author Organization [facility] Address [address] [place] [address] Care Team Providers Care Project Manager/Team Coach Name Role Phone Pcp, No Unavailable Unavailable [...] Mass Index 21.14 04/20/2019 11:06 PM EDT Functional Status * Are you deaf or do you have serious difficulty hearing? Answer Date of Assessment Author Status No 04/20/2019 11:36 PM EDT Felecia Rosen, ARLIN Active * Are you blind or do you have serious difficulty seeing, even when wearing glasses? Answer Date of Assessment Author Status No 04/20/2019 11:36 PM EDFelecia Aquino RN Active * Do you have serious difficulty walking or climbing stairs? (5 years old or older) Answer Date of Assessment Author Status No 04/20/2019 11:36 PM Felecia Peres RN Active * Do you have difficulty dressing or bathing? (5 years old or older) Answer Date of Assessment Author Status No 04/20/2019 11:36 PM Felecia Peres RN Active * Because of a physical, mental, or emotional condition, do you have difficulty doing errands alone such as visiting a doctor's office or shopping? (15 years old or older) Answer Date of Assessment Author Status No 04/20/2019 11:36 PM Felecia Peres RN Active Mental Status * Because of a physical, mental, or emotional condition, do you have serious difficulty concentrating, remembering, or making decisions? (5 years old or older) Answer Entry Date Author Status No 04/20/2019 11:36 PM Felecia Peres RN Active Plan of Treatment Not on file Care Teams Project Manager/Team Coach Relationship Specialty Start Date End Date Pcp, No PCP - Generic [facility] PCP 04/20/19
--- OUTSIDE RECORDS SUMMARY | 2024-11-17 14:25 | XMS_ITS | Encounter Summary ---
Author Organization [facility] [place] [address] Care Team Providers Care Reaming Machine Tender Name Role Phone Sebastian Wills MD Primary Care Provider [phone] Reason for Visit * Reason Comments Patient Education Encounter Details Date Type Department Care Team (Late st Contact Info) Description 01/05/2018 Specialty [place] [phone] Darius Lan RPH Social History Tobacco Use Types Packs/Day Years [...] as of this encounter Progress Notes * Darius Lan RPH - 01/05/2018 1:10 PM EDT Clinical Management Plan: Specialty Pharmacy Consultation; Darius Lan RPH Comprehensive Medication Management (CMM) Carlene Augustine [address] [place] [phone] Telephone Information: Work Phone Not on file. Diagnosis: HCV Start Date: TBD Ms. Carlene Augustine is a 37 y.o. (1980) female who was contacted in regard to specialty medication. Spoke with patient regarding Mavyret. A review of the medication therapy was performed. The medication was Filled as scheduled, and all medication related questions and concerns were addressed. The specialty pharmacy staff will follow up with the patient within the first week of therapy for early monitoring of side effects and adherence. Is the patient willing to proceed with the Clinical Assessment? Yes Goals as of 01/05/2018 at 1:11 PM None Allergies and Drug intolerance: No Known Allergies Medication Reconciliation Discrepancies (compared to [facility] med list) - none Medication Adherence Demonstrates understanding of importance of adherence: yes Informant: patient Reliability of informant: reliable Reasons for non-adherence: no problems identified Adherence tools used: directed education Support network for adherence: family member, healthcare provider Confirmed plan for next specialty medication refill: delivery by pharmacy Refills needed for supportive medications: not needed Are you experiencing any side effects from your medications? TBD Medication List: Current Outpatient Prescriptions Medication Sig [...] provider Recipient: beneficiary Provider: plan sponsor pharmacist Method of Contact: by telephone Cognitive Ability: normal Patient Counseling Counseled the patient on the following: doses and administration discussed, safe handling, storage, and disposal discussed, possible adverse effects and management discussed, possible drug and prescription drug interactions discussed, possible drug and OTC drug and food interactions discussed, lab monitoring and follow-up discussed, therapeutic rationale discussed, cost of medications and cost implications discussed, adherence and missed doses discussed, pharmacy contact information discussed, monitoring medication discussed, self-monitoring discussed, lifestyle modification education Drug Medication Management Summary Topics discussed: doses and administration discussed, safe handling, storage, and disposal discussed, possible adverse effects and management discussed, possible drug and prescription drug interactions discussed, possible drug and OTC drug and food interactions discussed, lab monitoring and follow-up discussed, therapeutic rationale discussed, cost of medications and cost implications discussed, adherence and missed doses discussed, pharmacy contact information discussed, monitoring medication discussed, self-monitoring discussed, lifestyle modification education Time spent: 16-30 min Appropriate therapy: Yes Genotype: 3 Treatment Naive/Experienced: Naive Fibrosis Score: F0-F1 HX of liver transplant: no HBV Coinfection: no HIV Coinfection: no Effectiveness: TBD Lab schedule reviewed: Yes Educational information or adherence tools provided? Yes HCV therapy adherence: Yes HCV treatment response: Yes F/u needed? yes - during first week of treatment for early monitoring of side effects and adherence Verbalized understanding to call office before start: Yes Received welcome packet: Yes Informed patient of specialty pharmacy services: Yes Recommendations: Prescription is appropriate as written. Carlene is very excited to start therapy and plans to startearly next week once she receives shipment of the medication. A comprehensive review of the Mavyretwas performed with a focus on administration, adherence, and potential side effects of use. Medications and allergies were confirmed. Patient denies drinking or recent drug use. She agreed to lab andcall schedule and would like standing lab orders sent to [facility] in [place], [place]. She acknowledged directions to take with food and at same time every day. Patientagreed to dispose of hygienic devices after week four labs to prevent reinfection. She is most available for conversation on Mondays, Wednesdays, and Fridays as she works on these days where ample cell service is available. We now have an updated cell phone number of [phone] which does get minimal service while at home. She ahd no questions or concerns regarding therapy at the end of our encounter; no recommendations at this time. Patient understands no changes to current drug regimen were made at the appointment and that [facility] (summary located at top of note) for provider review and follow up. Darius Lan RPH 01/05/18 1:11 PM documented in this encounter Plan of Treatment Not on file documented as of this encounter Visit Diagnoses Not on filedocumented in this encounter Care Teams Reaming Machine Tender Relationship Specialty Start Date End Date Sebastian Wills MD [address] [place] [id number] PCP - General 09/01/10 02/23/24 documented as of this encounter
--- OUTSIDE RECORDS SUMMARY | 2024-11-17 14:25 | XMS_ITS | Encounter Summary ---
[facility] [place] [address] Care Team Providers Care Community Nurse Name Role Phone Sebastian Wills MD Primary Care Provider + [phone] Reason for Visit * Reason Comments GI Problem * Consultation (Routine) - Specialty Diagnoses / Procedures Referred By Rosalia t Referred To Contact Gastroenterology Diagnoses Chronic hepatitis C Chronic hepatitis C Procedures Consult Kristy George APRN [address] [place] [address] [place] [address] [facility] [address] [place] [address] Referral ID Status Reason Start Date Expiration Date V isits Requested Visits Authorized [id number] Consult, Test & Treat PCP Updated and/or Approved 09/28/2017 09/28/2018 6 6 Encounter Details Date Type Department Care Team (Late st Contact Info) Description 11/24/2017 11:00 AM EST Office [place] [address] [facility] [place] [address] Chronic hepatitis C without hepatic coma Social [...] Pulse 63 11/24/2017 11:03 AM EST Temperature - - Respiratory Rate - - Oxygen Saturation - - Inhaled Oxygen Concentration - - Weight 68.5 kg (151 lb) 11/24/2017 11:03 AM EST Height 171.5 cm (5' 7.5) 11/24/2017 11:03 AM ES T Body Mass Index 23.3 11/24/2017 11:03 AM EST documented in this encounter Progress Notes * Josiah Lambert APRN - 11/24/2017 11:00 AM EST HEPATOLOGY NEW PATIENT CONSULTATION Carlene Augustine 1980 FORM WORKER: JOSIAH LAMBERT APRN PCP: Sebastian Wills MD Requesting Provider: REASON FOR CONSULTATION: Hepatitis C HISTORY OF PRESENT ILLNESS Carlene Augustine is a 37 y.o. year old female with Hepatitis C. She was first diagnosed in 2012 with acute Hepatitis C for which she was hospitalized for. She saw Vickie Saenz NP, at that time, and cleared that Hepatitis C infection. Her viral load was undetected in 2013. She recently saw her PCP and was told that her liver enzymes were elevated and her Hepatitis C was back. She intermittently used IV drugs from [id number]. She has been abstinent from all drug use since 2014. She states she has been getting hot flashes. Her PCP told her that her hot flashes may b from her Hepatitis C. She has also gained about 20 lbs in the past 2 years. ROS: Constitutional: Feeling tired, more tired than a normal person. No fever, chills. Gets 'hot flashes a few times a day, this started 6 months ago. Has gained 20 lbs in past 2 years since starting suboxone. Eye: no visual changes ENT: no URI symptoms Cardio: no chest pain, palpitations Resp: no cough, no SOB GI: No abdominal pain, No blood in stools, no nausea/vomitting : no dysuria Integumentary: no new rashes, no easy bruising Musculoskeletal: no new joint pains, swelling of ankles or legs Neuro: Numb in hands and feet when sleeping. No weakness in extremities PAST MEDICAL/SURGICAL HISTORY 1. Hx of Drug abuse 2. ? Thyroid 3. Hepatitis C MEDICATIONS Outpatient Prescriptions Marked as Taking for the 11/24/17 encounter (Office Visit) with Josiah Lambert APRN Medication Sig Dispense Refill ??? buprenorphine-naloxone 8-[address] 4 mg under the tongue daily. Vitamin B and fish oil occasionally. 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 Used to walk Consistently, has decreased walking. Has 1 daughter born in 2005. She is in 6th grade. Lives with her friend with their 2 kids. Alcohol: occasionally. Drinks 6 times a month. Cigarettes: smokes 1/2 ppd. Recreational drugs: stopped 2 years ago FAMILY HISTORY No family hx of liver disease. Grandfather was alcoholic. PHYSICAL EXAM Vitals: 11/24/17 1103 BP: 122/71 Pulse: 63 Weight: 68.5 kg (151 lb) Height: 171.5 cm (5' 7.5) Body mass index is 23.3 kg/(m^2). Gen: Well appearing, no apparent distress. Skin: no spider angiomata, no palmar erythema, no jaundice. HEENT: Sclerae anicteric, pupils equal, round, react to light. Pharynx unremarkable. Neck is supple, no adenopathy, no thyromegaly. Abdomen: Normal bowel sounds; soft, non distended. No obvious hepatosplenomegaly. No evidence of ascites Extremities: No edema. Neuro: alert and oriented x3, no asterixis or tremor. Labs per PCP: HCV RNA: >1,611772 AST: 65 ALT: 93 TSH: 3.69 Fibroscan Results: Median kPa: 4.8 kPa Mean IQR: % (goal is <30 %) 19% Number of valid measurements: 10 (at least 10 required) Number of invalid measurements: 4 Predicted fibrosis stage: F0-1 CAP (dB/m): 254 Estimated steatosis grade: 0/3 % hepatocytes affected:<33 % ASSESSMENT/PLAN Carlene Megaro is a 37 y.o. female with Hepatitis C. She was [place] [facility] [place] which she cleared on her own in 2013, however she subsequently acquired a new Hepatitis C infection and has a viral load of greater than 1 million (per PCP records). Her fibroscan today does not show any fibrosis. I would recommend treatment of her Hepatitis C with a direct acting antiviral. I will need to recheck her genotype, because she has a different infection from when she was previously seen and may nothave genotype 1b anymore. We discussed treatment with 8 weeks of Mavyret, yet treatment regimen will be dictated by genotype and if different, will tell patient by phone. She has not had an ultrasound since 2013, so plan to repeat ultrasound now. Plan: - Blood work today - CMP, CBC, INR, HCV RNA, HCV Genotype, Hep A ab, Hep B sag, sab, cab, TSH, HIV - Patient to do ultrasound locally. Orders given. She will do at [facility]. - Submit prior auth for treatment of Hepatitis C with likely 8 weeks of Mavyret. - Blood work at week 4, end of treatment, and 3 and 6 months post treatment. - Follow up in clinic 3 months post treatment. Josiah Lambert APRN Section of Gastroenterology [place] [address] Copy: Sebastian Wills MD [address] / [facility] [address] documented in this encounter Plan of Treatment Not on file documented as of this encounter Procedures Procedure Name Priority Date/Time Associated Diagnosis Comments HCV GENOTYPE (FEBRUARY) Routine 11/24/2017 1: 00 PM EST Chronic hepatitis C without hepatic coma GREEN TUBE HOLD Routine 11/24/2017 1:00 PM EST HEPATITIS A ANTIBODY, TOTAL Routine 11/24/2017 1:00 PM EST Chronic hepatitis C without hepatic coma HEPATITIS B CORE ANTIBODY, TOTAL Routine 11/24/2017 1:00 PM EST Chronic hepatitis C without hepatic coma HEPATITIS C GENOTYPE Routine 11/24/2017 1:00 PM EST Chronic hepatitis C without hepatic coma HEPATITIS C RNA, QUANTITATIVE, PCR Routine 11/24/2017 1:00 PM EST Chronic hepatitis C without hepatic coma HIV SCREEN, 4TH GENERATION ([facility])PERF ORMABLE Routine 11/24/2017 1:00 PM EST Chronic hepatitis C without hepatic coma HEPATITIS B SURFACE ANTIBODY Routine 11/24/2017 1:00 PM EST Chronic hepatitis C without hepatic coma TSH Routine 11/24/2017 1:00 PM EST Chronic hepatitis C without hepatic coma COMPREHENSIVE METABOLIC PANEL Routine 11/24/2017 1:00 PM EST Chronic hepatitis C without hepatic coma PROTHROMBIN TIME Routine 11/24/2017 12:4 8 PM EST Chronic hepatitis C without hepatic coma documented in this encounter Results * Green Tube HOLD (11/24/2017 1:00 PM EST) Green Hold Sample in lab. [facility] Blood specimen (specimen) Venous Draw / Unknown 11/24/2017 1:00 PM EST 11/24/2017 3:20 PM EST Josiah Lambert APRN CHEMISTRY ORDERABL ES [facility] [place] [address] * HCV Genotype (11/24/2017 1:00 PM EST) HCV Genotype Indication for study Hepatitis C Infection Result 3 Interpretation: The genotyping analysis has identified the presence of hepatitis C virus (HCV) genotype 3 in the submitted specimen. Response to some antiviral therapies is genotype dependent. Please refer to current practice guidelines and pharmaceutical product inserts for specific recommendations on treating this particular HCV genotype. Method: The HCV genotyping was carried out using [employer]?? HCVg Direct Test. Briefly, nucleic acid isolated from plasma is subjected to a multiplexed reverse transcriptase PCR followed by a direct analysis on the electrochemical PRXensor XT-8 detection system for the identification of HCV genotypes. The HCV genotypes/subtypes detected by this method include 1a, 1b, 2a/c, 2b, 3, 4, 5 and 6. Disclaimer: This test was developed and its performance characteristics determined by the [facility] at [facility]. It has not been cleared or approved by the FDA. The laboratory is regulated under CLIA as qualified to perform high-complexity testing. This test is used for clinical purposes. It should not be regarded as investigational or for research. [facility] Comment: [VERIFIED DATE]12.02.17 Verified By:Atul Soto (Electronic Signature) Blood specimen (specimen) 11/24/2017 1:00 PM EST 11/28/2017 11:48 AM EST Narrative Resulting Agency Comment Spec In Lab Josiah Lambert APRN LAB SEND OUT ORDER PERRI Performing Organization Address [facility] Co de Phone Number [facility] [place] [address] * HIV Screen, 4th Generation (11/24/2017 1:00 PM EST) [facility] HIV Ab/Ag Screen Negative Negative [facility] Comment: This 4th Generation HIV test [...] Narrative Resulting Agency Comment Spec In Lab Josiah Lambert APRN CHEMISTRY ORDERABL ES Performing Organization Address [facility] Co de Phone Number [facility] [place] [address] * TSH (11/24/2017 1:00 PM EST) Thyroid Stimulating Hormone 1.41 0.27 - 4.20 mlU/ML [facility] Blood specimen (specimen) 11/24/2017 1:00 PM EST 11/24/2017 1:05 PM EST Narrative Resulting Agency Comment Spec In Lab Josiah Lambert RAILROAD DISPATCHER CHEMISTRY ORDERABL ES Performing Organization Address [facility]/ZIP Co de Phone Number [facility] [place] [address] * Hepatitis B Core Antibody, Total (11/24/2017 1:00 PM EST) Hepatitis B Core Antibody Negative Negative [facility] Blood specimen (specimen) 11/24/2017 1:00 PM EST 11/24/2017 1:05 PM EST Narrative Resulting Agency Comment Spec In Lab Josiah Lambert RAILROAD DISPATCHER CHEMISTRY ORDERABL ES Performing Organization Address [facility] Co de Phone Number [facility] [place] [address] * Hepatitis B Surface Antibody (11/24/2017 1:00 PM EST) Hepatitis B Surface Antibody, Quantitative 14.9 IU/L [facility] Comment: HepB Surface Ab Quant: Unvaccinated: < 8.5 IU/L Vaccinated: > 11.5 IU/L Hepatitis B Surface Antibody Positive [facility] Comment: Patient is considered to be immune to HBV infection. Expected Results: Vaccinated: Positive Unvaccinated: Negative Blood specimen (specimen) 11/24/2017 1:00 PM EST 11/24/2017 1:05 PM EST Narrative Resulting Agency Comment Spec In Lab Josiah Lambert RAILROAD DISPATCHER CHEMISTRY ORDERABL ES Performing Organization Address [facility] Co de Phone Number [facility] [place] [address] * Hepatitis A Antibody, Total (11/24/2017 1:00 PM EST) Hepatitis A ANTIBODY, TOTAL Negative Negative [facility] Blood specimen (specimen) 11/24/2017 1:00 PM EST 11/24/2017 1:05 PM EST Narrative Resulting Agency Comment Spec In Lab Josiah Lambert SONAM CHEMISTRY ORDERABL ES Performing Organization Address [facility] de Phone Number [facility] [place] [address] * Hepatitis C RNA, quantitative, PCR (11/24/2017 1:00 PM EST) [facility] HCV Viral Load 685,920 IU/mL [facility] HCV Viral Load Result: [id number] IU/mL Indication for Study: Hepatitis C Infection Analysis: A quantitiative real time reverse transcriptase PCR assay was performed on extracted viral RNA for the purpose of quantification. Sample: plasma (1 mL minimum volume) Method: Sigifredo Amanda TaqMAN 48 HCV Linear Range: 15 IU/mL - 100,000,000IU/mL (95% CI) Note: This assay is being performed in the [facility] Molecular Pathology Laboratory. Marcelo Carmichael, Ph.D. Director, Molecular Pathology [facility] Comment: [VERIFIED DATE]11.29.17 Verified By:Deidre Sheriff (Electronic Signature) Blood specimen (specimen) 11/24/2017 1:00 PM EST 11/28/2017 11:48 AM EST Narrative Resulting Agency Comment Spec In Lab Jsoiah Castellanos Marti MASTERS MOLECULAR ORDERABL ES Performing Organization Address [facility] Co de Phone Number [facility] [place] [address] * (ABNORMAL) Comprehensive metabolic panel (non-fasting) (11/24/2017 1:00 PM EST) [facility] Glucose 126 65 - 199 mg/dL [facility] Comment:Diabetes: >=200 mg/d L plus symptoms Blood Urea Nitrogen 10 8 - 18 mg/dL [facility] Creatinine 0.75 0.70 - 1.20 mg/dL [facility] Sodium 134(L) 135 - 145 mmol/L [facility] Potassium 4.5 3.5 - 5.0 mmol/L [facility] Comment: Please note: ??Patients with WBC >100,000 may have falsely elevated Potassium levels. ??For accurate Potassium quantification in these patients send serum separator tube (gold top) for subsequent determinations. ??Contact the Clinical Chemistry Laboratory if there are any questions. Chloride 96(L) 98 - 107 mmol/L [facility] Carbon Dioxide 22 22 - 31 mmol/L [facility] Anion Gap 16(H) 5 - 15 mmol/L [facility] Calcium 9.6 8.5 - 10.5 mg/dL [facility] Protein, Total 7.9 6.1 - 8.0 gm/dL [facility] Albumin 3.9 3.2 - 5.2 gm/dL [facility] Aspartate Aminotransferase 55(H) 0 - 30 unit/L [facility] Alanine Aminotransferase 83(H) 0 - 30 unit/L [facility] Alkaline Phosphatase 77 40 - 104 unit/L [facility] Bilirubin, Total 0.5 0.2 - 1.3 mg/dL [facility] Est Glomerular Filtration Rate >60 >=60 [facility] Comment: The reported eGFR should be multiplied by 1.2 for patients. The MDRD is not an appropriate measure of renal function for patients with body mass extremes or in patients with acute kidney failure. http://[employer]/DHnkdep http://[employer]/DHMCnkf Blood specimen (specimen) 11/24/2017 1:00 PM EST 11/24/2017 1:05 PM EST Narrative Resulting Agency Comment Spec In Lab Josiah Lambert APRN CHEMISTRY ORDERABL ES [facility] [place] [address] * Prothrombin Time (11/24/2017 12:48 PM EST) Prothrombin Time 11.8 11.8 - 14.0 sec [facility] International Normalization Ratio 0.9 0.9 - 1.1 [facility] Comment: An INR <2.0 indicates adequate procoagulant activity for hemostasis in most patients without underlying bleeding disorders, though the INR may not adequately reflect hemostatic capacity in patients with liver disease and synthetic impairment. The recommended target INR range for therapeutic anticoagulation is 2.0 ? 3.0 for most applications, though lower and higher ranges may be appropriate depending on clinical circumstances. Blood specimen (specimen) 11/24/2017 12:48 PM EST 11/24/2017 12:53 PM EST Narrative Resulting Agency Comment Spec In Lab Josiah Lambert APRN HEMATOLOGY ORDERAB LES Performing Organization Address City/State/[facility] Co de Phone Number [facility] [place] [address] documented in this encounter Visit Diagnoses Diagnosis Chronic hepatitis C without hepatic coma documented in this encounter Care Teams Community Nurse Relationship Specialty Start Date End Date Sebastian Wills MD [address] [place] [address] PCP - General 09/01/10 02/23/24 documented as of this encounter
--- OUTSIDE RECORDS SUMMARY | 2024-11-17 14:25 | XMS_ITS | Encounter Summary ---
Author Organization [facility] Address [address] [place] [address] Care Team Providers Care Deportation Officer Name Role Phone Yohan Hendricks MD Primary Care Provider Unavail able Encounter Details Date Type Department Care Team (Late st Contact Info) Description 04/17/2018 Phlebotomy Only [facility] [address] [place] [address] Inside Account Representative, Outpatient Social History Tobacco Use Types Packs/Day [...] on filedocumented in this encounter Care Teams Deportation Officer Relationship Specialty Start Date End Date Yohan Hendricks MD PCP - General 08/20/15 documented as of this encounter
--- OUTSIDE RECORDS SUMMARY | 2024-11-17 14:25 | XMS_ITS | Encounter Summary ---
Author Organization [facility] [place] [address] Care Team Providers Care Crawler Tractor Operator Name Role Phone Sebastian Wills MD Primary Care Provider [phone] Reason for Visit * Diagnostic Test (Routine) - Closed Specialty Diagnoses / Procedures Referred By Contac t Referred To Contact Radiology Diagnoses Malignant melanoma, unspecified site Procedures NM PET CT Standard Plus Extremities and Head Ruyb Leone DO [address] [place] [address] [address] [place] [address] [place] [address] Referral ID Status Reason Start Date Expiration Date V isits Requested Visits Authorized [id number] Closed Specialty Service Requested 11/22/2022 05/22/2024 1 1 Encounter Details Date Type Department Care Team (Latest Contact Info) Description 12/07/2022 1:38 PM EST - 12/07/2022 11:59 PM [facility] Hospital Encounter [place] [address] Ruby Leone [address] [place], [place] [id number] Discharge Disposition: Home Social History Tobacco Use [...] Patient Facing Action Plan No Ani Eldridge, [facility] Note: Attain undetectable viral load by end of Mavyret treatment and SVR12. documented as of this encounter Procedures Procedure Name Priority Date/Time Associated Diagnosis Comments NM PET CT STANDARD PLUS EXTREMITIES AND HEAD Routine 12/07/2022 3:44 PM EST Malignant melanoma, unspecified site POCT GLUCOSE Routine 12/07/2022 1:52 PM EST documented in this encounter Results * POCT Glucose (12/07/2022 1:52 PM EST) Glucose, POC 120 65 - 199 mg/dL [facility] Comment: Supplemental ranges: <140 mg/dL before meals <180 mg/dL all other times of the day Blood 12/07/2022 1:52 PM EST 12/07/2022 1:52 PM EST Ruby Leone DO POINT OF CARE TEST O RDERABLES [facility] [place] [address] documented in this encounter Visit Diagnoses Not on filedocumented in this encounter Care Teams Crawler Tractor Operator Relationship Specialty Start Date End Date Sebastian iWlls MD [address] [place] [address] PCP - General 09/01/10 02/23/24 documented as of this encounter
--- OUTSIDE RECORDS SUMMARY | 2024-11-17 14:25 | XMS_ITS | Encounter Summary ---
Author Organization [facility] [place] [address] Care Team Providers Care Fractionation Plant Supervisor Name Role Phone Sebastian Wills MD Primary Care Provider [phone] Encounter Details Date Type Department Care Team (Latest Contact Info) Description 12/07/2022 Travel Social History Tobacco Use Types Packs/Day [...] Type Associated Problems Recent Progress Patient-Stated? Author [facility] Medication Compliance and Understanding Patient Facing Action Plan No Ani Eldridge, [facility] Note: Attain undetectable viral load by end of Mavyret treatment and SVR12. documented as of this encounter Visit Diagnoses Not on filedocumented in this encounter Care Teams Fractionation Plant Supervisor Relationship Specialty Start Date End Date Sebastian Wills MD [address] [place] [address] PCP - General 09/01/10 02/23/24 documented as of this encounter
--- OUTSIDE RECORDS SUMMARY | 2024-11-17 14:25 | XMS_ITS | Encounter Summary ---
Author Organization [facility] Address [address] [place] [address] Care Team Providers Care Infusion Therapy Nurse Name Role Phone Yohan Hendricks MD Primary Care Provider Unavail able Encounter Details Date Type Department Care Team (Late st Contact Info) Description 04/19/2018 Results Only [facility] [phone] Sona Pierson MD [address] [place] [address] [address] [place] [address] Social History Tobacco Use Types [...] Procedure Name Priority Date/Time Associated Diagnosis Comments MISCELLANEOUS TEST, [place] Routine 04/19/2018 17:11 EDT MISCELLANEOUS TEST, [place] Routine 04/19/2018 17:11 EDT FUNGUS CULTURE/SMEAR Routine 04/19/2018 17:11 EDT QUANTIFERON TB GOLD PLUS Routine 04/19/2018 15:22 EDT ZZFUNGUS CULTURE, BLOOD Routine 04/19/2018 15:21 EDT SYPHILIS SEROLOGY Routine 04/19/2018 15: 20 EDT BARTONELLA ANTIBODY PANEL GM Routine 04/19/2018 15:20 EDT LYSOZYME Routine 04/19/2018 15:20 EDT HIV 1/2 ANTIGEN AND ANTIBODY, 4TH GENERATION Routine 04/19/2018 15:20 EDT ACETAMINOPHEN Routine 04/19/2018 15:20 EDT ZZFUNGUS CULTURE, BLOOD Routine 04/19/2018 15:19 EDT BACTERIAL CULTURE, BLOOD Routine 04/19/2018 15:19 EDT BACTERIAL CULTURE, BLOOD Routine 04/19/2018 15:19 EDT documented in this encounter Results * MISCELLANEOUS TEST, [place] (04/19/2018 17:11 EDT) Test Name Herpes Simplex Virus, Molecular Detection, PCR, Vitreous Fluid 04/19/2018 18:33 EDT [facility] Result Testing not performed. 04/19/2018 18:35 EDT [facility] Comment: Sample quantity insufficient for testing. Credit Issued Ref Range Testing not performed. 04/19/2018 18:35 EDT [facility] Comment: Sample quantity insufficient for testing. Credit Issued Ref Lab Testing not performed. 04/19/2018 18:35 EDT [facility] Comment: Sample quantity insufficient for testing. Credit Issued TOPOGRAPHY UNKNOWN / Unknown 04/19/2018 17:11 EDT 04/19/2018 18:33 EDT us Sona Pierson MD CHEMISTRY & BLOOD GAS ORD ERABLES Final Result [facility] [address] [place] [address] * MISCELLANEOUS TEST, [place] (04/19/2018 17:11 EDT) Test Name Toxoplasma gondii, Molecular Detection, PCR 04/19/2018 18:31 EDT [facility] Result See Pathology Scanned Report in PRISM. 04/23/2018 7:40 EDT [facility] Ref Range FINAL 04/23/2018 7:40 EDT [facility] Ref Lab [facility] 04/23/2018 7:40 EDT [facility] TOPOGRAPHY UNKNOWN / Unknown 04/19/2018 17:11 EDT 04/19/2018 18:28 EDT us Sona Pierson MD CHEMISTRY & BLOOD GAS ORD ERABLES Final Result Performing Organization Address City/[facility] Co de Phone Number [facility] [address] [place] [address] * FUNGUS CULTURE/SMEAR, OTHER (04/19/2018 17:11 EDT) Fungal Smear No fungi seen 04/20/2018 12:02 EDT [facility] Result No fungi isolated 04/26/2018 9:22 EDT [facility] VITREOUS HUMOR SPECIMEN / Unknown 04/19/2018 17:11 EDT 04/19/2018 18:28 EDT Comment:Right~Eye~.4mL~Speci men submitted in a syringe us Sona Pierson MD MICROBIOLOGY - GENERAL OR DERABLES Final Result Performing Organization Address [facility] Co de Phone Number [facility] [address] [place] [address] * TB BY QUANTIFERON, B (04/19/2018 15:22 EDT) TB Interpretation Negative Negative 018 12:23 EDT [facility] Comment: Reference Range: Negative Results were obtained with the Cellestis QuantiFERON-TB Gold RIP. TB Antigen Value 0.00 IU/mL 04/21/20 18 12:23 EDT [facility] Comment: This is a qualitative test. ??The TB antigen IU/mL value is required for documentation on certain government reporting forms (e.g., Form I-693), but the magnitude of this value cannot be correlated to stage or degree of infection, level of immune responsiveness, or likelihood for progression to active disease. ?? Diagnosing or excluding tuberculosis disease, and assessing the probability of LTBI, requires a combination of epidemiological, historical, medical, and diagnostic findings that should be taken into account when interpreting QuantiFERON-TB results. BLOOD SPECIMEN / Unknown 04/19/2018 15:22 EDT 04/19/2018 16:15 EDT us Sona Pierson MD CHEMISTRY & BLOOD GAS ORD ERABLES Final Result Performing Organization Address [facility] Co de Phone Number [facility] [address] [place] [address] * FUNGUS CULTURE, BLOOD (04/19/2018 15:21 EDT) Pathologist [facility] Result Sample quantity insufficient for testing. Please submit an Adult Isolater Tube 04/20/2018 12:03 EDT [facility] Result Testing not performed. 04/20/2018 12:03 EDT [facility] Result Credit Issued 04/20/2018 12:03 EDT [facility] BLOOD SPECIMEN / Unknown 04/19/2018 15:21 EDT 04/19/2018 16:57 EDT Comment:Left~Hand~PEDIATRIC ISOLATOR~Total volume of blood collected:~1 ml us Sona Pierson MD MICROBIOLOGY - GENERAL OR DERABLES Final Result Performing Organization Address [facility] Co de Phone Number [facility] [address] [place] [address] * SYPHILIS SEROLOGY (04/19/2018 15:20 EDT) Pathologist [facility] Syphilis Serology Negative 04/20/2018 11:26 EDT [facility] Comment:Reference Range: Neg ative BLOOD SPECIMEN / Unknown 04/19/2018 15:20 EDT 04/19/2018 16:14 EDT us Sona Pierson MD IMMUNOLOGY AND SEROLOGY O RDERABLES Final Result Performing Organization Address [facility]/ZIP Co de Phone Number [facility] [address] [place] [address] * LYSOZYME (04/19/2018 15:20 EDT) Lysozyme 5.2 2.7 - 9.4 mcg/mL 04/21/2018 12:35 EDT [facility] Comment: (Note) . ADDITIONAL INFORMATION This test was developed and its performance characteristics determined by [facility] in a manner consistent with CLIA requirements. This test has not been cleared or approved by the U.S. Food and Drug Administration. Performed or Referred by: [facility], [address] [place] [address], Lab Dir: Everton Lopez II, M.D., Ph.D. BLOOD SPECIMEN / Unknown 04/19/2018 15:20 EDT 04/19/2018 16:14 EDT Sona Pierson MD CHEMISTRY & BLOOD GAS ORD ERABLES Final Result Performing Organization Address [facility] Co de Phone Number [facility] [address] [place] [address] * HIV 1/2 ANTIGEN AND ANTIBODY, 4TH GENERATION (04/19/2018 15:20 EDT) Pathologist [facility] HIV 1/2 Antibody Negative Negative 04/20/20 18 11:07 EDT [facility] Comment: Fourth generation assay performed on the Siemens [employer]comaur. If acute HIV-1 infection is suspected in a high risk patient, submit plasma specimen for HIV-1 RNA quantification test. The results of this assay can be falsely lowered due to the consumption of Biotin. BLOOD SPECIMEN / Unknown 04/19/2018 15:20 EDT 04/19/2018 16:14 EDT us Sona Pierson MD IMMUNOLOGY AND SEROLOGY O RDERABLES Final Result Performing Organization Address [facility] Co de Phone Number [facility] [address] [place] [address] * BARTONELLA ANTIBODY PANEL GM (04/19/2018 15:20 EDT) Bartonella Henselae IgG <1:128 <1:128 titer 04/21/2018 6:52 EDT [facility] Bartonella Henselae IgM >=1:20 <1:20 titer 04/21/2018 6:52 EDT [facility] Comment: (Note) Results suggest recent infection. Bartonella Pearce IgG <1:128 <1:128 titer 04/21/2018 6:52 EDT [facility] Bartonella Pearce IgM <1:20 <1:20 titer 04/21/2018 6:52 EDT [facility] Comment: (Note) . ADDITIONAL INFORMATION This test was developed and its performance characteristics determined by [facility] in a manner consistent with CLIA requirements. This test has not been cleared or approved by the U.S. Food and Drug Administration. Performed by: [facility]: [facility] [address], [place] [address], Lab Dir: Everton Lopez II, M.D., Ph.D. BLOOD SPECIMEN / Unknown 04/19/2018 15:20 EDT 04/19/2018 16:14 EDT Sona Pierson MD IMMUNOLOGY AND SEROLOGY O RDERABLES Final Result [facility] [address] [place] [address] * ACETAMINOPHEN (04/19/2018 15:20 EDT) Acetaminophen <10.0 ug/ml 04/19/2018 16:51 EDT [facility] Comment: Therapeutic range: ??10 - 30 ug/mL Possible toxicity: ??150 - 200 ug/mL Probable toxicity: ??>200 ug/mL BLOOD SPECIMEN / Unknown 04/19/2018 15:20 EDT 04/19/2018 16:14 EDT Sona Pierson MD CHEMISTRY & BLOOD GAS ORD ERABLES Final Result [facility] [address] [place] [address] * FUNGUS CULTURE, BLOOD (04/19/2018 15:19 EDT) Result Sample quantity insufficient for testing. Please submit Adult Isolater Tube 04/20/2018 12:02 EDT [facility] Result Testing not performed. 04/20/2018 12:02 EDT [facility] Result Credit Issued 04/20/2018 12:02 EDT [facility] BLOOD SPECIMEN / Unknown 04/19/2018 15:19 EDT 04/19/2018 16:56 EDT Comment:Right~Hand~PEDIATRIC ISOLATOR~Total volume of blood collected:~1 ml us Sona Pierson MD MICROBIOLOGY - GENERAL OR DERABLES Final Result Performing Organization Address [facility] Co de Phone Number [facility] [address] [place] [address] * BACTERIAL CULTURE, BLOOD (04/19/2018 15:19 EDT) Result No growth 04/25/2018 6:49 EDT [facility] BLOOD SPECIMEN / Unknown 04/19/2018 15:19 EDT 04/19/2018 16:54 EDT Comment:Right~Hand~AEROBIC B LOOD CULTURE BOTTLE~Volume of blood collected may not be adequate for detection of bacteremia/septicemia.~Total volume of blood collected:~5 ml us Sona Pierson MD MICROBIOLOGY - GENERAL OR DERABLES Final Result [facility] [address] [place] [address] * BACTERIAL CULTURE, BLOOD (04/19/2018 15:19 EDT) Result No growth 04/25/2018 6:49 EDT [facility] BLOOD SPECIMEN / Unknown 04/19/2018 15:19 EDT 04/19/2018 16:53 EDT Comment:Left~Hand~PEDIATRIC BLOOD CULTURE BOTTLE~Volume of blood collected may not be adequate for detection of bacteremia/septicemia.~Total volume of blood collected:~1.5CC us Sona Pierson MD MICROBIOLOGY - GENERAL OR DERABLES Final Result [facility] [address] [place] [address] documented in this encounter Visit Diagnoses Not on filedocumented in this encounter Care Teams Infusion Therapy Nurse Relationship Specialty Start Date End Date Yohan Hendricks MD PCP - General 08/20/15 documented as of this encounter
--- OUTSIDE RECORDS SUMMARY | 2024-11-17 14:25 | XMS_ITS | Encounter Summary ---
Author Organization [place] [address] Care Team Providers Care Plant Technical Specialist Name Role Phone Sebastian Wills MD Primary Care Provider [phone] Reason for Visit * Reason Comments Medication Management Encounter Details Date Type Department Care Team (Late st Contact Info) Description 03/20/2018 Specialty [place] [phone] Ani Eldridge [facility] Social History Tobacco Use Types Packs/Day [...] this encounter Progress Notes * Ani Ignacio RPH - 03/20/2018 12:35 PM EDT Clinical Management Plan: Mavyret End of Treatment Follow-up Specialty Pharmacy Consultation; Ani Ignacio [facility] Comprehensive Medication Management (CMM) Carlene Augustine [address] [place] [phone] Telephone Information: Work Phone Not on file. Diagnosis: Hepatitis C Start Date: 01/17/18 Ms. Carlene Augustine is a 37 y.o. (1980) female who was contacted in regard to specialty medication. Spoke with patient regarding Mavyret. A review of the medication therapy was performed. All medication related questions and concerns were addressed. This concludes the specialty pharmacy's clinical follow-up schedule with the patient. Is the patient willing to proceed with the Clinical Assessment? Yes Goals as of 03/20/2018 at 12:36 PM Patient Facing Action Plan 1. DH Home Medication Compliance and Understanding Attain undetectable viral load by end of Mavyret treatment and SVR12. Allergies and Drug intolerance: No Known Allergies Medication Reconciliation Discrepancies (compared to [facility] med list) -none Medication Adherence Patient reported [...] Confirmed plan for next specialty medication refill: not applicable Refills needed for supportive medications: not needed [...] beneficiary Provider: plan sponsor pharmacist Visit Type: [facility] Follow-up Method of Contact: by telephone Cognitive [...] the counter products discussed, preventative care discussed, self-monitoring discussed, timing of medications discussed, [...] the counter products discussed, preventative care discussed, self-monitoring discussed, timing of medications discussed, lifestyle modification education Time spent: 16-30 min Appropriate therapy: Yes Genotype: 3 ?Treatment Naive/Experienced: Naive ?Fibrosis Score: F0-F1 ?HX of liver transplant: no ?HBV Coinfection:??no ?HIV Coinfection:??no?? Effectiveness: to be determined; patient needs to get labs done as soon as possible Lab schedule reviewed: Yes Educational information or adherence tools provided? Yes HCV therapy adherence: Yes HCV treatment response: Yes F/u needed? yes - patient needs labs Verbalized understanding to call office before start: Yes Received welcome packet: Yes Informed patient of specialty pharmacy services: Yes Summary/Recommendations: Carlene was contacted for end of treatment follow-up regarding Mavyret. According to her start date, she should have finished on 03/14. Carlene said she just opened her last one week box today. This would mean that she missed twelve doses total during her treatment. She was reminded of the importanceof adherence for the remaining six doses that she has left. She should finish on 03/26. Carlene was also reminded to get her labs done as soon as possible. Orders are already at her desired location of [facility]. Carlene reports that she has been tolerating the medication well. Her previous complaints of stomach cramping have resolved. She has swapped out her razor, toothbrush, and nail clippers. Carlene reports that she has been experiencing some tingling and numbness in her toes. She was advised to contact her physician about this. Previously, she had experienced some numbness in hands but that has resolved. Carlene will finish her remaining tablets and states that she will have her labs done.She did not have any further questions. This concludes the specialty pharmacy's clinical follow-up schedule with the patient. She was encouraged to reach out with any additional questions or concerns. Patient understands no changes to current drug regimen were made at the appointment and that [facility] (summary located at top of note) for provider review and follow up. Ani Ignacio RPH 03/20/18 12:36 PM documented in this encounter Plan of Treatment Not on file documented as of this encounter Goals Goal Patient Goal Type Associated Problems Recent Progress Patient-Stated? Author DH Home Medication Compliance and Understanding Patient Facing Action Plan Ani Feldman Talita Note: Attain undetectable viral load by end of Mavyret treatment and SVR12. documented as of this encounter Visit Diagnoses Not on filedocumented in this encounter Care Teams Plant Technical Specialist Relationship Specialty Start Date End Date Sebastian Wills MD [address] [place] [id number] PCP - General 09/01/10 02/23/24 documented as of this encounter
--- OUTSIDE RECORDS SUMMARY | 2024-11-17 14:25 | XMS_ITS | Encounter Summary ---
Author Organization [facility] Address [address] [place] [address] Care Team Providers Care Ordnance Engineering Technician Name Role Phone Yohan Hendricks MD Primary Care Provider Unavail able Encounter Details Date Type Department Care Team (Late st Contact Info) Description 04/20/2018 Orders Only [facility] - [facility] [address] [place] [address] Nini Mora [facility] [address] [place] [address] Social History Tobacco Use Types Packs/Day Years [...] ntraocular injection (5 mcg/0.1 mL) 50mcg 1 04/20/2018 clindamycin (CLEOCIN) 10.5 m g in sodium chloride (PF) 1.05 mL custom injectable syringe 1 04/20/2018 vancomycin intraocular injec tion (1mg/0.1mL) 10mg 1 04/20/2018 documented in this encounter Care Teams Ordnance Engineering Technician Relationship Specialty Start Date End Date Yohan Hendricks MD PCP - General 08/20/15 documented as of this encounter
--- OUTSIDE RECORDS SUMMARY | 2024-11-17 14:25 | XMS_ITS | Encounter Summary ---
Author Organization [facility] Address [address] [place] [address] Care Team Providers Care Communications Designer Name Role Phone Yohan Hendricks MD Primary Care Provider Unavail able Encounter Details Date Type Department Care Team (Late st Contact Info) Description 09/16/2017 Results Only [facility] [phone] Susan Saldana, TUBULAR STOCK GLASS BULB MACHINE FORMER [address] [place] [address] Social History Tobacco Use Types Packs/Day Years [...] Name Priority Date/Time Associated Diagnosis Comments PAP TEST- RESULT ONLY Routine 09/16/2017 0:00 EST documented in this encounter Results * PAP TEST- RESULT ONLY (09/16/2017 0:00 EST) Pathology Report: CYTOPATHOLOGY REPORT Reports generated via electronic interface contain original data; however they are lacking the format of the original report. Caution should be taken when reading/interpreti ng unformatted reports. Name: ? CARLENE ZENDEJAS ? Accession #: ? [id number] ? : ? 1980 (Age: 37) ??F ?Collect Date: ? 09/16/2017 ? Location: ? [facility] ? Receive Date: ? 09/19/2017 ? Provider: SUSAN SALDANA TUBULAR STOCK GLASS BULB MACHINE FORMER Copy to: CHUCHO DE LEÓN MD ? Final Report SPECIMEN ADEQUACY ? Satisfactory for Evaluation - transformation zone component present GENERAL CATEGORIZATION ? Negative for Intraepithelial Lesion or Malignancy INTERPRETATION ? Trichomonas vaginalis present. Hormonal/Contracep tive status: Intrauterine device Infection History: Pos for HRHPV: 2008 Specimen/Source: ??Pap Test, Cervix, ThinPrep Imaging System with manual evaluation Document reviewed and electronically signed by: ? Vicente Ovalle, CARLOS(ASCP) ? Report ??Date: 09/27/2017 14:16 HPV with Pap Test ? Date Ordered: ? 09/27/2017 ? Status: ?? Signed Out ?Date Complete: ? 09/28/2017 ? By: ??System Interface ? Date Reported: ? 09/28/2017 ? Interpretation RESULT: Negative for HPV. No E6 or E7 mRNA is detected from HPV types 16,18,31,33,35, 39,45,51,52,56,58, 59,66, and 68 by mission assessment specialist mediated amplification. Comments Document reviewed and electronically signed by: ? System Interface ? Report date: 09/28/2017 By the signature above, the attending physician certifies that he/she has personally conducted a gross and/or microscopic examination of the described specimens and rendered or confirmed the above diagnosis. End of Report [facility] 09/16/2017 09/19/2017 us Susan Saldana TUBULAR STOCK GLASS BULB MACHINE FORMER PATHOLOGY ORDERABLES Tania julián Result [facility] [address] [place] [address] documented in this encounter Visit Diagnoses Not on filedocumented in this encounter Care Teams Communications Designer Relationship Specialty Start Date End Date Yohan Hendricks MD PCP - General 08/20/15 documented as of this encounter
--- OUTSIDE RECORDS SUMMARY | 2024-11-17 14:25 | XMS_ITS | Encounter Summary ---
Author Organization [facility] [place] [address] Care Team Providers Care Cardiothoracic Icu Rn Name Role Phone Sebastian Wills MD Primary Care Provider [phone] Reason for Visit * Reason Comments Medication Management Encounter Details Date Type Department Care Team (Late st Contact Info) Description 02/06/2018 Specialty [place] [phone] Ani Eldridge [facility] Social History Tobacco Use Types [...] Progress Notes * Ani Ignacio RPH - 02/06/2018 10:55 AM EDT Clinical Management Plan: Mavyret Refill and Follow-up Specialty Pharmacy Consultation; Ani Ignacio [facility] Comprehensive Medication Management (CMM) Carlene Augustine [address] [place] [phone] Telephone Information: Work Phone Not on file. [...] will follow up with the patient within a week of the end of treatment for follow up and lab reminder. Is the patient willing to proceed with the Clinical Assessment? Yes Goals as of 02/06/2018 at 10:57 AM Patient Facing Action Plan 1. Home Medication Compliance and Understanding Attain undetectable viral load by end of Mavyret treatment and SVR12. Allergies and Drug intolerance: No Known Allergies Medication Reconciliation Discrepancies (compared to [facility] med list) -none Medication Adherence Patient reported X missed doses in the last month: 1 Any gaps in refill history greater than [...] experiencing any side effects from your medications? yes some nausea in the morning which then resolves after she takes the Mavyret Medication List: Current Outpatient Prescriptions Medication Sig [...] beneficiary Provider: plan sponsor pharmacist Visit Type: [facility] Method of Contact: by telephone Cognitive [...] preventative care discussed, reminder to refill or tack picker medication discussed, self-monitoring discussed, timing of medications [...] preventative care discussed, reminder to refill or tack picker medication discussed, self-monitoring discussed, timing of medications discussed, lifestyle modification education Time spent: 1-15 min Appropriate therapy: Yes Genotype: 3 ?Treatment Naive/Experienced: Naive ?Fibrosis Score: F0-F1 ?HX of liver transplant: no ?HBV Coinfection:??no ?HIV Coinfection:??no?? Effectiveness: to be determined Lab schedule reviewed: Yes Educational information or adherence tools provided? Yes HCV therapy adherence: Yes HCV treatment response: Yes F/u needed? yes - we will follow up with Carlene within a week of her finishing her eight week course for follow up and lab reminder Verbalized understanding to call office before start: Yes Received welcome packet: Yes Informed patient of specialty pharmacy services: Yes Summary/Recommendations: Carlene reports doing well on Mavyret treatment. She continues to take the medication every day at noon with food. She uses a phone alarm reminder. She reports that she gets some stomach pains and feels a little nauseous in the morning and it seems to resolve after taking her Mavyret. She is staying well hydrated. She was also reminded that her four week labs will be due next week and she plans on getting these done at [facility] where she has standing orders. She also plans on swapping out her razors, toothbrushes, nail clippers at week four of treatment. She did not have any further questions at this time. Patient understands no changes to current drug regimen were made at the appointment and that [facility] is[facility] (summary located at top of note) for provider review and follow up. Ani Ignacio RPH 02/06/18 10:57 AM documented in this encounter Plan of Treatment Not on file documented as of this encounter Goals Goal Patient Goal Type Associated Problems Recent Progress Patient-Stated? Author DH Home Medication Compliance and Understanding Patient Facing Action Plan Ani Feldman RPH Note: Attain undetectable viral load by end of Mavyret treatment and SVR12. documented as of this encounter Visit Diagnoses Not on filedocumented in this encounter Care Teams Cardiothoracic Icu Rn Relationship Specialty Start Date End Date Sebastian Wills MD [address] [place] [id number] PCP - General 09/01/10 02/23/24 documented as of this encounter
--- OUTSIDE RECORDS SUMMARY | 2024-11-17 14:26 | XMS_ITS | Encounter Summary ---
Author Organization [facility] Address [address] [place] [address] Care Team Providers Care Manufacturing Engineering Intern Name Role Phone Unavailable Primary Care Provider Unavailabl e Encounter Details Date Type Department Care Team (Late st Contact Info) Description 06/18/2005 Results Only [facility] - Maple conversion [address] [place] [address] Geovanny Orozco CNM [address] [place], [place] [id number] Social History Tobacco Use Types Packs/Day Years [...] Procedure Name Priority Date/Time Associated Diagnosis Comments CYTOPATHOLOGY Routine 06/18/2005 0:00 EDT documented in this encounter Results * CYTOPATHOLOGY (06/18/2005 0:00 EDT) Pathology Report: CYTOPATHOLOGY REPORT Reports generated via electronic interface contain original data; however they are lacking the format of the original report. Caution should be taken when reading/interpreti ng unformatted reports. Name: ? AMANDARACHELCARLENE ? Accession #: ? [id number] : ? 1980 (Age: 24) ??F ?Collect Date: ? 06/18/2005 Location: ? [facility] ? Receive Date: ? 06/22/2005 Provider: ?GEOVANNY OROZCO CNM Copy to: ? Specimen/Source: ?ThinPrep Pap Test, Cervix/Endocervix, processed on [employer] ThinPrep Imaging System, with manual evaluation Last Menstrual Period: ? 03/11/05 Menstrual/Pregnanc y Status: ? Other: ? HPVA - HPV testing requested if ASC-US on the current ThinPrep Pap test. ? SPECIMEN ADEQUACY ? Satisfactory for Evaluation - transformation zone component present GENERAL CATEGORIZATION ? Negative for Intraepithelial Lesion or Malignancy ? Document reviewed and electronically signed by: ? CARLOS Feng(ASCP) ? Report Date: ??06/29/2005 15:01 End of Report [facility] 06/18/2005 06/22/2005 us Geovanny Orozco CNM PATHOLOGY ORDERABLES Final Resul t [facility] [address] [place] [address] documented in this encounter Visit Diagnoses Not on filedocumented in this encounter
--- OUTSIDE RECORDS SUMMARY | 2024-11-17 14:26 | XMS_ITS | Encounter Summary ---
Author Organization [facility] Address [address] [place] [address] Care Team Providers Care International Nurse Name Role Phone Unavailable Primary Care Provider Unavailabl e Encounter Details Date Type Department Care Team (Late st Contact Info) Description 04/15/2010 Results Only [facility] Laboratory Services - [facility] ([facility]) [address] [place] [phone] Irina Montoya, MADHU Social History Tobacco Use Types Packs/Day Years [...] Procedure Name Priority Date/Time Associated Diagnosis Comments HPV DETECTION, HIGH RISK TYPES Routine 04/15/2010 9:49 EDT CYTOPATHOLOGY Routine 04/15/2010 0:00 EDT documented in this encounter Results * HUMAN PAPILLOMA VIRUS DNA TEST (04/15/2010 9:49 EDT) Specimen Description Cervix, ThinPrep vial [facility] Result Negative for HPV types 16, 18, 31, 33, 35, 39, 45, 51, 52, 56, 58, 59, and 68. [facility] Report Status Final 04/27/2010 [facility] 04/15/2010 9:49 EDT 04/22/2010 9:49 EDT us Irina Montoya NP MICROBIOLOGY - GENERAL ORDERA BLES Final Result [facility] [address] [place] [address] * CYTOPATHOLOGY (04/15/2010 0:00 EDT) Pathology Report: CYTOPATHOLOGY REPORT ? Reports generated via electronic interface contain original data; ? however they are lacking the format of the original report. ? Caution should be taken when reading/interpreti ng unformatted reports. ? Name: ? CARLENE ZENDEJAS ? Accession #: ? [id number] ? : ? 1980 (Age: 29) ??F ?Collect Date: ? 04/15/2010 ? Location: ? [facility] ? Receive Date: ? 04/16/2010 ? Provider: ?IRINA M BARB PRODUCTION METAL SPRAYER ? Copy to: ? Specimen/Source: ?Pap Test, Cervix/Endocervix, ThinPrep Imaging System ? with manual evaluation ? Last Menstrual Period: ? Previous Gynecologic Pathology: ? HPV: + 07/06/09 pap negative ? Other: ? HPVDX - HPV testing requested regardless of diagnosis on current ThinPrep Pap ?? test. ? SPECIMEN ADEQUACY ? Satisfactory for Evaluation ? - transformation zone component present ? GENERAL CATEGORIZATION ? Negative for Intraepithelial Lesion or Malignancy ? Document reviewed and electronically signed by: ? Trina Martinez, CT(ASCP) ? Report Date: ??04/21/2010 13:42 ? End of Report ? [facility] 04/15/2010 04/16/2010 us Irina Montoya PRODUCTION METAL SPRAYER PATHOLOGY ORDERABLES Final Re sult [facility] [address] [place] [address] documented in this encounter Visit Diagnoses Not on filedocumented in this encounter
--- OUTSIDE RECORDS SUMMARY | 2024-11-17 14:26 | XMS_ITS | Encounter Summary ---
Author Organization [facility] Address [address] [place] [id number] Care Team Providers Care [place] Actor Name Role Phone Unavailable Primary Care Provider Unavailabl e Encounter Details Date Type Department Care Team (Late st Contact Info) Description 04/14/2009 Orders Only [facility] Laboratory Services - [facility] ([facility]) [address] [place] [phone] Irina Montoya, MADHU Social History Tobacco Use [...] Comments HPV DETECTION, HIGH RISK TYPES Routine 04/14/2009 7:30 EDT CYTOPATHOLOGY Routine 04/14/2009 0:00 EDT documented in this encounter Results * HUMAN PAPILLOMA VIRUS DNA TEST (04/14/2009 7:30 EDT) Specimen Description Cervix, ThinPrep vial [facility] Result Positive for one or more of HPV types 16,18,31,33,35 ,39,45,51,52,5 6,58,59, or 68. These high/intermedi ate risk HPV types are associated with dysplasia and some cervical cancers. [facility] Report Status Final 04/29/2009 [facility] 04/14/2009 7:30 EDT 04/22/2009 7:30 EDT us Irina Montoya NP MICROBIOLOGY - GENERAL ORDERA BLES Final Result [facility] [address] [place] [address] * CYTOPATHOLOGY (04/14/2009 0:00 EDT) Pathology Report: CYTOPATHOLOGY REPORT ? Reports generated via electronic interface contain original data; ? however they are lacking the format of the original report. ? Caution should be taken when reading/interpreti ng unformatted reports. ? Name: ? CARLENE ZENDEJAS ? Accession #: ? [id number] ? : ? 1980 (Age: 28) ??F ?Collect Date: ? 04/14/2009 ? Location: ? [facility] ? Receive Date: ? 04/15/2009 ? Provider: ?IRINA M BARB PARTS ORDER AND STOCK CLERK ? Copy to: ? Specimen/Source: ?Pap Test, Cervix/Endocervix, ThinPrep Imaging System ? with manual evaluation ? Last Menstrual Period: ? 7/6/09 ? Hormonal/Contracep tive Status: ? Intrauterine device: Mirena ? Other: ? HPVDX - HPV testing requested regardless of diagnosis on current ThinPrep Pap ?? test. ? SPECIMEN ADEQUACY ? Satisfactory for Evaluation ? - transformation zone component present ? GENERAL CATEGORIZATION ? Negative for Intraepithelial Lesion or Malignancy ? INTERPRETATION ? Shift in hilary present suggestive of bacterial vaginosis. ? Document reviewed and electronically signed by: ? Lynan Navneet, CT(ASCP) ? Report Date: ??04/21/2009 09:40 ? End of Report ? [facility] 04/14/2009 04/15/2009 us Irina Montoya PARTS ORDER AND STOCK CLERK PATHOLOGY ORDERABLES Final Re sult [facility] [address] [place] [address] documented in this encounter Visit Diagnoses Not on filedocumented in this encounter
--- OUTSIDE RECORDS SUMMARY | 2024-11-17 14:26 | XMS_ITS | Encounter Summary ---
Author Organization [facility] Address [address] [place] [address] Care Team Providers Care Rock Contractor Name Role Phone Unavailable Primary Care Provider Reji e Encounter Details Date Type Department Care Team (Late st Contact Info) Description 03/22/2001 Results Only [facility] - Maple conversion [address] [place] [address] Meli Hirsch, [facility] [address] [place] [address] [place] [address] Social History Tobacco Use Types [...] Priority Date/Time Associated Diagnosis Comments CYTOPATHOLOGY Routine 03/22/2001 0:00 EDT documented in this encounter Results * CYTOPATHOLOGY (03/22/2001 0:00 EDT) Pathology Report: CYTOPATHOLOGY REPORT Reports generated via electronic interface contain original data; however they are lacking the format of the original report. Caution should be taken when reading/interpreti ng unformatted reports. Name: ? CARLENE ZENDEJAS ? Accession #: ? [id number] : ? 1980 (Age: 20) ??F ?Collect Date: ? 03/22/2001 Location: ? [facility] ? Receive Date: ? 03/23/2001 Provider: ?MELI HIRSCH HEALTH AND SAFETY TECH Copy to: ? Specimen/Source: ?ThinPrep Pap Test, Cervix/Endocervix Last Menstrual Period: ? Bldg.on+off for mos. Hormonal/Contracep tive Status: ? Depo-Provera: off x 10 mos ? SPECIMEN ADEQUACY ? Satisfactory for evaluation. GENERAL CATEGORIZATION ? Benign Cellular Changes DESCRIPTIVE DIAGNOSIS ? Parakeratosis - surface reaction present. ? Document reviewed and electronically signed by: ? MARILYN RESTREPO MD [facility] ? Report Date: ??03/30/2001 17:38 End of Report [facility] 03/22/2001 03/23/2001 Meli Hirsch HEALTH AND SAFETY TECH PATHOLOGY ORDERABLES Final R esult [facility] [address] [place] [address] documented in this encounter Visit Diagnoses Not on filedocumented in this encounter
[2024-11-17] MEDS: Ketorolac 15 MG/ML VIAL IVP ×2 (14:29→20:16)
[2024-11-17] MEDS: Ondansetron 4 MG/2 ML VIAL IVP (14:29)
[2024-11-17] MEDS: ACETAMINOPHEN 1,000 MG/100 ML BAG 400 MG IVPB (14:29)
--- NOTE | 2024-11-17 14:30 | DI.CT_ITS ---
Exam(s) CT ABDOMEN PELVIS W EXAM: CT ABDOMEN PELVIS W CLINICAL HISTORY: Epigastric/LUQ abd pain. TECHNIQUE: Imaging Protocol: Axial computed tomography images with coronal and sagittal reformatted images were created and reviewed CONTRAST MATERIAL: Intravenous: Omnipaque 350 Contrast volume:75 ml Oral: no COMPARISON: CT,PT NM PET CT STANDARD PLUS EXTREMITIES AND HEAD from 12/07/2022 FINDINGS: ABDOMEN and PELVIS: Lung Bases: No acute findings. Liver: Normal density. No suspicious mass. Gallbladder and biliary tract: No radiodense calculus. No wall thickening or pericholecystic fluid. No biliary dilation. Pancreas: Inflammation and fluid surrounding the pancreas consistent with pancreatitis. No evidence of stones. No evidence hemorrhage or discrete pseudocyst formation. No visible mass. Spleen: Normal. Kidneys: Normal size, contour and axis. No radiodense stones. No obstructive uropathy. No suspicious masses seen. Adrenal glands: No masses seen. Vasculature: Abdominal aorta non-dilated. Soft tissues: Unremarkable. Bladder: Nearly empty but unremarkable. Bowel: No obstruction. Mild wall thickening of the duodenum, secondary to pancreatic inflammatory c hanges. Appendix normal. Colonic diverticulosis. Peritoneal cavity: No ascites. No focal collection. No mesenteric inflammatory response. No free air . Bones: Unremarkable for age. Reproductive organs: Unremarkable. Lymph nodes: No pathologically enlarged lymph nodes. IMPRESSION:: Findings consistent with pancreatitis. No evidence of hemorrhage or focal collection. RADIATION DOSE DELIVERED: Total DLP DATA REPOSITORY: All CT scans at this facility are submitted to the National Radiology Data Registry (NRDR) Dose Index Registry (DIR) with the [employer] (ACR). RADIATION OPTIMIZATION: All CT scans at this facility use at least one of these dose optimization te chniques: automated exposure control; mA and/or kV adjustment per patient size (includes targeted exa ms where dose is matched to clinical indication); or iterative reconstruction.
[2024-11-17 14:33] LABS: Abs Immature Grans 0.02 10^3/uL (0.0-0.06); Absolute Basophil Count 0.01 10^3/uL (0.0-0.2); Absolute Lymphocyte Count 0.62 10^3/uL (1.2-3.4); Absolute Monocyte Count 0.44 10^3/uL (0.1-0.8); Absolute Neutrophil Count 5.18 10^3/uL (1.2-6.7); Basophils % 0.2 %; Eosinophils % 1.6 %; HCT 46.6 % (36.0-46.0); HGB 16.2 g/dL (11.2-15.7); Immature Grans % 0.3 %; Lymphocytes % 9.7 %; MCH 32.6 pg (27.0-33.0); MCHC 34.8 % (32.0-36.0); MCV 94 fL (80-95); MPV 10.6 fL (8.0-11.0); Monocytes % 6.9 %; Neutrophils % 81.3 %; Platelet Count 197 10^3/uL (130-400); RBC 4.97 10^6/uL (3.93-5.22); RDW 11.9 % (11.7-14.6); RDW-SD 41.3 fL; WBC 6.37 10^3/uL (4.4-10.8)
[2024-11-17 14:52] VITALS: BP 146/93; PULSE 88; RESP 20; TEMP 36.6; O2SAT 95
[2024-11-17 14:52] LABS: Bilirubin Small (Negative); Blood Negative (Negative); Clarity Clear (Clear); Glucose Negative (Negative); Ketones 15 mg/dL (Negative); Leukocyte Esterase Negative (Negative); Nitrite Negative (Negative); Specific Gravity >= 1.030 (1.005-1.025); pH 5.5 (5-8)
[2024-11-17 14:55] LABS: ALT 107 U/L (14-59); AST 56 U/L (15-37); Albumin 3.5 g/dL (3.4-5.0); Alkaline Phosphatase 78 U/L (46-116); Anion Gap 8.2 mmol/L (3-11); BUN 17 mg/dL (7-18); Bilirubin, Total 0.69 mg/dL (0.2-1.0); CO2 27.8 mmol/L (21.0-32.0); CREATININE 0.9 mg/dL (0.55-1.02); Calcium 10.2 mg/dL (8.5-10.1); Chloride 101 mmol/L (98-107); Estimated GFR 80.34 (mL/min/1.73m2); Glucose 132 mg/dL (74-106); Magnesium 1.7 mg/dL (1.8-2.4); Potassium 3.9 mmol/L (3.5-5.1); Sodium 137 mmol/L (136-145); Total Protein 7.7 g/dL (6.4-8.2)
[2024-11-17 14:58] LABS: Troponin I < 4 ng/L (<or=51)
[2024-11-17 15:31] LABS: Lipase 2396 U/L (<78)
--- NOTE | 2024-11-17 15:49 | DI.VRAD_ITS ---
PROCEDURE INFORMATION: Exam: CT Abdomen And Pelvis With Contrast Exam date and time: 11/17/2024 3:07 PM Age: 44 years old Clinical indication: Abdominal pain; Epigastric/luq abd pain TECHNIQUE: Imaging protocol: Computed tomography of the abdomen and pelvis with contrast. COMPARISON: PT NM PET CT STANDARD PLUS EXTREMITIES AND HEAD 12/07/2022 2:08 PM FINDINGS: Liver: Hypodense lesion in the gallbladder fossa measuring 7 mm, too small to characterize. Gallbladder and biliary ducts: Normal. No calcified stones. No ductal dilation. Pancreas: There is fluid surrounding the pancreas. Spleen: Normal. No splenomegaly. Adrenal glands: Normal. No mass. Kidneys and ureters: Normal. No hydronephrosis. Stomach and bowel: Mild diverticulosis is present in the distal colon. Appendix: No evidence of appendicitis. Intraperitoneal space: Unremarkable. No free air. No significant fluid collection. Vasculature: Calcified atheromas of the visualized arteries. There are numerous benign phleboliths in the pelvis. Lymph nodes: Unremarkable. No enlarged lymph nodes. Urinary bladder: Unremarkable as visualized. Reproductive: Unremarkable as visualized. Bones/joints: The pubic symphysis demonstrates mild degenerative changes. Soft tissues: There is a fat-containing umbilical hernia. IMPRESSION: Acute interstitial pancreatitis with no pancreatic necrosis or collections. Dictated and Authenticated by: Tai Suarez MD. Orderin [facility] Bosch MD
--- NOTE | 2024-11-17 16:42 | HPE_ITS ---
Date of service: 11/17/24 Time of Service: 16:42 Assessment and Plan Assessment and plan (1) Pancreatitis: Status: Chronic Assessment and plan: Positive pancreatitis as per lipase and imaging IVF: LR at 125 cc an hour Pain management with scheduled acetaminophen and ketorolac. We are trying to avoid opioids as per point 3 Pain appears to be controlled with above management in the emergency room Compazine PRN Protonix IV Liver/ABD US on Tuesday (2) Abnormal transaminases: Status: Acute Assessment and plan: As per BMP mild transaminitis and scheduled Tylenol adjusted for patient over 65 Will continue to monitor (3) Opioid abuse: Status: Acute Assessment and plan: The patient is currently taking Suboxone twice a day Continue therapy as per home medicine regimen (4) Tobacco use: Status: Acute Assessment and plan: Nicotine replacement therapy ordered (5) Hypomagnesemia: Status: Acute Assessment and plan: Magnesium at 1.7, supplementation given Magnesium level in a.m. (6) Alcohol abuse: Status: Chronic Assessment and plan: The patient is presenting with a RASS at 0 her last drink being last night and as per report she was sober over the past 1 to 2 weeks Might have precipitated pancreatitis Alcohol withdrawal assessment every 4 hours, no medicine at this time. With score of vomiting medicine please contact hospitalist (7) On deep vein thrombosis (DVT) prophylaxis: Status: Acute Assessment and plan: On low molecular weight heparin Discussed with Dr. Reyes History of Present Illness History of Present Illness Chief Complaint: Nausea vomiting abdominal pain N arrative: This 44-year-old female without significant past medical history but on chronic Suboxone for opioid dependence, tobacco abuse and EtOH dependence with last drink being on 11/16/2024 after being sober for over a week presented to the emergency room for evaluation of nausea vomiting and abdominal pain to the left upper quadrant with radiation from her epigastric area starting last night. The patient denied fever, chills, night sweat, hematemesis, coffee-ground emesis, hematochezia, diarrhea or dysuria. Patient reported heartburn sensation but no chest pain.On presentation the patient was hemodynamically stable and afebrile. Work-up in the ED was significant for Lipase at 2396 w/o leukocytosis. Chemistry was unremarkable except for mild transaminitis and mag at 1.7.The ED provider completed a beside POCUS w/o evidence of cholelithiasis or cholecystitis.Abdominal CT showed acute interstitial pancreatitis with no pancreatic necrosis or collections. The hospitalist team admitted the patient to the medical surgical floor for evaluation and management of pancreatitis,nausea, vomiting, hypomagnesemia. Added Ethyl level was less than 3. The patient reported being sober for 1-2 weeks then resuming drinking on 11/16/2024. She has a counselor for her Alcohol abuse. The patient confirmed her full code status. Review of Systems All systems reviewed & are unremarkable except as noted in HPI and below PFSH All Active Problems (Updated 11/17/24 @ 19:15 by Jodee Ramesh APRN) Alcohol abuse (Chronic) On deep vein thrombosis (DVT) prophylaxis (Acute) Hypomagnesemia (Acute) Abnormal transaminases (Acute) Pancreatitis (Chronic) Dense breast tissue on mammogram (Acute) Opioid abuse (Acute) 12/2020. Uses Suboxone that she purchases. Tobacco use (Acute) Encounter for IUD removal (Acute) Counseling for control regarding intrauterine device (IUD) (Acute) Screening for malignant neoplasm of cervix (Acute) Routine screening for STI (sexually transmitted infection) (Acute) Anxiety (Chronic) Malignant melanoma (Acute) 5mm thick Left neck 1.5x1cm lesion Chronic narcotic dependence (Acute) ADHD (Acute) Smoker (Acute) Abnormal positron emission tomography (PET) scan (Acute) right breast abmormality that was inconclusive. AND MAMMOGRAM ARE NEGATIVE. RECOMMENDED MRI. THIS IS PENDING. Medical History (Updated 11/17/24 @ 19:15 by Jodee Ramesh APRN) Depression Visual changes Abscess of skin Plantar fasciitis, bilateral PTSD (post-traumatic stress disorder) Per pt. states no triggers at this time. IV drug abuse Pt. states last used 08/2022. Hepatitis C treated w/ negative viral load Surgical History (Updated 12/31/22 @ 06:44 by Ailyn Salazar) History of placement of ear tubes H/O wisdom tooth extraction No significant past surgical history Family History Mother Hyperlipidemia Father Hyperlipidemia Grandfather , Heart disease Myocardial infarction >50y.o Grandmother Breast cancer Other Diabetes Social History (Updated 12/21/20 @ 22:22 by Elizabeth Berman MD) Smoking/Tobacco Use Status: Current every day Tobacco Type: cigarettes Smoking risk assessment performed?: Yes Alcohol Intake: former Drug use: Current Sobriety Substance use type: former substance user, crack/cocaine and heroin Household members: children and other Details: lives with daughter who is excellent student. Housing: house Number of Children: 2 current occupation: not employed Do you feel safe at home: Yes Do you feel safe in your relationship?: Yes Meds Allergies and Home Medications Allergies Allergy/AdvReac Type Severity Reaction Status Date / Time No Known Allergies Allergy Verified 11/17/24 13:14 Home Medications ?Medication ?Instructions ?Recorded ?Confirmed ?Type buprenorphine 8 mg-naloxone 2 mg 2 film buccal BID 11/12/22 11/17/24 History sublingual film clonidine HCl 0.1 mg tablet 0.1 mg PO QHS PRN 12/10/22 11/17/24 History docusate sodium 100 mg capsule 100 mg PO DAILY PRN 12/10/22 11/17/24 History lidocaine 4 %-me.salicylat 20 See Rx Instructions .Route 12/31/22 11/17/24 Rx %-capsai 0.025 %-menth 5 % topical .COMPLEX #10 ea patch escitalopram oxalate 10 mg tablet 10 mg PO DAILY 11/17/24 11/17/24 History Exam Narrative Exam Narrative: Constitutional The patient is without acute distress, improved abdominal pain HENMT: Facial structures with normal appearance Eyes: Well aligned, intact ROM Neuro:alert and oriented X4 non focal Resp: Unlabored breathing, clear lung bilaterally Cardio: regular rhythm, S1, S2, no murmur, bilateral radial and dorsalis pedis pulses are positive GI: Positve Dietz's sign, abd is not distended, soft and tender to L and R upper quadrants, bowel sounds are diminished : Negative Costovertebral angle tenderness, Back/spine/Pelvis: No back tenderness, normal alignment Integumentary: No skin lesions or rash Extremities: strength 5/5 to bilateral lower and upper extremities Psych: RASS 0, congruent mood and normal affect. Results Labs 11/17/24 14:05 11/17/24 14:05 Labs: Laboratory Results - last 24 hr 11/17/24 11/17/24 11/17/24 13:19 14:05 14:30 WBC 6.37 RBC 4.97 Hgb 16.2 H Hct 46.6 H MCV 94 MCH 32.6 MCHC 34.8 RDW 11.9 Plt Count 197 MPV 10.6 Immature Gran % 0.3 Neutrophils % 81.3 Lymphocytes % 9.7 Monocytes % 6.9 Eosinophils % 1.6 Basophils % 0.2 Nucleated RBC % 0.0 Absolute Neutrophils 5.18 Absolute Lymphocytes 0.62 L Absolute Monocytes 0.44 Absolute Eosinophils 0.10 Absolute Basophils 0.01 Sodium 137 Potassium 3.9 Chloride 101 Carbon Dioxide 27.8 Anion Gap 8.2 BUN 17 Creatinine 0.9 Est GFR (CKD-EPI 2020) 80.34 Glucose 132 H Calcium 10.2 H Magnesium 1.7 L Total Bilirubin 0.69 AST 56 H ALT 107 H Alkaline Phosphatase 78 Troponin I < 4 Cancelled Total Protein 7.7 Albumin 3.5 Lipase 2396 H Urine Color Urine Clarity Urine pH Ur Specific [place] Urine Protein Urine Ketones Urine Blood Urine Nitrite Urine Bilirubin Urine Urobilinogen Ur Leukocyte Esterase Urine Glucose COVID-19 Source Nasopharynx SARS-CoV-2 (PCR) Negative Influenza Type A (PCR) Negative Influenza Type B (PCR) Negative RSV (PCR) Negative 11/17/24 11/17/24 14:40 16:30 WBC RBC Hgb Hct MCV MCH MCHC RDW Plt Count MPV Immature Gran % Neutrophils % Lymphocytes % Monocytes % Eosinophils % Basophils % Nucleated RBC % Absolute Neutrophils Absolute Lymphocytes Absolute Monocytes Absolute Eosinophils Absolute Basophils Sodium Potassium Chloride Carbon Dioxide Anion Gap BUN Creatinine Est GFR (CKD-EPI 2020) Glucose Calcium Magnesium Total Bilirubin AST ALT Alkaline Phosphatase Troponin I Cancelled Total Protein Albumin Lipase Urine Color Yellow Urine Clarity Clear Urine pH 5.5 Ur Specific [place] >= 1.030 H Urine Protein Negative Urine Ketones 15 H Urine Blood Negative Urine Nitrite Negative Urine Bilirubin Small H Urine Urobilinogen 1.0 H Ur Leukocyte Esterase Negative Urine Glucose Negative COVID-19 Source SARS-CoV-2 (PCR) Influenza Type A (PCR) Influenza Type B (PCR) RSV (PCR) Last Vital Signs Temp 36.6 C 11/17/24 14:52 Pulse 88 11/17/24 14:52 Resp 20 11/17/24 14:52 BP 146/93 H 11/17/24 14:52 Pulse Ox 95 11/17/24 14:52 Time Spent Time spent with Patient: >75 minutes Time was spent: preparing to see the patient(eg.review tests), obtaining and/or reviewing separately otained hiistory, ordering medications,tests, procedures, referring, communicating with other health eye care professional, indepentently interpreting results, counseling the patient and care coordination
[2024-11-17 17:36] LABS: ETHANOL BLOOD < 3.0 mg/dL (<10)
--- NOTE | 2024-11-17 17:39 | W.PC.ACHO ---
Registration Status: Primary Language: Preferred Language: ED Information & Data Chief Complaint Nausea/Vomit/Diar 11/17/24 14:53 Chief Complaint Nausea/Vomit/Diar 11/17/24 13:35 Triage Note pt with sudden onset n/v, no 11/17/24 13:15 diarrhea starting yesterday , no fever/chills, pain in sternum radiation to back and abd, pt with 10/10 pain, dtr has strep and had Flu A, swab in triage. Medical / Surgical History (Last Reviewed 12/31/22 @ 06:52 by Ailyn Salazar) Depression Visual changes Abscess of skin Plantar fasciitis, bilateral PTSD (post-traumatic stress disorder) IV drug abuse Hepatitis C (Last Updated 12/31/22 @ 06:44 by Ailyn Salazar) History of placement of ear tubes H/O wisdom tooth extraction No significant past surgical history Most Recent Vital Signs Temperature 36.6 C 11/17/24 14:52 Temperature Source Oral 11/17/24 14:52 Pulse 88 11/17/24 14:52 Respiratory Rate 20 11/17/24 14:52 Blood Pressure 146/93 H 11/17/24 14:52 Blood Pressure Position Sitting 11/17/24 14:52 Pulse Oximetry 95 11/17/24 14:52 Oxygen Delivery Method Room Air 11/17/24 14:52 Oxygen Flow Rate 0 11/17/24 14:52 Pain Level 10 11/17/24 14:52 Allergies No Known Allergies Allergy (Verified 11/17/24 13:14) Precautions Isolation Standard precaution 11/17/24 14:53 IV IV Catheter Type [Right Saline Lock Antecubital] IV Catheter Gauge [Right 20 Antecubital] Diagnostics 11/17/24 11/17/24 11/17/24 Range/Units 16:30 14:40 14:30 WBC (4.4-10.8) 10^3/uL RBC (3.93-5.22) 10^6/uL Hgb (11.2-15.7) g/dL Hct (36.0-46.0) % MCV (80-95) fL MCH (27.0-33.0) pg MCHC (32.0-36.0) % RDW (11.7-14.6) % Plt Count (130-400) 10^3/uL MPV (8.0-11.0) fL Immature Gran % % Neutrophils % % Lymphocytes % % Monocytes % % Eosinophils % % Basophils % % Nucleated RBC % (0.0-0.3) % Absolute Neutrophils (1.2-6.7) 10^3/uL Absolute Lymphocytes (1.2-3.4) 10^3/uL Absolute Monocytes (0.1-0.8) 10^3/uL Absolute Eosinophils (0.0-0.7) 10^3/uL Absolute Basophils (0.0-0.2) 10^3/uL Sodium (136-145) mmol/L Potassium (3.5-5.1) mmol/L Chloride (98-107) mmol/L Carbon Dioxide (21.0-32.0) mmol/L Anion Gap (3-11) mmol/L BUN (7-18) mg/dL Creatinine (0.55-1.02) mg/dL Est GFR (CKD-EPI 2020) (mL/min/1.73m2) Glucose (74-106) mg/dL Calcium (8.5-10.1) mg/dL Magnesium (1.8-2.4) mg/dL Total Bilirubin (0.2-1.0) mg/dL AST (15-37) U/L ALT (14-59) U/L Alkaline Phosphatase (46-116) U/L Troponin I Cancelled Cancelled (<or=51) ng/L Total Protein (6.4-8.2) g/dL Albumin (3.4-5.0) g/dL Lipase (<78) U/L Urine Color Yellow (Yellow) Urine Clarity Clear (Clear) Urine pH 5.5 (5-8) Ur Specific [place] >= 1.030 H (1.005-1.025) Urine Protein Negative (Neg-Trace) mg/dL Urine Ketones 15 H (Negative) mg/dL Urine Blood Negative (Negative) Urine Nitrite Negative (Negative) Urine Bilirubin Small H (Negative) Urine Urobilinogen 1.0 H (Up to 0.2) mg/dL Ur Leukocyte Esterase Negative (Negative) Urine Glucose Negative (Negative) mg/dL Ethyl Alcohol (<10) mg/dL COVID-19 Source SARS-CoV-2 (PCR) (Negative) Influenza Type A (PCR) (Negative) Influenza Type B (PCR) (Negative) RSV (PCR) (Negative) 11/17/24 11/17/24 11/17/24 Range/Units 14:24 14:05 13:19 WBC 6.37 (4.4-10.8) 10^3/uL RBC 4.97 (3.93-5.22) 10^6/uL Hgb 16.2 H (11.2-15.7) g/dL Hct 46.6 H (36.0-46.0) % MCV 94 (80-95) fL MCH 32.6 (27.0-33.0) pg MCHC 34.8 (32.0-36.0) % RDW 11.9 (11.7-14.6) % Plt Count 197 (130-400) 10^3/uL MPV 10.6 (8.0-11.0) fL Immature Gran % 0.3 % Neutrophils % 81.3 % Lymphocytes % 9.7 % Monocytes % 6.9 % Eosinophils % 1.6 % Basophils % 0.2 % Nucleated RBC % 0.0 (0.0-0.3) % Absolute Neutrophils 5.18 (1.2-6.7) 10^3/uL Absolute Lymphocytes 0.62 L (1.2-3.4) 10^3/uL Absolute Monocytes 0.44 (0.1-0.8) 10^3/uL Absolute Eosinophils 0.10 (0.0-0.7) 10^3/uL Absolute Basophils 0.01 (0.0-0.2) 10^3/uL Sodium 137 (136-145) mmol/L Potassium 3.9 (3.5-5.1) mmol/L Chloride 101 (98-107) mmol/L Carbon Dioxide 27.8 (21.0-32.0) mmol/L Anion Gap 8.2 (3-11) mmol/L BUN 17 (7-18) mg/dL Creatinine 0.9 (0.55-1.02) mg/dL Est GFR (CKD-EPI 2020) 80.34 (mL/min/1.73m2) Glucose 132 H (74-106) mg/dL Calcium 10.2 H (8.5-10.1) mg/dL Magnesium 1.7 L (1.8-2.4) mg/dL Total Bilirubin 0.69 (0.2-1.0) mg/dL AST 56 H (15-37) U/L ALT 107 H (14-59) U/L Alkaline Phosphatase 78 (46-116) U/L Troponin I < 4 (<or=51) ng/L Total Protein 7.7 (6.4-8.2) g/dL Albumin 3.5 (3.4-5.0) g/dL Lipase 2396 H (<78) U/L Urine Color (Yellow) Urine Clarity (Clear) Urine pH (5-8) Ur Specific [place] (1.005-1.025) Urine Protein (Neg-Trace) mg/dL Urine Ketones (Negative) mg/dL Urine Blood (Negative) Urine Nitrite (Negative) Urine Bilirubin (Negative) Urine Urobilinogen (Up to 0.2) mg/dL Ur Leukocyte Esterase (Negative) Urine Glucose (Negative) mg/dL Ethyl Alcohol < 3.0 (<10) mg/dL COVID-19 Source Nasopharynx SARS-CoV-2 (PCR) Negative (Negative) Influenza Type A (PCR) Negative (Negative) Influenza Type B (PCR) Negative (Negative) RSV (PCR) Negative (Negative) [id number] Documentation POC Urine Test Start: 11/17/24 13:30 Freq: .Urine Test Status: Active Protocol: Activity Type Activity Date Activity User E-sign Co-sign Detail Recorded Client Recorded Date Recorded By Document 11/17/24 14:49 ML [id number] 11/17/24 14:49 ML Intake and Output - 24 Hour Total 11/17/24 13:08 thru 11/17/24 14:49 Intake Total 110 Balance 110 Weight 70.307 kg Intake: IV 110 Falls Risk Assessment History of Falls No History 11/17/24 14:52 Contributing Factors No Factors 11/17/24 14:52 Ambulatory Aids Independent 11/17/24 14:52 Tubes/Lines W/no contributing factors 11/17/24 14:52 Gait Evaluation No gait disturbance 11/17/24 14:52 Cognition No cognitive impairment 11/17/24 14:52 Fall Total Score 10 11/17/24 14:52 Level of Risk Standard/Low Risk 11/17/24 14:52 v v v v v v v v v Sending and/or Receiving Nurses: Please use comment section below to note any information pertinent to the patient hand-off not included above. Information / Comments: Patient A&Ox4, LUQ pain w/ N/V, Covid/Flu/RSV Negative, Skin intact, independent, Report received from: Asim OLIVEROS ER at 3060
[2024-11-17] MEDS: MAGNESIUM SULFATE 2 GM/50 ML BAG IV_INF (17:41)
[2024-11-17] MEDS: Lactated Ringers 1,000 ML 1000 ML IV (17:41)
--- OUTSIDE RECORDS SUMMARY | 2024-11-17 17:54 | XMS_ITS | Clinical Summary ---
Author Organization [facility] [place] [address] Care Team Providers Care Bee Worker Name Role Phone Freda Wood APRN Primary Care Provider [phone] Allergies No known active allergies Medications Medication [...] Type Associated Problems Recent Progress Patient-Stated? Author [facility] Medication Compliance and Understanding Patient Facing Action Plan Ani Feldman, [facility] Note: Attain undetectable viral load by end of Mavyret treatment and SVR12. Procedures Procedure Name Priority Date/Time Associated Diagnosis Comments HIV SCREEN, 4TH GENERATION [place] [place]PE RFORMABLE Routine 11/24/2017 1:00 PM EST Chronic hepatitis C without hepatic coma from Last 3 Months or Most Recently Relevant to Health Maintenance Results * HIV Screen, 4th Generation (11/24/2017 1:00 PM EST) HIV Ab/Ag Screen Negative Negative [facility] Comment: This 4th Generation [...] Lab Yaima Kidd APRN CHEMISTRY ORDERABL ES [facility] [place] [address] from Last 3 Months or Most Recently Relevant to Health Maintenance Advance Directives * Full Code (Latest Code Status on File) Date Activated Date Inactivated Comments 01/15/2014 4:21 AM 01/16/2014 5:29 PM Question Answer Comments Order Status: Initial Order Does patient have decision m aking capacity? Yes, Order is based on Patients wishes. Care Teams Bee Worker Relationship Specialty Start Date End Date Freda Wood APRN [address] [place] [address] PCP - General Family Medicine 02/24/24
--- OUTSIDE RECORDS SUMMARY | 2024-11-17 17:55 | XMS_ITS | Encounter Summary ---
[place] [address] Care Team Providers Care Networking Engineer Name Role Phone Sebastian Wills MD Primary Care Provider [phone] Reason for Referral * Diagnostic Test (Routine) - Closed Specialty Diagnoses / Procedures Referred By Contac t Referred To Contact Radiology Diagnoses Malignant melanoma, unspecified site Procedures NM PET CT Standard Plus Extremities and Head Ruby Leone DO [address] [place] [address] [address] [place] [address] [place] [address] Referral ID Status Reason Start Date Expiration Date V isits Requested Visits Authorized [id number] Closed Specialty Service Requested 11/22/2022 05/22/2024 1 1 Reason for Visit * Diagnostic Test (Routine) - Closed Specialty Diagnoses / Procedures Referred By Contac t Referred To Contact Radiology Diagnoses Malignant melanoma, unspecified site Procedures NM PET CT Standard Plus Extremities and Head Ruby Leone DO [address] [place] [address] [address] [place] [address] [facility] [place] [address] Referral ID Status Reason Start Date Expiration Date V isits Requested Visits Authorized [id number] Closed Specialty Service Requested 11/22/2022 05/22/2024 1 1 Encounter Details Date Type Department Care Team (Latest Contact Info) Description 12/07/2022 1:37 PM EST Hospital Encounter [place] [address] Ruby Leone, DO [address] [place] [address] Malignant melanoma, unspecified site Discharge Disposition: Home [...] Understanding Patient Facing Action Plan Ani Feldman, [facility] Note: Attain undetectable viral load by [...] who have questions please contact the health home care consultant that requested your imaging first. ? Electronically signed by: Luis Eckert MD, [facility] ([phone]), at 12/09/2022 3:17 PM Narrative 12/09/2022 3:17 PM EST EXAMINATION: NM PET CT STANDARD PLUS EXTREMITIES AND HEAD CLINICAL HISTORY: Malignant melanoma, unspecified site, initial diagnosis Medial LEFT side of the neck TECHNIQUE: Procedure: Following IV injection of 46-[id number]-deoxyglucose (FDG) a standard uptake of approximately 60 [...] mCi documented in this encounter Care Teams Networking Engineer Relationship Specialty Start Date End Date Sebastian Wills MD [address] [place] [id number] PCP - General 09/01/10 02/23/24 documented as of this encounter
--- OUTSIDE RECORDS SUMMARY | 2024-11-17 17:55 | XMS_ITS | Encounter Summary ---
Author Organization [facility] Address [address] [place] [address] Care Team Providers Care Operations Research Scientist Name Role Phone Yohan Hendricks MD Primary Care Provider Unavail able Encounter Details Date Type Department Care Team (Late st Contact Info) Description 04/20/2018 Orders Only [facility] - [facility] [address] [place] [address] Nini Mora [facility] [address] [place] [address] Social History Tobacco Use Types Packs/Day Years [...] 04/20/2018 documented in this encounter Care Teams Operations Research Scientist Relationship Specialty Start Date End Date Yohan Hendricks MD PCP - General 08/20/15 documented as of this encounter
--- OUTSIDE RECORDS SUMMARY | 2024-11-17 17:55 | XMS_ITS | Encounter Summary ---
[place] [address] Care Team Providers Care Lifter Driver Name Role Phone Sebastian Wills MD Primary Care Provider [phone] Encounter Details Date Type Department Care Team (Late st Contact Info) Description 08/17/2018 [place] [id number] Carlene Massey, RN Social History Tobacco Use [...] Type Associated Problems Recent Progress Patient-Stated? Author [facility] Medication Compliance and Understanding Patient Facing Action Plan No Ani Eldridge, [facility] Note: Attain undetectable viral load by end of Mavyret treatment and SVR12. documented as of this encounter Visit Diagnoses Not on filedocumented in this encounter Care Teams Lifter Driver Relationship Specialty Start Date End Date Sebastian Wills MD [address] [place] [address] PCP - General 09/01/10 02/23/24 documented as of this encounter
--- OUTSIDE RECORDS SUMMARY | 2024-11-17 17:55 | XMS_ITS | Encounter Summary ---
Author Organization [facility] Address [address] [place] [address] Care Team Providers Care Rhia Name Role Phone Yohan Hendricks MD Primary Care Provider Unavail able Encounter Details Date Type Department Care Team (Late st Contact Info) Description 12/20/2020 Lab Requisition [facility] Pathology & Laboratory Medicine - [facility] [address] [place] [address] Outr Resulting Lab, Provider Social [...] gonorrhoeae Result Negative Negative 12/22/2020 15:41 EDT [facility] Chlamydia trachomatis Result Negative Negative 12/22/2020 15:41 EDT [facility] Swab ENTIRE ENDOCERVIX / Unknown 12/19/2020 15:10 EST 12/21/2020 22:16 EDT us Provider Outr Resulting Lab MICROBIOLOGY - GENER AL ORDERABLES Final Result [facility] [address] [place] [id number] documented in this encounter Visit Diagnoses Not on filedocumented in this encounter Care Teams Rhia Relationship Specialty Start Date End Date Yohan Hendricks MD PCP - General 08/20/15 documented as of this encounter
--- OUTSIDE RECORDS SUMMARY | 2024-11-17 17:55 | XMS_ITS | Encounter Summary ---
Author Organization [facility] Address [address] [place] [address] Care Team Providers Care Packaging Machine Operator Name Role Phone Yohan Hendricks MD Primary Care Provider Unavail able Encounter Details Date Type Department Care Team (Late st Contact Info) Description 07/08/2021 Lab Requisition [facility] Pathology & Laboratory Medicine - [facility] [address] [place] [address] Outr Resulting Lab, Provider Social History Tobacco [...] gonorrhoeae Result Negative Negative 07/09/2021 15:20 EDT [facility] Chlamydia trachomatis Result Negative Negative 07/09/2021 15:20 EDT [facility] Urine URINE / Unknown 07/07/2021 1 5:25 EDT 07/08/2021 17:20 EDT Narrative [facility] - 07/09/2021 15:20 EDT A first catch urine specimen is acceptable for detection of Gonorrhea and Chlamydia, but might detect up to 10% fewer infections when compared with vaginal and endocervical swab samples. us Provider Outr Resulting Lab MICROBIOLOGY - GENER AL ORDERABLES Final Result [facility] [address] [place] [id number] documented in this encounter Visit Diagnoses Not on filedocumented in this encounter Care Teams Packaging Machine Operator Relationship Specialty Start Date End Date Yohan Hendricks MD PCP - General 08/20/15 documented as of this encounter
--- OUTSIDE RECORDS SUMMARY | 2024-11-17 17:55 | XMS_ITS | Clinical Summary ---
Author Organization [facility] Address [address] [place] [address] Care Team Providers Care Armature Winder Helper Repair Name Role Phone Yohan Hendricks MD Primary [...] season) 2024 Insurance MEDICAID [place] Care Teams Armature Winder Helper Repair Relationship Specialty Start Date End Date Yohan Hendricks MD PCP - General 08/20/15
--- OUTSIDE RECORDS SUMMARY | 2024-11-17 17:55 | XMS_ITS | Encounter Summary ---
Author Organization [facility] [place] [address] Care Team Providers Care Peel Oven Tender Name Role Phone Sebastian Wills MD Primary Care Provider + [phone] Reason for Visit * Reason Onset Date Comments Medication Refill 12/08/2017 Encounter Details Date Type Department Care Team (Late st Contact Info) Description 12/08/2017 [place] [address] Yaima Kidd APRN [facility] [place] [address] Chronic hepatitis C without hepatic coma Social [...] coma documented in this encounter Care Teams Peel Oven Tender Relationship Specialty Start Date End Date Sebastian Wills MD [address] [place] [address] PCP - General 09/01/10 02/23/24 documented as of this encounter
--- OUTSIDE RECORDS SUMMARY | 2024-11-17 17:55 | XMS_ITS | Encounter Summary ---
Author Organization [facility] Address [facility] [place] [address] Care Team Providers Care Paratransit Driver Name Role Phone Sebastian Wills MD Primary Care Provider [phone] Encounter Details Date Type Department Care Team (Late st Contact Info) Description 05/09/2014 Telephone Gastroenterology at [facility] [place] [id number] Marisel Saenz, COOPERATIVE EDUCATION DIRECTOR Social History Tobacco Use Types Packs/Day Years [...] would like to have labs drawn in [facility]. F/U appt in 6 months with labs [...] coma documented in this encounter Care Teams Paratransit Driver Relationship Specialty Start Date End Date Sebastian Wills MD [address] [place] [id number] PCP - General 09/01/10 02/23/24 documented as of this encounter
--- OUTSIDE RECORDS SUMMARY | 2024-11-17 17:55 | XMS_ITS | Encounter Summary ---
[place] [address] Care Team Providers Care Bleach Liquor Maker Name Role Phone Freda Wood APRN Primary Care Provider [phone] Reason for Visit * Reason Comments Skin Check * Consultation (Routine) - Pending Review Specialty Diagnoses / Procedures Referred By Rosalia garner Referred To Contact Dermatology Diagnoses Malignant melanoma of scalp and neck Freda Wood APRN [address] [place] [address] Anastacio Rankin MD [address] [place] [address], [facility] [address] Referral ID Status Reason Start Date Expiration Date V isits Requested Visits Authorized [id number] Pending Review 12/21/2023 12/20/2024 1 1 Encounter Details Date Type Department Care Team (Late st Contact Info) Description 02/24/2024 3:00 PM EDT Office Visit Dermatology at [address] [phone] Anastacio Rankin MD [address] [place] [address], [facility] Castell[facility] [place], [place] [id number] History of malignant melanoma Social History Tobacco [...] anterior base of the neck excised at [facility] October 2022 Carlene presents today for [...] Patient Facing Action Plan No Ani Eldridge, [facility] Note: Attain undetectable viral load by end of Mavyret treatment and SVR12. documented as of this encounter Visit Diagnoses Diagnosis History of malignant melanoma Personal history of malignant melanoma of skin documented in this encounter Care Teams Bleach Liquor Maker Relationship Specialty Start Date End Date Freda oWod APRN [address] [place] [id number] PCP - General Family Medicine 02/24/24 documented as of this encounter
--- OUTSIDE RECORDS SUMMARY | 2024-11-17 17:55 | XMS_ITS | Encounter Summary ---
Author Organization [facility] [place] [address] Care Team Providers Care Art Preparator Name Role Phone Chucho De León MD Primary Care Provider [phone] Reason for Visit * Reason Comments Abdominal Pain Encounter Details Date Type Department Care Team (Latest Contact Info) Description 01/15/2014 1:27 AM EDT - 01/16/2014 3:27 PM EDT Hospital Encounter 3 [place] [address] Nilay Templeton MD [facility] [place] [address] Dayron Burk MD Rakic, Marko, MD Hepatitis [...] MD PCP: CHUCHO DE LEÓN MD at [facility] Information Source: Medical Record and, Patient. Purpose: tannery worker reviewed this patient's medical record with intention to meet for supportive care andto discuss possible barriers to disposition. Information in regard to substance misuse treatment. Objective/ Assessment: Carlene Augustine is a 33 y.o. Female who presents to [facility] with a request for information toassist with ongoing substance misuse treatment facilities. Plan/ Outcome: SW met with PT to discuss two facilities that might assist with her ongoing treatment concerns. PT is to contact these facilities for an intake interview. Contact [address] [address] (toll-free) Fax: General - Administration - Admissions - Withdrawal Management Unit - Counselors - SW offered a list of individual MD's that can provide Suboxone scripts in the [facility] as well as Treatment facilities. Cinder Pitman noted no other needs to assist with patient disposition. JEAN Sotelo, DIRECTOR CLIENT Clinical Cinder Pitman II Office of Care Management Social Work Practice Tazlina Chair General Internal Medicine (Inpatient) Pager #[phone] Please consider the environment before printing [place] [address] Phone * Patient Instructions* Gianni Montes De [...] see discharge summary Your Inpatient Doctor(s) at [facility]: Gianni Sherwood MD documented in this encounter [...] spent >30 minutes (Day of Discharge Code 56215) involved in the final examination of the [...] spent >30 minutes (Day of Discharge Code 32725) involved in the final examination of the [...] changes and additional plans. * Nishant Carrasco, BREAD JOCKEY - 01/16/2014 9:01 AM EDT Patient Name: Carlene Augustine Patient Age: 33 y.o. Birthdate: 1980 Admit date: 01/15/2014 Attending Physician: Gianni Montes De Oca MD PCP: CHUCHO DE LEÓN MD at [facility] Information Source: Medical Record and, Patient. Purpose: tannery worker reviewed this patient's medical record with intention to meet for supportive care andto discuss possible barriers to disposition. Information in regard to substance misuse treatment. Objective/ Assessment: Carlene Augustine is a 33 y.o. Female who presents to [facility] with a request for information toassist with ongoing substance misuse treatment facilities. Plan/ Outcome: SW met with PT to discuss two facilities that might assist with her ongoing treatment concerns. PT is to contact these facilities for an intake interview. [email or web address] [address] [address] (toll-free) Fax: General - Administration - Admissions - Withdrawal Management Unit - Counselors - AND [facility] [phone]. Office hours are 9 a.m. to 4:30 p.m. Tuesday- Tuesday. We regret that we are unable to take messages for clients. Please contact clients at the above number for emergencies only. Venita Hernandez sends and receives mail Tuesday through Tuesday. Our mailing address is Venita Hernandez, [address], [address] [place] [address] You can email us at [email or web address]. Someone will respond to your message within 24 hours Tuesday - Tuesday. As well there is this MD who may be able to continue your prescription of Buprenorphine/ Suboxone: Romain Doyle M.D. [place] [address] Cinder Pitman noted no other needs to assist with patient disposition. JEAN Sotelo, DIRECTOR CLIENT Clinical Cinder Pitman II Office of Care Management Social Work Practice Tazlina Chair General Internal Medicine (Inpatient) Pager #[phone] Please consider the environment [place] [address] Phone * Rose Govea RN - 01/15/2014 [...] him. Patient stepped outside room, and this com writer asked Alli to leave. Alli left [...] 01/15/2014 3:42 PM EDT 01/15/2014 Carlene Augustine [id number] CRC went to meet pt to do an initial CRC interview after OCM colleague had attempted to see pt earlier. Pt had declined interview at that time r/t her reluctance to talk w/ CRC in front of her company. When this CRC went to visit pt's boyfriend and mother continued to be in her room so CRC spoke [facility] staff. Pt has been independent in her room and has not requested any additional assistance.- records reveal pt lives alone w/ her young daughter in [place], [place]. 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 Pt's mother Leslie Freedman is listed as pt's primary contact (cell [phone]). CRC will attempt to complete interview in AM and remain available to assist pt w/ dischar ge needs as necessary. Medical Team: Green Team, pager [phone]. Enid Marsh, RN, MSN, [facility] Clinical Registrar Assistant Office of Care Management Pager [phone] Phone: [phone] * Sandra Sheridan RN - 01/15/2014 4:56 [...] and IBS-type symptoms admitted in transfer from [facility] for acute hepatitis. History of Present Illness: HPI Pt was in her [facility] until approx 1 month ago when she began experiencing worsening fatigue, sometimesdisabling, as well as worsening nausea, vomiting and anorexia. She admits to an upper respiratory infection type picture around this period as well. 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 [facility] Labs 201201/09/2014 Hep Bs Ab 4.05 Hep [...] with her daughter. 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 Children: One daughter EtOH: [...] fluid speech. Mood euthymic, tearful at times. nutrition services associate II-XII fully tested and intact. Confrontational visual [...] Negative Appearance UA Hazy (*) Clear Spec [place] UA 1.021 1.002 - 1.030 Color UA Dark Yellow Yellow RBC UA Not Present 0 - 4 WBC UA Not Present 0 - 5 Squam Epith UA <1 <=4 /HPF Hyaline Cast UA 4 (*) 0 - 2 /LPF Amorph Eileen UA Few POCT URINE Component Value Range POC Urine HCG Negative Negative - Negative POC Control Internal Controls Acceptable Radiology: Ultrasound ([facility] 01/11/2014) Unremarkable abdominal U/S. Assessment: Pt is a 33 y/o W with a chronic hx of IVDU seen in transfer from [facility] for workup and management of acute hepatitis. [...] Pt says she would like to smoke, [facility] policy and procedure regarding smoking reiterated to [...] Negative Appearance UA Hazy (*) Clear Spec [place] UA 1.021 1.002 - 1.030 Color UA [...] Carlene Augustine Patient Age: 33 y.o. Language: Uzbek Race: White Ethnicity: Not nor Admit date: [...] please contact your inpatient physician through the [facility] Strategic Marketing Specialist . 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 [facility] Labs 2013 01/09/2014 Hep Bs Ab 4.05 [...] , Height: 170.2 cm (5' 7) (01/15/14 3972) Weight - Scale: 62.869 kg (138 lb 9.6 oz) (01/15/14 826) Functional and Cognitive Status: Somnolent at times, [...] Studies: 01/09/14 -- Abdominal Ultrasound (done at [facility]) The visualized liver parenchyma is [...] see discharge summary Your Inpatient Doctor(s) at [facility]: Gianni Sherwood MD General Instructions Patient Name: Carlene Augustine Patient Age: 33 y.o. Birthdate: 1980 Admit date: 01/15/2014 Attending Physician: Gianni Montes De Oca MD PCP: CHUCHO DE LEÓN MD at [facility] Information Source: Medical Record and, Patient. Purpose: tannery worker reviewed this patient's medical record with intention to meet for supportive care andto discuss possible barriers to disposition. Information in regard to substance misuse treatment. Objective/ Assessment: Carlene Augustine is a 33 y.o. Female who presents to [facility] with a request for information toassist with ongoing substance misuse treatment facilities. Plan/ Outcome: SW met with PT to discuss two facilities that might assist with her ongoing treatment concerns. PT is to contact these facilities for an intake interview. Contact [email or web address] [address] [place] [address] (toll-free) Fax: General - Administration - Admissions - Withdrawal Management Unit - Counselors - SW offered a list of individual MD's that can provide Suboxone scripts in the [facility] as well as Treatment facilities. Cinder Pitman noted no other needs to assist with patient disposition. Nishant Carrasco MSW, DIRECTOR CLIENT Clinical Cinder Pitman II Office of Care Management Social Work Practice Tazlina Chair General Internal Medicine (Inpatient) Pager #[phone] Please consider the environment [place] [address] Phone Future Appointments and Orders Future Appointments: Provider: Department: Dept Phone: Center: 02/05/2014 2:00 PM Marisel Saenz APRN Gastroenterology [phone] [facility] Future Orders Please Complete By Expires Hepatic [...] 12:33 AM EDT * ED Triage - iWnsome Montenegro RN - 01/14/2014 9:39 PM EDT States she had been vomiting and was jaundiced for past week, had blood drawn on 01/10. Had ultrasound on 01/11 at [facility]. States today she was told she has Hep C. States her MD told her to come to [facility] to see a liver specialist. States she [...] of HCV genotype was carried out using [employer] XT-8 detection system. Method: Plasma was initially subjected to quantitative RT-PCR using the Sigifredo AMANDA Ampliprep/AMANDA Taqman HCV assay. The HCV genotyping was carried out using [employer] XT-8 detection system that targets 5? -untranslated region of the HCV genome. The amplicon from the Sigifredo assay served as a template for the nested PCR followed by a direct analysis on the [employer] XT-8 detection system for the identification of HCV genotypes. The genotypes/subtypes detected by this method include 1a, 1b, 2a/c, 2b, 3, 4, 5 and 6a/b. This test was validated and its performance characteristics determined by the Molecular Pathology Laboratory at [facility]. It has not been cleared or approved [...] 5, and 6. Clin Gastroenterol Hepatol. 2005; 3:A13-E836. Smith JS, Aspsean E, Fercho D, Tom AJ, Raji ME. Current and emerging antiviral treatments for hepatitis C infection. Br J Clin Pharmacol. 2012 May 22. [Epub ahead of print] BILLY SANDERSFORMERLY [facility] Comment: [VERIFIED DATE]01.30.14 Verified By:Carlene Brower (Electronic Signature) Blood specimen (specimen) 01/16/2014 5:52 AM EDT 01/21/2014 8:09 AM EDT Narrative Resulting Agency Comment Spec In Lab Gianni Montes De Oca MD LAB SEND OUT ORDERAB LES Performing Organization Address City/[facility] Co de Phone Number [facility] * Prothrombin Time (01/16/2014 5:52 AM EDT) Prothrombin Time 12.2 12.0 - 15.0 sec [facility] Comment: [facility] Transfusion Committee Guidelines: INR less than 2.0, [...] MD HEMATOLOGY ORDERABLE S Performing Organization Address City/[facility]/ZIP Co de Phone Number BILLY SANDERSIUM * (ABNORMAL) Hepatic Function Panel (01/16/2014 5:52 AM EDT) Pathologist [facility] Protein, Total 6.2(L) 6.4 - 8.3 gm/dL [...] (non-fasting) (01/16/2014 5:52 AM EDT) Pathologist [facility] Glucose 125 60 - 199 mg/dL CERNER MILLENNIUM Comment:Diabetes: >=200 mg/d L plus symptoms Blood Urea Nitrogen 9 8 - 18 mg/dL CERNER MILLENNIUM Creatinine 0.58(L) 0.70 - 1.20 mg/dL CERNER MILLENNIUM Comment: Please note that the pediatric reference intervals supplied above were not validated at [facility]. Results from pediatric patients should be interpreted [...] Oca MD CHEMISTRY ORDERABLES Performing Organization Address [facility] de Phone Number BILLY STARKS * [...] MD HEMATOLOGY ORDERABLE S Performing Organization Address [facility] Co de Phone Number BILLY STARKS * [...] employment-relat ed drug testing. Test Performed by: [employer] [address], [place] [address] Locate Technician: Katlyn Tejeda, Ph.D. [facility] Urine specimen (specimen) 01/15/2014 5:40 AM EDT 01/15/2014 1:07 PM EDT Narrative Resulting Agency Comment Spec In Lab Dayron Burk MD LAB SEND OUT ORDERAB LES [facility] * Drug Screen with Confirmation, Urine [...] ??Hydromorphone ?Negative ? ng/mL ??<100 ??Morphine ? 71459 ?ng/mL ??<100 If heroin use suspected, test 60806, 1-mnqg-dgrllv-mor phine(6-VIKI) heroin metabolite, can be added at an additional charge. ??Oxycodone ?Negative ? ng/mL ??<100 ??Oxymorphone ?Negative ? ng/mL ??<100 This report is intended for use in clinical monitoring and management of patients. It is not intended for use in employment-relate d drug testing. Test Performed by: [address], [place] [address] Locate Technician: Katlyn Tejeda, Ph.D. [facility] Urine specimen (specimen) 01/15/2014 5:40 AM EDT 01/15/2014 1:07 PM EDT Narrative Resulting Agency Comment Spec In Lab Dayron Burk MD URINE ORDERABLES Performing Organization Address [facility] Co de Phone Number [facility] * HCV Quant Sigifredo (01/15/2014 5:01 AM EDT) [facility] HCV Viral Load [id number] IU/mL [facility] HCV Viral Load Result: [id number] Indication for Study: Hepatitis C Infection Analysis: [...] This assay is being performed in the [facility] Molecular Pathology Laboratory. Marcelo Carmichael, Ph.D. Director, Molecular Pathology [facility] Comment: [VERIFIED DATE]01.16.14 Verified By:Carlene Brower (Electronic Signature) Blood specimen (specimen) 01/15/2014 5:01 AM EDT 01/15/2014 5:17 AM EDT Narrative Resulting Agency Comment Spec In Lab Dayron Burk MD HEMATOLOGY ORDERABLE S Performing Organization Address [facility]/ZIP Co de Phone Number [facility] * CMV Antibody, IgM (01/15/2014 5:01 AM EDT) CMV IgM Neg Neg [facility] Blood specimen (specimen) 01/15/2014 5:01 AM EDT 01/15/2014 9:41 AM EDT Narrative Resulting Agency Comment Spec In Lab Dayron Burk MD IMMUNOLOGY ORDERABLE S [facility] * Smooth Muscle Antibody (01/15/2014 5:01 AM EDT) Sm Muscle Ab (FEBRUARY) Negative Negative [facility] Comment: Test Performed by: [address] [address] Locate Technician: Malachi Burton III, M.D. Blood specimen (specimen) 01/15/2014 5:01 AM EDT 01/15/2014 9:17 AM EDT Narrative Resulting Agency Comment Spec In Lab Dayron Burk MD LAB SEND OUT ORDERAB LES Performing Organization Address [facility]/ZIP Co de Phone Number LESLIEDIGN[facility] * TISHA (01/15/2014 5:01 AM EDT) TISHA Neg Neg [facility] Blood specimen (specimen) 01/15/2014 5:01 AM EDT 01/15/2014 8:19 AM EDT Narrative Resulting Agency Comment Spec In Lab Dayron Burk MD LAB SEND OUT ORDERAB LES LESLIEDIGN[facility]AN * Mononucleosis Screen (01/15/2014 5:01 AM EDT) [...] Urine Dipstick Hazy(A) Clear CERNER MILLENNIUM Specific [place] Urine Automated 1.021 1.002 - 1.030 CERNER [...] Templeton MD CHEMISTRY ORDERABLES Performing Organization Address [facility] de Phone Number BILLY JORDANENNIUM * Calcium (01/14/2014 11:25 PM EDT) Calcium 9.9 8.5 - 10.5 mg/dL CERNER MILLENNIUM Blood specimen (specimen) 01/14/2014 11:25 PM EDT 01/14/2014 11:35 PM EDT Narrative Resulting Agency Comment Spec In Lab Nilay Templeton MD CHEMISTRY ORDERABLES Performing Organization Address [facility] Phone Number BILLY JORDANENNIUM * Prothrombin Time (01/14/2014 11:25 PM EDT) Prothrombin Time 12.2 12.0 - 15.0 sec CERNER MILLENNIUM Comment: [facility] Transfusion Committee Guidelines: INR less than 2.0, [...] MD HEMATOLOGY ORDERABLE S Performing Organization Address City/[facility] Co de Phone Number BILLY SANDERSIUM * Lipase (01/14/2014 11:25 PM EDT) Lipase 32 0 - 60 unit/L CERNER MILLENNIUM Blood specimen (specimen) 01/14/2014 11:25 PM EDT 01/14/2014 11:35 PM EDT Narrative Resulting Agency Comment Spec In Lab Nilay Templeton MD CHEMISTRY ORDERABLES [facility] SANDERSFORMERLY [facility] * (ABNORMAL) Hepatic Function Panel (01/14/2014 11:25 [...] Templeton MD CHEMISTRY ORDERABLES Performing Organization Address [facility]/ZIP Co de Phone Number BILLY STARKS * Glucose, random (01/14/2014 11:25 PM EDT) Glucose 130 60 - 199 mg/dL [facility] MILLENNIUM Comment:Diabetes: >=200 mg/d L plus symptoms Blood specimen (specimen) 01/14/2014 11:25 PM EDT 01/14/2014 11:35 PM EDT Narrative Resulting Agency Comment Spec In Lab Nilay Templeton MD CHEMISTRY ORDERABLES BILLY STARKS * (ABNORMAL) Creatinine (01/14/2014 11:25 PM EDT) Creatinine 1.20 0.70 - 1.20 mg/dL CERNER MILLENNIUM Comment: Please note that the pediatric reference intervals supplied above were not validated at [facility]. Results from pediatric patients should be interpreted [...] Templeton MD CHEMISTRY ORDERABLES Performing Organization Address [facility] de Phone Number [facility]ITAL[facility]ANIEL JORDANENNIUM * BUN (01/14/2014 11:25 PM EDT) Blood Urea Nitrogen 8 8 - 18 mg/dL CERNER MILLENNIUM Blood specimen (specimen) 01/14/2014 11:25 PM EDT 01/14/2014 11:35 PM EDT Narrative Resulting Agency Comment Spec In Lab Nilay Templeton MD CHEMISTRY ORDERABLES Performing Organization Address [facility] Co de Phone Number [facility] JULIANENNIUM * Electrolytes panel (01/14/2014 11:25 PM [...] (Bezet) 394 ms MUSE SYSTEM Calculated P Strawn 49 degrees MUSE SYSTEM Calculated R Strawn 60 degrees MUSE SYSTEM Calculated T Strawn 27 degrees MUSE SYSTEM INTERPRETATION Normal sinus rhythm Normal ECG No previous ECGs available I personally reviewed the tracing and edited the fellows interpretation Confirmed by fellow MD Miguel Angel, Bhavin Aguirre ([id number]) on 01/15/2014 11:20:19 AM Confirmed by MD [...] ineffective documented in this encounter Care Teams Art Preparator Relationship Specialty Start Date End Date Chucho De León MD [address] [place] [id number] PCP - General 09/01/10 02/23/24 documented as of this encounter
--- OUTSIDE RECORDS SUMMARY | 2024-11-17 17:55 | XMS_ITS | Encounter Summary ---
Author Organization [facility] Address [address] [place] [address] Care Team Providers Care Publications Editor Name Role Phone Yohan Hendricks MD Primary Care Provider Unavail able Encounter Details Date Type Department Care Team (Latest Contact Info) Description 02/01/2022 Lab Requisition [facility] Pathology & Laboratory Medicine - [facility] [address] [place] [address] Karan Romo [address] [place] [id number] Encounter for screening for infections with a [...] gonorrhoeae Result Negative Negative 02/02/2022 14:59 EDT [facility] Chlamydia trachomatis Result Negative Negative 02/02/2022 14:59 EDT [facility] Urine URINE / Unknown 02/01/2022 1 5:15 EDT 02/01/2022 21:41 EDT Narrative [facility] - 02/02/2022 14:59 EDT A first catch urine specimen is acceptable for detection of Gonorrhea and Chlamydia, but might detect up to 10% fewer infections when compared with vaginal and endocervical swab samples. us Karan Romo MICROBIOLOGY - GENERAL ORDERABL ES Final Result [facility] [address] [place] [id number] documented in this encounter Visit Diagnoses Diagnosis Encounter for screening for infections with a predominantly sexual mode of transmission Encounter for screening for other infectious and parasitic diseases documented in this encounter Care Teams Publications Editor Relationship Specialty Start Date End Date Yohan Hendricks MD PCP - General 08/20/15 documented as of this encounter
--- OUTSIDE RECORDS SUMMARY | 2024-11-17 17:55 | XMS_ITS | Encounter Summary ---
Author Organization [facility] Address [address] [place] [address] Care Team Providers Care Funeral Home Associate Name Role Phone Yohan Hendricks MD Primary Care Provider Unavail able Encounter Details Date Type Department Care Team (Late st Contact Info) Description 01/03/2023 Lab Requisition [facility] Pathology & Laboratory Medicine - [address] [address] Oleg Celeste MD [address] [place] [address], [address] [place] [address] Malignant melanoma of skin, unspecified [...] explore management options, if applicable. 01/05/2023 13:56 [facility] Final Diagnosis A. SKIN [...] lymph node identified. See comment. 01/05/2023 13:56 [facility] Diagnosis Comment The patient's prior biopsy ([id number]) is reviewed in the examination of this case. The excisional specimen shows residual melanoma, extending to a depth of 0.4 mm (less than the biopsy). Ulceration is not seen. The tissue submitted as sentinel lymph node shows skeletal muscle and fibroadipose tissue without lymph node tissue identified. 01/05/2023 13:56 [facility] Attestation There was significant resident/fellow involvement in the diagnostic evaluation of this case. By the signature below, the attending physician certifies that they have personally conducted a gross and/or microscopic examination of the described specimens and rendered or confirmed the above diagnosis. 01/05/2023 13:56 [facility] at [address] OF [...] assigned (no nodes submitted or found) Comment(s): ?[id number] 01/05/2023 13:56 [facility] Clinical History Not listed 01/05/2023 13:56 [facility] Gross Description A. Received in [...] patient (initials M, H) and sentinel node [id number] is a piece of soft brown/cano fibrous tissue previously inked blue with attached fibrofatty adipose tissue that measures 4.6 x 1.3 x 0.7 cm. The node is serially sectioned into 24 sections submitted entirely in B1-B9. No obvious lymph node is identified. AASHISH BOWLES DO 01/04/2023 14:42 01/05/2023 13:56 EDT [facility] Resident/Gabe w: Aashish Bowles DO 01/05/2023 13:56 EDT [facility] Performing Lab [facility] 01/05/2023 13:56 EDT [facility] Scanned Images 01/05/2023 13:56 EDT [facility] Tissue SENTINEL NODE / Unknown 12/31/2022 14:38 EDT 01/03/2023 18:12 EDT Tissue specimen (specimen) SENTINEL LYMPH NODE / Unknown 12/31/2022 14:38 EDT 01/03/2023 18:12 EDT us Oleg Celeste MD PATHOLOGY ORDERABLES Final Resu lt [facility] [address] [place] [address] documented in this encounter Visit Diagnoses Diagnosis Malignant melanoma of skin, unspecified (HCC-CMS) Opioid dependence, uncomplicated (HCC-CMS) documented in this encounter Care Teams Funeral Home Associate Relationship Specialty Start Date End Date Yohan Hendricks MD PCP - General 08/20/15 documented as of this encounter
--- OUTSIDE RECORDS SUMMARY | 2024-11-17 17:55 | XMS_ITS | Clinical Summary ---
Author Organization [facility] Address [address] [place] [address] Care Team Providers Care Environmental Studies Professor Name Role Phone Pcp, No Unavailable Unavailable [...] of Treatment Not on file Care Teams Environmental Studies Professor Relationship Specialty Start Date End Date Pcp, No PCP - Generic [facility] PCP 04/20/19
--- OUTSIDE RECORDS SUMMARY | 2024-11-17 17:55 | XMS_ITS | Encounter Summary ---
Author Organization [facility] Address [address] [place] [address] Care Team Providers Care Neighborhood Worker Name Role Phone Yohan Hendricks MD Primary Care Provider Unavail able Encounter Details Date Type Department Care Team (Late st Contact Info) Description 04/19/2018 Orders Only [facility]patient [facility] - [facility] [address] [place] [address] [facility] [address] [place] [address] Social History Tobacco Use Types Packs/Day Years [...] 04/19/2018 documented in this encounter Care Teams Neighborhood Worker Relationship Specialty Start Date End Date Yohan Hendricks MD PCP - General 08/20/15 documented as of this encounter
--- OUTSIDE RECORDS SUMMARY | 2024-11-17 17:55 | XMS_ITS | Encounter Summary ---
Author Organization [facility] Address [address] [place] [address] Care Team Providers Care Military Communications Specialist Name Role Phone Yohan Hendricks MD Primary Care Provider Unavail able Encounter Details Date Type Department Care Team (Late st Contact Info) Description 04/19/2018 Results Only [facility] [phone] Sona Pierson MD [address] [place] [address] [address] [place] [address] Social History Tobacco Use Types [...] Priority Date/Time Associated Diagnosis Comments MISCELLANEOUS TEST, UTICA Routine 04/19/2018 17:11 EDT MISCELLANEOUS TEST, UTICA Routine 04/19/2018 17:11 EDT FUNGUS CULTURE/SMEAR Routine [...] in this encounter Results * MISCELLANEOUS TEST, UTICA (04/19/2018 17:11 EDT) Test Name Herpes Simplex Virus, Molecular Detection, PCR, Vitreous Fluid 04/19/2018 18:33 EDT [facility] Result Testing not performed. 04/19/2018 18:35 EDT [facility] Comment: Sample quantity insufficient for testing. Credit Issued Ref Range Testing not performed. 04/19/2018 18:35 EDT [facility] Comment: Sample quantity insufficient for testing. Credit Issued Ref Lab Testing not performed. 04/19/2018 18:35 EDT [facility] Comment: Sample quantity insufficient for testing. Credit Issued TOPOGRAPHY UNKNOWN / Unknown 04/19/2018 17:11 EDT 04/19/2018 18:33 EDT us Sona Pierson MD CHEMISTRY & BLOOD GAS ORD ERABLES Final Result [facility] [address] [place] [address] * MISCELLANEOUS TEST, UTICA (04/19/2018 17:11 EDT) Test Name Toxoplasma gondii, Molecular Detection, PCR 04/19/2018 18:31 EDT [facility] Result See Pathology Scanned Report in PRISM. 04/23/2018 7:40 EDT [facility] Ref Range FINAL 04/23/2018 7:40 EDT [facility] Ref Lab [facility] 04/23/2018 7:40 EDT [facility] TOPOGRAPHY UNKNOWN / Unknown 04/19/2018 17:11 EDT 04/19/2018 18:28 EDT us Sona Pierson MD CHEMISTRY & BLOOD GAS ORD ERABLES Final Result Performing Organization Address City/[facility] Co de Phone Number [facility] [address] [place] [address] * FUNGUS CULTURE/SMEAR, OTHER (04/19/2018 17:11 EDT) Fungal Smear No fungi seen 04/20/2018 12:02 EDT [facility] Result No fungi isolated 04/26/2018 9:22 EDT [facility] VITREOUS HUMOR SPECIMEN / Unknown 04/19/2018 17:11 EDT 04/19/2018 18:28 EDT Comment:Right~Eye~.4mL~Speci men submitted in a syringe us Sona Pierson MD MICROBIOLOGY - GENERAL OR DERABLES Final Result Performing Organization Address [facility] Co de Phone Number [facility] [address] [place] [address] * TB BY QUANTIFERON, B (04/19/2018 15:22 EDT) TB Interpretation Negative Negative 018 12:23 EDT [facility] Comment: Reference Range: Negative Results were obtained with the Cellestis QuantiFERON-TB Gold RIP. TB Antigen Value 0.00 IU/mL 04/21/20 18 12:23 EDT [facility] Comment: This is a [...] ORD ERABLES Final Result Performing Organization Address [facility] Co de Phone Number [facility] [address] [place] [address] * FUNGUS CULTURE, BLOOD (04/19/2018 15:21 EDT) Pathologist [facility] Result Sample quantity insufficient for testing. Please submit an Adult Isolater Tube 04/20/2018 12:03 EDT [facility] Result Testing not performed. 04/20/2018 12:03 EDT [facility] Result Credit Issued 04/20/2018 12:03 EDT [facility] BLOOD SPECIMEN / Unknown 04/19/2018 15:21 EDT 04/19/2018 16:57 EDT Comment:Left~Hand~PEDIATRIC ISOLATOR~Total volume of blood collected:~1 ml us Sona Pierson MD MICROBIOLOGY - GENERAL OR DERABLES Final Result Performing Organization Address [facility] Co de Phone Number [facility] [address] [place] [address] * SYPHILIS SEROLOGY (04/19/2018 15:20 EDT) Pathologist [facility] Syphilis Serology Negative 04/20/2018 11:26 EDT [facility] Comment:Reference Range: Neg ative BLOOD SPECIMEN / Unknown 04/19/2018 15:20 EDT 04/19/2018 16:14 EDT us Sona Pierson MD IMMUNOLOGY AND SEROLOGY O RDERABLES Final Result Performing Organization Address [facility]/ZIP Co de Phone Number [facility] [address] [place] [address] * LYSOZYME (04/19/2018 15:20 EDT) Lysozyme 5.2 2.7 - 9.4 mcg/mL 04/21/2018 12:35 EDT [facility] Comment: (Note) . ADDITIONAL INFORMATION This test was developed and its performance characteristics determined by [facility] in a manner consistent with CLIA requirements. This test has not been cleared or approved by the U.S. Food and Drug Administration. Performed or Referred by: [facility], [address] [place] [address], Lab Dir: Everton Lopez II, M.D., Ph.D. BLOOD SPECIMEN / Unknown 04/19/2018 15:20 EDT 04/19/2018 16:14 EDT Sona Pierson MD CHEMISTRY & BLOOD GAS ORD ERABLES Final Result Performing Organization Address [facility] Co de Phone Number [facility] [address] [place] [address] * HIV 1/2 ANTIGEN AND ANTIBODY, 4TH GENERATION (04/19/2018 15:20 EDT) Pathologist [facility] HIV 1/2 Antibody Negative Negative 04/20/20 18 11:07 EDT [facility] Comment: Fourth generation assay performed on the Siemens [employer]aur. If acute HIV-1 infection is suspected in a high risk patient, submit plasma specimen for HIV-1 RNA quantification test. The results of this assay can be falsely lowered due to the consumption of Biotin. BLOOD SPECIMEN / Unknown 04/19/2018 15:20 EDT 04/19/2018 16:14 EDT us Sona Pierson MD IMMUNOLOGY AND SEROLOGY O RDERABLES Final Result Performing Organization Address [facility] Co de Phone Number [facility] [address] [place] [address] * BARTONELLA ANTIBODY PANEL GM (04/19/2018 15:20 EDT) Bartonella Henselae IgG <1:128 <1:128 titer 04/21/2018 6:52 EDT [facility] Bartonella Henselae IgM >=1:20 <1:20 titer 04/21/2018 6:52 EDT [facility] Comment: (Note) Results suggest recent infection. Bartonella Pearce IgG <1:128 <1:128 titer 04/21/2018 6:52 EDT [facility] Bartonella Pearce IgM <1:20 <1:20 titer 04/21/2018 6:52 EDT [facility] Comment: (Note) . ADDITIONAL INFORMATION This test was developed and its performance characteristics determined by [facility] in a manner consistent with CLIA requirements. This test has not been cleared or approved by the U.S. Food and Drug Administration. Performed by: [facility]: [facility] [address], [place] [address], Lab Dir: Everton Lopez II, M.D., Ph.D. BLOOD SPECIMEN / Unknown 04/19/2018 15:20 EDT 04/19/2018 16:14 EDT Sona Pierson MD IMMUNOLOGY AND SEROLOGY O RDERABLES Final Result [facility] [address] [place] [address] * ACETAMINOPHEN (04/19/2018 15:20 EDT) Acetaminophen <10.0 ug/ml 04/19/2018 16:51 EDT [facility] Comment: Therapeutic range: ??10 - 30 ug/mL Possible toxicity: ??150 - 200 ug/mL Probable toxicity: ??>200 ug/mL BLOOD SPECIMEN / Unknown 04/19/2018 15:20 EDT 04/19/2018 16:14 EDT Sona Pierson MD CHEMISTRY & BLOOD GAS ORD ERABLES Final Result [facility] [address] [place] [address] * FUNGUS CULTURE, BLOOD (04/19/2018 15:19 EDT) Result Sample quantity insufficient for testing. Please submit Adult Isolater Tube 04/20/2018 12:02 EDT [facility] Result Testing not performed. 04/20/2018 12:02 EDT [facility] Result Credit Issued 04/20/2018 12:02 EDT [facility] BLOOD SPECIMEN / Unknown 04/19/2018 15:19 EDT 04/19/2018 16:56 EDT Comment:Right~Hand~PEDIATRIC ISOLATOR~Total volume of blood collected:~1 ml us Sona Pierson MD MICROBIOLOGY - GENERAL OR DERABLES Final Result Performing Organization Address [facility] Co de Phone Number [facility] [address] [place] [address] * BACTERIAL CULTURE, BLOOD (04/19/2018 15:19 EDT) Result No growth 04/25/2018 6:49 EDT [facility] BLOOD SPECIMEN / Unknown 04/19/2018 15:19 EDT 04/19/2018 16:54 EDT Comment:Right~Hand~AEROBIC B LOOD CULTURE BOTTLE~Volume of blood collected may not be adequate for detection of bacteremia/septicemia.~Total volume of blood collected:~5 ml us Sona Piesron MD MICROBIOLOGY - GENERAL OR DERABLES Final Result [facility] [address] [place] [address] * BACTERIAL CULTURE, BLOOD (04/19/2018 15:19 EDT) Result No growth 04/25/2018 6:49 EDT [facility] BLOOD SPECIMEN / Unknown 04/19/2018 15:19 EDT 04/19/2018 16:53 EDT Comment:Left~Hand~PEDIATRIC BLOOD CULTURE BOTTLE~Volume of blood collected may not be adequate for detection of bacteremia/septicemia.~Total volume of blood collected:~1.5CC us Sona Pierson MD MICROBIOLOGY - GENERAL OR DERABLES Final Result [facility] [address] [place] [address] documented in this encounter Visit Diagnoses Not on filedocumented in this encounter Care Teams Military Communications Specialist Relationship Specialty Start Date End Date Yohan Hendricks MD PCP - General 08/20/15 documented as of this encounter
--- OUTSIDE RECORDS SUMMARY | 2024-11-17 17:55 | XMS_ITS | Encounter Summary ---
Author Organization [facility] [place] [address] Care Team Providers Care Director Skills Name Role Phone Sebastian Wills MD Primary Care Provider [phone] Encounter Details Date Type Department Care Team [...] Type Associated Problems Recent Progress Patient-Stated? Author [facility] Medication Compliance and Understanding Patient Facing Action Plan No Ani Eldridge, [facility] Note: Attain undetectable viral load by end of Mavyret treatment and SVR12. documented as of this encounter Visit Diagnoses Not on filedocumented in this encounter Care Teams Director Skills Relationship Specialty Start Date End Date Sebastian Wills MD [address] [place] [address] PCP - General 09/01/10 02/23/24 documented as of this encounter
--- OUTSIDE RECORDS SUMMARY | 2024-11-17 17:55 | XMS_ITS | Encounter Summary ---
[facility] [place] [address] Care Team Providers Care Anesthesiologist Name Role Phone Sebastian Wills MD Primary Care Provider [phone] Encounter Details Date Type Department Care Team (Late st Contact Info) Description 11/25/2017 Orders Only Gastroenterology at [facility] [place] [address] Cally Nunez, machinist instructor hepatitis C without hepatic coma Social History [...] placed to patient; [facility]. Lab order faxed. documented in this encounter Plan of Treatment Not on file documented as of this encounter Visit Diagnoses Diagnosis Chronic hepatitis C without hepatic coma documented in this encounter Care Teams Anesthesiologist Relationship Specialty Start Date End Date Sebastian Wills MD [address] [place] [address] PCP - General 09/01/10 02/23/24 documented as of this encounter
--- OUTSIDE RECORDS SUMMARY | 2024-11-17 17:55 | XMS_ITS | Referral Summary ---
Author Organization [facility] Address [address] [place] [address] Care Team Providers Care Modern Dancer Name Role Phone Pcp, No Unavailable Unavailable [...] of Treatment Not on file Care Teams Modern Dancer Relationship Specialty Start Date End Date Pcp, No PCP - Generic [facility] PCP 04/20/19
--- OUTSIDE RECORDS SUMMARY | 2024-11-17 17:55 | XMS_ITS | Encounter Summary ---
Author Organization [facility] Address [facility] [place] [address] Care Team Providers Care Tobacco Feeder Catcher Name Role Phone Sebastian Wills MD Primary Care Provider [phone] Encounter Details Date Type Department Care Team (Late st Contact Info) Description 12/21/2017 Notes Only Pharmacy at [facility] [place] [id number] Reena Otero, DRAMATIC AGENT Social History Tobacco Use Types Packs/Day Years [...] Reena Carrion - 12/21/2017 12:48 PM EDT [facility] Special[facility] Pharm[facility] Prior Authorization Medication: Mavyret (8 weeks) RX [place] Insurance Phone #: [phone] Insurance Fax #: [phone] ID #: [id number] Spoke With: DOTTIE Reference #: Date DOTTIE Sent: 12/21/17 Approval Date: Approved through 02/20/2018 Pharmacy: Pharmacy Notes: DOTTIE approved, $3 co-pay. We will reach out to the patient for initial consult and medication delivery. Per [place], 1st fill: 42 tabs/14 d/s, 2nd fill: 42 tabs/14 d/s, 3rd fill: 84 tabs/28 d/s. documented in this encounter Plan of Treatment Not on file documented as of this encounter Visit Diagnoses Not on filedocumented in this encounter Care Teams Tobacco Feeder Catcher Relationship Specialty Start Date End Date Sebastian Wills MD [address] [place] [address] PCP - General 09/01/10 02/23/24 documented as of this encounter
--- OUTSIDE RECORDS SUMMARY | 2024-11-17 17:55 | XMS_ITS | Encounter Summary ---
Author Organization [facility] [place] [address] Care Team Providers Care Lens Silverer Name Role Phone Sebastian Wills MD Primary Care Provider [phone] Reason for Visit * Reason Comments GI Problem Encounter Details Date Type Department Care Team (Late st Contact Info) Description 05/07/2014 3:00 PM EDT Office Visit [place] [phone] Marisel Saenz APRN HCV (hepatitis C virus), [...] this encounter Progress Notes * Marisel Saenz, PIPE INSULATOR HELPER - 05/07/2014 3:07 PM EDT Subjective: Patient ID: Carlene Augustine is a 33 y.o. female. HPI Ms. Augustine is a very pleasant 33 year old white female seen today at [facility] in consultation for acute Hepatitis C infection. She tells me that in December she became very ill with nausea, vomiting, weakness, pale-colored stoolsand jaundice. She presented to PCP's office and was subsequently referred to [facility] ER. She was diagnosed with acute hepatitis C. She admits to using intranasal drugs from 6229-7612 and IV drugs from 2009 through mid-March 2014. She buys suboxone off the street in order to stay clean. She tells me she is on the waiting list for suboxone clinic in [facility]. She presents today with multiple complaints including fatigue, night sweats, RUQ abd pressure, skinchanges, right ankle edema. [facility] 2012- 01/09/2014 Hep Bs Ab 4.05 Hep A Ab Tot Negative Hep Bs Antigen Non-reactive Hep B Core Negative Hep C Ab Reactive HIV 1&2 Negative BMP WNL PT/INR 9.6/1.0 TPro/Albumin 7.3/3.5 T-Bili 9.52 AST/ALT 1858/2086 Lipase 149 01/09/14 -- Abdominal Ultrasound (done at [facility]) The visualized liver parenchyma is normal [...] TISHA negative SMA negative CMV IgM negative [place] Screen negative HCV RNA 2,365,479 HCV genotype [...] Skin: Positive for color change (jaundice in Gbiro-agz-Ehtvg 2014) and rash (feels like her freckles [...] old white female who presents today [facility] for acute hepatitis C. 1. Acute Hepatitis C, genotype 1b. She presented 01/15/14 to [facility] with marked transaminitis and jaundice thought to be acute hepatitis C. Her risk factors for viral acquisition include intranasal drug use 7253-3200 and IV drug use 2009- mid-March 2014. [...] on waiting list for Suboxone Program in [facility]. Strongly encouraged her to pursue this. All [...] HCV Quant Sigifredo (05/07/2014 4:51 PM EDT) [facility] HCV Viral Load <43 IU/mL [facility] HCV Viral Load Result: < 43(Target not [...] This assay is being performed in the [facility] Molecular Pathology Laboratory. Marcelo Carmichael, Ph.D. Director, Molecular Pathology [facility] Comment: [VERIFIED DATE]05.09.14 Verified By:Kendra Walter I (Electronic Signature) Blood specimen (specimen) 05/07/2014 4:51 PM EDT 05/08/2014 8:26 AM EDT Narrative Resulting Agency Comment Spec In Lab Ran Pelayo MD HEMATOLOGY ORDERABL ES [facility] * Differential, Automated (05/07/2014 4:51 PM EDT) [facility] Neutrophil % 51.1 34.0 - 71.0 [...] Lab Ran Pelayo MD HEMATOLOGY ORDERABL ES [facility]ERDANIEL JORDANENNIUM * (ABNORMAL) Hemogram (05/07/2014 4:51 PM EDT) Pathologist [facility] White Blood Cell 7.6 4.0 - 10.0 [...] metabolic panel (non-fasting) (05/07/2014 4:51 PM EDT) [facility] Glucose 117 60 - 199 mg/dL CERNER MILLENNIUM Comment:Diabetes: >=200 mg/d L plus symptoms Blood Urea Nitrogen 13 8 - 18 mg/dL CERNER MILLENNIUM Creatinine 0.78 0.70 - 1.20 mg/dL [facility]ERNER MILLENNIUM Comment: Please note that the pediatric reference intervals supplied above were not validated at [facility]. Results from pediatric patients should be interpreted [...] the following links into your internet browser. [email or web address] Blood specimen (specimen) 05/07/2014 4:51 PM EDT 05/07/2014 4:55 PM EDT Narrative Resulting Agency Comment Spec In Lab Ran Pelayo MD CHEMISTRY ORDERABLE S CERNER MILLJAMIIUM documented in this encounter Visit Diagnoses Diagnosis HCV (hepatitis C virus), without hepatic coma- Primary documented in this encounter Care Teams Lens Silverer Relationship Specialty Start Date End Date Sebastian Wills MD [address] [place] [address] PCP - General 09/01/10 02/23/24 documented as of this encounter
--- OUTSIDE RECORDS SUMMARY | 2024-11-17 17:55 | XMS_ITS | Encounter Summary ---
Author Organization [facility] [address] Care Team Providers Care Circular Distributor Name Role Phone Sebastian Wills MD Primary Care Provider [phone] Reason for Visit * Diagnostic Test (Routine) - Closed Specialty Diagnoses / Procedures Referred By Contac t Referred To Contact Radiology Diagnoses Malignant melanoma, unspecified site Procedures NM PET CT Standard Plus Extremities and Head Ruby Leone DO [address] [place] [address] [address] [place] [address] [place] [address] Referral ID Status Reason Start Date Expiration Date V isits Requested Visits Authorized [id number] Closed Specialty Service Requested 11/22/2022 05/22/2024 1 1 Encounter Details Date Type Department Care Team (Latest Contact Info) Description 12/07/2022 1:38 PM EST - 12/07/2022 11:59 PM [facility] Hospital Encounter [place] [address] [address] Leone [address] [place], [place] [id number] Discharge Disposition: Home Social History Tobacco Use [...] Action Plan No Ani Eldridge, [facility] Note: Attain undetectable viral load by [...] POC 120 65 - 199 mg/dL [facility] Comment: Supplemental ranges: <140 mg/dL before meals <180 mg/dL all other times of the day Blood 12/07/2022 1:52 PM EST 12/07/2022 1:52 PM EST Ruby Leone DO POINT OF CARE TEST O RDERABLES [facility] [place] [address] documented in this encounter Visit Diagnoses Not on filedocumented in this encounter Care Teams Circular Distributor Relationship Specialty Start Date End Date Sebastian Wills MD [address] [place] [address] PCP - General 09/01/10 02/23/24 documented as of this encounter
--- OUTSIDE RECORDS SUMMARY | 2024-11-17 17:55 | XMS_ITS | Encounter Summary ---
Author Organization [facility] [place] [address] Care Team Providers Care Microsoft Developer Name Role Phone Sebastian Wills MD Primary Care Provider [phone] Reason for Visit * Reason Comments Medication Management Encounter Details Date Type Department Care Team (Late st Contact Info) Description 03/20/2018 Specialty Pharm[place] [phone] Ani Eldridge [facility] Social [...] Talita Comprehensive Medication Management (CMM) Carlene Augustine [address] [place] [address] Telephone Information: Work Phone Not on file. [...] Known Allergies Medication Reconciliation Discrepancies (compared to [facility] med list) -none Medication Adherence Patient reported [...] beneficiary Provider: plan sponsor pharmacist Visit Type: [facility] Follow-up Method of Contact: by telephone Cognitive [...] are already at her desired location of [facility]. Carlene reports that she has been [...] were made at the appointment and that [facility] isproviding recommendations (summary located at [...] on filedocumented in this encounter Care Teams Microsoft Developer Relationship Specialty Start Date End Date Sebastian Wills MD [address] [place] [address] PCP - General 09/01/10 02/23/24 documented as of this encounter
--- OUTSIDE RECORDS SUMMARY | 2024-11-17 17:55 | XMS_ITS | Encounter Summary ---
[facility] [place] [address] Care Team Providers Care Field Crop Ii Farmworker Name Role Phone Sebastian Wills MD Primary Care Provider [phone] Encounter Details Date Type Department Care Team (Late st Contact Info) Description 09/23/2014 Telephone [place] [phone] Edel Carrillo Social History Tobacco Use Types [...] on filedocumented in this encounter Care Teams Field Crop Ii Farmworker Relationship Specialty Start Date End Date Sebastian Wills MD [address] [place] [address] PCP - General 09/01/10 02/23/24 documented as of this encounter
--- OUTSIDE RECORDS SUMMARY | 2024-11-17 17:55 | XMS_ITS | Encounter Summary ---
Author Organization [facility] Address [address] [place] [address] Care Team Providers Care Medical Services Assistant Name Role Phone Yohan Hendricks MD Primary Care Provider Unavail able Encounter Details Date Type Department Care Team (Latest Contact Info) Description 04/19/2018 14:52 EDT - 04/19/2018 23:[address] [facility] [address] [place] [address] Sona Pierson MD [address] [place] [phone] Discharge Disposition: Auto Discharge Social History [...] on filedocumented in this encounter Care Teams Medical Services Assistant Relationship Specialty Start Date End Date Yohan Hendricks MD PCP - General 08/20/15 documented as of this encounter
--- OUTSIDE RECORDS SUMMARY | 2024-11-17 17:55 | XMS_ITS | Encounter Summary ---
Author Organization [facility] Address [address] [place] [address] Care Team Providers Care Production Engineer Track Name Role Phone Pcp, No Unavailable Unavailable Reason for Visit * Reason Comments Cellulitis Encounter Details Date Type Department Care Team (Late st Contact Info) Description 04/20/2019 11:08 PM EDT - 04/20/2019 11:48 PM EDT Emergency [facility] Emergency Department [address] [place] [address] [place] [phone] Venecia Becerra MD [address] [place] [address] Discharge Disposition: Home or Self Care Social [...] Status No 04/20/2019 11:36 PM EDT Felecia oRsen RN Active * Are you blind or [...] be sent through Care Everywhere. * Cellulitis (Citizen [place]) * SULFAMETHOXAZOLE AND TRIMETHOPRIM ([place]) * CEPHALEXIN ([place]) documented in this encounter Medications at Time [...] RN) documented in this encounter Care Teams Production Engineer Track Relationship Specialty Start Date End Date Pcp, No PCP - Generic [facility] PCP 04/20/19 documented as of this encounter
--- OUTSIDE RECORDS SUMMARY | 2024-11-17 17:55 | XMS_ITS | Encounter Summary ---
Author Organization [facility] [place] [address] Care Team Providers Care Community Advocate Name Role Phone Sebastian Wills MD Primary Care Provider [phone] Reason for Visit * Reason Comments Medication Management Encounter Details Date Type Department Care Team (Late st Contact Info) Description 01/20/2018 Specialty [place] [phone] Ani Eldridge [facility] Social History Tobacco Use Types Packs/Day [...] this encounter Progress Notes * Ani Ignacio [facility] - 01/20/2018 10:11 AM EDT Clinical Management Plan: Mavyret 3 day follow-up Specialty Pharmacy Consultation; Ani Ignacio Talita Comprehensive Medication Management (CMM) Carlene Augustine [address] [place] [address] Telephone Information: Work Phone Not on file. [...] Known Allergies Medication Reconciliation Discrepancies (compared to [facility] med list) -none Medication Adherence Patient reported [...] beneficiary Provider: plan sponsor pharmacist Visit Type: [facility] Follow-up Method of Contact: by [...] preventative care discussed, reminder to refill or hop picker medication discussed, self-monitoring discussed, timing of [...] preventative care discussed, reminder to refill or hop picker medication discussed, self-monitoring discussed, timing of [...] Understanding Patient Facing Action Plan Ani Feldman [facility] Note: Attain undetectable viral load by end of Mavyret treatment and SVR12. documented as of this encounter Visit Diagnoses Not on filedocumented in this encounter Care Teams Community Advocate Relationship Specialty Start Date End Date Sebastian Wills MD [address] [place] [address] PCP - General 09/01/10 02/23/24 documented as of this encounter
--- OUTSIDE RECORDS SUMMARY | 2024-11-17 17:55 | XMS_ITS | Encounter Summary ---
Author Organization [facility] [place] [address] Care Team Providers Care Inspector Poising Name Role Phone Freda Wood APRN Primary Care Provider [phone] Encounter Details Date Type Department Care Team (Late st Contact Info) Description 01/27/2024 [place] [phone] Gina Macias Social History Tobacco Use Types [...] Type Associated Problems Recent Progress Patient-Stated? Author [facility] Medication Compliance and Understanding Patient Facing Action Plan No Ani Eldridge, [facility] Note: Attain undetectable viral load by end of Mavyret treatment and SVR12. documented as of this encounter Visit Diagnoses Not on filedocumented in this encounter Care Teams Inspector Poising Relationship Specialty Start Date End Date Freda Wood APRN [address] [place] [address] PCP - General Family Medicine 02/24/24 documented as of this encounter
--- OUTSIDE RECORDS SUMMARY | 2024-11-17 17:55 | XMS_ITS | Encounter Summary ---
Author Organization [facility] Address [address] [place] [address] Care Team Providers Care Instructional Support Specialist Name Role Phone Yohan Hendricks MD Primary Care Provider Unavail able Encounter Details Date Type Department Care Team (Late st Contact Info) Description 12/22/2020 Lab Requisition [facility] Pathology & Laboratory Medicine - [facility] [address] [place] [address] Elizabeth Andrade MD [address] [place] [address] [address] [place] [address] Encounter for other general examination [...] from HPV types 16,18,31,33,35,39,45,51,52,56,58,59,66, and 68 by dobie worker mediated amplification. Papanicolaou smear specimen (specimen) CERVIX UTERI STRUCTURE / Unknown 12/19/2020 15:10 EST 12/30/2020 9:18 EDT us Elizabeth Andrade MD MICROBIOLOGY - GENERAL ORDERAB LES Final Result [facility] [address] [place] [address] * PAP TEST (12/19/2020 15:10 EST) Specimens A. Cervix and/or Endocervix , ThinPrep Imaging System with Manual Evaluation 01/02/2021 15:07 [facility] Specimen Adequacy Satisfactory for Evaluation - transformation zone component present 01/02/2021 15:07 [facility] General Categorization Negative for intraepithelial lesion or malignancy 01/02/2021 15:07 [facility] Attestation . 01/02/2021 15:07 [facility] at 1507 Clinical History See below 01/03/20 15:07 [facility] HPV The result for the Human Papillomavirus (HPV) Detection-High Risk Types is Negative. No E6 or E7 mRNA is detected from HPV types 16,18,31,33,35,39 ,45,51,52,56,58,5 9,66, and 68 by dobie worker mediated amplification.Nicole ting was performed on specimen [id number] and was resulted on 01/02/2021 1501 EDT by IGGY, LAB INSTRUMENT RESULTS IN 01/02/2021 15:[address] [facility] Performing Lab [facility] 01/02/2021 15:[address] [facility] Scanned Images 01/02/2021 15:07 [facility] Papanicolaou smear specimen (specimen) CERVIX UTERI STRUCTURE / Unknown 12/19/2020 15:10 EST 12/22/2020 12:07 EDT us Elizabeth Andrade MD PATHOLOGY ORDERABLES Final Res ult [facility] [address] [place] [address] documented in this encounter Visit Diagnoses Diagnosis Encounter for other general examination documented in this encounter Care Teams Instructional Support Specialist Relationship Specialty Start Date End Date Yohan Hendricks MD PCP - General 08/20/15 documented as of this encounter
--- OUTSIDE RECORDS SUMMARY | 2024-11-17 17:55 | XMS_ITS | Encounter Summary ---
[place] [address] Care Team Providers Care Vocational Rehabilitation Technician Name Role Phone Freda Wood APRN Primary Care Provider [phone] Encounter Details Date Type Department Care Team [...] Type Associated Problems Recent Progress Patient-Stated? Author [facility] Medication Compliance and Understanding Patient Facing Action Plan No Ani Eldridge, [facility] Note: Attain undetectable viral load by end of Mavyret treatment and SVR12. documented as of this encounter Visit Diagnoses Not on filedocumented in this encounter Care Teams Vocational Rehabilitation Technician Relationship Specialty Start Date End Date Freda Wood APRN [address] [place] [address] PCP - General Family Medicine 02/24/24 documented as of this encounter
--- OUTSIDE RECORDS SUMMARY | 2024-11-17 17:55 | XMS_ITS | Encounter Summary ---
Author Organization [facility] Address [facility] [place] [address] Care Team Providers Care Stitchdown Thread Laster Name Role Phone Sebastian Wills MD Primary Care Provider [phone] Reason for Visit * Reason Comments GI Problem * Consultation (Routine) - Specialty Diagnoses / Procedures Referred By Rosalia t Referred To Contact Gastroenterology Diagnoses Chronic hepatitis C Chronic hepatitis C Procedures Consult Kristy George APRN [address] [place] [address] [place] [address] [facility] [address] [place] [address] Referral ID Status Reason Start Date Expiration Date V isits Requested Visits Authorized [id number] Consult, Test & Treat PCP Updated and/or Approved 09/28/2017 09/28/2018 6 6 Encounter Details Date Type Department Care Team (Late st Contact Info) Description 11/24/2017 11:00 AM EST Office [place] [address] Josiah Lambert APRN [facility] [place] [address] Chronic hepatitis C without hepatic [...] HEPATOLOGY NEW PATIENT CONSULTATION Carlene Augustine 1980 [employer] SALESPERSON: JOSIAH LAMBERT APRN PCP: Sebastian Wills MD [...] back. She intermittently used IV drugs from 0178-5523. She has been abstinent from all drug [...] or tremor. Labs per PCP: HCV RNA: >1,203746 AST: 65 ALT: 93 TSH: 3.69 Fibroscan [...] Hepatitis C. She was previously seen at [facility] for acute Hepatitis C which she cleared [...] locally. Orders given. She will do at [facility]. - Submit prior auth for treatment of Hepatitis C with likely 8 weeks of Mavyret. - Blood work at week 4, end of treatment, and 3 and 6 months post treatment. - Follow up in clinic 3 months post treatment. Josiah Lambert APRN Section of Gastroenterology [place] [address] Copy: Sebastian Wills MD [address] / [facility] [address] documented in this encounter Plan of Treatment [...] without hepatic coma HIV SCREEN, 4TH GENERATION ([facility]/CGP/APD/NLH)PERF ORMABLE Routine 11/24/2017 1:00 PM EST Chronic [...] PM EST) Green Hold Sample in lab. [facility] Blood specimen (specimen) Venous Draw / Unknown 11/24/2017 1:00 PM EST 11/24/2017 3:20 PM EST Josiah Lambert APRN CHEMISTRY ORDERABL ES [facility] [place] [address] * HCV Genotype (11/24/2017 1:00 PM EST) [...] The HCV genotyping was carried out using [employer]?? HCVg Direct Test. Briefly, nucleic acid isolated from plasma is subjected to a multiplexed reverse transcriptase PCR followed by a direct analysis on the electrochemical Mistic[employer]ensor XT-8 detection system for the identification of HCV genotypes. The HCV genotypes/subtypes detected by this method include 1a, 1b, 2a/c, 2b, 3, 4, 5 and 6. Disclaimer: This test was developed and its performance characteristics determined by the [facility] [employer] [facility] at [facility]. It has not been cleared or approved by the FDA. The laboratory is regulated under CLIA as qualified to perform high-complexity testing. This test is used for clinical purposes. It should not be regarded as investigational or for research. [facility] Comment: [VERIFIED DATE]12.02.17 Verified By:Atul Soto (Electronic Signature) Blood specimen (specimen) 11/24/2017 1:00 PM EST 11/28/2017 11:48 AM EST Narrative Resulting Agency Comment Spec In Lab Josiah Lambert APRN LAB SEND OUT ORDER PERRI Performing Organization Address [facility] Co de Phone Number [facility] [place] [place] [address] * HIV Screen, 4th Generation (11/24/2017 1:00 PM EST) [facility] HIV Ab/Ag Screen Negative Negative [facility] Comment: This 4th Generation HIV [...] APRN CHEMISTRY ORDERABL ES Performing Organization Address [facility] Co de Phone Number [facility] [place] [address] * TSH (11/24/2017 1:00 PM EST) Thyroid Stimulating Hormone 1.41 0.27 - 4.20 mlU/ML [facility] Blood specimen (specimen) 11/24/2017 1:00 PM EST 11/24/2017 1:05 PM EST Narrative Resulting Agency Comment Spec In Lab Josiah Lambert COMMERCIAL LOAN UNDERWRITER CHEMISTRY ORDERABL ES Performing Organization Address [facility]/ZIP Co de Phone Number [facility] [place] [address] * Hepatitis B Core Antibody, Total (11/24/2017 1:00 PM EST) Hepatitis B Core Antibody Negative Negative [facility] Blood specimen (specimen) 11/24/2017 1:00 PM EST 11/24/2017 1:05 PM EST Narrative Resulting Agency Comment Spec In Lab Josiah Lambert COMMERCIAL LOAN UNDERWRITER CHEMISTRY ORDERABL ES Performing Organization Address [facility] Co de Phone Number [facility] [place] [address] * Hepatitis B Surface Antibody (11/24/2017 1:00 PM EST) Hepatitis B Surface Antibody, Quantitative 14.9 IU/L [facility] Comment: HepB Surface Ab Quant: Unvaccinated: < 8.5 IU/L Vaccinated: > 11.5 IU/L Hepatitis B Surface Antibody Positive [facility] Comment: Patient is considered to be immune to HBV infection. Expected Results: Vaccinated: Positive Unvaccinated: Negative Blood specimen (specimen) 11/24/2017 1:00 PM EST 11/24/2017 1:05 PM EST Narrative Resulting Agency Comment Spec In Lab Josiah Lambert COMMERCIAL LOAN UNDERWRITER CHEMISTRY ORDERABL ES Performing Organization Address [facility] Co de Phone Number [facility] [place] [address] * Hepatitis A Antibody, Total (11/24/2017 1:00 PM EST) Hepatitis A ANTIBODY, TOTAL Negative Negative [facility] Blood specimen (specimen) 11/24/2017 1:00 PM EST 11/24/2017 1:05 PM EST Narrative Resulting Agency Comment Spec In Lab Josiah Lambert SONAM CHEMISTRY ORDERABL ES Performing Organization Address [facility] de Phone Number [facility] [place] [address] * Hepatitis C RNA, quantitative, PCR (11/24/2017 1:00 PM EST) [facility] HCV Viral Load 685,920 IU/mL [facility] HCV Viral Load Result: [id number] IU/mL Indication for Study: Hepatitis C Infection Analysis: A quantitiative real time reverse transcriptase PCR assay was performed on extracted viral RNA for the purpose of quantification. Sample: plasma (1 mL minimum volume) Method: Sigifredo Amanda TaqMAN 48 HCV Linear Range: 15 IU/mL - 100,000,000IU/mL (95% CI) Note: This assay is being performed in the [facility] Molecular Pathology Laboratory. Marcelo Carmichael, Ph.D. Director, Molecular Pathology [facility] Comment: [VERIFIED DATE]11.29.17 Verified By:Deidre Sheriff (Electronic Signature) Blood specimen (specimen) 11/24/2017 1:00 PM EST 11/28/2017 11:48 AM EST Narrative Resulting Agency Comment Spec In Lab Josiah Castellanos Marti MASTERS MOLECULAR ORDERABL ES Performing Organization Address [facility] Co de Phone Number [facility] [place] [address] * (ABNORMAL) Comprehensive metabolic panel (non-fasting) (11/24/2017 1:00 PM EST) [facility] Glucose 126 65 - 199 mg/dL [facility] Comment:Diabetes: >=200 mg/d L plus symptoms Blood Urea Nitrogen 10 8 - 18 mg/dL [facility] Creatinine 0.75 0.70 - 1.20 mg/dL [facility] Sodium 134(L) 135 - 145 mmol/L [facility] Potassium 4.5 3.5 - 5.0 mmol/L [facility] Comment: Please note: ??Patients with WBC >100,000 may have falsely elevated Potassium levels. ??For accurate Potassium quantification in these patients send serum separator tube (gold top) for subsequent determinations. ??Contact the Clinical Chemistry Laboratory if there are any questions. Chloride 96(L) 98 - 107 mmol/L [facility] Carbon Dioxide 22 22 - 31 mmol/L [facility] Anion Gap 16(H) 5 - 15 mmol/L [facility] Calcium 9.6 8.5 - 10.5 mg/dL [facility] Protein, Total 7.9 6.1 - 8.0 gm/dL [facility] Albumin 3.9 3.2 - 5.2 gm/dL [facility] Aspartate Aminotransferase 55(H) 0 - 30 unit/L [facility] Alanine Aminotransferase 83(H) 0 - 30 unit/L [facility] Alkaline Phosphatase 77 40 - 104 unit/L [facility] Bilirubin, Total 0.5 0.2 - 1.3 mg/dL [facility] Est Glomerular Filtration Rate >60 >=60 [facility] Comment: The reported eGFR should be multiplied by 1.2 for patients. The MDRD is not an appropriate measure of renal function for patients with body mass extremes or in patients with acute kidney failure. [email or web address]/[email or web address] Blood specimen (specimen) 11/24/2017 1:00 PM EST 11/24/2017 1:05 PM EST Narrative Resulting Agency Comment Spec In Lab Josiah Lambert APRN CHEMISTRY ORDERABL ES [facility] [place] [address] * Prothrombin Time (11/24/2017 12:48 PM EST) Prothrombin Time 11.8 11.8 - 14.0 sec [facility] International Normalization Ratio 0.9 0.9 - 1.1 [facility] Comment: An INR <2.0 indicates [...] APRN HEMATOLOGY ORDERAB LES Performing Organization Address City/State/[facility] Co de Phone Number [facility] [place] [address] documented in this encounter Visit Diagnoses Diagnosis Chronic hepatitis C without hepatic coma documented in this encounter Care Teams Stitchdown Thread Laster Relationship Specialty Start Date End Date Sebastian Wills MD [address] [place] [address] PCP - General 09/01/10 02/23/24 documented as of this encounter
--- OUTSIDE RECORDS SUMMARY | 2024-11-17 17:55 | XMS_ITS | Encounter Summary ---
Author Organization [facility] Address [address] [place] [address] Care Team Providers Care Ice Resurfacing Machine Operators Name Role Phone Yohan Hendricks MD Primary Care Provider Unavail able Encounter Details Date Type Department Care Team (Late st Contact Info) Description 11/10/2022 Lab Requisition [facility] Pathology & Laboratory Medicine - [facility] [address] [place] [address] Freda Wood, FRUIT HARVESTER MACHINE OPERATOR [address] [place] [address] Disorder of the skin and [...] management options, if applicable. 11/11/2022 12:[address] [facility] Final Diagnosis A. SKIN OF NECK, LEFT, SHAVE BIOPSY: - Malignant melanoma, invasive. See synoptic and comment. - Breslow thickness: 0.5 mm - Ulceration: Not identified. - Invasive melanoma does not extend to biopsy edges were sections appear well oriented. - Melanoma in-situ extends to biopsy edge. 11/11/2022 12:45 [facility] Diagnosis Comment Process Designer slides of this case were reviewed at the intradepartmental consultation conference. These results were phoned to the office of Freda Wood NP. 11/11/2022 12:45 [facility] Attestation By the signature below, the attending physician certifies that they have 1) personally conducted a gross and/or microscopic examination of the described specimen(s), and/or personally interpreted the results of laboratory testing of the described specimen(s), and 2) personally rendered or confirmed the above diagnosis. 11/11/2022 12:45 [facility] at 1245 Synoptic [...] in association with intradermal nevus 11/11/2022 12:45 [facility] Microscopic Description Sections [...] more banal melanocytes are noted. 11/11/2022 12:45 [facility] Clinical History Skin lesion, abnormal; clinical diagnosis code: L98.9 11/11/2022 12:45 [facility] Gross Description A. Received in formalin labelled with proper patient identification (initials M, H) and left neck is a dark brown macule, 0.5 x 0.4 x 0.1 cm. The margin is inked. Bisected and entirely submitted in A1. DOTTIE GARZON(ASCP) 11/10/2022 8:57 11/11/2022 12:45 [facility] Performing Lab [facility] 11/11/2022 12:45 [facility] Scanned Images 11/11/2022 12:45 [facility] Tissue TISSUE SPECIMEN FROM SKIN / Unknown 11/09/2022 14:45 EST 11/10/2022 6:56 EST Freda Wood NP PATHOLOGY ORDERABLES Final R esult [facility] [address] [place] [address] documented in this encounter Visit Diagnoses Diagnosis Disorder of the skin and subcutaneous tissue, unspecified documented in this encounter Care Teams Ice Resurfacing Machine Operators Relationship Specialty Start Date End Date Yohan Hendricks MD PCP - General 08/20/15 documented as of this encounter
--- OUTSIDE RECORDS SUMMARY | 2024-11-17 17:55 | XMS_ITS | Encounter Summary ---
Author Organization [facility] Address [address] [place] [address] Care Team Providers Care Hydrogen Power Plant Manager Name Role Phone Yohan Hendricks MD Primary Care Provider Unavail able Encounter Details Date Type Department Care Team (Late st Contact Info) Description 04/19/2018 Phlebotomy Only [address] [address] Para Operator, Outpatient Social History Tobacco Use Types Packs/Day [...] on filedocumented in this encounter Care Teams Hydrogen Power Plant Manager Relationship Specialty Start Date End Date Yohan Hendricks MD PCP - General 08/20/15 documented as of this encounter
--- OUTSIDE RECORDS SUMMARY | 2024-11-17 17:55 | XMS_ITS | Encounter Summary ---
Author Organization [facility] [place] [address] Care Team Providers Care Pipe And Test Supervisor Name Role Phone Sebastian Wills MD Primary Care Provider [phone] Reason for Visit * Reason Comments Patient Education Encounter Details Date Type Department Care Team (Late st Contact Info) Description 01/05/2018 Specialty [place] [phone] Darius Lan RPH Social History Tobacco Use [...] RPH Comprehensive Medication Management (CMM) Carlene Augustine [address] [place] [phone] Telephone Information: Work Phone Not on file. [...] Known Allergies Medication Reconciliation Discrepancies (compared to [facility] med list) - none Medication Adherence Demonstrates [...] would like standing lab orders sent to [facility] in [place], [place]. She acknowledged directions to take with food and at same time every day. Patientagreed to dispose of hygienic devices after week four labs to prevent reinfection. She is most available for conversation on Mondays, Wednesdays, and Fridays as she works on these days where ample cell service is available. We now have an updated cell phone number of [phone] which does get minimal service while at home. She ahd no questions or concerns regarding therapy at the end of our encounter; no recommendations at this time. Patient understands no changes to current drug regimen were made at the appointment and that [facility] isproviding recommendations (summary located at top of note) for provider review and follow up. Darius Lan RPH 01/05/18 1:11 PM documented in this encounter Plan of Treatment Not on file documented as of this encounter Visit Diagnoses Not on filedocumented in this encounter Care Teams Pipe And Test Supervisor Relationship Specialty Start Date End Date Sebastian Wills MD [address] [place] [address] PCP - General 09/01/10 02/23/24 documented as of this encounter
--- OUTSIDE RECORDS SUMMARY | 2024-11-17 17:55 | XMS_ITS | Encounter Summary ---
[facility] [place] [address] Care Team Providers Care Welding Process Engineer Name Role Phone Sebastian Wills MD Primary Care Provider [phone] Encounter Details Date Type Department Care Team (Late st Contact Info) Description 01/16/2014 Orders [place] [address] Susan Posadas MD [facility] GENER[facility] [place] [address] HCV (hepatitis C virus), without hepatic coma [...] Primary documented in this encounter Care Teams Welding Process Engineer Relationship Specialty Start Date End Date Sebastian Wills MD [address] [facility] [place] [address] PCP - General 09/01/10 02/23/24 documented as of this encounter
--- OUTSIDE RECORDS SUMMARY | 2024-11-17 17:55 | XMS_ITS | Encounter Summary ---
Author Organization [facility] [place] [address] Care Team Providers Care Steel Post Installer Name Role Phone Sebastian Wills MD Primary Care Provider [phone] Encounter Details Date Type Department Care Team (Latest Contact Info) Description 05/07/2014 4:20 PM EDT - 05/07/2014 11:59 PM EDT Hospital [place] [phone] Gianni Montes De Oca MD HCV (hepatitis [...] unspecified documented in this encounter Care Teams Steel Post Installer Relationship Specialty Start Date End Date Sebastian Wills MD [address] [place] [address] PCP - General 09/01/10 02/23/24 documented as of this encounter
--- OUTSIDE RECORDS SUMMARY | 2024-11-17 17:55 | XMS_ITS | Referral Summary ---
Author Organization [facility] Address [address] [place] [address] Care Team Providers Care Scientific Systems Analyst Name Role Phone Yohan Hendricks MD Primary [...] Treatment Not on file Insurance MEDICAID [place] [facility]1983 Address: [address] [address] Care Teams Scientific Systems Analyst Relationship Specialty Start Date End Date Yohan Hendricks MD PCP - General 08/20/15
--- OUTSIDE RECORDS SUMMARY | 2024-11-17 17:55 | XMS_ITS | Encounter Summary ---
Author Organization [facility] Address [facility] [place] [address] Care Team Providers Care Director Of Services Name Role Phone Sebastian Wills MD Primary Care Provider [phone] Encounter Details Date Type Department Care Team (Late st Contact Info) Description 01/16/2018 [place] [phone] Ani Eldridge, [facility] Social History Tobacco Use Types Packs/Day [...] Notes * Telephone Encounter - Ani Ignacio [facility] - 01/16/2018 1:19 PM EDT Contacted patient [...] filedocumented in this encounter Care Teams Director Of Services Relationship Specialty Start Date End Date Sebastian Wills MD [address] [place] [address] PCP - General 09/01/10 02/23/24 documented as of this encounter
--- OUTSIDE RECORDS SUMMARY | 2024-11-17 17:55 | XMS_ITS | Encounter Summary ---
Author Organization [facility] Address [facility] [place] [address] Care Team Providers Care Field Engineer Name Role Phone Sebastian Wills MD Primary Care Provider [phone] Encounter Details Date Type Department Care Team (Late st Contact Info) Description 12/27/2017 Orders [place] [address] Yaima Kidd APRN [facility] [place] [address] Chronic hepatitis C without hepatic coma Social [...] coma documented in this encounter Care Teams Field Engineer Relationship Specialty Start Date End Date Sebastian Wills MD [address] [place] [address] PCP - General 09/01/10 02/23/24 documented as of this encounter
--- OUTSIDE RECORDS SUMMARY | 2024-11-17 17:55 | XMS_ITS | Encounter Summary ---
Author Organization [facility] [place] [address] Care Team Providers Care Student Driving Instructor Name Role Phone Sebastian Wills MD Primary Care Provider [phone] Reason for Visit * Reason Comments Medication Management Encounter Details Date Type Department Care Team (Late st Contact Info) Description 02/06/2018 Specialty [place] [phone] Ani Eldridge [facility] Social History Tobacco Use Types [...] Talita Comprehensive Medication Management (CMM) Carlene Augustine [address] [place] [phone] Telephone Information: Work Phone Not on file. [...] Known Allergies Medication Reconciliation Discrepancies (compared to [facility] med list) -none Medication Adherence Patient reported [...] beneficiary Provider: plan sponsor pharmacist Visit Type: [facility] Follow-up Method of Contact: by telephone Cognitive [...] preventative care discussed, reminder to refill or picking belt operator medication discussed, self-monitoring discussed, timing of medications [...] preventative care discussed, reminder to refill or picking belt operator medication discussed, self-monitoring discussed, timing of medications [...] she plans on getting these done at [facility] where she has standing orders. She also plans on swapping out her razors, toothbrushes, nail clippers at week four of treatment. She did not have any further questions at this time. Patient understands no changes to current drug regimen were made at the appointment and that [facility] isproviding recommendations (summary located at top of [...] on filedocumented in this encounter Care Teams Student Driving Instructor Relationship Specialty Start Date End Date Sebastian Wills MD [address] [place] [address] PCP - General 09/01/10 02/23/24 documented as of this encounter
--- OUTSIDE RECORDS SUMMARY | 2024-11-17 17:56 | XMS_ITS | Encounter Summary ---
Author Organization [facility] Address [address] [place] [address] Care Team Providers Care Mental Health Specialist Name Role Phone Yohan Hendricks MD Primary Care Provider Unavail able Encounter Details Date Type Department Care Team (Late st Contact Info) Description 09/16/2017 Results Only [facility]- [facility] [phone] Susna Saldana, STUDIO MANAGER [address] [place] [address] Social History Tobacco Use Types [...] ? CARLENE ZENDEJAS ? Accession #: ? [id number] ? : ? 1980 (Age: 37) ??F ?Collect Date: ? 09/16/2017 ? Location: ? [facility] ? Receive Date: ? 09/19/2017 ? Provider: SUSAN SALDANA STUDIO MANAGER Copy to: CHUCHO DE LEÓN MD ? Final Report SPECIMEN ADEQUACY ? Satisfactory for Evaluation - transformation zone component present GENERAL CATEGORIZATION ? Negative for Intraepithelial Lesion or Malignancy INTERPRETATION ? Trichomonas vaginalis present. Hormonal/Contracep tive status: Intrauterine device Infection History: Pos for HRHPV: 2008 Specimen/Source: ??Pap Test, Cervix, ThinPrep Imaging System with manual evaluation Document reviewed and electronically signed by: ? Vicenet Ovalle, CARLOS(ASCP) ? Report ??Date: 09/27/2017 14:16 HPV with Pap Test ? Date Ordered: ? 09/27/2017 ? Status: ?? Signed Out ?Date Complete: ? 09/28/2017 ? By: ??System Interface ? Date Reported: ? 09/28/2017 ? Interpretation RESULT: Negative for HPV. No E6 or E7 mRNA is detected from HPV types 16,18,31,33,35, 39,45,51,52,56,58, 59,66, and 68 by vp mediated amplification. Comments Document reviewed and electronically signed by: ? System Interface ? Report date: 09/28/2017 By the signature above, the attending physician certifies that he/she has personally conducted a gross and/or microscopic examination of the described specimens and rendered or confirmed the above diagnosis. End of Report [facility] 09/16/2017 09/19/2017 us Susan Saldaan STUDIO MANAGER PATHOLOGY ORDERABLES Tania julián Result [facility] [address] [place] [address] documented in this encounter Visit Diagnoses Not on filedocumented in this encounter Care Teams Mental Health Specialist Relationship Specialty Start Date End Date Yohan Hendrikcs MD PCP - General 08/20/15 documented as of this encounter
--- OUTSIDE RECORDS SUMMARY | 2024-11-17 17:56 | XMS_ITS | Encounter Summary ---
Author Organization [facility] Address [address] [place] [address] Care Team Providers Care Product Engineering Manager Name Role Phone Unavailable Primary Care Provider Unavailabl e Encounter Details Date Type Department Care Team (Late st Contact Info) Description 04/15/2010 Results Only [facility] Laboratory Services - [facility] ([facility] [address] [place] [address] [phone] Irina Montoya, MADHU Social History Tobacco Use [...] ORDERA BLES Final Result [facility] [address] [place] [address] * CYTOPATHOLOGY (04/15/2010 0:00 EDT) Pathology Report: CYTOPATHOLOGY REPORT ? Reports generated via electronic interface contain original data; ? however they are lacking the format of the original report. ? Caution should be taken when reading/interpreti ng unformatted reports. ? Name: ? CARLENE ZENDEJAS ? Accession #: ? [id number] ? : ? 1980 (Age: 29) ??F ?Collect Date: ? 04/15/2010 ? Location: ? [facility] ? Receive Date: ? 04/16/2010 ? Provider: ?IRINA M BARB REHAB OFFICE COORDINATOR ? Copy to: ? Specimen/Source: ?Pap Test, [...] [facility] 04/15/2010 04/16/2010 us Irina Montoya REHAB OFFICE COORDINATOR PATHOLOGY ORDERABLES Final Re sult [facility] [address] [place] [address] documented in this encounter Visit Diagnoses Not on filedocumented in this encounter
--- OUTSIDE RECORDS SUMMARY | 2024-11-17 17:56 | XMS_ITS | Encounter Summary ---
Author Organization [facility] Address [address] [place] [address] Care Team Providers Care Dewaxer Name Role Phone Unavailable Primary Care Provider Unavailabl e Encounter Details Date Type Department Care Team (Late st Contact Info) Description 06/18/2005 Results Only [facility] - Maple conversion [address] [place] [address] Geovanny Orozco CNM [address] [place] [phone] Social History Tobacco Use Types Packs/Day Years [...] Name: ? AMANDARACHELCARLENE ? Accession #: ? [id number] : ? 1980 (Age: 24) ??F ?Collect Date: ? 06/18/2005 Location: ? [facility] ? Receive Date: ? 06/22/2005 Provider: ?GEOVANNY OROZCO CNM Copy to: ? Specimen/Source: ?ThinPrep Pap Test, Cervix/Endocervix, processed on Noteleaf ThinPrep Imaging System, with manual evaluation Last [...] Final Resul t [facility] [address] [place] [address] documented in this encounter Visit Diagnoses Not on filedocumented in this encounter
--- OUTSIDE RECORDS SUMMARY | 2024-11-17 17:56 | XMS_ITS | Encounter Summary ---
Author Organization [facility] Address [address] [place] [address] Care Team Providers Care Contract Analyst Name Role Phone Yohan Hendricks MD Primary Care Provider Unavail able Encounter Details Date Type Department Care Team (Late st Contact Info) Description 04/17/2018 Results Only [facility]- [facility] [phone] Sona Pierson MD [address] [place] [address] [address] [place] [address] Social History Tobacco Use Types [...] VARICELLA IGG ANTIBODY (04/17/2018 14:53 EDT) Pathologist [facility] Varicella IgG Ab Positive 04/18/2018 11:48 EDT [facility] Comment: Presence of detectable Varicella Zoster virus IgG antibodies. BLOOD SPECIMEN / Unknown 04/17/2018 14:53 EDT 04/17/2018 15:27 EDT us oSna Pierson MD IMMUNOLOGY AND SEROLOGY O RDERABLES Final Result Performing Organization Address [facility] Co de Phone Number [facility] [address] [place] [address] * TOXOPLASMA AB, IGM, S (04/17/2018 14:53 EDT) Pathologist [facility] Toxoplasma Ab, IgM Negative Negative 04/19/2018 9:36 EDT [facility] Comment: (Note) No IgM antibodies to T. gondii detected. Results may be negative up to 7 days following infection. Performed by: [facility]: [facility] [address], [place] [address], Lab Dir: Evetron Lopez II, M.D., Ph.D. BLOOD SPECIMEN / Unknown 04/17/2018 14:53 EDT 04/17/2018 15:27 EDT Sona Pierson MD IMMUNOLOGY AND SEROLOGY O RDERABLES Final Result Performing Organization Address [facility] de Phone Number [facility] [address] [place] [address] * TOXOPLASMA GONDII AB, IGG, S (04/17/2018 14:53 EDT) Pathologist [facility] Toxoplasma Ab, IgG Negative Negative 04/19/2018 9:36 EDT [facility] Toxoplasma IgG Value <3 IU/mL 04/19/2018 9:36 EDT [facility] Comment: (Note) . REFERENCE VALUE <=9 IU/mL (Negative) 10-11 IU/mL (Equivocal) >=12 IU/mL (Positive) Performed by: [facility]: [address], [place] [address], Lab Dir: Everton Lopez II, M.D., Ph.D. BLOOD SPECIMEN / Unknown 04/17/2018 14:53 EDT 04/17/2018 15:27 EDT us Sona Pierson MD CHEMISTRY & BLOOD GAS ORD ERABLES Final Result Performing Organization Address City/[facility]/ZIP Co de Phone Number [facility] [address] [place] [address] * SYPHILIS SEROLOGY (04/17/2018 14:53 EDT) Syphilis Serology Negative 04/18/2018 11:49 EDT [facility] Comment:Reference Range: Neg ative BLOOD SPECIMEN / Unknown 04/17/2018 14:53 EDT 04/17/2018 15:27 EDT us Sona Pierson MD IMMUNOLOGY AND SEROLOGY O RDERABLES Final Result Performing Organization Address [facility] Co de Phone Number [facility] [address] [place] [address] * LYME AB (04/17/2018 14:53 EDT) Lyme AB Negative 04/18/2018 11:48 EDT [facility] Comment:Reference Range: Neg ative BLOOD SPECIMEN / Unknown 04/17/2018 14:53 EDT 04/17/2018 15:27 EDT us Sona Pierson MD IMMUNOLOGY AND SEROLOGY O RDERABLES Final Result Performing Organization Address City/[facility] Co de Phone Number [facility] [address] [place] [address] * HERPES SIMPLEX VIRUS (HSV) TYPE 1 & 2 AB, IGG (04/17/2018 14:53 EDT) HSV Type 1 Ab, IgG Negative 04/19/2018 13:58 EDT [facility] Comment: No detectable antibodies [...] 2 Ab, IgG Negative 04/19/2018 13:58 EDT [facility] Comment: No detectable antibodies [...] O RDERABLES Final Result Performing Organization Address City/[facility] Co de Phone Number [facility] [address] [place] [address] * CREATININE (04/17/2018 14:53 EDT) Creatinine 0.74 0.52 - 1.04 mg/dl 04/17/2018 15:59 EDT [facility] GFR, Calculated 103 >60 ml/min/1.7 3m2 04/17/2018 15:59 EDT [facility] Comment: eGFR calculated using CKD-EPI equation for non Americans. Multiply eGFR by 1.16 for Americans. BLOOD SPECIMEN / Unknown 04/17/2018 14:53 EDT 04/17/2018 15:27 EDT us Sona Pierson MD CHEMISTRY & BLOOD GAS ORD ERABLES Final Result Performing Organization Address [facility] Co de Phone Number [facility] [address] [place] [address] documented in this encounter Visit Diagnoses Not on filedocumented in this encounter Care Teams Contract Analyst Relationship Specialty Start Date End Date Yohan Hendricks MD PCP - General 08/20/15 documented as of this encounter
--- OUTSIDE RECORDS SUMMARY | 2024-11-17 17:56 | XMS_ITS | Encounter Summary ---
Author Organization [facility] Address [address] [place] [address] Care Team Providers Care Sexual Health Physician Name Role Phone Yohan Hendricks MD Primary Care Provider Unavail able Encounter Details Date Type Department Care Team (Late st Contact Info) Description 04/17/2018 Phlebotomy Only [facility] [place] [address] [place] [address] Political Science Research Assistant, Outpatient Social History Tobacco Use Types Packs/Day [...] on filedocumented in this encounter Care Teams Sexual Health Physician Relationship Specialty Start Date End Date Yohan Hendricks MD PCP - General 08/20/15 documented as of this encounter
--- OUTSIDE RECORDS SUMMARY | 2024-11-17 17:56 | XMS_ITS | Encounter Summary ---
Author Organization [facility] Address [address] [place] [address] Care Team Providers Care Hydro Electric Station Operator Name Role Phone Unavailable Primary Care Provider Reji e Encounter Details Date Type Department Care Team (Late st Contact Info) Description 03/22/2001 Results Only [facility] - Maple conversion [address] [place] [address] Meli Hirsch, [facility] [address] [place] [address] [place] [address] Social History Tobacco Use Types [...] ? CARLENE ZENDEJAS ? Accession #: ? [id number] : ? 1980 (Age: 20) ??F ?Collect Date: ? 03/22/2001 Location: ? [facility] ? Receive Date: ? 03/23/2001 Provider: ?MELI HIRSCH VETERINARY SURGEON Copy to: ? Specimen/Source: ?ThinPrep Pap Test, Cervix/Endocervix Last Menstrual Period: ? Bldg.on+off for mos. Hormonal/Contracep tive Status: ? Depo-Provera: off x 10 mos ? SPECIMEN ADEQUACY ? Satisfactory for evaluation. GENERAL CATEGORIZATION ? Benign Cellular Changes DESCRIPTIVE DIAGNOSIS ? Parakeratosis - surface reaction present. ? Document reviewed and electronically signed by: ? MARILYN RESTREPO MD [facility] ? Report Date: ??03/30/2001 17:38 End of Report [facility] 03/22/2001 03/23/2001 Meli Hirsch VETERINARY SURGEON PATHOLOGY ORDERABLES Final R esult [facility] [address] [place] [address] documented in this encounter Visit Diagnoses Not on filedocumented in this encounter
--- OUTSIDE RECORDS SUMMARY | 2024-11-17 17:56 | XMS_ITS | Encounter Summary ---
Author Organization [facility] Address [address] [place] [id number] Care Team Providers Care Solder Making Supervisor Name Role Phone Unavailable Primary Care Provider Unavailabl e Encounter Details Date Type Department Care Team (Late st Contact Info) Description 04/14/2009 Orders Only [facility] - [facility] ([facility] [address] [place] [address] [id number] Irina Montoya, MADHU Social History Tobacco Use [...] BLES Final Result [facility] [address] [place] [address] * CYTOPATHOLOGY (04/14/2009 0:00 EDT) Pathology Report: CYTOPATHOLOGY REPORT ? Reports generated via electronic interface contain original data; ? however they are lacking the format of the original report. ? Caution should be taken when reading/interpreti ng unformatted reports. ? Name: ? CARLENE ZENDEJAS ? Accession #: ? [id number] ? : ? 1980 (Age: 28) ??F ?Collect Date: ? 04/14/2009 ? Location: ? [facility] ? Receive Date: ? 04/15/2009 ? Provider: ?IRINA M BARB BUSINESS DEPARTMENT CHAIR ? Copy to: ? Specimen/Source: ?Pap Test, [...] [facility] PERALES 04/14/2009 04/15/2009 us Irina Montoya BUSINESS DEPARTMENT CHAIR PATHOLOGY ORDERABLES Final Re sult [facility] [address] [place] [address] documented in this encounter Visit Diagnoses Not on filedocumented in this encounter
--- OUTSIDE RECORDS SUMMARY | 2024-11-17 17:56 | XMS_ITS | Encounter Summary ---
Author Organization [facility] Address [address] [place] [address] Care Team Providers Care Import Coordinator Name Role Phone Yohan Hendricks MD Primary Care Provider Unavail able Encounter Details Date Type Department Care Team (Latest Contact Info) Description 04/17/2018 10:50 EDT - 04/17/2018 11:18 EDT Hospital Encounter [address] [address] Sona Pierson MD [address] [facility] [address] [place] [address] Discharge Disposition: Home or Self [...] on filedocumented in this encounter Care Teams Import Coordinator Relationship Specialty Start Date End Date Yohan Hendricks MD PCP - General 08/20/15 documented as of this encounter
[2024-11-17 18:01] VITALS: BP 138/88; PULSE 75; RESP 16; TEMP 36.6; O2SAT 98
[2024-11-17] MEDS: Lactated Ringers 1,000 ML 125 ML IV (18:45)
[2024-11-17 19:29] VITALS: BP 140/89; PULSE 69; RESP 17; TEMP 36.5; O2SAT 99
[2024-11-17] MEDS: Nicotine 14 MG/24 HR PATCH TD (20:15)
[2024-11-17] MEDS: Pantoprazole 40 MG VIAL IVP (20:16)
[2024-11-17] MEDS: Buprenorphine/Naloxone 4 mg/1 mg FILM 1 EACH SL (20:16)
[2024-11-17] MEDS: cloNIDine 0.1 MG TAB PO (20:17)
[2024-11-17] MEDS: Melatonin 3 MG TAB PO (20:17)
[2024-11-17] MEDS: Enoxaparin 40 MG/0.4 ML SYR SC (20:17)
[2024-11-17] MEDS: Normal Saline Flush 10 ML SYR IVP (20:18)
[2024-11-18] VITALS (7 sets, daily range): BP systolic 101–139; BP diastolic 60–97; PULSE 63–77; RESP 18–20; TEMP 36.4–36.8; O2SAT 94–99
[2024-11-18] MEDS: Prochlorperazine 10 MG/2 ML VIAL 5 MG IVP (01:14)
[2024-11-18] MEDS: Normal Saline Flush 10 ML SYR IVP ×4 (01:14→19:46)
[2024-11-18] MEDS: Ketorolac 15 MG/ML VIAL IVP ×4 (01:14→19:45)
[2024-11-18] MEDS: ACETAMINOPHEN 1,000 MG/100 ML BAG 400 MG IVPB ×3 (01:15→15:47)
[2024-11-18] MEDS: Lactated Ringers 1,000 ML 250 ML IV (04:11)
[2024-11-18 06:42] LABS: Abs Immature Grans 0.01 10^3/uL (0.0-0.06); Absolute Basophil Count 0.01 10^3/uL (0.0-0.2); Absolute Eosinophil Count 0.09 10^3/uL (0.0-0.7); Absolute Lymphocyte Count 1.14 10^3/uL (1.2-3.4); Absolute Monocyte Count 0.39 10^3/uL (0.1-0.8); Absolute Neutrophil Count 3.17 10^3/uL (1.2-6.7); Basophils % 0.2 %; Eosinophils % 1.9 %; HCT 40.1 % (36.0-46.0); HGB 13.5 g/dL (11.2-15.7); Immature Grans % 0.2 %; Lymphocytes % 23.7 %; MCH 32.4 pg (27.0-33.0); MCHC 33.7 % (32.0-36.0); MCV 96 fL (80-95); MPV 10.6 fL (8.0-11.0); Monocytes % 8.1 %; Neutrophils % 65.9 %; Platelet Count 158 10^3/uL (130-400); RBC 4.17 10^6/uL (3.93-5.22); RDW 11.9 % (11.7-14.6); RDW-SD 42.5 fL; WBC 4.81 10^3/uL (4.4-10.8)
[2024-11-18 07:02] LABS: Magnesium 2.3 mg/dL (1.8-2.4)
[2024-11-18 07:07] LABS: ALT 75 U/L (14-59); AST 53 U/L (15-37); Albumin 2.6 g/dL (3.4-5.0); Alkaline Phosphatase 60 U/L (46-116); Anion Gap 7.1 mmol/L (3-11); BUN 14 mg/dL (7-18); Bilirubin, Total 0.41 mg/dL (0.2-1.0); CO2 27.9 mmol/L (21.0-32.0); CREATININE 0.8 mg/dL (0.55-1.02); Calcium 9.3 mg/dL (8.5-10.1); Chloride 104 mmol/L (98-107); Estimated GFR 92.54 (mL/min/1.73m2); Glucose 89 mg/dL (74-106); Potassium 3.8 mmol/L (3.5-5.1); Sodium 139 mmol/L (136-145); Total Protein 5.9 g/dL (6.4-8.2)
[2024-11-18] MEDS: Buprenorphine/Naloxone 8 mg/2 mg FILM 1 EACH SL (07:46)
[2024-11-18] MEDS: Nicotine 14 MG/24 HR PATCH TD (07:46)
[2024-11-18] MEDS: Escitalopram 10 MG TAB PO (07:46)
--- NOTE | 2024-11-18 09:37 | INITIAL_ITS ---
Date of service: 11/18/24 Time of Service: 09:38 Care Management Initial Assmt Initial Assessment Reason for Hospitalization: Pancreatitis Functional Status/Living Situation Patient Presentation: Carlene was not in her room when CM attempted to meet with her. CM will check back at a later time. Information obtained is per chart review. Town of Residence: [place] Significant Other/Family: Local Natural Supports: Leslie Bhaty- Mother Shasha Pulliam-sister Medications Medication Management: No Issues/Barriers identified Physical Functioning/Mobility Assistive Device: None Advance Directives Advance Directives: Do you have an Advance Directive: N 02/09/13 18:47 AD On File at [facility]: N 02/09/13 18:47 Date Asked 11/17/24 11/17/24 13:46 AD Date Reviewed COLST On File at [facility] COLST Date Scanned Code Status Resuscitation Status Full Code Portal Pt does not currently have a portal and education provided: Yes Insurance Coverage/Financial Issues Insurance: Medicaid Care Team Visit Care Team Role Provider Type Sebastian Wills Primary Care Provider NON-[facility] STAFF PHYSICIAN Danitza Chisholm MD Emergency Provider [facility] STAFF PHYSICIAN Mata Reyes Admit Provider [facility] STAFF PHYSICIAN Attending Provider Discharge Potential Discharge Needs: PCP F/U Appt Anticipated Barriers to Discharge: Medical Status Patient/Family Education Needs: Review discharge instructions, discuss Ask Me Three Transportation: Private vehicle Plan: Anticipate, Carlene will discharge home when medically cleared. Pt will follow up with her PCP and community supports already in place for ETOH abuse. [facility] Machine Set Up Operator referral will be offered during this admission. No new services are anticipated at this time. Carlene will arrange her own transportation, otherwise RCT will be offered. CM will follow. Social Determinants of Health Screening Social Determinants of Health last assessed: 11/18/24 Will the Patient Participate in the Screening?: Yes Do you worry about having a steady place to live?: no Problems where you live: no known problems In the past 12 months, have you had to go without electric, gas, oil or water in your home?: no Have you or anyone in your house had to go without enough food to eat?: no Has lack of transportation kept you from medical appointments or from doing things needed for daily living?: no Has anyone in your life made you feel unsafe or unsupported?: no How hard is it for you to pay for the very basics like food, housing, medical care, and heating? Would you say it is:: Somewhat hard Do you want help finding or keeping work or a job?: I do not need or want help If for any reason you need help with day-to-day activities such as bathing, preparing meals, shopping, managing finances, etc., do you get the help you need?: I don?t need any help How often do you feel lonely or isolated from those around you?: Never Do you speak a language other than Upper Sor[place] at home?: Yes Does the patient want assistance with any of the above?: No Health Related Social Needs Health related social needs: problems related to housing/economic circumstances (Z59.89) and education (Z55.6) PFSH All Active Problems (Updated 11/17/24 @ 19:15 by Jodee Ramesh APRN) Alcohol abuse (Chronic) On deep vein thrombosis (DVT) prophylaxis (Acute) Hypomagnesemia (Acute) Abnormal transaminases (Acute) Pancreatitis (Chronic) Dense breast tissue on mammogram (Acute) Opioid abuse (Acute) 12/2020. Uses Suboxone that she purchases. Tobacco use (Acute) Encounter for IUD removal (Acute) Counseling for control regarding intrauterine device (IUD) (Acute) Screening for malignant neoplasm of cervix (Acute) Routine screening for STI (sexually transmitted infection) (Acute) Anxiety (Chronic) Malignant melanoma (Acute) 5mm thick Left neck 1.5x1cm lesion Chronic narcotic dependence (Acute) ADHD (Acute) Smoker (Acute) Abnormal positron emission tomography (PET) scan (Acute) right breast abmormality that was inconclusive. AND MAMMOGRAM ARE NEGATIVE. RECOMMENDED MRI. THIS IS PENDING. Medical History (Updated 11/17/24 @ 19:15 by Jodee Ramesh APRN) Depression Visual changes Abscess of skin Plantar fasciitis, bilateral PTSD (post-traumatic stress disorder) Per pt. states no triggers at this time. IV drug abuse Pt. states last used 08/2022. Hepatitis C treated w/ negative viral load Surgical History (Updated 12/31/22 @ 06:44 by Ailyn Salazar) History of placement of ear tubes H/O wisdom tooth extraction No significant past surgical history Family History Mother Hyperlipidemia Father Hyperlipidemia Grandfather , Heart disease Myocardial infarction >50y.o Grandmother Breast cancer Other Diabetes Social History (Updated 12/21/20 @ 22:22 by Elizabeth Berman MD) Smoking/Tobacco Use Status: Current every day Tobacco Type: cigarettes Smoking risk assessment performed?: Yes Alcohol Intake: former Drug use: Current Sobriety Substance use type: former substance user, crack/cocaine and heroin Household members: children and other Details: lives with daughter who is excellent student. Housing: house Number of Children: 2 current occupation: not employed Do you feel safe at home: Yes Do you feel safe in your relationship?: Yes
[2024-11-18] MEDS: Lactated Ringers 1,000 ML 125 ML IV ×2 (11:47→21:57)
--- NOTE | 2024-11-18 12:18 | W.PM.PROGNOT ---
Date of Service Date of service: 11/18/24 Time of Service: 12:18 Assessment and Plan Assessment and plan (1) Pancreatitis: Status: Chronic Assessment and plan: elevated lipase level and imaging reporting finding of pancreatitis Contiinue IVF: LR at 125 cc an hour- d/c when can tolerate adequate oral intake Pain management with scheduled acetaminophen and ketorolac; effective . Avoid opioids as per point 3 Cr stable H&H from 16 & 46 to 13 & 40 most likely d/t dilution Continue compazine PRN Continue Protonix IV Liver/ABD US on Tuesday Lipid panel (2) Abnormal transaminases: Status: Acute Assessment and plan: On admission as per CMP: mild transaminitis and scheduled Tylenol adjusted for patient over 65 Improving Will continue to monitor (3) Opioid abuse: Status: Acute Assessment and plan: Continue therapy as per home medicine regimen with Suboxone twice a day (4) Tobacco use: Status: Acute Assessment and plan: Continue Nicotine replacement therapy (5) Hypomagnesemia: Status: Acute Assessment and plan: Resolved (6) Alcohol abuse: Status: Chronic Assessment and plan: On admission, RASS at 0 - Ethyl level < 3; she was sober over the past 1 to 2 weeks before drinking the day prior to presentation Most likley to have precipitated pancreatitis as imaging were negative for hepatic findings Alcohol withdrawal assessment every 4 hours- negative (7) On deep vein thrombosis (DVT) prophylaxis: Status: Acute Assessment and plan: On low molecular weight heparin Discussed with Dr. Reyes Subjective Subjective Patient reports: no new complaints, feels better, pain is less, tolerating liquids well, tolerating a regular diet (limited intake d/t pressure and fullness sensation ), voiding w/o difficulty and flatus; denies diarrhea, nausea, vomiting, shortness of breath or afebrile Exam Narrative Exam Narrative: Constitutional The patient is without acute distress, improved abdominal pain Neuro:alert and oriented X4 non focal Resp: Clear lung bilaterally Cardio: regular rhythm, S1, S2, no murmur GI: abd is not distended, soft and slight tenderness to L and R upper quadrants, bowel sounds are diminished : Negative Costovertebral angle tenderness, Integumentary: No skin lesions or rash Psych: RASS 0, congruent mood and normal affect. Objective Last Vital Signs Temp 36.7 C 11/18/24 11:51 Pulse 74 11/18/24 11:51 Resp 18 11/18/24 11:51 BP 139/97 H 11/18/24 11:51 Pulse Ox 94 11/18/24 11:51 Laboratory Results - last 24 hr 11/17/24 11/17/24 11/17/24 13:19 14:05 14:24 WBC 6.37 RBC 4.97 Hgb 16.2 H Hct 46.6 H MCV 94 MCH 32.6 MCHC 34.8 RDW 11.9 Plt Count 197 MPV 10.6 Immature Gran % 0.3 Neutrophils % 81.3 Lymphocytes % 9.7 Monocytes % 6.9 Eosinophils % 1.6 Basophils % 0.2 Nucleated RBC % 0.0 Absolute Neutrophils 5.18 Absolute Lymphocytes 0.62 L Absolute Monocytes 0.44 Absolute Eosinophils 0.10 Absolute Basophils 0.01 Sodium 137 Potassium 3.9 Chloride 101 Carbon Dioxide 27.8 Anion Gap 8.2 BUN 17 Creatinine 0.9 Est GFR (CKD-EPI 2020) 80.34 Glucose 132 H Calcium 10.2 H Magnesium 1.7 L Total Bilirubin 0.69 AST 56 H ALT 107 H Alkaline Phosphatase 78 Troponin I < 4 Total Protein 7.7 Albumin 3.5 Lipase 2396 H Urine Color Urine Clarity Urine pH Ur Specific [place] Urine Protein Urine Ketones Urine Blood Urine Nitrite Urine Bilirubin Urine Urobilinogen Ur Leukocyte Esterase Urine Glucose Ethyl Alcohol < 3.0 COVID-19 Source Nasopharynx SARS-CoV-2 (PCR) Negative Influenza Type A (PCR) Negative Influenza Type B (PCR) Negative RSV (PCR) Negative 11/17/24 11/17/24 11/17/24 14:30 14:40 16:30 WBC RBC Hgb Hct MCV MCH MCHC RDW Plt Count MPV Immature Gran % Neutrophils % Lymphocytes % Monocytes % Eosinophils % Basophils % Nucleated RBC % Absolute Neutrophils Absolute Lymphocytes Absolute Monocytes Absolute Eosinophils Absolute Basophils Sodium Potassium Chloride Carbon Dioxide Anion Gap BUN Creatinine Est GFR (CKD-EPI 2020) Glucose Calcium Magnesium Total Bilirubin AST ALT Alkaline Phosphatase Troponin I Cancelled Cancelled Total Protein Albumin Lipase Urine Color Yellow Urine Clarity Clear Urine pH 5.5 Ur Specific [place] >= 1.030 H Urine Protein Negative Urine Ketones 15 H Urine Blood Negative Urine Nitrite Negative Urine Bilirubin Small H Urine Urobilinogen 1.0 H Ur Leukocyte Esterase Negative Urine Glucose Negative Ethyl Alcohol COVID-19 Source SARS-CoV-2 (PCR) Influenza Type A (PCR) Influenza Type B (PCR) RSV (PCR) 11/18/24 06:26 WBC 4.81 RBC 4.17 Hgb 13.5 D Hct 40.1 MCV 96 H MCH 32.4 MCHC 33.7 RDW 11.9 Plt Count 158 MPV 10.6 Immature Gran % 0.2 Neutrophils % 65.9 Lymphocytes % 23.7 Monocytes % 8.1 Eosinophils % 1.9 Basophils % 0.2 Nucleated RBC % 0.0 Absolute Neutrophils 3.17 Absolute Lymphocytes 1.14 L Absolute Monocytes 0.39 Absolute Eosinophils 0.09 Absolute Basophils 0.01 Sodium 139 Potassium 3.8 Chloride 104 Carbon Dioxide 27.9 Anion Gap 7.1 BUN 14 Creatinine 0.8 Est GFR (CKD-EPI 2020) 92.54 Glucose 89 Calcium 9.3 Magnesium 2.3 Total Bilirubin 0.41 AST 53 H ALT 75 H Alkaline Phosphatase 60 Troponin I Total Protein 5.9 L Albumin 2.6 L Lipase Urine Color Urine Clarity Urine pH Ur Specific [place] Urine Protein Urine Ketones Urine Blood Urine Nitrite Urine Bilirubin Urine Urobilinogen Ur Leukocyte Esterase Urine Glucose Ethyl Alcohol COVID-19 Source SARS-CoV-2 (PCR) Influenza Type A (PCR) Influenza Type B (PCR) RSV (PCR) PAWSS Have you Been Recently Intoxicated or Drunk Within the Last 30 days?: Yes Have you Ever Experienced Previous Episodes of Alcohol Withdrawal?: No Have you ever Experienced Withdrawal Seizures?: No Have you ever Experienced Delirium Tremens(DT)s?: No Have you ever undergone Alcohol Rehabilitation Treatment (i.e, inpt ot outpatient treatment programs)?: No Have you ever Experienced Blackouts?: Yes Have you ever Combined Alcohol with other Downers within the last 90 days?: No Have you ever Combined Alcohol with any other Substance of Abuse during the last 90 days?: No Evidence of Increased Autonomic Activity (i.e. HR>120, tremor, sweating, agitation, nausea)?: No Result: 2 Time Spent with Patient Time Spent with Patient: >50 minutes Time was spent: preparing to see the patient(eg.review tests), obtaining and/or reviewing separately otained hiistory, ordering medications,tests, procedures, referring, communicating with other health critical care nurse specialist, indepentently interpreting results, counseling the patient and care coordination
[2024-11-18] MEDS: Melatonin 3 MG TAB PO (19:45)
[2024-11-18] MEDS: Buprenorphine/Naloxone 4 mg/1 mg FILM 1 EACH SL (19:45)
[2024-11-18] MEDS: Pantoprazole 40 MG VIAL IVP (19:45)
[2024-11-18] MEDS: Enoxaparin 40 MG/0.4 ML SYR SC (19:47)
[2024-11-19] MEDS: ACETAMINOPHEN 1,000 MG/100 ML BAG 400 MG IVPB ×2 (00:25→09:21)
[2024-11-19] MEDS: Ketorolac 15 MG/ML VIAL IVP ×2 (02:36→09:20)
[2024-11-19] MEDS: Normal Saline Flush 10 ML SYR IVP ×2 (02:37→09:21)
[2024-11-19 03:39] VITALS: BP 101/63; PULSE 66; RESP 18; TEMP 36.6; O2SAT 94
[2024-11-19 07:08] LABS: Abs Immature Grans 0.01 10^3/uL (0.0-0.06); Absolute Basophil Count 0.01 10^3/uL (0.0-0.2); Absolute Eosinophil Count 0.13 10^3/uL (0.0-0.7); Absolute Monocyte Count 0.55 10^3/uL (0.1-0.8); Absolute Neutrophil Count 3.08 10^3/uL (1.2-6.7); Basophils % 0.2 %; Eosinophils % 2.6 %; HCT 42.8 % (36.0-46.0); HGB 14.1 g/dL (11.2-15.7); Immature Grans % 0.2 %; Lymphocytes % 25.6 %; MCH 32.4 pg (27.0-33.0); MCHC 32.9 % (32.0-36.0); MCV 98 fL (80-95); MPV 10.5 fL (8.0-11.0); Monocytes % 10.8 %; Neutrophils % 60.6 %; Platelet Count 137 10^3/uL (130-400); RBC 4.35 10^6/uL (3.93-5.22); RDW 12.1 % (11.7-14.6); RDW-SD 44.7 fL; WBC 5.08 10^3/uL (4.4-10.8)
[2024-11-19 07:25] LABS: ALT 81 U/L (14-59); AST 69 U/L (15-37); Albumin 2.5 g/dL (3.4-5.0); Alkaline Phosphatase 67 U/L (46-116); Anion Gap 9.1 mmol/L (3-11); BUN 11 mg/dL (7-18); Bilirubin, Total 0.41 mg/dL (0.2-1.0); CO2 27.9 mmol/L (21.0-32.0); CREATININE 0.8 mg/dL (0.55-1.02); Calcium 8.8 mg/dL (8.5-10.1); Calculated LDL 59 mg/dL (<100); Chloride 104 mmol/L (98-107); Cholesterol 138 mg/dL (<200); Estimated GFR 92.54 (mL/min/1.73m2); Glucose 84 mg/dL (74-106); HDL Cholesterol 54 mg/dL (40-60); Potassium 3.9 mmol/L (3.5-5.1); Sodium 141 mmol/L (136-145); Total Protein 5.9 g/dL (6.4-8.2); Triglyceride 128 mg/dL (<150)
[2024-11-19 07:54] VITALS: BP 116/73; PULSE 81; RESP 18; TEMP 37; O2SAT 94
--- NOTE | 2024-11-19 08:00 | DI.US_ITS ---
Exam(s) US ABDOMEN EXAM: US ABDOMEN CLINICAL HISTORY: pancreatitis TECHNIQUE: Ultrasound of complete upper abdomen performed using standard protocol. COMPARISON: CT CT ABDOMEN PELVIS W from 11/17/2024 US POCUS EXAM from 11/17/2024 FINDINGS: There is no ascites evident. LIVER: There are no hepatic lesions evident nor obvious dilatation of intrahepatic ducts. GALLBLADDER/BILIARY: There are no gallstones. No gallbladder wall edema nor pericholecystic fluid. The common hepatic duct isnot dilated, measuring 3-4mm at the level of oscar hepatis. PANCREAS: There is no evidence of pancreatic mass nor dilatation of the pancreatic duct. No peripanc reatic fluid collections evident, given recent history pancreatitis as seen on CT scan of 2 days prio r. SPLEEN: The spleen is not enlarged and there are no intrasplenic lesions evident. KIDNEYS:Kidneys exhibit normal size with no evidence of solid mass, calculus, nor hydronephrosis. No cortical cysts evident. ABDOMINAL AORTA: There is no evidence of abdominal aortic aneurysm. IVC: Normal diameter where visualized. IMPRESSION: 1. No evidence of cholelithiasis nor dilatation of the biliary tree. 2. No abnormal peripancreatic fluid collections, given the findings consistent with pancreatitis wenceslao dent on CT scan performed 2 days prior. 3. There is no ascites. DATA REPOSITORY:
[2024-11-19] MEDS: Buprenorphine/Naloxone 8 mg/2 mg FILM 1 EACH SL (09:20)
[2024-11-19] MEDS: Escitalopram 10 MG TAB PO (09:20)
[2024-11-19] MEDS: Nicotine 14 MG/24 HR PATCH TD (09:23)
[2024-11-19 11:28] VITALS: BP 109/70; PULSE 59; RESP 18; TEMP 36.8; O2SAT 92
[2024-11-19] MEDS: Methylnaltrexone 12 MG/0.6 ML VIAL SC (12:38)
--- NOTE | 2024-11-19 18:20 | CMDISCH_ITS ---
Date of service: 11/19/24 Time of Service: 12:30 LACE Index Scoring Tool Questions: Length of Stay (in days): 2 Was the patient admitted via the E.D.?: Yes E.D. Visits: 1 Answers: Total Score: 6 Risk of Readmission: Low Risk Care Management Discharge Plan Reason for Hospitalization: acute pancreatitis Discharge Plan: Carlene was discharged home today with no new services. She was given a return to work letter by CM. Carlene will f/u with her PCP and continue per her plan of care. She was transported home by her daughter. Patient/Family Education Needs: Review of discharge instructions, activity, dietary restrictions, f/u plan and discuss ask me 3. SDOH Health Related Social Needs: Health related social needs problems related to housin g/economic circumstances (Z59.89), education (Z55.6)
--- NOTE | 2024-11-19 18:51 | DSE_ITS ---
Date of service: 11/19/24 Time of Service: 12:00 DS: Diagnosis Discharge Diagnosis (1) Pancreatitis: Status: Chronic (2) Abnormal transaminases: Status: Acute (3) Opioid abuse: Status: Acute (4) Tobacco use: Status: Acute (5) Hypomagnesemia: Status: Acute (6) Alcohol abuse: Status: Chronic (7) On deep vein thrombosis (DVT) prophylaxis: Status: Acute Discharge Plan Disposition Patient Disposition: Home Condition: Improving Discharge Details Reason For Visit: Pancreatitis,intractable pain,nausea and vomitin Admit Date/Time: 11/17/24 16:57 Admit Provider: Willow Chan Attending Provider: Willow Chan [facility] Hospital Course: This is a 44-year-old female with a history of opioid dependence (on chronic Suboxone), tobacco use, and alcohol use disorder who presented to the emergency department with complaints of nausea, vomiting, and left upper quadrant abdominal pain radiating from the epigastric region, which began the previous night. The patient denied fever, chills, night sweats, hematemesis, coffee- ground emesis, hematochezia, diarrhea, or dysuria. She also reported a sensation of heartburn but denied chest pain. Her most recent alcohol consumption was on November 16, 2024, after being sober for over a week. She has a counselor for her alcohol abuse. Clinical Findings: * Vital Signs: The patient was hemodynamically stable and afebrile. * Physical Exam: The patient did not demonstrate any signs of acute distress. Abdominal exam was notable for tenderness in the left upper quadrant with no guarding or rebound tenderness. Diagnostic Work-up: * Lipase: 2396 U/L (significantly elevated, suggestive of pancreatitis) * Leukocytosis: Not present. * Chemistry: Mild transaminitis; Magnesium level was 1.7 mg/dL (low). * Abdominal Ultrasound (POCUS): No evidence of cholelithiasis or cholecystitis. * Abdominal CT: Acute interstitial pancreatitis, with no evidence of pancreatic necrosis or fluid collections. Hospital Course: The patient was admitted to the medical-surgical floor for further evaluation and management of acute pancreatitis, nausea, vomiting, and hypomagnesemia. Her diet was advanced as tolerated. Today she denies pain, no nausea, no vomiting and appears clinically stable. * Pancreatitis Management: The patient was started on supportive care, including IV fluids, pain management, and antiemetics. Her pancreatitis was managed conservatively with bowel rest. * Hypomagnesemia: Magnesium supplementation was initiated. * Alcohol Use: The patient?s last alcohol use was noted to be on November 16, 2024. Her Ethyl alcohol level on admission was less than 3. She is followed by a counselor for alcohol use disorder. Discharge Plan: * Medications: * IV fluids and antiemetics during hospitalization. * Oral magnesium supplementation. * Follow-up Care: * Alcohol Use Disorder: Follow up with her addiction counselor. * Primary Care Provider: Follow up within 1-2 weeks. * Gastroenterology: As needed for ongoing management of pancreatitis. * Lifestyle and Dietary Modifications: * Abstain from alcohol to prevent recurrence of pancreatitis. * Advised to follow a low-fat diet upon discharge. * Education: * The patient was educated on the importance of avoiding alcohol, smoking cessation, and the potential risks of future pancreatitis episodes with continued alcohol use. * The patient was encouraged to report any new or worsening symptoms, including abdominal pain, nausea, or vomiting, to her healthcare provider promptly. Home Meds and New Rx's Prescriptions: Continued buprenorphine-naloxone 8-2 mg film 2 film buccal BID Rx Instructions: place 1 film on inside of (each) cheek clonidine HCl 0.1 mg tablet 0.1 mg PO QHS PRN docusate sodium 100 mg capsule 100 mg PO DAILY PRN lidocain-me.otfvtmy-bjgj-zydqa 4-20-0.025-5 % adhesive patch,medicated See Rx Instructions .ROUTE .COMPLEX Qty: 10 0RF Rx Instructions: Please 1 patch in front of, or behind the incision. Leave in place for 12 hours. Remove, wash the area with soap and water and leave off for 12 hours, then reapply as needed escitalopram oxalate 10 mg tablet 10 mg PO DAILY Patient Comments: TAKE ONE TABLET BY MOUTH EVERY DAY FOR ANXIETY buprenorphine-naloxone 8-2 mg tablet, sublingual 2 tab SUBLINGUAL BID Patient Comments: PLACE TWO AND ONE-HALF TABLETS UNDER THE TONGUE EVERY DAY FOR 8 DAYS Discharge Instructions Instructions: Acute pancreatitis Additional Instructions: Do not drink alcohol. Advance diet as tolerated, slowly. Drink plenty of fluids. Stand Alone Forms: Nursing Discharge Form Referrals: Sebastian Wills [Primary Care Provider] - (Please call the office to make a hospital follow up within 7-10 days) Activity:: Activity as Tolerated Equipment/Supplies:: No Equipment Needed Diet:: advance as tolerated Discharge Orders Discharge Orders: Discharge Order (Routine); Ordered 11/19/24 Ordered By: Willow Chan Discharge Data Discharge Date/Time-TO BE ENTERED AT DEPARTURE: 11/19/24 15:43 DS: Summary Time Spent with Patient providing and/or coordinating discharge services: Greater than 30 minutes Status at Discharge Functional status at discharge: independent ambulation Overall status at discharge: patient is progressing back to baseline Mental Status: mental status grossly normal Speech and Movement: speech and movement normal Mood: congruent mood Affect: normal affect Quality:SDOH Health Related Social Needs: Health related social needs problems related to housin g/economic circumstances (Z59.89), education (Z55.6) Exam Const Orientation: alert, awake and oriented x3 HENMT Head: normal to inspection Ears: hearing grossly normal bilaterally General nose exam: external nose normal Face and sinus: normal facial exam Mouth: oral mucosae normal Teeth and gingiva: dentition normal Eyes General: appearance normal, both eyes and all related structures Pupils: PERRL Neck Neck: normal visual inspection Lymphatic: no lymphadenopathy noted Chest Chest: normal inspection of the chest Resp Effort & Inspection: normal respiratory effort and able to speak in complete sentences Auscultation: clear to auscultation bilaterally Cardio Rate: regular rate Rhythm: regular rhythm GI Inspection: normal to inspection Palpation: soft, not firm, no guarding, no hepatosplenomegaly, no masses and nontender Auscultation: normal bowel sounds Neuro General: patient alert and patient awake Cognition: normal cognition Speech: speech normal Gait: normal gait Motor: muscle tone normal throughout Sensory Exam: no sensory deficits noted Extrem General: normal to inspection, full ROM, capillary refill normal and no edema Psych Appearance: grossly normal Mental Status: mental status grossly normal Speech and Movement: speech and movement normal Mood: congruent mood Affect: normal affect Thought Process: normal DS: Data Vitals/I&O Vitals and I&O: Vital Signs Temperature 36.8 C 11/19/24 11:28 Temperature Source Temporal Artery Scan 11/19/24 11:28 Pulse 59 L 11/19/24 11:28 Pulse Rhythm Regular 11/17/24 18:01 Respiratory Rate 18 11/19/24 11:28 Respiratory Effort Normal 11/17/24 18:01 Respiratory Depth Normal 11/17/24 18:01 Respiratory Pattern Normal 11/17/24 18:01 Blood Pressure 109/70 11/19/24 11:28 Blood Pressure Position Sitting 11/17/24 14:52 Pulse Oximetry 92 11/19/24 11:28 Oxygen Delivery Method Room Air 11/19/24 11:28 Oxygen Flow Rate 0 11/19/24 11:28 Pain Level 3 11/19/24 09:20 Intake & Output 11/18/24 11/19/24 11/19/24 23:59 11:59 23:59 Intake Total 1450.000 / 3550.000 1091.667 / 1431.667 340 / 1431.667 Balance 1450.000 / 3100.000 1091.667 / 1431.667 340 / 1431.667 Weight 76.5 kg Intake: IV 1200.000 / 3300.000 1091.667 / 1191.667 100 / 1191.667 Oral 250 / 250 240 / 240 Other: Urine Color Yellow Yellow Urine Appearance Clear Clear Urine Odor Normal Comment pt is voiding independently, denies any discomfort Data Completed and Pending Labs on day of discharge: Labs from last 24 hours 11/19/24 06:58 WBC 5.08 RBC 4.35 Hgb 14.1 Hct 42.8 MCV 98 H MCH 32.4 MCHC 32.9 RDW 12.1 Plt Count 137 MPV 10.5 Immature Gran % 0.2 Neutrophils % 60.6 Lymphocytes % 25.6 Monocytes % 10.8 Eosinophils % 2.6 Basophils % 0.2 Nucleated RBC % 0.0 Absolute Neutrophils 3.08 Absolute Lymphocytes 1.30 Absolute Monocytes 0.55 Absolute Eosinophils 0.13 Absolute Basophils 0.01 Sodium 141 Potassium 3.9 Chloride 104 Carbon Dioxide 27.9 Anion Gap 9.1 BUN 11 Creatinine 0.8 Est GFR (CKD-EPI 2020) 92.54 Glucose 84 Calcium 8.8 Total Bilirubin 0.41 AST 69 H ALT 81 H Alkaline Phosphatase 67 Total Protein 5.9 L Albumin 2.5 L Triglycerides 128 Total Cholesterol 138 LDL Cholesterol, Calc 59 HDL Cholesterol 54 PFSH All Active Problems (Updated 11/19/24 @ 12:04 by Willow Chan NP) Alcohol abuse (Chronic) On deep vein thrombosis (DVT) prophylaxis (Acute) Hypomagnesemia (Acute) Abnormal transaminases (Acute) Pancreatitis (Chronic) Dense breast tissue on mammogram (Acute) Opioid abuse (Acute) 12/2020. Uses Suboxone that she purchases. Tobacco use (Acute) Encounter for IUD removal (Acute) Counseling for control regarding intrauterine device (IUD) (Acute) Screening for malignant neoplasm of cervix (Acute) Routine screening for STI (sexually transmitted infection) (Acute) Anxiety (Chronic) Malignant melanoma (Acute) 5mm thick Left neck 1.5x1cm lesion Chronic narcotic dependence (Acute) ADHD (Acute) Smoker (Acute) Abnormal positron emission tomography (PET) scan (Acute) right breast abmormality that was inconclusive. AND MAMMOGRAM ARE NEGATIVE. RECOMMENDED MRI. THIS IS PENDING. Medical History (Updated 11/19/24 @ 12:04 by Willow Chan NP) Depression Visual changes Abscess of skin Plantar fasciitis, bilateral PTSD (post-traumatic stress disorder) Per pt. states no triggers at this time. IV drug abuse Pt. states last used 08/2022. Hepatitis C treated w/ negative viral load Surgical History (Updated 12/31/22 @ 06:44 by Ailyn Salazar) History of placement of ear tubes H/O wisdom tooth extraction No significant past surgical history Family History Mother Hyperlipidemia Father Hyperlipidemia Grandfather , Heart disease Myocardial infarction >50y.o Grandmother Breast cancer Other Diabetes Social History (Updated 12/21/20 @ 22:22 by Elizabeth Berman MD) Smoking/Tobacco Use Status: Current every day Tobacco Type: cigarettes Smoking risk assessment performed?: Yes Alcohol Intake: former Drug use: Current Sobriety Substance use type: former substance user, crack/cocaine and heroin Household members: children and other Details: lives with daughter who is excellent student. 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
== END 2024-11-19 15:43 | disposition home or self-care (01) | DRG 440 ==
LOC: ER 17:26 → MS 17:53
PROVIDERS: Nurse Practitioner Acute Care; Admitting Provider Nurse Practitioner Family; Emergency Provider Emergency Medicine; PCP Internal Medicine; Visit Provider Nurse Practitioner Family
DX: K85.90 Acute pancreatitis without necrosis or infection, unspecified (principal); F11.10 Opioid abuse, uncomplicated; F17.210 Nicotine dependence, cigarettes, uncomplicated; F10.10 Alcohol abuse, uncomplicated; E83.42 Hypomagnesemia; Z79.899 Other long term (current) drug therapy; R74.01 Elevation of levels of liver transaminase levels; F90.9 Attention-deficit hyperactivity disorder, unspecified type; F32.A Depression, unspecified; F43.10 Post-traumatic stress disorder, unspecified
CPT/HCPCS: 00123; 36415; 76705; 80053; 80061; 81025; 83690; 87637; 96365; 96375; 99285; J1650; 74177; 76700; 80320; 81003; 83735; 84484; 85025; 94667; 99223; 99233; 99239; J0131; J0780; J1885; J2212; J2405; J2470; J3475

== ENCOUNTER 2024-11-27 15:17 | Outpatient (REF) | payer MEDICAID, SELFPAY ==
[2024-11-27 19:44] LABS: ALT 74 U/L (14-59); AST 57 U/L (15-37); Alkaline Phosphatase 85 U/L (46-116); Bilirubin, Direct 0.1 mg/dL (0.0-0.2); Bilirubin, Total 0.23 mg/dL (0.2-1.0); Lipase 162 U/L (<78); Total Protein 7.6 g/dL (6.4-8.2)
== END 2024-11-27 15:18 | disposition home or self-care (01) ==
LOC: NCHCN 15:17
PROVIDERS: PCP Internal Medicine; Visit Provider Nurse Practitioner Family
DX: K85.90 Acute pancreatitis without necrosis or infection, unspecified (principal)
CPT/HCPCS: 80076; 83690